=== PATIENT | male | born 1945 | race Caucasian/White ===

== ENCOUNTER 2023-05-12 21:55 | Emergency (ER) | payer OTHER ==
--- NOTE | 2023-05-12 22:17 | ED ---
Fall HPI - General Stated Complaint: Fall Time Seen by Provider: 05/12/23 22:16 Source: patient, RN notes reviewed - History of Present Illness Initial Comments: Patient is a 77-year-old male presented ER with chief complaint of a fall. Patient states he was going to sit on the toilet and did not step far enough back and fell landing on his bottom. Patient was unable to get up off the ground so he called for help. EMS recommended he come in to the ER for evaluation. Patient does have chronic back pain. Patient denies any head injury or loss of consciousness. Patient denies any current pain. - Related Data Allergies Allergy/AdvReac Type Severity Reaction Status Date / Time ibuprofen [From Motrin] AdvReac Nausea Verified 05/12/23 22:20 Review of Systems ROS Statement: Those systems with pertinent positive or pertinent negative responses have been documented in the HPI. ROS Other: All systems not noted in ROS Statement are negative. General Exam - General Exam Comments Initial Comments: Visual Physical Exam Vital signs reviewed General: Well-appearing, nontoxic, no acute distress. Head: Normocephalic, atraumatic Eyes: PERRLA, EOMI ENT: Airway patent Chest: Nonlabored breathing Skin: No visual rash, normal skin tone Neuro: Alert and oriented 3 Musculoskeletal: No gross abnormalities Course Vital Signs 05/12/23 22:16 Temperature 97.8 F Pulse Rate 63 Respiratory 16 Rate Blood Pressure 111/72 O2 Sat by Pulse 98 Oximetry Medical Decision Making - Medical Decision Making I performed the quick note portion of the exam. Electronically signed by Jatin Chen PA-C Disposition Clinical Impression: Left against medical advice Disposition: LEFT AGAINST MEDICAL ADVICE Condition: Undetermined Referrals: None,Stated [Primary Care Provider] - 1-2 days Time of Disposition: 18:29
[2023-05-12 22:32] VITALS: BP 111/72; PULSE 63; RESP 16; TEMP 97.8
--- NOTE | 2023-05-13 00:08 | XR ---
EXAM: XR Lumbosacral Spine, 2 or 3 Views CLINICAL HISTORY: Pain TECHNIQUE: Frontal and lateral views of the lumbar spine and sacrum. COMPARISON: No relevant prior studies available. FINDINGS: No acute fracture. Maintenance of height of the vertebral bodies. 3.5 mm posterior subluxation of L3 on L4. Levoscoliosis with multilevel degenerative changes throughout the lumbar spine. Anterior and lateral bridging osteophytes are noted. Severe bilateral facet hypertrophy is noted at L3-4 through L5-S1. Bones are osteopenic. Vascular calcifications. IMPRESSION: Levoscoliosis with diffuse degenerative changes throughout the lumbar spine greatest at L3-4 through L5-S1.
== END 2023-05-12 23:40 | disposition left against medical advice (07) ==
LOC: EC 21:55
DX: G89.29 Other chronic pain (principal); M54.9 Dorsalgia, unspecified; Z88.6 Allergy status to analgesic agent; Z53.29 Procedure and treatment not carried out because of patient's decision for other reasons; W18.11XA Fall from or off toilet without subsequent striking against object, initial encounter
CPT/HCPCS: 72100; 99283

== ENCOUNTER 2023-05-27 09:00 | Day surgery (SDC) | payer OTHER ==
[2023-05-27 09:37] LABS: Mean Platelet Volume 8.2; Platelet Count 155 k/uL (150-450)
[2023-05-27 09:43] VITALS: RESP 16; TEMP 99
[2023-05-27 09:48] LABS: African American GFR (CKD) >90 (>60 ml/min/1.73 sqM); Non-African American GFR(CKD) 86 (>60 ml/min/1.73 sqM)
[2023-05-27 10:01] LABS: INR 1.2 (<1.2); Prothrombin Time 12.9 sec (10.0-12.5)
[2023-05-27] MEDS: ALBUMIN HUMAN 25% 50 ML in EMPTY BAG 1 BAG IVPB SCH ×4 (10:33→11:21)
[2023-05-27 11:50] VITALS: BP 126/75; PULSE 72
--- NOTE | 2023-05-27 15:15 | US ---
Ultrasound-guided paracentesis. DATE OF EXAM: 05/27/2023 CLINICAL HISTORY: Ascites The procedure was discussed with the patient. The risks, complications, benefits, and alternatives we re discussed and any questions were answered. Informed consent was obtained. The patient was placed s upine on the ultrasound table and prepped and draped in the usual sterile fashion. All elements of maximal barrier technique were utilized. Under ultrasound guidance, access into the right lower quadrant was obtained, via the paracentesis catheter system and direct ultrasound guidanc e. Approximately 9.2 liters of straw-colored fluid was removed. The patient was stable throughout the pr ocedure and remained stable upon discharge from Department of Radiology. IMPRESSION: Successful paracentesis under ultrasound guidance.
[2023-05-27 16:56] LABS: Appearance,BF Cloudy (Clear)
[2023-05-28 01:59] LABS: T. Protein, Body Fluid Source Ascities; Total Protein, Body Fluid 1370 mg/dL
[2023-05-28 02:00] LABS: Albumin, Fluid Source Ascities
== END 2023-05-27 11:50 | disposition home or self-care (01) ==
LOC: RADPROMAIN 09:00
DX: R18.8 Other ascites (principal)
CPT/HCPCS: 82042; 89050; 82565; 85049; 85610; 87070; 87205; 87075; 84157; 36415; 49083; 99214; P9047

== ENCOUNTER → 2023-06-08 | Outpatient (CLI) | payer MEDICARE, OTHER ==
--- NOTE | 2023-06-08 11:23 | USB ---
Reason for Exam: Clinical finding. Patient History: Other cancer, age 62. Prior Study Comparison: 09/01/2022 Bilateral Diagnostic Mammogram, Unknown. Findings: The whole breast of the left breast, the axilla of the left breast and the retroareolar of the left breast were scanned. No solid or cystic masses are identified.. Suspect gynecomastia. Correlate clinically. Overall Assessment: Benign, BI-RAD 2 Electronically signed and approved by: Tello Aguilar M.D. Radiologis
--- NOTE | 2023-06-08 13:47 | MM ---
Reason for Exam: Follow-up at short interval from prior study. Last screening mammogram was performed 9 month(s) ago. Patient History: Other cancer, age 62. Prior Study Comparison: 09/01/2022 Bilateral Diagnostic Mammogram, Unknown. 09/01/2022 Left US breast LT, Unknown. Tissue Density: Left: There are scattered fibroglandular densities. Findings: Analyzed By CAD. There is evidence of bilateral gynecomastia. No evidence for distinct mass or suspicious calcifications. Overall Assessment: Incomplete: need additional imaging evaluation, BI-RAD 0 Management: Diagnostic Breast Ultrasound of the left breast. . Results were given to the patient verbally at the time of exam. Patient should continue monthly self-breast exams. A clinical breast exam by your physician is recommended on an annual basis. This exam should not preclude additional follow-up of suspicious palpable abnormalities. Note on Iman scores and lifetime risk: 1. A Iman score greater than 3% is considered moderate risk. If this is the case, consider specialist referral to assess eligibility for a risk reducing agent. 2. If overall lifetime risk for the development of breast cancer is 20% or higher, the patient may qualify for future screening with alternating mammogram and breast MRI. Electronically signed and approved by: Tello Aguilar M.D. Radiologis
== END | disposition home or self-care (01) ==
LOC: RADMAMWWP 04-28 14:12
DX: R92.322 Mammographic fibroglandular density, left breast (principal)
CPT/HCPCS: 77061; 77065

== ENCOUNTER 2023-06-10 07:39 | Day surgery (SDC) | payer OTHER ==
[2023-06-10 09:32] LABS: INR 1.2 (<1.2); Prothrombin Time 12.7 sec (10.0-12.5)
[2023-06-10 09:36] LABS: African American GFR (CKD) >90 (>60 ml/min/1.73 sqM); Non-African American GFR(CKD) 87 (>60 ml/min/1.73 sqM)
[2023-06-10 09:51] LABS: Platelet Count 200 k/uL (150-450)
[2023-06-10 10:06] VITALS: RESP 16; TEMP 98.1
[2023-06-10] MEDS: ALBUMIN HUMAN 25% 50 ML in EMPTY BAG 1 BAG IVPB SCH ×4 (10:22→10:28)
[2023-06-10 11:52] VITALS: BP 126/80; PULSE 72
--- NOTE | 2023-06-11 13:15 | US ---
EXAMINATION TYPE: US paracentesis abd w/image DATE OF EXAM: 06/10/2023 11:07 AM CLINICAL INDICATION:Male, 77 years old with history of K74.60 UNSPECIFIED CIRRHOSIS OF LIVER; COMPARISON: 05/27/2023 ATTENDING: Dr. Bi German PROCEDURE: Informed consent was obtained. The risks of the procedure were extensively explained incl uding risk of damage to surrounding bowel with perforation and need for additional procedures. Proced ure was performed in the ultrasound procedure suite. Ultrasound imaging of the abdomen demonstrate as citic fluid. An appropriate access site was localized to the right lower abdomen. Timeout was taken p er protocol. The skin was prepped and draped in the usual sterile fashion and then locally anesthetiz ed with 1% lidocaine. The peritoneal cavity was then accessed via a 5-Urdu one-step needle/cathete r. Approximately 9500 cc of clear straw-colored fluid was obtained. Postprocedural imaging of the ab domen demonstrate a minimal amount of abdominal fluid. Patient tolerated procedure well without immediate complication. Hemostasis at the procedural site w as obtained with a sterile bandage placed. The patient was monitored in the holding area following th e procedure and was subsequently discharged in stable condition. IMPRESSION: Ultrasound guided paracentesis, with approximately 9500 cc of clear straw-colored fluid drained. No immediate complications were evident.
== END 2023-06-10 11:34 | disposition home or self-care (01) ==
LOC: RADPROMAIN 07:39
DX: K74.60 Unspecified cirrhosis of liver (principal)
CPT/HCPCS: 82565; 85049; 85610; 36415; 49083; P9047

== ENCOUNTER 2023-06-17 12:26 | Day surgery (SDC) | payer OTHER ==
[2023-06-17 13:08] LABS: Mean Platelet Volume 8.8; Platelet Count 161 k/uL (150-450)
[2023-06-17 13:25] LABS: African American GFR (CKD) >90 (>60 ml/min/1.73 sqM); Non-African American GFR(CKD) >90 (>60 ml/min/1.73 sqM)
[2023-06-17 13:48] LABS: INR 1.3 (<1.2); Prothrombin Time 13.7 sec (10.0-12.5)
[2023-06-17 14:05] VITALS: RESP 16; TEMP 98
[2023-06-17] MEDS: ALBUMIN HUMAN 25% 50 ML in EMPTY BAG 1 BAG IVPB SCH (14:22)
[2023-06-17 15:38] VITALS: BP 118/71; PULSE 69
--- NOTE | 2023-06-17 15:52 | US ---
Ultrasound-guided paracentesis. DATE OF EXAM: 06/17/2023 CLINICAL HISTORY: Ascites The procedure was discussed with the patient. The risks, complications, benefits, and alternatives we re discussed and any questions were answered. Informed consent was obtained. The patient was placed s upine on the ultrasound table and prepped and draped in the usual sterile fashion. All elements of maximal barrier technique were utilized. Under ultrasound guidance, access into the right lower quadrant was obtained, via the paracentesis catheter system and direct ultrasound guidanc e. Approximately 5.5 liters of straw-colored fluid was removed. The patient was stable throughout the pr ocedure and remained stable upon discharge from Department of Radiology. IMPRESSION: Successful paracentesis under ultrasound guidance.
== END 2023-06-17 15:10 | disposition home or self-care (01) ==
LOC: RADPROMAIN 12:26
PROVIDERS: ATTEND Internal Medicine Gastroenterology
DX: R18.8 Other ascites (principal)
CPT/HCPCS: 82565; 85049; 85610; 36415; 49083; P9047

== ENCOUNTER 2023-06-24 08:06 | Day surgery (SDC) | payer OTHER ==
[2023-06-24 09:26] LABS: HCT 40.4 % (39.0-53.0); HGB 12.6 gm/dL (13.0-17.5); Hypochromasia Moderate; MCHC 31.3 g/dL (31.0-37.0); MCV 105.3 fL (80.0-100.0); Macrocytosis Moderate; Mean Platelet Volume 8.1; Platelet Count 160 k/uL (150-450); RBC 3.83 m/uL (4.30-5.90); RDW 15.5 % (11.5-15.5); WBC 4.2 k/uL (3.8-10.6)
[2023-06-24 09:37] LABS: ALT 23 U/L (4-49); AST 51 U/L (17-59); African American GFR (CKD) >90 (>60 ml/min/1.73 sqM); Albumin 2.8 g/dL (3.5-5.0); Alkaline Phosphatase 160 U/L (38-126); Anion Gap 2 mmol/L; Blood Urea Nitrogen 15 mg/dL (9-20); Calcium 8.5 mg/dL (8.4-10.2); Carbon Dioxide 32 mmol/L (22-30); Chloride 105 mmol/L (98-107); Glucose 125 mg/dL (74-99); Non-African American GFR(CKD) 83 (>60 ml/min/1.73 sqM); Potassium 3.6 mmol/L (3.5-5.1); Sodium 139 mmol/L (137-145); Total Bilirubin 1.6 mg/dL (0.2-1.3); Total Protein 6.3 g/dL (6.3-8.2)
[2023-06-24 09:58] LABS: Eosinophils # (M) 0.08 k/uL (0-0.7); Lymphocytes # (M) 0.67 k/uL (1.0-4.8); Monocytes # (M) 0.42 k/uL (0-1.0); Neutrophils # (M) 3.02 k/uL (1.3-7.7); Neutrophils % (M) 72 %; Nucleated Red Blood Cells 0 /100 WBC (0-0); Total Cells Counted 100
[2023-06-24 10:22] VITALS: PULSE 60; RESP 18; TEMP 98.7
[2023-06-24] MEDS: ALBUMIN HUMAN 25% 50 ML in EMPTY BAG 1 BAG IVPB SCH (10:35)
[2023-06-24 10:53] VITALS: BP 121/62
--- NOTE | 2023-06-24 11:44 | US ---
EXAMINATION TYPE: US paracentesis abd w/image DATE OF EXAM: 06/24/2023 9:59 AM CLINICAL INDICATION:Male, 77 years old with history of cirrhosis; COMPARISON: 06/17/2023. ATTENDING: Dr. Bi German PROCEDURE: Informed consent was obtained. The risks of the procedure were extensively explained incl uding risk of damage to surrounding bowel with perforation and need for additional procedures. Proced ure was performed in the ultrasound procedure suite. Ultrasound imaging of the abdomen demonstrate as citic fluid. An appropriate access site was localized to the right lower abdomen. Timeout was taken p er protocol. The skin was prepped and draped in the usual sterile fashion and then locally anesthetiz ed with 1% lidocaine. The peritoneal cavity was then accessed via a 5-Swedish one-step needle/cathete r. Approximately 5200 cc of clear straw-colored fluid was obtained. Postprocedural imaging of the ab domen demonstrate a minimal amount of abdominal fluid. Patient tolerated procedure well without immediate complication. Hemostasis at the procedural site w as obtained with a sterile bandage placed. The patient was monitored in the holding area following th e procedure and was subsequently discharged in stable condition. IMPRESSION: Ultrasound guided paracentesis, with approximately 5200 cc of clear straw-colored fluid drained. No immediate complications were evident.
== END 2023-06-24 11:09 | disposition home or self-care (01) ==
LOC: RADPROMAIN 08:06
PROVIDERS: ATTEND Internal Medicine Gastroenterology
DX: K74.60 Unspecified cirrhosis of liver (principal)
CPT/HCPCS: 80053; 82140; 85025; 82105; 36415; 49083; P9047

== ENCOUNTER → 2023-06-30 | Outpatient (CLI) | payer OTHER ==
--- NOTE | 2023-06-30 15:24 | US ---
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 FINDINGS: EXAM MEASUREMENTS: Liver Length: 13.2 cm Gallbladder Wall: 0.3 cm CBD: 0.6 cm Right Kidney: 11.7 x 6.4 x 5.1 cm PICK PULLING MACHINE TENDER NOTES: Pancreas: ? Heterogenous elongated area coursing along the length of the pancreas measuring 9 mm thi ck, possible ductal dilatation. Liver: Heterogeneous with diffusely nodular contour. No focal lesion seen. Gallbladder: wnl Evidence for sonographic Guadalupe's sign: No CBD: Acceptable given patient's age. Right Kidney: Cyst = 3.2 x 4.2 x 4.5 cm. No hydronephrosis. Marine Biologist notes: Scattered [id number] ascites seen IMPRESSION: 1. Questionable dilatation of the main pancreatic duct up to 9 mm. Further cross-sectional evaluation may be needed to clarify this finding. 2. Cirrhosis. No sonographic evidence for hepatoma. 3. Bile duct caliber of 6 mm Doppler limits of normal, acceptable given patient's age. 4. Mild to moderate abdominal ascites.
== END | disposition home or self-care (01) ==
LOC: RADUSWWP 07:52
PROVIDERS: ATTEND Internal Medicine Gastroenterology
DX: K70.31 Alcoholic cirrhosis of liver with ascites (principal)
CPT/HCPCS: 76705

== ENCOUNTER 2023-07-01 07:45 | Day surgery (SDC) | payer OTHER ==
[2023-07-01 08:46] LABS: Mean Platelet Volume 8.2; Platelet Count 131 k/uL (150-450)
[2023-07-01 08:51] LABS: INR 1.2 (<1.2); Prothrombin Time 12.9 sec (10.0-12.5)
[2023-07-01 08:58] LABS: African American GFR (CKD) >90 (>60 ml/min/1.73 sqM); Non-African American GFR(CKD) 84 (>60 ml/min/1.73 sqM)
[2023-07-01] MEDS: ALBUMIN HUMAN 25% 50 ML in EMPTY BAG 1 BAG IVPB SCH (09:47)
[2023-07-01 10:04] VITALS: TEMP 98
[2023-07-01 10:36] VITALS: BP 154/84; PULSE 62; RESP 16
--- NOTE | 2023-07-01 12:14 | US ---
Ultrasound-guided paracentesis. DATE OF EXAM: 07/01/2023 CLINICAL HISTORY: Ascites The procedure was discussed with the patient. The risks, complications, benefits, and alternatives we re discussed and any questions were answered. Informed consent was obtained. The patient was placed s upine on the ultrasound table and prepped and draped in the usual sterile fashion. All elements of maximal barrier technique were utilized. Under ultrasound guidance, access into the right lower quadrant was obtained, via the paracentesis catheter system and direct ultrasound guidanc e. Approximately 5.3 liters of straw-colored fluid was removed. The patient was stable throughout the pr ocedure and remained stable upon discharge from Department of Radiology. IMPRESSION: Successful paracentesis under ultrasound guidance.
== END 2023-07-01 10:15 | disposition home or self-care (01) ==
LOC: RADPROMAIN 07:45
PROVIDERS: ATTEND Internal Medicine Gastroenterology
DX: R18.8 Other ascites (principal)
CPT/HCPCS: 82565; 85049; 85610; 36415; 49083; P9047

== ENCOUNTER → 2023-07-05 | Outpatient (CLI) | payer OTHER ==
--- NOTE | 2023-07-05 14:10 | CT ---
EXAMINATION TYPE: CT thor lumbar spine wo con DATE OF EXAM: 07/05/2023 COMPARISON: None HISTORY: 77-year-old male M54.50, Pain TECHNIQUE: Contiguous axial scanning of the thoracic and lumbar spine without IV contrast. Coronal an d sagittal reconstructions performed. CT DLP: 2479.3 mGycm Automated exposure control for dose reduction was used. FINDINGS: Left anterior chest wall pacemaker generator with right atrial and right ventricular leads. Moderate emphysematous change. Mildly enlarged caliber main right and left pulmonary arteries up to 2 .9 cm suggesting pulmonary arterial hypertension. Suggestion of fibrotic changes in the lower lungs. Trace left pleural effusion. At least moderate abdominal pelvic ascites. Right renal cyst measuring up to 3.9 cm and left renal st one measuring up to 4 mm. Surgical clip adjacent to the gallbladder. Anasarca change and mild general ized mesenteric edema. Moderate to advanced spondylotic change lower cervical spine. There is dish throughout the mid and lower thoracic spine down to the L1 level and additional anterio r bridging endplate spondylosis L-2-L3 and L6-S1. We note 6 lumbar type vertebral bodies. Vertebral body heights are preserved. Degenerative grade 1 retrolisthesis L2-L3 and L3-L4. Severe degenerative disc disease mid lumbar spine with severe hypertrophic facet arthropathy througho ut the lumbar spine. No evident high-grade canal compromise in the thoracic spine. However, there is moderate to severe spinal canal stenosis at L3-L4 and severe spinal canal stenosis at L4-L5 and L5-L6. On the left, changes resulting in severe neuroforaminal stenoses L4-L5 and L5-L6 and moderate through out additional levels throughout the lumbar spine and lower thoracic spine. On the right, moderate to severe neuroforaminal stenoses L2-L5 levels and additional moderate stenose s throughout multiple levels of the lower thoracic spine. IMPRESSION: 1. NO VERTEBRAL COMPRESSION COLLAPSE. ADVANCED SPONDYLOTIC CHANGES THROUGHOUT THE LUMBAR SPINE WITH D EGENERATIVE GRADE 1 RETROLISTHESIS L2-L3 AND L3-L4. 2. DISH THROUGHOUT THE MID AND LOWER THORACIC SPINE AND ALSO BRIDGING ENDPLATE SPONDYLOSIS AT L2-L3 A ND L6-S1 (NOTE 6 LUMBAR TYPE VERTEBRAL BODIES). 3. SEVERE SPINAL CANAL STENOSIS L4-L5 AND L5-L6. MODERATE TO SEVERE AT L3-L4. 4. VARIABLE NEUROFORAMINAL STENOSES OUTLINED ABOVE, SEVERE ON THE LEFT AT L4-L5 AND L5-L6; MODERAT E TO SEVERE ON THE RIGHT FROM L2 THROUGH L5 LEVELS. 5. AT LEAST MODERATE ABDOMINOPELVIC ASCITES. TRACE LEFT PLEURAL EFFUSION. COPD WITH MODERATE EMPHYSEM A AND PULMONARY ARTERY HYPERTENSION. ADDITIONAL BIBASILAR FIBROSIS.
== END | disposition home or self-care (01) ==
LOC: RADCTMAIN 12:59
PROVIDERS: ATTEND Orthopaedic Surgery
DX: M43.16 Spondylolisthesis, lumbar region (principal); M48.061 Spinal stenosis, lumbar region without neurogenic claudication; M99.73 Connective tissue and disc stenosis of intervertebral foramina of lumbar region; M47.815 Spondylosis without myelopathy or radiculopathy, thoracolumbar region; J90 Pleural effusion, not elsewhere classified; J84.10 Pulmonary fibrosis, unspecified; J44.9 Chronic obstructive pulmonary disease, unspecified; I27.20 Pulmonary hypertension, unspecified; J43.9 Emphysema, unspecified; R18.8 Other ascites
CPT/HCPCS: 72128; 72131

== ENCOUNTER 2023-07-08 12:41 | Day surgery (SDC) | payer OTHER ==
[2023-07-08 13:39] LABS: Mean Platelet Volume 8.5; Platelet Count 153 k/uL (150-450)
[2023-07-08 13:45] LABS: African American GFR (CKD) >90 (>60 ml/min/1.73 sqM); Non-African American GFR(CKD) 87 (>60 ml/min/1.73 sqM)
[2023-07-08 13:51] LABS: INR 1.2 (<1.2); Prothrombin Time 12.4 sec (10.0-12.5)
[2023-07-08 15:30] VITALS: RESP 18; TEMP 97.6
[2023-07-08] MEDS: ALBUMIN HUMAN 25% 50 ML in EMPTY BAG 1 BAG IVPB SCH (15:30)
[2023-07-08 16:03] VITALS: BP 123/80; PULSE 84
--- NOTE | 2023-07-09 10:39 | US ---
EXAMINATION TYPE: US paracentesis abd w/image DATE OF EXAM: 07/08/2023 2:40 PM CLINICAL INDICATION:Male, 77 years old with history of K74.60; COMPARISON: 07/01/2023 ATTENDING: Dr. Bi German PROCEDURE: Informed consent was obtained. The risks of the procedure were extensively explained incl uding risk of damage to surrounding bowel with perforation and need for additional procedures. Proced ure was performed in the ultrasound procedure suite. Ultrasound imaging of the abdomen demonstrate as citic fluid. An appropriate access site was localized to the right lower abdomen. Timeout was taken p er protocol. The skin was prepped and draped in the usual sterile fashion and then locally anesthetiz ed with 1% lidocaine. The peritoneal cavity was then accessed via a 5-Hong Konger one-step needle/cathete r. Approximately 5200 cc of clear straw-colored fluid was obtained. Postprocedural imaging of the ab domen demonstrate a minimal amount of abdominal fluid. Patient tolerated procedure well without immediate complication. Hemostasis at the procedural site w as obtained with a sterile bandage placed. The patient was monitored in the holding area following th e procedure and was subsequently discharged in stable condition. IMPRESSION: Ultrasound guided paracentesis, with approximately 5200 cc of clear straw-colored fluid drained. No i mmediate complications were evident.
== END 2023-07-08 16:05 | disposition home or self-care (01) ==
LOC: RADPROMAIN 12:41
PROVIDERS: ATTEND Internal Medicine Gastroenterology
DX: R18.8 Other ascites (principal)
CPT/HCPCS: 82565; 85049; 85610; 36415; 49083; P9047

== ENCOUNTER 2023-07-09 12:19 | Day surgery (SDC) | payer OTHER ==
[2023-07-07 10:29] VITALS: BMI 28.8
[2023-07-09] MEDS: LACTATED RINGERS 1,000 ML IV SCH (14:28)
[2023-07-09 14:44] VITALS: RESP 16; TEMP 97
[2023-07-09] MEDS ORDERED: PROPOFOL 10 MG/ML 20 ML VIAL IV ONE (14:51)
[2023-07-09] MEDS ORDERED: LIDOCAINE 1% INJ 10MG/ML (20 ML MDV) ONE (14:51)
--- NOTE | 2023-07-09 15:16 | P.PCN ---
Date of Procedure: 07/09/23 Procedure(s) Performed: Brief history: Patient is a pleasant 77-year-old white male scheduled for an elective upper endoscopy as well as colonoscopy as a part of screening for esophageal varices and history of alcoholic liver cirrhosis of the liver. He also has prior history of colon polyps and hence: Reading for colonoscopy today. Procedure performed: Esophagogastroduodenoscopy Colonoscopy with biopsy Preoperative diagnosis: History of cirrhosis of the liver/screening for esophageal varices History of colon polyps Anesthesia: MAC Procedure: After informed consent was obtained from the patient was brought into the endoscopy unit and IV sedation was administered by anesthesia under continuous monitoring. Initially upper endoscopy was done. The Olympus GF 160 video endoscope was inserted inserted into the mouth and esophagus intubated without any difficulty and was gradually advanced into the stomach and duodenum and carefully examined. The bulb and second part of the duodenum appeared normal. The scope was then withdrawn into the stomach adequately insufflated with air and upon careful examination the antrum had mild gastritis. Mucosa of the body, cardia and fundus appeared normal. No gastric varices identified. The scope was then withdrawn into the esophagus. The GE junction was located at 40 cm to the incisors. It appeared regular with no erythema erosions or ulcerations. Small distal esophageal varices identified. Rest of the esophagus appeared normal. Patient tolerated the procedure well. At this time the patient continued to remain sedation. Initial digital rectal examination was normal. Olympus CF 160 video colonoscope was then inserted into the rectum and gradually advanced to the cecum without any difficulty. Careful examination was performed as the scope was gradually being withdrawn. The prep was excellent. The cecum, ascending colon, appeared normal. In the transverse colon there was a 4 mm polyp that was removed by cold biopsy. In the descending colon there were 2 polyps measuring 3 mm in size removed by cold biopsy. Rest of the transverse colon, descending colon, sigmoid colon and rectum appeared normal. Retroflexion was performed in the rectum and no lesions were noted. Patient tolerated the procedure well. Impression: 1. Upper endoscopy revealed small distal esophageal varices and mild gastritis 2. Colonoscopy revealed 4 mm transverse colon polyp and 3 mm 2 descending colon polyp status post removal by cold biopsy Recommendations: Findings of this examination were discussed with the patient as well as his family. He was advised to follow with the biopsy results. Follow up in office in 3-4 weeks.
[2023-07-09 15:58] VITALS: BP 107/68; PULSE 71
== END 2023-07-09 16:00 ==
LOC: ORWHC2ENDO 12:19
PROVIDERS: ATTEND Internal Medicine Gastroenterology
DX: Z12.11 Encounter for screening for malignant neoplasm of colon (principal); D12.4 Benign neoplasm of descending colon; D12.3 Benign neoplasm of transverse colon; I85.10 Secondary esophageal varices without bleeding; Z88.6 Allergy status to analgesic agent; Z85.46 Personal history of malignant neoplasm of prostate; Z79.899 Other long term (current) drug therapy; Z79.01 Long term (current) use of anticoagulants; Z86.010 Personal history of colon polyps; Z98.890 Other specified postprocedural states; K29.50 Unspecified chronic gastritis without bleeding
CPT/HCPCS: 88305; 45380; 43235; J2001; J2704

== ENCOUNTER 2023-07-15 12:14 | Day surgery (SDC) | payer OTHER ==
[2023-07-15 12:50] LABS: Mean Platelet Volume 7.8; Platelet Count 164 k/uL (150-450)
[2023-07-15 12:59] LABS: African American GFR (CKD) >90 (>60 ml/min/1.73 sqM); Non-African American GFR(CKD) >90 (>60 ml/min/1.73 sqM)
[2023-07-15 13:03] LABS: INR 1.2 (<1.2); Prothrombin Time 13.1 sec (10.0-12.5)
[2023-07-15 13:26] VITALS: TEMP 98
[2023-07-15] MEDS: ALBUMIN HUMAN 25% 50 ML in EMPTY BAG 1 BAG IVPB SCH (13:44)
[2023-07-15 14:00] VITALS: RESP 16
[2023-07-15 14:36] VITALS: BP 113/68; PULSE 62
--- NOTE | 2023-07-15 18:14 | US ---
EXAMINATION TYPE: US paracentesis abd w/image DATE OF EXAM: 07/15/2023 CLINICAL HISTORY: 77-year-old male K74.60, alcoholic cirrhosis of liver with ascites The procedure was discussed with the patient. The risks, complications, benefits, and alternatives we re discussed and any questions were answered. Informed consent was obtained. The patient was placed s upine on the ultrasound table and prepped and draped in the usual sterile fashion. All elements of maximal barrier technique were utilized. Ultrasound was utilized to determine the precise skin entry site along the left lower quadrant/left f lank. A 5 Slovak One-Step catheter and trocar technique was utilized to access the ascites collection under direct ultrasound guidance. Approximately 6 liters of clear, straw-colored fluid was removed. Catheter was removed, hemostasis obtained, and a dressing placed. The patient was stable throughout the procedure and remained stable upon discharge from Department of Radiology. IMPRESSION: Successful therapeutic paracentesis under ultrasound guidance. 6 L of fluid removed.
== END 2023-07-15 14:35 | disposition home or self-care (01) ==
LOC: RADPROMAIN 12:14
PROVIDERS: ATTEND Internal Medicine Gastroenterology
DX: K70.31 Alcoholic cirrhosis of liver with ascites (principal)
CPT/HCPCS: 82565; 85049; 85610; 36415; 49083; P9047

== ENCOUNTER 2023-07-22 12:18 | Day surgery (SDC) | payer OTHER ==
[2023-07-22 12:52] LABS: Mean Platelet Volume 8.1; Platelet Count 183 k/uL (150-450)
[2023-07-22 13:02] LABS: INR 1.2 (<1.2)
[2023-07-22 13:05] LABS: African American GFR (CKD) >90 (>60 ml/min/1.73 sqM); Non-African American GFR(CKD) 85 (>60 ml/min/1.73 sqM)
[2023-07-22] MEDS: ALBUMIN HUMAN 25% 50 ML in EMPTY BAG 1 BAG IVPB SCH (13:22)
[2023-07-22 13:29] VITALS: RESP 16; TEMP 98
[2023-07-22] MEDS: ALBUMIN HUMAN 25% 50 ML in EMPTY BAG 1 BAG IVPB ONE (14:06)
--- NOTE | 2023-07-22 14:59 | US ---
EXAMINATION TYPE: US paracentesis abd w/image DATE OF EXAM: 07/22/2023 1:29 PM CLINICAL INDICATION:Male, 77 years old with history of K74.60 ALCOHOLIC CIRRHOSIS OF LIVER WITH ASCIT ES; COMPARISON: 07/15/2023. ATTENDING: Dr. Bi German PROCEDURE: Informed consent was obtained. The risks of the procedure were extensively explained incl uding risk of damage to surrounding bowel with perforation and need for additional procedures. Proced ure was performed in the ultrasound procedure suite. Ultrasound imaging of the abdomen demonstrate as citic fluid. An appropriate access site was localized to the right lower abdomen. Timeout was taken p er protocol. The skin was prepped and draped in the usual sterile fashion and then locally anesthetiz ed with 1% lidocaine. The peritoneal cavity was then accessed via a 5-Portuguese one-step needle/cathete r. Approximately 7500 cc of clear straw-colored fluid was obtained. Postprocedural imaging of the ab domen demonstrate a minimal amount of abdominal fluid. Patient tolerated procedure well without immediate complication. Hemostasis at the procedural site w as obtained with a sterile bandage placed. The patient was monitored in the holding area following th e procedure and was subsequently discharged in stable condition. IMPRESSION: Ultrasound guided paracentesis, with approximately 7500 cc of clear straw-colored fluid drained. No i mmediate complications were evident.
[2023-07-22 15:16] VITALS: BP 128/71; PULSE 66
== END 2023-07-22 14:45 | disposition home or self-care (01) ==
LOC: RADPROMAIN 12:18
PROVIDERS: ATTEND Internal Medicine Gastroenterology
DX: K70.31 Alcoholic cirrhosis of liver with ascites (principal)
CPT/HCPCS: 82565; 85049; 85610; 36415; 49083; P9047

== ENCOUNTER 2023-07-29 12:09 | Day surgery (SDC) | payer OTHER ==
[2023-07-29 12:40] LABS: Mean Platelet Volume 7.8; Platelet Count 162 k/uL (150-450)
[2023-07-29 12:43] VITALS: TEMP 97.3
[2023-07-29 13:11] LABS: INR 1.1 (<1.2); Prothrombin Time 11.8 sec (10.0-12.5)
[2023-07-29 13:17] LABS: African American GFR (CKD) >90 (>60 ml/min/1.73 sqM); Non-African American GFR(CKD) 82 (>60 ml/min/1.73 sqM)
[2023-07-29] MEDS: ALBUMIN HUMAN 25% 50 ML in EMPTY BAG 1 BAG IVPB SCH (13:58)
[2023-07-29 14:33] VITALS: RESP 12
--- NOTE | 2023-07-29 15:07 | US ---
Ultrasound-guided paracentesis. DATE OF EXAM: 07/29/2023 CLINICAL HISTORY: Ascites The procedure was discussed with the patient. The risks, complications, benefits, and alternatives we re discussed and any questions were answered. Informed consent was obtained. The patient was placed s upine on the ultrasound table and prepped and draped in the usual sterile fashion. All elements of maximal barrier technique were utilized. Under ultrasound guidance, access into the right lower quadrant was obtained, via the paracentesis catheter system and direct ultrasound guidanc e. Approximately 7..0 liters of straw-colored fluid was removed. The patient was stable throughout the p rocedure and remained stable upon discharge from Department of Radiology. IMPRESSION: Successful paracentesis under ultrasound guidance.
[2023-07-29 15:09] VITALS: BP 129/72; PULSE 66
== END 2023-07-29 15:10 | disposition home or self-care (01) ==
LOC: RADPROMAIN 12:09
PROVIDERS: ATTEND Internal Medicine Gastroenterology
DX: R18.8 Other ascites (principal)
CPT/HCPCS: 82565; 85049; 85610; 49083; P9047

== ENCOUNTER 2023-08-05 12:11 | Day surgery (SDC) | payer OTHER ==
[2023-08-05 12:59] LABS: Mean Platelet Volume 8.2; Platelet Count 145 k/uL (150-450)
[2023-08-05 13:02] VITALS: TEMP 98.3
[2023-08-05 13:08] LABS: African American GFR (CKD) >90 (>60 ml/min/1.73 sqM); Non-African American GFR(CKD) 87 (>60 ml/min/1.73 sqM)
[2023-08-05 13:09] LABS: INR 1.1 (<1.2); Prothrombin Time 12.1 sec (10.0-12.5)
[2023-08-05] MEDS: ALBUMIN HUMAN 25% 50 ML in EMPTY BAG 1 BAG IVPB SCH (13:47)
[2023-08-05 14:15] VITALS: PULSE 60; RESP 12
[2023-08-05 14:52] VITALS: BP 143/86
--- NOTE | 2023-08-05 15:47 | US ---
Ultrasound-guided paracentesis. DATE OF EXAM: 08/05/2023 CLINICAL HISTORY: Ascites The procedure was discussed with the patient. The risks, complications, benefits, and alternatives we re discussed and any questions were answered. Informed consent was obtained. The patient was placed s upine on the ultrasound table and prepped and draped in the usual sterile fashion. All elements of maximal barrier technique were utilized. Under ultrasound guidance, access into the right lower quadrant was obtained, via the paracentesis catheter system and direct ultrasound guidanc e. Approximately 7.8 liters of straw-colored fluid was removed. The patient was stable throughout the pr ocedure and remained stable upon discharge from Department of Radiology. IMPRESSION: Successful paracentesis under ultrasound guidance.
== END 2023-08-05 15:00 | disposition home or self-care (01) ==
LOC: RADPROMAIN 12:11
PROVIDERS: ATTEND Internal Medicine Gastroenterology
DX: K70.31 Alcoholic cirrhosis of liver with ascites (principal)
CPT/HCPCS: 82565; 85049; 85610; 49083; P9047

== ENCOUNTER 2023-08-12 12:21 | Day surgery (SDC) | payer OTHER ==
[2023-08-12 13:18] LABS: INR 1.2 (<1.2); Prothrombin Time 12.6 sec (10.0-12.5)
[2023-08-12] MEDS: ALBUMIN HUMAN 25% 50 ML in EMPTY BAG 1 BAG IVPB SCH (13:22)
[2023-08-12 13:26] LABS: African American GFR (CKD) >90 (>60 ml/min/1.73 sqM); Mean Platelet Volume 7.9; Non-African American GFR(CKD) 89 (>60 ml/min/1.73 sqM); Platelet Count 152 k/uL (150-450)
[2023-08-12 13:41] VITALS: PULSE 60; RESP 16; TEMP 98.1
[2023-08-12 15:41] VITALS: BP 124/70
--- NOTE | 2023-08-16 09:32 | US ---
EXAMINATION TYPE: US paracentesis abd w/image DATE OF EXAM: 08/12/2023 2:06 PM CLINICAL INDICATION:Male, 77 years old with history of K74.60 UNSPECIFIED CIRRHOSIS OF LIVER; COMPARISON: 08/05/2023 ATTENDING: Dr. Bi German PROCEDURE: Informed consent was obtained. The risks of the procedure were extensively explained incl uding risk of damage to surrounding bowel with perforation and need for additional procedures. Proced ure was performed in the ultrasound procedure suite. Ultrasound imaging of the abdomen demonstrate as citic fluid. An appropriate access site was localized to the right lower abdomen. Timeout was taken p er protocol. The skin was prepped and draped in the usual sterile fashion and then locally anesthetiz ed with 1% lidocaine. The peritoneal cavity was then accessed via a 5-Telugu one-step needle/cathete r. Approximately 7100 cc of clear straw-colored fluid was obtained. Postprocedural imaging of the a bdomen demonstrate a minimal amount of abdominal fluid. Patient tolerated procedure well without immediate complication. Hemostasis at the procedural site w as obtained with a sterile bandage placed. The patient was monitored in the holding area following th e procedure and was subsequently discharged in stable condition. IMPRESSION: Ultrasound guided paracentesis, with approximately 7100 cc of clear straw-colored fluid drained. No immediate complications were evident.
== END 2023-08-12 15:00 | disposition home or self-care (01) ==
LOC: RADPROMAIN 12:21
PROVIDERS: ATTEND Internal Medicine Gastroenterology
DX: K70.31 Alcoholic cirrhosis of liver with ascites (principal)
CPT/HCPCS: 82565; 85049; 85610; 36415; 49083; P9047

== ENCOUNTER 2023-08-19 12:22 | Day surgery (SDC) | payer OTHER ==
[2023-08-19 13:00] LABS: Mean Platelet Volume 7.8; Platelet Count 170 k/uL (150-450)
[2023-08-19 13:15] LABS: African American GFR (CKD) >90 (>60 ml/min/1.73 sqM); Non-African American GFR(CKD) 88 (>60 ml/min/1.73 sqM)
[2023-08-19 13:21] LABS: INR 1.1 (<1.2)
[2023-08-19] MEDS: ALBUMIN HUMAN 25% 50 ML in EMPTY BAG 1 BAG IVPB SCH (13:36)
[2023-08-19 13:39] VITALS: RESP 16; TEMP 97.5
[2023-08-19 15:03] VITALS: BP 124/79; PULSE 65
--- NOTE | 2023-08-20 08:10 | US ---
Ultrasound-guided paracentesis. DATE OF EXAM: 08/19/2023 CLINICAL HISTORY: Ascites The procedure was discussed with the patient. The risks, complications, benefits, and alternatives we re discussed and any questions were answered. Informed consent was obtained. The patient was placed s upine on the ultrasound table and prepped and draped in the usual sterile fashion. All elements of maximal barrier technique were utilized. Under ultrasound guidance, access into the right lower quadrant was obtained, via the paracentesis catheter system and direct ultrasound guidanc e. Approximately 7.5 liters of straw-colored fluid was removed. The patient was stable throughout the pr ocedure and remained stable upon discharge from Department of Radiology. IMPRESSION: Successful paracentesis under ultrasound guidance.
== END 2023-08-19 14:45 | disposition home or self-care (01) ==
LOC: RADPROMAIN 12:22
PROVIDERS: ATTEND Internal Medicine Gastroenterology
DX: R18.8 Other ascites (principal)
CPT/HCPCS: 82565; 85049; 85610; 36415; 49083; P9047

== ENCOUNTER 2023-08-26 12:19 | Day surgery (SDC) | payer OTHER ==
[2023-08-26 13:03] LABS: Mean Platelet Volume 7.8; Platelet Count 158 k/uL (150-450)
[2023-08-26 13:14] LABS: INR 1.1 (<1.2); Prothrombin Time 12.2 sec (10.0-12.5)
[2023-08-26 13:16] LABS: African American GFR (CKD) >90 (>60 ml/min/1.73 sqM); Non-African American GFR(CKD) 85 (>60 ml/min/1.73 sqM)
[2023-08-26] MEDS: ALBUMIN HUMAN 25% 50 ML in EMPTY BAG 1 BAG IVPB SCH (13:37)
[2023-08-26 13:40] VITALS: RESP 16; TEMP 98.3
[2023-08-26 15:12] VITALS: BP 113/62; PULSE 66
--- NOTE | 2023-08-26 15:22 | US ---
EXAMINATION TYPE: US paracentesis abd w/image DATE OF EXAM: 08/26/2023 2:59 PM CLINICAL INDICATION:Male, 77 years old with history of K70.31 alcoholic cirrhosis; COMPARISON: 08/19/2023 ATTENDING: Dr. Bi German PROCEDURE: Informed consent was obtained. The risks of the procedure were extensively explained incl uding risk of damage to surrounding bowel with perforation and need for additional procedures. Proced ure was performed in the ultrasound procedure suite. Ultrasound imaging of the abdomen demonstrate as citic fluid. An appropriate access site was localized to the right lower abdomen. Timeout was taken p er protocol. The skin was prepped and draped in the usual sterile fashion and then locally anesthetiz ed with 1% lidocaine. The peritoneal cavity was then accessed via a 5-Ukrainian one-step needle/cathete r. Approximately 7300 cc of clear straw-colored fluid was obtained. Postprocedural imaging of the ab domen demonstrate a minimal amount of abdominal fluid. Patient tolerated procedure well without immediate complication. Hemostasis at the procedural site w as obtained with a sterile bandage placed. The patient was monitored in the holding area following th e procedure and was subsequently discharged in stable condition. IMPRESSION: Ultrasound guided paracentesis, with approximately 7300 cc of clear straw-colored fluid drained. No immediate complications were evident.
== END 2023-08-26 14:45 | disposition home or self-care (01) ==
LOC: RADPROMAIN 12:19
PROVIDERS: ATTEND Internal Medicine Gastroenterology
DX: K70.31 Alcoholic cirrhosis of liver with ascites (principal)
CPT/HCPCS: 82565; 85049; 85610; 49083; P9047

== ENCOUNTER 2023-09-02 12:26 | Day surgery (SDC) | payer OTHER ==
[2023-09-02 13:14] VITALS: RESP 16; TEMP 97.6
[2023-09-02] MEDS: ALBUMIN HUMAN 25% 50 ML in EMPTY BAG 1 BAG IVPB SCH (13:36)
[2023-09-02 13:58] VITALS: PULSE 60
[2023-09-02 14:43] VITALS: BP 129/73
--- NOTE | 2023-09-02 16:08 | US ---
EXAMINATION TYPE: US paracentesis abd w/image DATE OF EXAM: 09/02/2023 CLINICAL HISTORY: 78-year-old male K70.31, alcoholic cirrhosis of liver The procedure was discussed with the patient. The risks, complications, benefits, and alternatives we re discussed and any questions were answered. Informed consent was obtained. The patient was placed s upine on the ultrasound table and prepped and draped in the usual sterile fashion. All elements of maximal barrier technique were utilized. Ultrasound was utilized to determine the precise skin entry site along the left lower quadrant/left f lank. A 5 Tristanian One-Step catheter and trocar technique was utilized to access the ascites collection under direct ultrasound guidance. Approximately 5.7 liters of typical, slightly opaque salmon-colored fluid was removed. Catheter was removed, hemostasis obtained, and a dressing placed. The patient was stable throughout the procedure and remained stable upon discharge from Department of Radiology. IMPRESSION: Successful therapeutic paracentesis under ultrasound guidance. 5.7 L of typical colored fluid removed .
== END 2023-09-02 14:44 | disposition home or self-care (01) ==
LOC: RADPROMAIN 12:26
PROVIDERS: ATTEND Internal Medicine Gastroenterology
DX: K70.31 Alcoholic cirrhosis of liver with ascites (principal)
CPT/HCPCS: 49083; P9047

== ENCOUNTER → 2023-09-09 | Day surgery (SDC) | payer OTHER ==
[2023-09-09] MEDS: ALBUMIN HUMAN 25% 50 ML in EMPTY BAG 1 BAG IVPB SCH (13:04)
[2023-09-09 13:50] VITALS: RESP 16; TEMP 98.9
[2023-09-09 14:35] VITALS: BP 131/83; PULSE 65
--- NOTE | 2023-09-09 14:51 | US ---
Ultrasound-guided paracentesis. DATE OF EXAM: 09/09/2023 CLINICAL HISTORY: Ascites The procedure was discussed with the patient. The risks, complications, benefits, and alternatives we re discussed and any questions were answered. Informed consent was obtained. The patient was placed s upine on the ultrasound table and prepped and draped in the usual sterile fashion. All elements of maximal barrier technique were utilized. Under ultrasound guidance, access into the right lower quadrant was obtained, via the paracentesis catheter system and direct ultrasound guidanc e. Approximately 4.8 liters of straw-colored fluid was removed. The patient was stable throughout the pr ocedure and remained stable upon discharge from Department of Radiology. IMPRESSION: Successful paracentesis under ultrasound guidance.
== END ==
LOC: RADPROMAIN 12:20
PROVIDERS: ATTEND Internal Medicine Gastroenterology
DX: R18.8 Other ascites (principal)
CPT/HCPCS: 36415; 49083; P9047

== ENCOUNTER 2023-09-16 12:24 | Day surgery (SDC) | payer OTHER ==
[2023-09-16 13:09] LABS: Mean Platelet Volume 7.8; Platelet Count 163 k/uL (150-450)
[2023-09-16 13:32] LABS: African American GFR (CKD) >90 (>60 ml/min/1.73 sqM); Non-African American GFR(CKD) 86 (>60 ml/min/1.73 sqM)
[2023-09-16 13:33] LABS: INR 1.2 (<1.2); Prothrombin Time 12.7 sec (10.0-12.5)
[2023-09-16 13:40] VITALS: TEMP 98.8
[2023-09-16] MEDS: ALBUMIN HUMAN 25% 50 ML in EMPTY BAG 1 BAG IVPB SCH (13:41)
[2023-09-16 14:27] VITALS: BP 108/66; PULSE 56; RESP 16
--- NOTE | 2023-09-17 07:52 | US ---
Ultrasound-guided paracentesis. DATE OF EXAM: 09/16/2023 CLINICAL HISTORY: Ascites The procedure was discussed with the patient. The risks, complications, benefits, and alternatives we re discussed and any questions were answered. Informed consent was obtained. The patient was placed s upine on the ultrasound table and prepped and draped in the usual sterile fashion. All elements of maximal barrier technique were utilized. Under ultrasound guidance, access into the left lower quadrant was obtained, via the paracentesis catheter system and direct ultrasound guidance . Approximately 5 liters of straw-colored fluid was removed. The patient was stable throughout the proc edure and remained stable upon discharge from Department of Radiology. IMPRESSION: Successful paracentesis under ultrasound guidance.
== END 2023-09-16 14:45 | disposition home or self-care (01) ==
LOC: RADPROMAIN 12:24
PROVIDERS: ATTEND Internal Medicine Gastroenterology
DX: R18.8 Other ascites (principal)
CPT/HCPCS: 82565; 85049; 85610; 36415; 49083; P9047

== ENCOUNTER 2023-09-23 12:20 | Day surgery (SDC) | payer OTHER ==
[2023-09-23 13:09] VITALS: TEMP 97.9
[2023-09-23] MEDS: ALBUMIN HUMAN 25% 50 ML in EMPTY BAG 1 BAG IVPB SCH (13:50)
[2023-09-23 15:07] VITALS: BP 127/76; PULSE 62; RESP 15
--- NOTE | 2023-09-24 11:10 | US ---
EXAMINATION TYPE: US paracentesis abd w/image DATE OF EXAM: 09/23/2023 2:07 PM CLINICAL INDICATION:Male, 78 years old with history of K74.60 UNSPECIFIED CIRRHOSIS OF LIVER; COMPARISON: 09/15/2022 ATTENDING: Dr. Bi German PROCEDURE: Informed consent was obtained. The risks of the procedure were extensively explained incl uding risk of damage to surrounding bowel with perforation and need for additional procedures. Proced ure was performed in the ultrasound procedure suite. Ultrasound imaging of the abdomen demonstrate as citic fluid. An appropriate access site was localized to the right lower abdomen. Timeout was taken p er protocol. The skin was prepped and draped in the usual sterile fashion and then locally anesthetiz ed with 1% lidocaine. The peritoneal cavity was then accessed via a 5-Wolof one-step needle/cathete r. Approximately 4800 cc of clear straw-colored fluid was obtained. Postprocedural imaging of the a bdomen demonstrate a minimal amount of abdominal fluid. Patient tolerated procedure well without immediate complication. Hemostasis at the procedural site w as obtained with a sterile bandage placed. The patient was monitored in the holding area following th e procedure and was subsequently discharged in stable condition. IMPRESSION: Ultrasound guided paracentesis, with approximately 4800 cc of clear straw-colored fluid drained. No immediate complications were evident.
== END 2023-09-23 14:39 | disposition home or self-care (01) ==
LOC: RADPROMAIN 12:20
PROVIDERS: ATTEND Internal Medicine Gastroenterology
DX: K74.60 Unspecified cirrhosis of liver (principal)
CPT/HCPCS: 49083; P9047

== ENCOUNTER 2023-10-07 12:35 | Day surgery (SDC) | payer OTHER ==
[2023-10-07 14:01] VITALS: RESP 16; TEMP 97.6
[2023-10-07 14:52] VITALS: BP 124/67; PULSE 58
--- NOTE | 2023-10-07 15:16 | US ---
Ultrasound-guided paracentesis. DATE OF EXAM: 10/07/2023 CLINICAL HISTORY: Ascites The procedure was discussed with the patient. The risks, complications, benefits, and alternatives we re discussed and any questions were answered. Informed consent was obtained. The patient was placed s upine on the ultrasound table and prepped and draped in the usual sterile fashion. All elements of maximal barrier technique were utilized. Under ultrasound guidance, access into the right lower quadrant was obtained, via the paracentesis catheter system and direct ultrasound guidanc e. Approximately 3.2 liters of straw-colored fluid was removed. The patient was stable throughout the pr ocedure and remained stable upon discharge from Department of Radiology. IMPRESSION: Successful paracentesis under ultrasound guidance.
== END 2023-10-07 14:20 | disposition home or self-care (01) ==
LOC: RADPROMAIN 12:35
PROVIDERS: ATTEND Internal Medicine Gastroenterology
DX: R18.8 Other ascites (principal)
CPT/HCPCS: 49083

== ENCOUNTER 2023-10-21 12:54 | Day surgery (SDC) | payer OTHER ==
[2023-10-21 13:17] LABS: Mean Platelet Volume 7.8; Platelet Count 167 k/uL (150-450)
[2023-10-21 13:27] VITALS: RESP 16; TEMP 97.9
[2023-10-21 13:32] LABS: INR 1.2 (<1.2); Prothrombin Time 12.6 sec (10.0-12.5)
[2023-10-21 13:45] LABS: African American GFR (CKD) >90 (>60 ml/min/1.73 sqM); Non-African American GFR(CKD) 80 (>60 ml/min/1.73 sqM)
[2023-10-21 14:15] VITALS: PULSE 61
[2023-10-21] MEDS: ALBUMIN HUMAN 25% 50 ML in EMPTY BAG 1 BAG IVPB SCH (14:19)
[2023-10-21 14:30] VITALS: BP 111/58
--- NOTE | 2023-10-21 15:27 | US ---
Ultrasound-guided paracentesis. DATE OF EXAM: 10/21/2023 CLINICAL HISTORY: Ascites The procedure was discussed with the patient. The risks, complications, benefits, and alternatives we re discussed and any questions were answered. Informed consent was obtained. The patient was placed s upine on the ultrasound table and prepped and draped in the usual sterile fashion. All elements of maximal barrier technique were utilized. Under ultrasound guidance, access into the left lower quadrant was obtained, via the paracentesis catheter system and direct ultrasound guidance . Approximately 5.4 liters of straw-colored fluid was removed. The patient was stable throughout the pr ocedure and remained stable upon discharge from Department of Radiology. IMPRESSION: Successful paracentesis under ultrasound guidance.
== END 2023-10-21 15:00 | disposition home or self-care (01) ==
LOC: RADPROMAIN 12:54
PROVIDERS: ATTEND Internal Medicine Gastroenterology
DX: R18.8 Other ascites (principal)
CPT/HCPCS: 82565; 85049; 85610; 36415; 49083; P9047

== ENCOUNTER 2023-11-04 12:39 | Day surgery (SDC) | payer OTHER ==
[2023-11-04 13:28] LABS: Mean Platelet Volume 8.1; Platelet Count 183 k/uL (150-450)
[2023-11-04 13:43] LABS: African American GFR (CKD) >90 (>60 ml/min/1.73 sqM); Non-African American GFR(CKD) 83 (>60 ml/min/1.73 sqM)
[2023-11-04 13:45] LABS: INR 1.2 (<1.2); Prothrombin Time 12.5 sec (10.0-12.5)
[2023-11-04] MEDS: ALBUMIN HUMAN 25% 50 ML in EMPTY BAG 1 BAG IVPB SCH (13:58)
[2023-11-04 14:04] VITALS: TEMP 97.9
[2023-11-04 14:08] VITALS: RESP 16
[2023-11-04 14:48] VITALS: BP 126/71; PULSE 60
--- NOTE | 2023-11-05 10:29 | US ---
EXAMINATION TYPE: US paracentesis abd w/image DATE OF EXAM: 11/04/2023 2:13 PM CLINICAL INDICATION:Male, 78 years old with history of K74.60 UNSPECIFIED CIRRHOSIS OF LIVER; COMPARISON: 10/21/2023 ATTENDING: Dr. Bi German PROCEDURE: Informed consent was obtained. The risks of the procedure were extensively explained incl uding risk of damage to surrounding bowel with perforation and need for additional procedures. Proced ure was performed in the ultrasound procedure suite. Ultrasound imaging of the abdomen demonstrate as citic fluid. An appropriate access site was localized to the left lower abdomen. Timeout was taken pe r protocol. The skin was prepped and draped in the usual sterile fashion and then locally anesthetize d with 1% lidocaine. The peritoneal cavity was then accessed via a 5-Georgian one-step needle/catheter . Approximately 7500 cc of clear straw-colored fluid was obtained. Postprocedural imaging of the abd omen demonstrate a minimal amount of abdominal fluid. Patient tolerated procedure well without immediate complication. Hemostasis at the procedural site w as obtained with a sterile bandage placed. The patient was monitored in the holding area following th e procedure and was subsequently discharged in stable condition. IMPRESSION: Ultrasound guided paracentesis, with approximately 7500 cc of clear straw-colored fluid drained. No i mmediate complications were evident.
== END 2023-11-04 14:57 | disposition home or self-care (01) ==
LOC: RADPROMAIN 12:39
PROVIDERS: ATTEND Internal Medicine Gastroenterology
DX: K74.60 Unspecified cirrhosis of liver (principal)
CPT/HCPCS: 82565; 85049; 85610; 36415; 49083; P9047

== ENCOUNTER 2023-11-12 19:37 | Emergency (ER) | payer OTHER, MEDICARE ==
[2023-11-12 19:44] VITALS: TEMP 98.3
[2023-11-12] MEDS: DEXAMETHASONE SOD PHOSPHATE 10 MG/ML 1 ML VIAL IM STA (20:28)
[2023-11-12] MEDS: LIDOCAINE 4% PATCH TOPICAL ONE (20:29)
[2023-11-12] MEDS: KETOROLAC 15 MG/ML 1 ML VIAL IM STA (20:29)
--- NOTE | 2023-11-12 21:14 | ED ---
Back Pain HPI - General Chief Complaint: Back Pain/Injury Stated Complaint: Back Pain Time Seen by Provider: 11/12/23 19:46 Source: patient - History of Present Illness Initial Comments: 78-year-old male presenting with chief complaint of back pain. Patient has history of chronic lower back pain. States that when he was going to stand up from the toilet today he missed the assist bar and fell down. He fell down onto his knees. He did not hit his head. No loss of consciousness or blood thinners. He is only having some knee soreness. States that his back pain was getting so bad with attempting to stand and that is what prompted him to report to the ER. He is having no loss of bowel or bladder control or saddle paresthesia. No fevers nausea or vomiting. No dysuria or hematuria. - Related Data Home Medications Medication Instructions Recorded Confirmed Apixaban [Eliquis] 5 mg PO BID 05/26/23 11/04/23 Ciprofloxacin HCl [Cipro] 500 mg PO BID 05/26/23 11/04/23 Elderberry Fruit [Elderberry] 100 mg PO DAILY 05/26/23 11/04/23 Gabapentin 300 mg PO BID PRN 05/26/23 11/04/23 PARoxetine HCL 30 mg PO HS 05/26/23 11/04/23 carvediloL [Coreg] 6.25 mg PO BID 05/26/23 11/04/23 Bumetanide [BUMEX] 1 mg PO DAILY 09/16/23 11/04/23 Eplerenone 25 mg PO DAILY 09/16/23 11/04/23 Ergocalciferol [Vitamin D2 (1250 1,250 mcg PO WEEKLY 09/16/23 11/04/23 Mcg = 84702 Iu)] Mirtazapine 30 mg PO DAILY 09/16/23 11/04/23 HYDROcodone/APAP 5-325MG [[place] 1 tab PO Q6HR PRN 09/30/23 11/04/23 5-325] Allergies Allergy/AdvReac Type Severity Reaction Status Date / Time ibuprofen [From Motrin] AdvReac Nausea Verified 11/12/23 19:44 Review of Systems ROS Statement: Those systems with pertinent positive or pertinent negative responses have been documented in the HPI. ROS Other: All systems not noted in ROS Statement are negative. Past Medical History Past Medical History: Cancer, Liver Disease Additional Past Medical History / Comment(s): Chronic back pain. ascites. explosure to Agent orange. pacemaker. umbilical hernia; cancer prostate 2002 Last Myocardial Infarction Date:: unknown History of Any Multi-Drug Resistant Organisms: None Reported Past Surgical History: Cholecystectomy Additional Past Surgical History / Comment(s): multiple large volume paracentes is Past Anesthesia/Blood Transfusion Reactions: No Reported Reaction Type of Cardiac Device: Permanent Pacemaker Device Placement Date:: ? 2021 Past Psychological History: PTSD Smoking Status: Former smoker Past Alcohol Use History: Occasional Past Drug Use History: None Reported - Past Family History Father Family Medical History: No Reported History Additional Family Medical History / Comment(s): colon cancer General Exam Limitations: no limitations General appearance: alert, in no apparent distress Head exam: Present: atraumatic, normocephalic Eye exam: Present: normal appearance, EOMI Neck exam: Present: normal inspection. Absent: meningismus Respiratory exam: Absent: respiratory distress Cardiovascular Exam: Present: regular rate Extremities exam: Present: normal inspection Back exam: Present: normal inspection, tenderness Neurological exam: Present: alert, oriented X3 Psychiatric exam: Present: normal affect, normal mood Skin exam: Present: normal color Course Vital Signs 11/12/23 11/12/23 19:39 21:33 Temperature 98.3 F Pulse Rate 76 62 Respiratory 20 18 Rate Blood Pressure 142/86 107/53 O2 Sat by Pulse 95 95 Oximetry Medical Decision Making - Medical Decision Making Was pt. sent in by a medical professional or institution (, PA, CAR SUPERVISOR, urgent care, hospital, or skilled nursing...) When possible be specific @ -No Did you speak to anyone other than the patient for history (EMS, parent, family, police, friend...)? What history was obtained from this source @ -No Did you review nursing and triage notes (agree or disagree)? Why? @ -I reviewed and agree with nursing and triage notes Were old charts reviewed (outside hosp., previous admission, EMS record, old EKG, old radiological studies, urgent care reports/EKG's, skilled nursing records)? Report findings @ -No old charts were reviewed Differential Diagnosis (chest pain, altered mental status, abdominal pain women, abdominal pain men, vaginal bleeding, weakness, fever, dyspnea, syncope, headache, dizziness, GI bleed, back pain, seizure, CVA, palpatations, mental health, musculoskeletal)? @ - MDM Differential Back Pain: Strain, zoster, cauda equina syndrome, epidural abscess, vertebral osteomyelitis, discitis, fracture, subluxation, disc herniation, DJD, spinal stenosis, dissection, AAA, pancreatitis, peptic ulcer disease, pyelonephritis, kidney stone this is not meant to be an all-inclusive list. EKG interpreted by me (3pts min.). @ -As above X-rays interpreted by me (1pt min.). @ -None done CT interpreted by me (1pt min.). @ -None done U/S interpreted by me (1pt. min.). @ -None done What testing was considered but not performed or refused? (CT, X-rays, U/S, labs)? Why? @ -None What meds were considered but not given or refused? Why? @ -None Did you discuss the management of the patient with other professionals (professionals i.e. , PA, CAR SUPERVISOR, lab, RT, psych nurse, social service technician, molder automobile carpets, te acher, infantry officer, corrections caseworker)? Give summary @ -No Was smoking cessation discussed for >3mins.? @ -No Was critical care preformed (if so, how long)? @ -No Were there social determinants of health that impacted care today? How? (Homelessness, low income, unemployed, alcoholism, drug addiction, transportation, low edu. Level, literacy, decrease access to med. care, shelter, rehab)? @ -No Was there de-escalation of care discussed even if they declined (Discuss DNR or withdrawal of care, Hospice)? DNR status @ -No What co-morbidities impacted this encounter? (DM, HTN, Smoking, COPD, CAD, C ancer, CVA, ARF, Chemo, Hep., AIDS, mental health diagnosis, sleep apnea, morbid obesity)? @ -None Was patient admitted / discharged? Hospital course, mention meds given and route, prescriptions, significant lab abnormalities, going to OR and other pertinent info. @ -78-year-old male presenting with chief complaint of back pain. Has history of chronic back pain. History and physical exam are conducted. No red flag symptoms. He is given lidocaine patch, Toradol, Decadron. On reassessment he reports significant improvement in his symptoms. He feels much better and feels ready to go home. Discharged follow-up with PCP. Report back to ER with any new or worsening symptoms. Discussed return parameters and answered all questions. Patient conveyed verbal understanding and agreed to the plan. I discussed this case in detail with my attending Dr. Leiva Undiagnosed new problem with uncertain prognosis? @ -No Drug Therapy requiring intensive monitoring for toxicity (Heparin, Nitro, Insulin, Cardizem)? @ -No Were any procedures done? @ -No Diagnosis/symptom? @ -Mechanical back pain Acute, or Chronic, or Acute on Chronic? @ -Acute on chronic Uncomplicated (without systemic symptoms) or Complicated (systemic symptoms)? @ -Uncomplicated Side effects of treatment? @ -No Exacerbation, Progression, or Severe Exacerbation? @ -No Poses a threat to life or bodily function? How? (Chest pain, [place], [place], pneumonia, PE, COPD, DKA, ARF, appy, cholecystitis, CVA, Diverticulitis, Homicidal, Suicidal, threat to staff... and all critical care pts) @ -Low likelihood Disposition Clinical Impression: Mechanical back pain Disposition: HOME SELF-CARE Condition: Good Instructions (If sedation given, give patient instructions): Acute Low Back Pain (ED) Additional Instructions: Follow-up with PCP. Report back to ER with any new or worsening symptoms. Is patient prescribed a controlled substance at d/c from ED?: No Referrals: Arnaldo Diaz MD [Primary Care Provider] - 1-2 days Time of Disposition: 21:14
[2023-11-12 21:35] VITALS: BP 107/53; PULSE 62; RESP 18
== END 2023-11-12 21:35 | disposition home or self-care (01) ==
LOC: EC 19:37
DX: M54.50 Low back pain, unspecified (principal); Z87.891 Personal history of nicotine dependence; Z88.6 Allergy status to analgesic agent
CPT/HCPCS: 99283 ×2; 96372 ×2; J1100; J1885

== ENCOUNTER 2023-11-18 12:47 | Day surgery (SDC) | payer OTHER ==
[2023-11-18 13:34] VITALS: PULSE 60; TEMP 98
[2023-11-18 13:41] LABS: African American GFR (CKD) >90 (>60 ml/min/1.73 sqM); Non-African American GFR(CKD) 88 (>60 ml/min/1.73 sqM)
[2023-11-18 13:46] LABS: INR 1.2 (<1.2); Prothrombin Time 12.7 sec (10.0-12.5)
[2023-11-18 13:52] LABS: Mean Platelet Volume 8.1; Platelet Count 166 k/uL (150-450)
[2023-11-18] MEDS: ALBUMIN HUMAN 25% 50 ML in EMPTY BAG 1 BAG IVPB SCH (14:11)
[2023-11-18 15:04] VITALS: BP 118/75; RESP 16
--- NOTE | 2023-11-19 10:49 | US ---
EXAMINATION TYPE: US paracentesis abd w/image DATE OF EXAM: 11/18/2023 2:13 PM CLINICAL INDICATION:Male, 78 years old with history of K70.31 cirrhosis; COMPARISON: Last paracentesis ATTENDING: Dr. Bi German PROCEDURE: Informed consent was obtained. The risks of the procedure were extensively explained incl uding risk of damage to surrounding bowel with perforation and need for additional procedures. Proced ure was performed in the ultrasound procedure suite. Ultrasound imaging of the abdomen demonstrate as citic fluid. An appropriate access site was localized to the left lower abdomen. Timeout was taken pe r protocol. The skin was prepped and draped in the usual sterile fashion and then locally anesthetize d with 1% lidocaine. The peritoneal cavity was then accessed via a 5-[place]banian one-step needle/catheter . Approximately 5800 cc of clear straw-colored fluid was obtained. Postprocedural imaging of the abd omen demonstrate a minimal amount of abdominal fluid. Patient tolerated procedure well without immediate complication. Hemostasis at the procedural site w as obtained with a sterile bandage placed. The patient was monitored in the holding area following th e procedure and was subsequently discharged in stable condition. IMPRESSION: Ultrasound guided paracentesis, with approximately 5800 cc of clear straw-colored fluid drained. No i mmediate complications were evident.
== END 2023-11-18 14:50 | disposition home or self-care (01) ==
LOC: RADPROMAIN 12:47
PROVIDERS: ATTEND Internal Medicine Gastroenterology
DX: K70.31 Alcoholic cirrhosis of liver with ascites (principal)
CPT/HCPCS: 82565; 85049; 85610; 36415; 49083; P9047

== ENCOUNTER 2023-12-02 12:09 | Day surgery (SDC) | payer OTHER ==
[2023-12-02 12:57] VITALS: RESP 16; TEMP 97.8
[2023-12-02 13:06] LABS: ALT 23 U/L (4-49); African American GFR (CKD) >90 (>60 ml/min/1.73 sqM); Albumin 3.2 g/dL (3.5-5.0); Anion Gap 3 mmol/L; Blood Urea Nitrogen 12 mg/dL (9-20); Calcium 8.4 mg/dL (8.4-10.2); Carbon Dioxide 28 mmol/L (22-30); Chloride 105 mmol/L (98-107); Glucose 123 mg/dL (74-99); Non-African American GFR(CKD) 88 (>60 ml/min/1.73 sqM); Sodium 136 mmol/L (137-145); Total Bilirubin 2.1 mg/dL (0.2-1.3); Total Protein 6.7 g/dL (6.3-8.2)
[2023-12-02 13:07] LABS: AST 65 U/L (17-59); Alkaline Phosphatase 127 U/L (38-126)
[2023-12-02 13:27] LABS: Basophils % (A) 1 %; Eosinophils # (A) 0.1 k/uL (0-0.7); Eosinophils % (A) 1 %; HCT 42.7 % (39.0-53.0); HGB 13.4 gm/dL (13.0-17.5); Hypochromasia Marked; Lymphocytes # (A) 0.6 k/uL (1.0-4.8); Lymphocytes % (A) 12 %; MCH 34.4 pg (25.0-35.0); MCHC 31.4 g/dL (31.0-37.0); MCV 109.5 fL (80.0-100.0); Macrocytosis Marked; Mean Platelet Volume 7.8; Monocytes # (A) 0.5 k/uL (0-1.0); Monocytes % (A) 10 %; Neutrophils # (A) 3.9 k/uL (1.3-7.7); Neutrophils % (A) 73 %; Platelet Count 182 k/uL (150-450); RDW 14.1 % (11.5-15.5); WBC 5.3 k/uL (3.8-10.6)
[2023-12-02] MEDS: ALBUMIN HUMAN 25% 50 ML in EMPTY BAG 1 BAG IVPB SCH (13:30)
[2023-12-02 13:35] LABS: INR 1.3 (<1.2); Prothrombin Time 13.4 sec (10.0-12.5)
[2023-12-02 13:45] LABS: Ovalocytes Present
[2023-12-02] MEDS: ALBUMIN HUMAN 25% 50 ML in EMPTY BAG 1 BAG IVPB ONE (14:07)
[2023-12-02 14:39] VITALS: BP 119/73; PULSE 66
--- NOTE | 2023-12-02 14:56 | US ---
Ultrasound-guided paracentesis. DATE OF EXAM: 12/02/2023 CLINICAL HISTORY: Ascites The procedure was discussed with the patient. The risks, complications, benefits, and alternatives we re discussed and any questions were answered. Informed consent was obtained. The patient was placed s upine on the ultrasound table and prepped and draped in the usual sterile fashion. All elements of maximal barrier technique were utilized. Under ultrasound guidance, access into the left lower quadrant was obtained, via the paracentesis catheter system and direct ultrasound guidance . Approximately 6.8 liters of straw-colored fluid was removed. The patient was stable throughout the pr ocedure and remained stable upon discharge from Department of Radiology. IMPRESSION: Successful paracentesis under ultrasound guidance.
== END 2023-12-02 14:40 | disposition home or self-care (01) ==
LOC: RADPROMAIN 12:09
PROVIDERS: ATTEND Internal Medicine Gastroenterology
DX: R18.8 Other ascites (principal)
CPT/HCPCS: 80053; 85025; 85610; 36415; 49083; P9047

== ENCOUNTER 2023-12-09 21:39 | Inpatient (IN) | payer OTHER, MEDICARE ==
--- NOTE | 2023-12-09 21:53 | ED ---
Extremity Problem HPI - General Source: patient, family, RN notes reviewed Mode of arrival: wheelchair Limitations: no limitations <Noelle Chen - Last Filed: 12/09/23 21:52> <Tino Rainey - Last Filed: 01/03/24 19:31> - General Stated complaint: Right knee infection Time Seen by Provider: 12/09/23 21:52 - History of Present Illness Initial comments: Quick note: 78-year-old male presented to the ER with a chief complaint of right knee infection. Patient had a partial knee replacement in the . He states for the past 3 days he has been noticing an increase in redness and swelling to the right knee. [facility] He denies any fevers or chills. (Noelle Chen) - Related Data Home Medications Medication Instructions Recorded Confirmed Ciprofloxacin HCl [Cipro] 500 mg PO DAILY 05/26/23 01/03/24 PARoxetine HCL 30 mg PO DAILY 05/26/23 01/03/24 carvediloL [Coreg] 6.25 mg PO BID 05/26/23 01/03/24 Mirtazapine 30 mg PO HS 09/16/23 01/03/24 Acetaminophen Tab [Tylenol Tab] 500 mg PO Q6H PRN 12/10/23 01/03/24 Aspirin EC [Ecotrin Low Dose] 81 mg PO DAILY 12/10/23 01/03/24 Elderberry Fruit and Flower [Black 1 cap PO DAILY 12/10/23 01/03/24 Elderberry 575 mg Cap] Gabapentin 600 mg PO BID 12/10/23 01/03/24 Lidocaine 4% Patch 1 patch TOPICAL DAILY PRN 12/10/23 01/03/24 Allergies Allergy/AdvReac Type Severity Reaction Status Date / Time medium chain triglycerides Allergy Unknown Verified 01/03/24 15:04 [From Lipisorb] nutritional Allergy Unknown Verified 01/03/24 15:04 supplement,special formulas [From Lipisorb] simvastatin [From Zocor] Allergy Unknown Verified 01/03/24 15:04 ibuprofen [From Motrin] AdvReac Nausea Verified 01/03/24 15:04 Review of Systems ROS Other: All systems not noted in ROS Statement are negative. <Noelle Chen - Last Filed: 08/01/24 21:52> ROS Other: All systems not noted in ROS Statement are negative. <Tino Rainey - Last Filed: 01/03/24 19:31> ROS Statement: Those systems with pertinent positive or pertinent negative responses have been documented in the HPI. Past Medical History Past Medical History: Cancer, Liver Disease Additional Past Medical History / Comment(s): Chronic back pain. ascites. explosure to Agent orange. pacemaker. umbilical hernia; cancer prostate 2002 Last Myocardial Infarction Date:: unknown History of Any Multi-Drug Resistant Organisms: None Reported Past Surgical History: Cholecystectomy Additional Past Surgical History / Comment(s): multi large volume paracentesis Past Anesthesia/Blood Transfusion Reactions: No Reported Reaction Type of Cardiac Device: Permanent Pacemaker Device Placement Date:: ? 2021 Past Psychological History: PTSD Additional Psychological History / Comment(s): Smoking Status: Former smoker Past Alcohol Use History: Occasional Additional Past Alcohol Use History / Comment(s): quit smoking 1993, hx of 1/2 ppd. hx of heavy alcohol use ., currently drinks occasionally. Past Drug Use History: None Reported Additional Drug Use History / Comment(s): quit smoking in 1995 - Past Family History Father Family Medical History: No Reported History Additional Family Medical History / Comment(s): colon cancer <Noelle Chen - Last Filed: 12/09/23 21:52> General Exam <Noelle Chen - Last Filed: 12/09/23 21:52> General appearance: alert, in no apparent distress Head exam: Present: atraumatic, normocephalic Eye exam: Present: normal appearance, EOMI Neck exam: Present: normal inspection. Absent: meningismus Respiratory exam: Present: normal lung sounds bilaterally. Absent: respiratory distress, wheezes, rales, rhonchi, stridor Cardiovascular Exam: Present: regular rate, normal rhythm, normal heart sounds. Absent: systolic murmur, diastolic murmur, rubs, gallop, clicks Right Knee exam: Present: tenderness, swelling, erythema. Absent: full ROM Neurological exam: Present: alert, oriented X3 Psychiatric exam: Present: normal affect, normal mood Skin exam: Present: erythema <Tino Rainey - Last Filed: 01/03/24 19:31> - General Exam Comments Initial Comments: Visual Physical Exam Vital signs reviewed General: Well-appearing, nontoxic, no acute distress. Head: Normocephalic, atraumatic Eyes: PERRLA, EOMI ENT: Airway patent Chest: Nonlabored breathing Skin: No visual rash, normal skin tone Neuro: Alert and oriented 3 Musculoskeletal: No gross abnormalities, edematous and erythematous right knee (Noelle Chen) Course Vital Signs 12/09/23 12/10/23 12/10/23 22:28 01:00 01:30 Temperature 98.2 F 98.4 F Pulse Rate 71 86 83 Respiratory 16 18 20 Rate Blood Pressure 107/68 104/58 104/61 O2 Sat by Pulse 97 96 98 Oximetry 12/10/23 12/10/23 12/10/23 03:00 05:00 08:00 Temperature Pulse Rate 80 82 60 Respiratory 20 16 17 Rate Blood Pressure 106/54 95/56 96/54 O2 Sat by Pulse 97 97 98 Oximetry 12/10/23 12/10/23 12/10/23 08:30 10:00 10:30 Temperature Pulse Rate 65 65 Respiratory 18 18 Rate Blood Pressure 96/54 112/64 108/63 O2 Sat by Pulse 97 98 Oximetry 12/10/23 12/10/23 12/10/23 11:00 12:00 14:00 Temperature Pulse Rate 60 63 60 Respiratory 17 18 18 Rate Blood Pressure 104/64 107/68 95/52 O2 Sat by Pulse 96 99 98 Oximetry 12/10/23 12/10/23 12/10/23 15:55 16:00 18:00 Temperature 98.4 F Pulse Rate 60 64 62 Respiratory 16 17 18 Rate Blood Pressure 110/65 110/66 110/65 O2 Sat by Pulse 98 100 98 Oximetry 12/10/23 12/10/23 19:31 21:34 Temperature Pulse Rate 70 68 Respiratory 18 18 Rate Blood Pressure 114/80 110/65 O2 Sat by Pulse 98 98 Oximetry Medical Decision Making <Noelle Chen - Last Filed: 12/09/23 21:52> - Lab Data Result diagrams: 12/11/23 03:55 12/13/23 05:09 <Tino Rainey - Last Filed: 01/03/24 19:31> - Medical Decision Making I performed the quick note portion of this chart. Electronically signed by Noelle Chen PA-C (Noelle Chen) Was pt. sent in by a medical professional or institution (, [facility], BUSINESS MANAGEMENT CONSULTANT, urgent care, hospital, or halfway...) When possible be specific @ -No Did you speak to anyone other than the patient for history (EMS, parent, family, police, friend...)? What history was obtained from this source @ -Patient's daughter at bedside Did you review nursing and triage notes (agree or disagree)? Why? @ -I reviewed and agree with nursing and triage notes Were old charts reviewed (outside hosp., previous admission, EMS record, old EKG, old radiological studies, urgent care reports/EKG's, halfway records)? Report findings @ -No old charts were reviewed Differential Diagnosis (chest pain, altered mental status, abdominal pain women, abdominal pain men, vaginal bleeding, weakness, fever, dyspnea, syncope, headache, dizziness, GI bleed, back pain, seizure, CVA, palpatations, mental health, musculoskeletal)? @ -Differential Musculoskeletal Muscular strain, contusion, ligament sprain, fracture, arthritis, septic arthritis, bursitis, cellulitis, muscle spasm, nerve compression, DVT, arterial occlusion, herpes zoster, electrolyte abnormality, tumor.... This is not meant to be in all inclusive list EKG interpreted by me (3pts min.). @ -As above X-rays interpreted by me (1pt min.). @ -Knee x-ray shows a 2.5 cm soft tissue thickening anterior to the patella consistent with contusion, cellulitis, or prepatellar bursitis. No joint effusion or foreign body is identified. Surgical changes from previous medial partial arthroplasty. No periprosthetic lucency is identified. There is mild narrowing and osteophytosis of the lateral and patellofemoral joint spaces consistent with osteoarthritis. CT interpreted by me (1pt min.). @ -None done U/S interpreted by me (1pt. min.). @ -None done What testing was considered but not performed or refused? (CT, X-rays, U/S, labs)? Why? @ -None What meds were considered but not given or refused? Why? @ -None Did you discuss the management of the patient with other professionals (professionals i.e. , [facility], BUSINESS MANAGEMENT CONSULTANT, lab, RT, psych nurse, social work associate, home health rn, teacher, staff submarine warfare officer, embedded case manager)? Give summary @ -Spoke with Dr. West who accepted admission Was smoking cessation discussed for >3mins.? @ -No Was critical care preformed (if so, how long)? @ -No Were there social determinants of health that impacted care today? How? (Homelessness, low income, unemployed, alcoholism, drug addiction, landers sportation, low edu. Level, literacy, decrease access to med. care, snf, rehab)? @ -No Was there de-escalation of care discussed even if they declined (Discuss DNR or withdrawal of care, Hospice)? DNR status @ -No What co-morbidities impacted this encounter? (DM, HTN, Smoking, COPD, CAD, Cancer, CVA, ARF, Chemo, Hep., AIDS, mental health diagnosis, sleep apnea, morbid obesity)? @ -None Was patient admitted / discharged? Hospital course, mention meds given and route, prescriptions, significant lab abnormalities, going to OR and other pertinent info. @ -78-year-old male with right knee pain swelling and erythema. On exam this appears consistent with prepatellar bursitis. Patient is started on vancomycin and Zosyn. Admitted with consult to infectious disease and orthopedics. He and family are agreeable with this plan. I discussed this case with my attending Dr. Leiva Undiagnosed new problem with uncertain prognosis? @ -No Drug Therapy requiring intensive monitoring for toxicity (Heparin, Nitro, Insulin, Cardizem)? @ -No Were any procedures done? @ -No Diagnosis/symptom? @ -Septic bursitis Acute, or Chronic, or Acute on Chronic? @ -Acute Uncomplicated (without systemic symptoms) or Complicated (systemic symptoms)? @ -Complicated Side effects of treatment? @ -No Exacerbation, Progression, or Severe Exacerbation? @ -No Poses a threat to life or bodily function? How? (Chest pain, [place], [place], pneumonia, PE, COPD, DKA, ARF, appy, cholecystitis, CVA, Diverticulitis, Homicidal, Suicidal, threat to staff... and all critical care pts) @ -Yes (Tino Rainey) - Lab Data Lab Results 12/09/23 12/09/23 12/09/23 Range/Units 22:34 22:34 22:34 WBC 8.8 (3.8-10.6) k/uL RBC 3.92 L (4.30-5.90) m/uL Hgb 13.5 (13.0-17.5) gm/dL Hct 42.5 (39.0-53.0) % MCV 108.3 H (80.0-100.0) fL MCH 34.4 (25.0-35.0) pg MCHC 31.8 (31.0-37.0) g/dL RDW 14.0 (11.5-15.5) % Plt Count 160 (150-450) k/uL MPV 8.2 Neutrophils % 77 % Lymphocytes % 8 % Monocytes % 12 % Eosinophils % 1 % Basophils % 1 % Neutrophils # 6.7 (1.3-7.7) k/uL Lymphocytes # 0.7 L (1.0-4.8) k/uL Monocytes # 1.1 H (0-1.0) k/uL Eosinophils # 0.1 (0-0.7) k/uL Basophils # 0.1 (0-0.2) k/uL Manual Slide Review Performed Hypochromasia Marked Anisocytosis (manual) Present Macrocytosis Marked A Sodium 133 L (137-145) mmol/L Potassium 5.8 H (3.5-5.1) mmol/L Chloride 101 (98-107) mmol/L Carbon Dioxide 22 (22-30) mmol/L Anion Gap 10 mmol/L BUN 12 (9-20) mg/dL Creatinine 0.96 (0.66-1.25) mg/dL Est GFR (CKD-EPI)AfAm 87 (>60 ml/min/1.73 sqM) Est GFR (CKD-EPI)NonAf 75 (>60 ml/min/1.73 sqM) Glucose 97 (74-99) mg/dL Lactic Ac Sepsis Rflx Plasma Lactic Acid Tony 4.3 H* (0.7-2.0) mmol/L Calcium 8.1 L (8.4-10.2) mg/dL Total Bilirubin 2.1 H (0.2-1.3) mg/dL AST 71 H (17-59) U/L ALT 23 (4-49) U/L Alkaline Phosphatase 114 (38-126) U/L Total Protein 7.0 (6.3-8.2) g/dL Albumin 3.4 L (3.5-5.0) g/dL 12/09/23 12/10/23 12/10/23 Range/Units 23:04 01:31 01:31 WBC (3.8-10.6) k/uL RBC (4.30-5.90) m/uL Hgb (13.0-17.5) gm/dL Hct (39.0-53.0) % MCV (80.0-100.0) fL MCH (25.0-35.0) pg MCHC (31.0-37.0) g/dL RDW (11.5-15.5) % Plt Count (150-450) k/uL MPV Neutrophils % % Lymphocytes % % Monocytes % % Eosinophils % % Basophils % % Neutrophils # (1.3-7.7) k/uL Lymphocytes # (1.0-4.8) k/uL Monocytes # (0-1.0) k/uL Eosinophils # (0-0.7) k/uL Basophils # (0-0.2) k/uL Manual Slide Review Hypochromasia Anisocytosis (manual) Macrocytosis Sodium (137-145) mmol/L Potassium 4.4 (3.5-5.1) mmol/L Chloride (98-107) mmol/L Carbon Dioxide (22-30) mmol/L Anion Gap mmol/L BUN (9-20) mg/dL Creatinine (0.66-1.25) mg/dL Est GFR (CKD-EPI)AfAm (>60 ml/min/1.73 sqM) Est GFR (CKD-EPI)NonAf (>60 ml/min/1.73 sqM) Glucose (74-99) mg/dL Lactic Ac Sepsis Rflx Y Plasma Lactic Acid Tony 2.6 H* (0.7-2.0) mmol/L Calcium (8.4-10.2) mg/dL Total Bilirubin (0.2-1.3) mg/dL AST (17-59) U/L ALT (4-49) U/L Alkaline Phosphatase (38-126) U/L Total Protein (6.3-8.2) g/dL Albumin (3.5-5.0) g/dL Disposition <Noelle Chen - Last Filed: 12/09/23 21:52> Time of Disposition: 02:10 <Tino Rainey - Last Filed: 01/03/24 19:31> Clinical Impression: Septic bursitis Disposition: ADMITTED IP TO THIS HOSP Condition: Serious
[2023-12-09 22:59] LABS: ALT 23 U/L (4-49); AST 71 U/L (17-59); African American GFR (CKD) 87 (>60 ml/min/1.73 sqM); Albumin 3.4 g/dL (3.5-5.0); Alkaline Phosphatase 114 U/L (38-126); Anion Gap 10 mmol/L; Blood Urea Nitrogen 12 mg/dL (9-20); Calcium 8.1 mg/dL (8.4-10.2); Carbon Dioxide 22 mmol/L (22-30); Chloride 101 mmol/L (98-107); Glucose 97 mg/dL (74-99); Non-African American GFR(CKD) 75 (>60 ml/min/1.73 sqM); Sodium 133 mmol/L (137-145); Total Bilirubin 2.1 mg/dL (0.2-1.3)
[2023-12-09 23:01] LABS: Potassium 5.8 mmol/L (3.5-5.1)
[2023-12-10 00:22] LABS: Basophils # (A) 0.1 k/uL (0-0.2); Basophils % (A) 1 %; Eosinophils # (A) 0.1 k/uL (0-0.7); Eosinophils % (A) 1 %; HCT 42.5 % (39.0-53.0); HGB 13.5 gm/dL (13.0-17.5); Hypochromasia Marked; Lymphocytes # (A) 0.7 k/uL (1.0-4.8); Lymphocytes % (A) 8 %; MCH 34.4 pg (25.0-35.0); MCHC 31.8 g/dL (31.0-37.0); MCV 108.3 fL (80.0-100.0); Macrocytosis Marked; Mean Platelet Volume 8.2; Monocytes # (A) 1.1 k/uL (0-1.0); Monocytes % (A) 12 %; Neutrophils # (A) 6.7 k/uL (1.3-7.7); Neutrophils % (A) 77 %; Platelet Count 160 k/uL (150-450); RBC 3.92 m/uL (4.30-5.90); WBC 8.8 k/uL (3.8-10.6)
--- NOTE | 2023-12-10 00:43 | XR ---
EXAM: XR Right Knee, 3 Views CLINICAL HISTORY: XR Reason: infection TECHNIQUE: Three views of the right knee. COMPARISON: No relevant prior studies available. FINDINGS: Bones/joints: Surgical changes from previous medial partial arthroplasty. No periprosthetic lucency is identified. There is mild narrowing and osteophytosis of the lateral and patellofemoral joint spaces consistent with osteoarthritis. No acute fracture. No dislocation. Soft tissues: There is a 2.5 cm soft tissue thickening anterior to the patella consistent with contusion or prepatellar bursitis. No joint effusion or foreign body is identified. Vasculature: Mild diffuse arterial calcification. IMPRESSION: 1. There is a 2.5 cm soft tissue thickening anterior to the patella consistent with contusion, cellulitis, or prepatellar bursitis. No joint effusion or foreign body is identified. 2. Surgical changes from previous medial partial arthroplasty. No periprosthetic lucency is identified. There is mild narrowing and osteophytosis of the lateral and patellofemoral joint spaces consistent with osteoarthritis.
[2023-12-10] MEDS: HYDROmorphone 0.5 MG/0.5 ML SYRINGE IVP STA (00:59)
[2023-12-10] MEDS: SODIUM CHLORIDE 0.9% 1,000 ML IV SCH (01:00)
[2023-12-10] MEDS: SODIUM CHLORIDE 0.9% 500 ML 500 ML IV ONE (01:00)
[2023-12-10] MEDS ORDERED: VANCOMYCIN IV PER PHARMACY 1 EACH MISC MISCELLANE PRN ×2 (01:16→03:57)
[2023-12-10] MEDS ORDERED: LORazepam 2 MG/ML INJ IV PRN ×3 (01:26)
[2023-12-10] MEDS ORDERED: NALOXONE 0.4 MG/ML 1 ML VIAL IV PRN (02:07)
[2023-12-10] MEDS ORDERED: HYDROmorphone 1 MG/ML 1 ML SYRINGE IVP PRN (02:07)
[2023-12-10] MEDS: PIPERACILLIN-TAZOBACTAM 3.375 GM in SODIUM CHLORIDE 0.9% 100 ML IVPB STA (02:11)
[2023-12-10] MEDS: VANCOMYCIN 2,000 MG in SODIUM CHLORIDE 0.9% 500 ML 500 ML IVPB ONE (02:15)
[2023-12-10 02:23] LABS: Anisocytosis (M) Present
--- NOTE | 2023-12-10 03:55 | P.HPIM ---
History of Present Illness H&P Date: 12/10/23 Patient is a 78-year-old male who has a history of alcoholic cirrhosis (seen by Dr. Coombs requiring 2x/month paracentesis), s/p pacemaker placememt, on Eliquis (unknown reason), umbilical hernia, bilateral knee replacement partial, prostate CA who came into the ED for right knee pain and swelling. 3 days ago patient's right knee popped while walking with a walker. The following day, it became swollen and painful constantly at 4 out of 10 sharp and nonradiating. He notes that using his gabapentin makes it better and movement worsens the pain. Yesterday pain increased to 6-7 out of 10 which led the patient to go to the ED. He denies any subjective fevers, rashes, productive cough, sore throat, nausea or vomiting, diarrhea, headaches, rhinorrhea, and any other joint swelling and pain. Knee x-ray shows 2.5 cm soft tissue thickening anterior to the patella consistent with contusion, cellulitis, or possible prepatellar bursitis. No joint effusion or foreign body is identified. Surgical changes from previous medical partial arthroplasty. There is mild narrowing and osteophytosis of the lateral and patellofemoral joint spaces consistent with osteoarthritis. WBC 8.8 hemoglobin 13.5 hematocrit 42.5 MCV 108.3 platelet count 160 marked macrocytosis sodium 133 potassium 5.8 BUN 12 creatinine 0.96 plasma lactic acid 4.3 calcium 8.1 total bilirubin 2.1 AST 71 ALT 23 albumin 3.4. ED documentation reviewed and case discussed with ED provider. Review of systems: Pertinent positives and negatives as discussed in HPI, a complete review of systems was performed and all other systems are negative. Family history: Father had colon cancer and is . Social history: Tobacco: Denies smoking history Alcohol: Heavy drinker about 10 years stopped in 2019 Recreational drugs: Denies illicit drug use Travel: No recent travel Physical examination: Vital signs reviewed General: non toxic, no distress, appears at stated age, normal weight Derm: Thin skin with bruising noted on bilateral upper extremities, no unusual rashes/lesions, warm Head: atraumatic, normocephalic, symmetric Eyes: EOMI, no lid lag, anicteric sclera, pupils equal round reactive to light ENT: Nose and ears atraumatic Neck: No cervical lymphadenopathy, trachea midline, supple Mouth: no lip lesion, mucus membranes moist Cardiovascular: S1S2 reg, grade 3 holosystolic murmur loudest at the right second ICS Lungs: Bibasilar crackles, no rhonchi, no rales, no accessory muscle use Abdominal: soft, nontender to palpation, distended, positive fluid wave, no guarding, normal active bowel sounds Ext: muscle strength 5 out of 5 in all 4 extremities grossly, no gross muscle atrophy, no contractures, positive dorsalis pedis pulse bilateral, bilateral lower extremity +2 pitting edema, right knee erythematous from prepatellar area to the mid barrett, swollen, warm to touch, tender with limited ative ROM, nodules noted on bilateral DIP and bilateral PIP. Neuro: CN II-XI grossly intact, no gross focal neuro deficits Psych: Alert, oriented, appropriate affect and mood Assessment/Plan: #. Prepatellar bursitis of the right knee w/ cellulitis Affected area marked. F/u blood cultures Continue with IV Zosyn 3.375 gm q8h and IV vancomycin (per pharmacy dosing) for empiric coverage Ordered IV NS fluids with judicious use until lactic acid trends downward. Will then hold IV fluids Consult infectious disease and orthopedics for recommendations # Systolic murmur, likely aortic stenosis Patient is asymptomatic and has a pacemaker # Bibasilar crackles Patient is asymptomatic Incetive spirometry #Polyarticular osteoarthritis #. Macrocytosis Patient is asymptomatic Ordered B12 and folate levels #. Hyponatremia likely due to cirrhosis Monitor CMP for now #. Hyperkalemia secondary to hemolysis Resolved #. Liver cirrhosis, hypoalbuminemia, abnormal LFTs Will monitor CMP Dr. Coombs consulted DVT prophylaxis: Eliquis (unknown reason - to be resumed once reconciled) GI prophylaxis Protonix 40 mg OD The patient is admitted with an anticipated greater than than 2 midnight stay for evaluation of prepatellar bursitis CODE STATUS: Full Discussed with: Patient Anticipated discharge place: Home Past Medical History Past Medical History: Cancer, Liver Disease Additional Past Medical History / Comment(s): Chronic back pain. ascites. explosure to Agent orange. pacemaker. umbilical hernia; cancer prostate 2002. cyst on the liver-[facility] Last Myocardial Infarction Date:: unknown History of Any Multi-Drug Resistant Organisms: None Reported Past Surgical History: Cholecystectomy Additional Past Surgical History / Comment(s): multi large volume paracentesis Past Anesthesia/Blood Transfusion Reactions: No Reported Reaction Type of Cardiac Device: Permanent Pacemaker Device Placement Date:: ? 2021 Past Psychological History: PTSD Smoking Status: Former smoker Past Alcohol Use History: Occasional Past Drug Use History: None Reported - Past Family History Father Family Medical History: No Reported History Additional Family Medical History / Comment(s): colon cancer Medications and Allergies Home Medications Medication Instructions Recorded Confirmed Type Apixaban [Eliquis] 5 mg PO BID 05/26/23 12/02/23 History Ciprofloxacin HCl [Cipro] 500 mg PO BID 05/26/23 12/02/23 History Elderberry Fruit [Elderberry] 100 mg PO DAILY 05/26/23 12/02/23 History Gabapentin 300 mg PO BID PRN 05/26/23 12/02/23 History PARoxetine HCL 30 mg PO HS 05/26/23 12/02/23 History carvediloL [Coreg] 6.25 mg PO BID 05/26/23 12/02/23 History Bumetanide [BUMEX] 1 mg PO DAILY 09/16/23 12/02/23 History Eplerenone 25 mg PO DAILY 09/16/23 12/02/23 History Ergocalciferol [Vitamin D2 (1250 1,250 mcg PO WEEKLY 09/16/23 12/02/23 History Mcg = 17300 Iu)] Mirtazapine 30 mg PO DAILY 09/16/23 12/02/23 History HYDROcodone/APAP 5-325MG [[place] 1 tab PO Q6HR PRN 09/30/23 12/02/23 History 5-325] Allergies Allergy/AdvReac Type Severity Reaction Status Date / Time ibuprofen [From Motrin] AdvReac Nausea Verified 12/09/23 22:28 Physical Exam Vitals: Vital Signs Temp Pulse Resp BP Pulse Ox 12/10/23 01:30 98.4 F 83 20 104/61 98 12/09/23 22:28 98.2 F 71 16 107/68 97 Intake and Output 12/09/23 12/09/23 12/10/23 14:59 22:59 06:59 Other: Weight 108.862 kg Results CBC & Chem 7: 12/09/23 22:34 12/10/23 01:31 Labs: Abnormal Lab Results - Last 24 Hours (Table) 08/06/0212/09/23 12/09/23 Range/Units 22:34 22:34 22:34 RBC 3.92 L (4.30-5.90) m/uL MCV 108.3 H (80.0-100.0) fL Lymphocytes # 0.7 L (1.0-4.8) k/uL Monocytes # 1.1 H (0-1.0) k/uL Macrocytosis Marked A Sodium 133 L (137-145) mmol/L Potassium 5.8 H (3.5-5.1) mmol/L Plasma Lactic Acid Tony 4.3 H* (0.7-2.0) mmol/L Calcium 8.1 L (8.4-10.2) mg/dL Total Bilirubin 2.1 H (0.2-1.3) mg/dL AST 71 H (17-59) U/L Albumin 3.4 L (3.5-5.0) g/dL 12/10/23 Range/Units 01:31 RBC (4.30-5.90) m/uL MCV (80.0-100.0) fL Lymphocytes # (1.0-4.8) k/uL Monocytes # (0-1.0) k/uL Macrocytosis Sodium (137-145) mmol/L Potassium (3.5-5.1) mmol/L Plasma Lactic Acid Tony 2.6 H* (0.7-2.0) mmol/L Calcium (8.4-10.2) mg/dL Total Bilirubin (0.2-1.3) mg/dL AST (17-59) U/L Albumin (3.5-5.0) g/dL
[2023-12-10] MEDS: PANTOPRAZOLE 40 MG TABLET PO SCH (08:03)
--- NOTE | 2023-12-10 09:14 | P.CNOR ---
History of Present Illness - [facility] Consult date: 12/10/23 Consult reason: joint pain (Right knee pain and swelling) History of present illness: The patient is a 78-year-old male who presented to the emergency department with right knee pain and swelling. He states that this started approximately 3 days ago when his knee popped while walking with a walker. No other injury recalled. The patient is currently on Eliquis and has a history of alcoholic cirrhosis, pacemaker, prostate cancer and bilateral partial knee replacements. He denies any fever or chills. Orthopedics was consulted for further evaluation and care of the right knee. He states the knee replacement was done a long time ago and out of the area. Review of Systems Constitutional: Denies chills, Denies fatigue, Denies fever Cardiovascular: Denies chest pain, Denies shortness of breath Respiratory: Denies cough Gastrointestinal: Denies diarrhea, Denies nausea, Denies vomiting Musculoskeletal: right: knee pain, knee stiffness, knee swelling Past Medical History Past Medical History: Cancer, Liver Disease Additional Past Medical History / Comment(s): Chronic back pain. ascites. explosure to Agent orange. pacemaker. umbilical hernia; cancer prostate 2002. cyst on the liver-planned to go to [facility] Last Myocardial Infarction Date:: unknown History of Any Multi-Drug Resistant Organisms: None Reported Past Surgical History: Cholecystectomy Additional Past Surgical History / Comment(s): multi large volume paracentesis Past Anesthesia/Blood Transfusion Reactions: No Reported Reaction Type of Cardiac Device: Permanent Pacemaker Device Placement Date:: ? 2021 Past Psychological History: PTSD Smoking Status: Former smoker Past Alcohol Use History: Occasional Past Drug Use History: None Reported - Past Family History Father Family Medical History: No Reported History Additional Family Medical History / Comment(s): colon cancer Medications and Allergies Home Medications Medication Instructions Recorded Confirmed Type Ciprofloxacin HCl [Cipro] 500 mg PO DAILY 05/26/23 12/10/23 History PARoxetine HCL 30 mg PO DAILY 05/26/23 12/10/23 History carvediloL [Coreg] 6.25 mg PO BID 05/26/23 12/10/23 History Mirtazapine 30 mg PO HS 09/16/23 12/10/23 History Acetaminophen Tab [Tylenol Tab] 500 mg PO Q6H PRN 12/10/23 12/10/23 History Aspirin EC [Ecotrin Low Dose] 81 mg PO DAILY 12/10/23 12/10/23 History Elderberry Fruit and Flower [Black 1 cap PO DAILY 12/10/23 12/10/23 History Elderberry 575 mg Cap] Gabapentin 600 mg PO BID 12/10/23 12/10/23 History Lidocaine 4% Patch 1 patch TOPICAL DAILY PRN 12/10/23 12/10/23 History Allergies Allergy/AdvReac Type Severity Reaction Status Date / Time medium chain triglycerides Allergy Unknown Verified 12/10/23 10:13 [From Lipisorb] nutritional Allergy Unknown Verified 12/10/23 10:13 supplement,special formulas [From Lipisorb] simvastatin [From Zocor] Allergy Unknown Verified 12/10/23 10:13 ibuprofen [From Motrin] AdvReac Nausea Verified 12/10/23 10:13 Physical Examination the patient is a 78-year-old male who is alert and oriented 3. No acute distress. Exam of the right knee reveals erythema and ecchymosis to the anterior knee. There is an area of marked of redness that extends to his mid lower leg area. There are chronic skin changes to the right lower leg. There is pain to the prepatellar area and fluid is present. No open wounds or drainage noted at this time to the knee. He is able to actively flex his knee to 90 and fully extend the knee without significant pain. Neurological and circulatory status is intact. Results x-ray of the right knee reveals a prior uni medial compartmental arthroplasty, it appears to be well-seated without signs of loosening. There is edema noted to the anterior knee. - Labs Labs: Abnormal Lab Results - Last 24 Hours (Table) 12/09/23 12/09/23 12/09/23 Range/Units 22:34 22:34 22:34 RBC 3.92 L (4.30-5.90) m/uL MCV 108.3 H (80.0-100.0) fL Lymphocytes # 0.7 L (1.0-4.8) k/uL Monocytes # 1.1 H (0-1.0) k/uL Macrocytosis Marked A Sodium 133 L (137-145) mmol/L Potassium 5.8 H (3.5-5.1) mmol/L Plasma Lactic Acid Tony 4.3 H* (0.7-2.0) mmol/L Calcium 8.1 L (8.4-10.2) mg/dL Total Bilirubin 2.1 H (0.2-1.3) mg/dL AST 71 H (17-59) U/L Albumin 3.4 L (3.5-5.0) g/dL 12/10/23 Range/Units 01:31 RBC (4.30-5.90) m/uL MCV (80.0-100.0) fL Lymphocytes # (1.0-4.8) k/uL Monocytes # (0-1.0) k/uL Macrocytosis Sodium (137-145) mmol/L Potassium (3.5-5.1) mmol/L Plasma Lactic Acid Tony 2.6 H* (0.7-2.0) mmol/L Calcium (8.4-10.2) mg/dL Total Bilirubin (0.2-1.3) mg/dL AST (17-59) U/L Albumin (3.5-5.0) g/dL H & H 12/09/23 Range/Units 22:34 Hgb 13.5 (13.0-17.5) gm/dL Hct 42.5 (39.0-53.0) % Result Diagrams: 12/09/23 22:34 12/10/23 01:31 Assessment and Plan (1) Prepatellar bursitis Current Visit: Yes Status: Acute Code(s): M70.40 - PREPATELLAR BURSITIS, UNSPECIFIED KNEE SNOMED Code(s): 81615065 (2) Right knee pain Current Visit: Yes Status: Acute Code(s): M25.561 - PAIN IN RIGHT KNEE SNOMED Code(s): 0058555184 (3) History of partial knee replacement Current Visit: Yes Status: Acute Code(s): Z96.659 - PRESENCE OF UNSPECIFIED ARTIFICIAL KNEE JOINT SNOMED Code(s): 780558909 Plan: The clinical and x-ray findings were discussed with the patient. The case was discussed at length with Dr. Wilkes. No surgical intervention is planned at this time. Continue IV antibiotics. We recommend a thigh-high MINNIE hose on the right leg and warm compresses to the right knee. Depending on the patient's course, the patient may need an I&D if he does not continue to improve on IV antibiotics. We will continue to follow the patient closely and make further recommendations as needed.
[2023-12-10] MEDS: PIPERACILLIN-TAZOBACTAM 3.375 GM in SODIUM CHLORIDE 0.9% 100 ML IVPB SCH (10:27)
[2023-12-10] MEDS: VANCOMYCIN 2,000 MG in SODIUM CHLORIDE 0.9% 500 ML 500 ML IVPB SCH (14:39)
[2023-12-10] MEDS: HEPARIN SODIUM,PORCINE 5,000 UNIT/ML 1 ML VIAL SQ SCH (15:55)
[2023-12-10] MEDS ORDERED: ceFAZolin 3 GM in SODIUM CHLORIDE 0.9% 100 ML IVPB SCH (16:00)
--- NOTE | 2023-12-10 16:23 | P.CONS ---
History of Present Illness - Reason for Consult Consult date: 12/10/23 Alcoholic liver cirrhosis Requesting physician: Edna Bundy - Chief Complaint Leg infection - History of Present Illness This is a pleasant 78-year-old white male with a history of alcohol liver cirrhosis with ascites who follows with gastroenterology in the outpatient setting. Past medical history also includes coronary artery disease, pacemaker on Eliquis, bilateral knee replacements, prostate cancer who had presented to the emergency department for complaints of right knee pain and swelling. Patient admitted for concerns for possible right lower extremity infection. Gastroenterology was consulted for history of liver cirrhosis however patient is not having any complaints at this time. He was found to have an elevated AFP in the office with further workup including an MRI with findings of a 2.6 cm liver lesion with recommendations to follow-up with [facility]. He has talked with [facility] and they will be setting up appointment for him to get established and all care will be deferred to [facility]. He gets paracentesis every other week. He denies any shortness of breath, chest pain, abdominal pain, nausea or vomiting. He has been afebrile. Review of Systems REVIEW OF SYSTEMS: CARDIOPULMONARY: No chest pain or shortness of breath. Gastrointestinal: No abdominal pain. Abdominal ascites. No nausea or vomiting. No hematemesis, coffee-ground emesis. No rectal bleeding, or melena. GENITOURINARY: No dysuria or hematuria. MUSCULOSKELETAL: Reports normal range of motion. Right knee pain and swelling. SKIN: No rashes. No jaundice. ENDOCRINE: No chills, fevers. No excessive weight gain or loss. No polydipsia or polyuria. PSYCHIATRIC: Unremarkable. NEUROLOGY: No change in mental status. Denies dizziness, headache. ENT: Vision unremarkable. CONSTITUTIONAL: No recent weight loss. No fever, chills, night sweats. Past Medical History Past Medical History: Cancer, Liver Disease Additional Past Medical History / Comment(s): Chronic back pain. ascites. explosure to Agent orange. pacemaker. umbilical hernia; cancer prostate 2002. cyst on the liver-planned to go to [facility] Last Myocardial Infarction Date:: unknown History of Any Multi-Drug Resistant Organisms: None Reported Past Surgical History: Cholecystectomy Additional Past Surgical History / Comment(s): multi large volume paracentesis Past Anesthesia/Blood Transfusion Reactions: No Reported Reaction Type of Cardiac Device: Permanent Pacemaker Device Placement Date:: ? 2021 Past Psychological History: PTSD Smoking Status: Former smoker Past Alcohol Use History: Occasional Past Drug Use History: None Reported - Past Family History Father Family Medical History: No Reported History Additional Family Medical History / Comment(s): colon cancer Medications and Allergies Home Medications Medication Instructions Recorded Confirmed Type Ciprofloxacin HCl [Cipro] 500 mg PO DAILY 05/26/23 12/10/23 History PARoxetine HCL 30 mg PO DAILY 05/26/23 12/10/23 History carvediloL [Coreg] 6.25 mg PO BID 05/26/23 12/10/23 History Mirtazapine 30 mg PO HS 09/16/23 12/10/23 History Acetaminophen Tab [Tylenol Tab] 500 mg PO Q6H PRN 12/10/23 12/10/23 History Aspirin EC [Ecotrin Low Dose] 81 mg PO DAILY 12/10/23 12/10/23 History Elderberry Fruit and Flower [Black 1 cap PO DAILY 12/10/23 12/10/23 History Elderberry 575 mg Cap] Gabapentin 600 mg PO BID 12/10/23 12/10/23 History Lidocaine 4% Patch 1 patch TOPICAL DAILY PRN 12/10/23 12/10/23 History Allergies Allergy/AdvReac Type Severity Reaction Status Date / Time medium chain triglycerides Allergy Unknown Verified 12/10/23 10:13 [From Lipisorb] nutritional Allergy Unknown Verified 12/10/23 10:13 supplement,special formulas [From Lipisorb] simvastatin [From Zocor] Allergy Unknown Verified 12/10/23 10:13 ibuprofen [From Motrin] AdvReac Nausea Verified 12/10/23 10:13 Physical Exam Vitals: Vital Signs Temp Pulse Resp BP Pulse Ox 12/10/23 01:30 98.4 F 83 20 104/61 98 12/09/23 22:28 98.2 F 71 16 107/68 97 Intake and Output 12/09/23 12/09/23 12/10/23 14:59 22:59 06:59 Other: Weight 108.862 kg General appearance: The patient is alert, oriented, appears in no acute distress. HET: Head is normocephalic and atraumatic. Conjunctiva pink. Sclera anicteric. Neck: Supple without lymphadenopathy. Abdomen: Soft, nontender, nondistended with bowel sounds. No guarding or rigidity. Extremities: Right lower extremity swelling. Skin: No rashes, no jaundice Neurological: No focal deficits. Alert and oriented. Results CBC & Chem 7: 12/09/23 22:34 12/10/23 01:31 Labs: Abnormal Lab Results - Last 24 Hours (Table) 12/09/23 12/09/23 12/09/23 Range/Units 22:34 22:34 22:34 RBC 3.92 L (4.30-5.90) m/uL MCV 108.3 H (80.0-100.0) fL Lymphocytes # 0.7 L (1.0-4.8) k/uL Monocytes # 1.1 H (0-1.0) k/uL Macrocytosis Marked A Sodium 133 L (137-145) mmol/L Potassium 5.8 H (3.5-5.1) mmol/L Plasma Lactic Acid Tony 4.3 H* (0.7-2.0) mmol/L Calcium 8.1 L (8.4-10.2) mg/dL Total Bilirubin 2.1 H (0.2-1.3) mg/dL AST 71 H (17-59) U/L Albumin 3.4 L (3.5-5.0) g/dL 12/10/23 Range/Units 01:31 RBC (4.30-5.90) m/uL MCV (80.0-100.0) fL Lymphocytes # (1.0-4.8) k/uL Monocytes # (0-1.0) k/uL Macrocytosis Sodium (137-145) mmol/L Potassium (3.5-5.1) mmol/L Plasma Lactic Acid Tony 2.6 H* (0.7-2.0) mmol/L Calcium (8.4-10.2) mg/dL Total Bilirubin (0.2-1.3) mg/dL AST (17-59) U/L Albumin (3.5-5.0) g/dL Assessment and Plan (1) Alcoholic cirrhosis of liver with ascites Narrative/Plan: Patient with known history of alcohol cirrhosis of the liver with ascites who gets paracentesis every other week also recently found to have elevated AFP and MRI with the 2.6 cm liver lesion awaiting appointment with [facility]. There is no further workup or any indication for any gastroenterology intervention. Last paracentesis 12/02/2023. Paracentesis as scheduled. Current Visit: Yes Status: Acute Code(s): K70.31 - ALCOHOLIC CIRRHOSIS OF LIVER WITH ASCITES SNOMED Code(s): 708158803 (2) Liver lesion Current Visit: Yes Status: Acute Code(s): K76.9 - LIVER DISEASE, UNSPECIFIED SNOMED Code(s): 191340596 (3) Right knee pain Current Visit: Yes Status: Acute Code(s): M25.561 - PAIN IN RIGHT KNEE SNOMED Code(s): 2583160585 Plan: 1. Continue symptomatic and supportive care 2. Continue with recommendations from orthopedics 3. There is no indication for any gastroenterology workup or intervention 4. Continue with paracentesis as scheduled 5. Patient to follow-up with [facility] for elevated AFP and liver lesion on MRI Thank you for this consultation, we will sign off at this time. Dr. Desire Coombs I agree with the dictator's note, documented as a scribe by Christiana Britt.
[2023-12-10] MEDS: traMADol 50 MG TAB PO PRN (18:53)
[2023-12-10] MEDS: GABAPENTIN 300 MG CAP PO SCH (20:40)
[2023-12-10] MEDS: MIRTAZAPINE 15 MG TAB PO SCH (20:40)
[2023-12-11 04:09] LABS: HGB 11.6 gm/dL (13.0-17.5); Hypochromasia Marked; MCH 34.4 pg (25.0-35.0); MCHC 31.4 g/dL (31.0-37.0); Macrocytosis Marked; Mean Platelet Volume 7.7; Platelet Count 119 k/uL (150-450); RBC 3.38 m/uL (4.30-5.90); WBC 5.3 k/uL (3.8-10.6)
[2023-12-11 04:29] LABS: MCV 109.5 fL (80.0-100.0)
[2023-12-11 04:34] LABS: African American GFR (CKD) >90 (>60 ml/min/1.73 sqM); Anion Gap 2 mmol/L; Blood Urea Nitrogen 13 mg/dL (9-20); Calcium 7.8 mg/dL (8.4-10.2); Carbon Dioxide 24 mmol/L (22-30); Chloride 107 mmol/L (98-107); Glucose 111 mg/dL (74-99); Non-African American GFR(CKD) >90 (>60 ml/min/1.73 sqM); Potassium 3.7 mmol/L (3.5-5.1); Sodium 133 mmol/L (137-145)
--- NOTE | 2023-12-11 07:58 | P.PN ---
Subjective Progress Note Date: 12/11/23 Principal diagnosis: Right knee prepatellar bursitis The patient is a 78-year-old male who presented to the emergency department with right knee pain and swelling. He states that this started approximately 3 days ago when his knee popped while walking with a walker. No other injury recalled. The patient is currently on Eliquis and has a history of alcoholic cirrhosis, pacemaker, prostate cancer and bilateral partial knee replacements. He denies any fever or chills. Orthopedics was consulted for further evaluation and care of the right knee. He states the knee replacement was done a long time ago and out of the area. Today, the patient states his knee is feeling better. Motion is improving. Denies fever and chills. No new complaints. Objective - Vital Signs Vital signs: Vital Signs Temp 98.8 F 12/11/23 01:22 Pulse 71 12/11/23 01:22 Resp 18 12/11/23 01:22 BP 97/56 12/11/23 01:22 Pulse Ox 97 12/11/23 01:22 FiO2 Intake & Output 12/10/23 12/11/23 12/11/23 18:59 06:59 18:59 Output Total 250 Balance -250 Weight 108.862 kg Output: Urine 250 Other: # Voids 1 # Bowel Movements 1 - Exam The patient is a 78-year-old male who is alert and oriented 3. No acute distress. Exam of the right knee reveals improving erythema and ecchymosis to the anterior knee. There is an area marked that the redness is receding well. There are chronic skin changes to the right lower leg. There is pain to the prepatellar area and fluid is present. No open wounds or drainage noted at this time to the knee. He is able to actively flex his knee to 90 and fully extend the knee without significant pain. Neurological and circulatory status is intact. - Labs CBC & Chem 7: 12/11/23 03:55 12/11/23 03:55 Labs: Abnormal Lab Results - Last 24 Hours (Table) 12/11/23 12/11/23 Range/Units 03:55 03:55 RBC 3.38 L (4.30-5.90) m/uL Hgb 11.6 L (13.0-17.5) gm/dL Hct 37.0 L (39.0-53.0) % MCV 109.5 H (80.0-100.0) fL Plt Count 119 L (150-450) k/uL Macrocytosis Marked A Sodium 133 L (137-145) mmol/L Creatinine 0.65 L (0.66-1.25) mg/dL Glucose 111 H (74-99) mg/dL Calcium 7.8 L (8.4-10.2) mg/dL Microbiology - Last 24 Hours (Table) 12/10/23 01:31 Blood Culture Gram Stain - Preliminary Blood Blood Culture - Preliminary Molecular ID 12/10/23 02:00 Blood Culture Gram Stain - Preliminary Blood Assessment and Plan (1) Prepatellar bursitis Current Visit: Yes Status: Acute Code(s): M70.40 - PREPATELLAR BURSITIS, U NSPECIFIED KNEE SNOMED Code(s): 40042753 (2) Right knee pain Current Visit: Yes Status: Acute Code(s): M25.561 - PAIN IN RIGHT KNEE SNOMED Code(s): 1826206696 (3) History of partial knee replacement Current Visit: Yes Status: Acute Code(s): Z96.659 - PRESENCE OF UNSPECIFIED ARTIFICIAL KNEE JOINT SNOMED Code(s): 601830409 Plan: The clinical and x-ray findings were discussed with the patient. The case was discussed at length with Dr. Wilkes. No surgical intervention is planned at this time. Continue IV antibiotics. We recommend a thigh-high MINNIE hose on the right leg and warm compresses to the right knee. Depending on the patient's course, the patient may need an I&D if he does not continue to improve on IV antibiotics. We will continue to follow the patient closely and make further recommendations as needed.
--- NOTE | 2023-12-11 08:40 | P.CONS ---
History of Present Illness - Reason for Consult Consult date: 12/10/23 Prepatellar bursitis Requesting physician: Edna Bundy - Chief Complaint Right knee pain swelling redness x 3 days - History of Present Illness Patient is a 78-year-old male past medical history significant for PTSD alcoholic cirrhosis of the liver did have a history of prostate cancer bilateral knee replacement presenting to the hospital for evaluation of i ncreasing pain swelling redness to the right knee area symptom has been going on for the last 3 days patient mention his knee popped and he was walking with a walker and subsequently did have worsening of the pain as well as swelling redness to the right knee area patient describing the pain to be dull aching to sharp moderate intensity without any radiation with associated swelling and redness patient has taken Neurontin without any improvement patient denies high- grade fever did have some chills on presentation to the hospital the patient was afebrile and no fever have been recorded subsequently patient was not tachycardic hypotensive or hypoxic he did have a white count of 9.8 with a left shift creatinine 0.96 potassium was 5 point 8 repeat is 4.4 lactic acid was 4.3 blood culture has been obtained patient did have x-ray of the knee 2.5 cm soft tissue thickening anterior to the patella consistent with contusion cellulitis or prepatellar bursitis no joint effusion or foreign body is identified patient was started on vancomycin and Rocephin infectious disease was consulted for further management of antibiotic therapy Review of Systems Positive point and negatives has been mentioned in the HPI, complete review of systems was performed and all other systems are negative Past Medical History Past Medical History: Cancer, Liver Disease Additional Past Medical History / Comment(s): Chronic back pain. ascites. explosure to Agent orange. pacemaker. umbilical hernia; cancer prostate 2002. cyst on the liver-planned to go to [facility] Last Myocardial Infarction Date:: unknown History of Any Multi-Drug Resistant Organisms: None Reported Past Surgical History: Cholecystectomy Additional Past Surgical History / Comment(s): multi large volume paracentesis Past Anesthesia/Blood Transfusion Reactions: No Reported Reaction Type of Cardiac Device: Permanent Pacemaker Device Placement Date:: ? 2021 Past Psychological History: PTSD Smoking Status: Former smoker Past Alcohol Use History: Occasional Past Drug Use History: None Reported - Past Family History Father Family Medical History: No Reported History Additional Family Medical History / Comment(s): colon cancer Medications and Allergies Home Medications Medication Instructions Recorded Confirmed Type Ciprofloxacin HCl [Cipro] 500 mg PO DAILY 05/26/23 12/10/23 History PARoxetine HCL 30 mg PO DAILY 05/26/23 12/10/23 History carvediloL [Coreg] 6.25 mg PO BID 05/26/23 12/10/23 History Mirtazapine 30 mg PO HS 09/16/23 12/10/23 History Acetaminophen Tab [Tylenol Tab] 500 mg PO Q6H PRN 12/10/23 12/10/23 History Aspirin EC [Ecotrin Low Dose] 81 mg PO DAILY 12/10/23 12/10/23 History Elderberry Fruit and Flower [Black 1 cap PO DAILY 12/10/23 12/10/23 History Elderberry 575 mg Cap] Gabapentin 600 mg PO BID 12/10/23 12/10/23 History Lidocaine 4% Patch 1 patch TOPICAL DAILY PRN 12/10/23 12/10/23 History Allergies Allergy/AdvReac Type Severity Reaction Status Date / Time medium chain triglycerides Allergy Unknown Verified 12/10/23 10:13 [From Lipisorb] nutritional Allergy Unknown Verified 12/10/23 10:13 supplement,special formulas [From Lipisorb] simvastatin [From Zocor] Allergy Unknown Verified 12/10/23 10:13 ibuprofen [From Motrin] AdvReac Nausea Verified 12/10/23 10:13 Physical Exam Vitals: Vital Signs Temp Pulse Resp BP Pulse Ox 12/10/23 11:00 60 17 104/64 96 12/10/23 10:30 65 18 108/63 98 12/10/23 10:00 65 18 112/64 97 12/10/23 08:30 96/54 12/10/23 08:00 60 17 96/54 98 12/10/23 05:00 82 16 95/56 97 12/10/23 03:00 80 20 106/54 97 12/10/23 01:30 98.4 F 83 20 104/61 98 12/10/23 01:00 86 18 104/58 96 12/09/23 22:28 98.2 F 71 16 107/68 97 Intake and Output 12/09/23 12/10/23 12/10/23 22:59 06:59 14:59 Other: Weight 108.862 kg GENERAL DESCRIPTION: Elderly male lying in bed, no distress. No tachypnea or accessory muscle of respiration use. HEENT: Shows Pallor , no scleral icterus. Oral mucous membrane is dry. No pharyngeal erythema or thrush NECK: Trachea central, no thyromegaly. LUNGS: Unlabored breathing. Clear to auscultation anteriorly. No wheeze or crackle. HEART: S1, S2, regular rate and rhythm. No loud murmur ABDOMEN: Soft, no tenderness , guarding or rigidity, no organomegaly EXTREMITIES: Right knee did have diffuse swelling and redness warmth, no open wound or any drainage SKIN: No rash, no masses palpable. NEUROLOGICAL: The patient is awake, alert, oriented x3, mood and affect normal. Results CBC & Chem 7: 12/11/23 03:55 12/11/23 03:55 Labs: Abnormal Lab Results - Last 24 Hours (Table) 12/09/23 12/09/23 12/09/23 Range/Units 22:34 22:34 22:34 RBC 3.92 L (4.30-5.90) m/uL MCV 108.3 H (80.0-100.0) fL Lymphocytes # 0.7 L (1.0-4.8) k/uL Monocytes # 1.1 H (0-1.0) k/uL Macrocytosis Marked A Sodium 133 L (137-145) mmol/L Potassium 5.8 H (3.5-5.1) mmol/L Plasma Lactic Acid Tony 4.3 H* (0.7-2.0) mmol/L Calcium 8.1 L (8.4-10.2) mg/dL Total Bilirubin 2.1 H (0.2-1.3) mg/dL AST 71 H (17-59) U/L Albumin 3.4 L (3.5-5.0) g/dL 12/10/23 Range/Units 01:31 RBC (4.30-5.90) m/uL MCV (80.0-100.0) fL Lymphocytes # (1.0-4.8) k/uL Monocytes # (0-1.0) k/uL Macrocytosis Sodium (137-145) mmol/L Potassium (3.5-5.1) mmol/L Plasma Lactic Acid Tony 2.6 H* (0.7-2.0) mmol/L Calcium (8.4-10.2) mg/dL Total Bilirubin (0.2-1.3) mg/dL AST (17-59) U/L Albumin (3.5-5.0) g/dL Assessment and Plan (1) Prepatellar bursitis Current Visit: Yes Status: Acute Code(s): M70.40 - PREPATELLAR BURSITIS, UNSPECIFIED KNEE SNOMED Code(s): 19359900 (2) Septic bursitis Current Visit: Yes Status: Acute Code(s): M71.10 - OTHER INFECTIVE BURSITIS, UNSPECIFIED SITE SNOMED Code(s): 426157552 Plan: 1patient presented to hospital with increasing swelling and redness to the right knee area in this patient who did have abnormal x-ray and clinical findings suspicious for septic prepatellar bursitis need to be treated aggressively keeping in mind underlying prosthetic knee and will need to cover for both gram-positive as well as gram-negative pathogen 2will benefit from surgical debridement and deep culture 3vancomycin pharmacy to dose target trough of 15 while watching kidney function and Vanco trough closely and Rocephin 2 g daily should provide adequate antibiotic coverage We will follow on clinical condition and cultures to further adjust medication if needed Thank you for this consultation we will follow the patient along with you Dictation was produced using [employer] dictation software. please excuse any grammatical, word or spelling errors. Time with Patient: Greater than 30
[2023-12-11] MEDS: PARoxetine 10 MG TAB PO SCH (09:24)
--- NOTE | 2023-12-11 15:05 | P.PN ---
Subjective Progress Note Date: 12/11/23 Principal diagnosis: Subjective: Patient seen at bedside. No significant overnight events. Pertinent positives and negatives discussed above, a complete review of systems was preformed and all the other systems were negative. Vitals Signs Reviewed. GENERAL: Elderly male lying in bed, no distress. No tachypnea or accessory muscle of respiration use. HEENT: Shows Pallor , no scleral icterus. Oral mucous membrane is dry. No pharyngeal erythema or thrush NECK: Trachea central, no thyromegaly. LUNGS: Unlabored breathing. Clear to auscultation anteriorly. No wheeze or crackle. HEART: S1, S2, regular rate and rhythm. No loud murmur ABDOMEN: Soft, no tenderness , guarding or rigidity, no organomegaly EXTREMITIES: Right knee did have diffuse swelling and redness warmth, no open wound or any drainage SKIN: No rash, no masses palpable. NEUROLOGICAL: The patient is awake, alert, oriented x3, mood and affect normal. Data Reviewed Today: Patient Labs: Hemoglobin 11.6, MCV 109.5, sodium 133, glucose 111, calcium 7.8 Blood culture shows Staph epidermidis Imaging: CT of lower extremity with contrast report pending Assessment and Plan: 78-year-old male with past medical history of alcoholic cirrhosis, status post pacemaker placement anticoagulated on Eliquis presenting to the emergency room prepatellar bursitis with cellulitis Active Prepatellar septic bursitis of the right knee w/ cellulitis Bacteremia, blood culture growing Staph epidermidis, 2/2 bottles -Affected area marked -Continue vancomycin and ceftriaxone, monitor for renal toxicity -If wound opens or drains, will send for culture -Discussed management with ID, agree with CT with contrast in lieu of MRI due to pacemaker Repeat blood culture -Ortho note reviewed, may need I&D Hyponatremia likely secondary to cirrhosis Macrocytosis likely secondary to cirrhosis Alcohol dependence -Monitor for withdrawal, on CIWA protocol, IV Ativan as needed, monitor for sedation - Oral thiamine 100 mg daily Resolved: Lactic acidosis Chronic Alcoholic Liver Cirrhosis Neuropathy Depression GERD F none E none N heart healthy A independent DVT ppx: SCDs, heparin 5000 units every 8 hours Code Status: Full code Anticipated discharge place: Pending clinical course Anticipated discharge time: Pending clinical course I have seen and evaluated the patient today. Discussed with the resident and agree with the residents finding and plan as documented in the resident's note. Changes highlighted in blue font. Objective - Vital Signs Vital signs: Vital Signs Temp 98.4 F 12/10/23 01:30 Pulse 83 12/10/23 01:30 Resp 20 12/10/23 01:30 BP 104/61 12/10/23 01:30 Pulse Ox 98 12/10/23 01:30 FiO2 Intake & Output 12/09/23 12/10/23 12/10/23 18:59 06:59 18:59 Weight 108.862 kg - Labs CBC & Chem 7: 12/11/23 03:55 12/11/23 03:55 Labs: Abnormal Lab Results - Last 24 Hours (Table) 12/09/23 12/09/23 12/09/23 Range/Units 22:34 22:34 22:34 RBC 3.92 L (4.30-5.90) m/uL MCV 108.3 H (80.0-100.0) fL Lymphocytes # 0.7 L (1.0-4.8) k/uL Monocytes # 1.1 H (0-1.0) k/uL Macrocytosis Marked A Sodium 133 L (137-145) mmol/L Potassium 5.8 H (3.5-5.1) mmol/L Plasma Lactic Acid Tony 4.3 H* (0.7-2.0) mmol/L Calcium 8.1 L (8.4-10.2) mg/dL Total Bilirubin 2.1 H (0.2-1.3) mg/dL AST 71 H (17-59) U/L Albumin 3.4 L (3.5-5.0) g/dL 12/10/23 Range/Units 01:31 RBC (4.30-5.90) m/uL MCV (80.0-100.0) fL Lymphocytes # (1.0-4.8) k/uL Monocytes # (0-1.0) k/uL Macrocytosis Sodium (137-145) mmol/L Potassium (3.5-5.1) mmol/L Plasma Lactic Acid Tony 2.6 H* (0.7-2.0) mmol/L Calcium (8.4-10.2) mg/dL Total Bilirubin (0.2-1.3) mg/dL AST (17-59) U/L Albumin (3.5-5.0) g/dL
--- NOTE | 2023-12-11 15:19 | CT ---
EXAMINATION TYPE: CT lower extremity RT w con DATE OF EXAM: 12/11/2023 COMPARISON: Radiograph left knee 12/09/2023 HISTORY: 78-year-old male septic bursitis versus septic arthritis right knee TECHNIQUE: Contiguous axial scanning of the right lower extremity from the distal thigh through the f oot performed with IV Contrast, patient injected with 100ml mL of Isovue 300. Coronal/sagittal recons tructions performed. CT DLP: 1512.4 mGycm Automated exposure control for dose reduction was used. FINDINGS: Generalized soft tissue swelling. There is prepatellar bursal distention up to 7.4 cm craniocaudal by 5.7 cm wide by 1.8 cm. Underlying [id number] knee joint effusion is nonspecific. There is also a medial compartmental arthropla sty present. Degenerative spurring lateral patellofemoral compartments also demonstrated. No acute fr acture seen. Extensive atherosclerotic calcifications within the trifurcation vessels. Fatty atrophy of the medial gastrocnemius. Subcutaneous soft tissue edema especially in the calf. IMPRESSION: 1. PREPATELLAR BURSITIS. BURSAL DISTENTION UP TO 7.4 X 5.7 X 1.8 CM. 2. Underlying compartmental arthroplasty of the knee. Additional degenerative spurring lateral patell ofemoral compartments. A small to moderate knee joint effusion is nonspecific. No merrick bony destruct ion or hardware loosening to clearly indicate a septic arthritis. 3. Additional generalized subcutaneous soft tissue swelling and edema. Correlate for third spacing, v enous stasis, or cellulitis.
--- NOTE | 2023-12-11 16:01 | P.PN ---
Subjective Progress Note Date: 12/11/23 Principal diagnosis: Reason for follow-up is left knee septic bursitis and positive blood culture Patient is a 78-year-old male past medical history significant for PTSD alcoholic cirrhosis of the liver did have a history of prostate cancer bilateral knee replacement presenting to the hospital for evaluation of increasing pain swelling redness to the right knee area, patient be diagnosed with a left knee septic prepatellar bursitis. Blood cultures came positive with staph epi. On today's evaluation that is 12/11/2023,the patient remains to be afebrile, patient is on room air not requiring supplemental oxygen and denies any shortness of breath no chest pain or cough.Patient denies having any nausea or vomiting, no abdominal pain and no diarrhea has been reported, right knee swelling Decreased. Patient white count is 5.3, creatinine 0.65 blood culture with staph epi Objective - Vital Signs Vital signs: Vital Signs Temp 97.3 F L 12/11/23 07:39 Pulse 78 12/11/23 07:39 Resp 17 12/11/23 07:39 BP 117/74 12/11/23 07:39 Pulse Ox 90 L 12/11/23 07:39 FiO2 Intake & Output 12/10/23 12/11/23 12/11/23 18:59 06:59 18:59 Output Total 250 Balance -250 Weight 108.862 kg Output: Urine 250 Other: # Voids 1 # Bowel Movements 1 - Exam GENERAL DESCRIPTION: An elderly male lying in bed in no distress RESPIRATORY SYSTEM: Unlabored breathing , decreased breath sounds at bases HEART: S1 S2 regular rate and rhythm , ABDOMEN: Soft , no tenderness EXTREMITIES: Left knee did have significant swelling redness and near fluctuation but no drainage - Labs CBC & Chem 7: 12/11/23 03:55 12/11/23 03:55 Labs: Abnormal Lab Results - Last 24 Hours (Table) 12/11/23 12/11/23 Range/Units 03:55 03:55 RBC 3.38 L (4.30-5.90) m/uL Hgb 11.6 L (13.0-17.5) gm/dL Hct 37.0 L (39.0-53.0) % MCV 109.5 H (80.0-100.0) fL Plt Count 119 L (150-450) k/uL Macrocytosis Marked A Sodium 133 L (137-145) mmol/L Creatinine 0.65 L (0.66-1.25) mg/dL Glucose 111 H (74-99) mg/dL Calcium 7.8 L (8.4-10.2) mg/dL Microbiology - Last 24 Hours (Table) 12/10/23 01:31 Blood Culture Gram Stain - Preliminary Blood Blood Culture - Preliminary Molecular ID 12/10/23 02:00 Blood Culture Gram Stain - Preliminary Blood Assessment and Plan (1) Prepatellar bursitis Current Visit: Yes Status: Acute Code(s): M70.40 - PREPATELLAR BURSITIS, UN SPECIFIED KNEE SNOMED Code(s): 74328262 (2) Septic bursitis Current Visit: Yes Status: Acute Code(s): M71.10 - OTHER INFECTIVE BURSITIS, UNSPECIFIED SITE SNOMED Code(s): 008025685 (3) Positive blood culture Current Visit: Yes Status: Acute Code(s): R78.81 - BACTEREMIA SNOMED Code(s): 570207762 Plan: 1patient presented to hospital with increasing swelling and redness to the right knee area in this patient who did have abnormal x-ray and clinical findings suspicious for septic prepatellar bursitis need to be treated aggressively keeping in mind underlying prosthetic knee and will need to cover for both gram-positive as well as gram-negative pathogen 2patient will benefit from surgical debridement and deep culture orthopedic is on the case discussed with the nursing staff if the area started to drain to get culture 3positive blood culture with staph epi possible skin contamination versus true pathogen blood culture has been repeated document clearance 4we will keep the patient on vancomycin and Rocephin pending workup completion discussed with the resident physician on the case Dictation was produced using [employer] dictation software. please excuse any grammatical, word or spelling errors. Time with Patient: Less than 30
[2023-12-11] MEDS: THIAMINE 100 MG TAB PO SCH (16:19)
[2023-12-11] MEDS ORDERED: ZINC OXIDE PASTE (Z-GUARD) 1 APPLIC TOPICAL PRN (16:26)
--- NOTE | 2023-12-12 11:24 | P.PN ---
Subjective Progress Note Date: 12/12/23 Subjective: Patient seen at bedside. No significant overnight events. Claims that his bursitis started to drain, cultures were already obtained. Pertinent positives and negatives discussed above, a complete review of systems was preformed and all the other systems were negative. Vitals Signs Reviewed. GENERAL: Elderly male lying in bed, no distress. No tachypnea or accessory muscle of respiration use. HEENT: Shows Pallor , no scleral icterus. Oral mucous membrane is dry. No pharyngeal erythema or thrush NECK: Trachea central, no thyromegaly. LUNGS: Unlabored breathing. Clear to auscultation anteriorly. No wheeze or crackle. HEART: S1, S2, regular rate and rhythm. No loud murmur ABDOMEN: Soft, no tenderness , guarding or rigidity, no organomegaly EXTREMITIES: Right knee did have diffuse swelling and redness warmth, with dressing on top and purulent drainage SKIN: No rash, no masses palpable. NEUROLOGICAL: The patient is awake, alert, oriented x3, mood and affect normal. Data Reviewed Today: Patient Labs: Creatinine pending, will be reviewed when available Blood culture shows Staph epidermidis 2 out of 2 Imaging: CT of lower extremity with contrast showed prepatellar bursitis, small to moderate knee joint effusion which is nonspecific, no clear indication of septic arthritis Assessment and Plan: 78-year-old male with past medical history of alcoholic cirrhosis, status post pacemaker placement anticoagulated on Eliquis presenting to the emergency room prepatellar bursitis with cellulitis Active Prepatellar septic bursitis of the right knee w/ cellulitis Bacteremia, blood culture growing Staph epidermidis, 2/2 bottles -Continue vancomycin and ceftriaxone, monitor for renal toxicity -Ortho and ID following, cultures pending - may need I&D Hyponatremia likely secondary to cirrhosis Macrocytosis likely secondary to cirrhosis Alcohol dependence -Monitor for withdrawal, on CIWA protocol, IV Ativan as needed, monitor for sedation - Oral thiamine 100 mg daily Resolved: Lactic acidosis Chronic Alcoholic Liver Cirrhosis Neuropathy Depression GERD F none E none N heart healthy A independent DVT ppx: SCDs, heparin 5000 units every 8 hours Code Status: Full code Anticipated discharge place: Pending clinical course Anticipated discharge time: Pending clinical course Objective - Vital Signs Vital signs: Vital Signs Temp 97.6 F 12/12/23 08:12 Pulse 76 12/12/23 08:12 Resp 18 12/12/23 08:12 BP 162/90 12/12/23 08:12 Pulse Ox 94 L 12/12/23 08:12 FiO2 Intake & Output 12/11/23 12/12/23 12/12/23 18:59 06:59 18:59 Intake Total 200 Output Total 300 100 Balance -300 100 Intake: Oral 200 Output: Urine 300 100 Other: Voiding Method Urinal - Labs CBC & Chem 7: 12/11/23 03:55 12/11/23 03:55 Labs: Microbiology - Last 24 Hours (Table) 12/10/23 02:00 Blood Culture Gram Stain - Preliminary Blood Blood Culture - Preliminary Staphylococcus epidermidis 12/10/23 01:31 Blood Culture Gram Stain - Preliminary Blood Blood Culture - Preliminary Staphylococcus epidermidis Molecular ID
--- NOTE | 2023-12-12 11:31 | P.PN ---
Subjective Progress Note Date: 12/12/23 Principal diagnosis: Right knee prepatellar bursitis The patient is a 78-year-old male who presented to the emergency department with right knee pain and swelling. He states that this started approximately 3 days ago when his knee popped while walking with a walker. No other injury recalled. The patient is currently on Eliquis and has a history of alcoholic cirrhosis, pacemaker, prostate cancer and bilateral partial knee replacements. He denies any fever or chills. Orthopedics was consulted for further evaluation and care of the right knee. He states the knee replacement was done a long time ago and out of the area. Today, the patient states his knee is feeling better. Motion is improving. Denies fever and chills. The knee started to drain last night. Culture obtained. No new complaints. Objective - Vital Signs Vital signs: Vital Signs Temp 97.6 F 12/12/23 08:12 Pulse 76 12/12/23 08:12 Resp 18 12/12/23 08:12 BP 162/90 12/12/23 08:12 Pulse Ox 94 L 12/12/23 08:12 FiO2 Intake & Output 12/11/23 12/12/23 12/12/23 18:59 06:59 18:59 Intake Total 200 Output Total 300 100 Balance -300 100 Intake: Oral 200 Output: Urine 300 100 Other: Voiding Method Urinal - Exam The patient is a 78-year-old male who is alert and oriented 3. No acute distress. Exam of the right knee reveals improving erythema and ecchymosis to the anterior knee. There is an area marked that the redness is receding well. There are chronic skin changes to the right lower leg. There is pain to the prepatellar area and fluid is present. There is an open abrasion now to the anterior knee, draining a yellow drainage. He is able to actively flex his knee to 90 and fully extend the knee without significant pain. Neurological and circulatory status is intact. - Labs CBC & Chem 7: 12/11/23 03:55 12/11/23 03:55 Labs: Microbiology - Last 24 Hours (Table) 12/10/23 02:00 Blood Culture Gram Stain - Preliminary Blood Blood Culture - Preliminary Staphylococcus epidermidis 12/10/23 01:31 Blood Culture Gram Stain - Preliminary Blood Blood Culture - Preliminary Staphylococcus epidermidis Molecular ID Assessment and Plan (1) Prepatellar bursitis Current Visit: Yes Status: Acute Code(s): M70.40 - PREPATELLAR BURSITIS, UNSPECIFIED KNEE SNOMED Code(s): 87334881 (2) Right knee pain Current Visit: Yes Status: Acute Code(s): M25.561 - PAIN IN RIGHT KNEE SNOMED Code(s): 7781071202 (3) History of partial knee replacement Current Visit: Yes Status: Acute Code(s): Z96.659 - PRESENCE OF UNSPECIFIED ARTIFICIAL KNEE JOINT SNOMED Code(s): 762008501 Plan: The clinical and x-ray findings were discussed with the patient. The case was discussed at length with Dr. Wilkes. No surgical intervention is planned at this time. Continue IV antibiotics. We recommend a thigh-high MINNIE hose on the right leg and warm compresses to the right knee. Depending on the patient's course, the patient may need an I&D if he does not continue to improve on IV antibiotics. We will continue to follow the patient closely and make further recommendations as needed.
[2023-12-12 12:27] LABS: African American GFR (CKD) >90 (>60 ml/min/1.73 sqM); Non-African American GFR(CKD) 87 (>60 ml/min/1.73 sqM)
[2023-12-12] MEDS: VANCOMYCIN TROUGH DUE 1 EACH MISC MISCELLANE ONE (14:00)
--- NOTE | 2023-12-12 14:41 | P.PN ---
Subjective Progress Note Date: 12/12/23 Principal diagnosis: Reason for follow-up is left knee septic bursitis and positive blood culture Patient is a 78-year-old male past medical history significant for PTSD alcoholic cirrhosis of the liver did have a history of prostate cancer bilateral knee replacement presenting to the hospital for evaluation of increasing pain swelling redness to the right knee area, patient be diagnosed with a left knee septic prepatellar bursitis. Blood cultures came positive with staph epi. On today's evaluation that is 12/12/2023, the patient continues to be afebrile, the patient is on room air and breathing comfortably, the Pt denies having any chest pain or cough, the patient denies having any abdominal pain no vomiting or any diarrhea still complaining of pain to the right knee area which apparently started to drain last night and culture has been obtained. Patient white count is 5.3 creatinine 0.77 Vanco trough is 25.5 blood culture with staph epi local cultures are pending Objective - Vital Signs Vital signs: Vital Signs Temp 97.9 F 12/12/23 12:43 Pulse 66 12/12/23 12:43 Resp 16 12/12/23 12:43 BP 133/68 12/12/23 12:43 Pulse Ox 100 12/12/23 12:43 FiO2 Intake & Output 12/11/23 12/12/23 12/12/23 18:59 06:59 18:59 Intake Total 200 Output Total 300 100 Balance -300 100 Intake: Oral 200 Output: Urine 300 100 Other: Voiding Method Urinal - Exam GENERAL DESCRIPTION: An elderly male lying in bed in no distress RESPIRATORY SYSTEM: Unlabored breathing , decreased breath sounds at bases HEART: S1 S2 regular rate and rhythm , ABDOMEN: Soft , no tenderness EXTREMITIES: Left knee did have significant swelling redness and near fluctuation but no drainage - Labs CBC & Chem 7: 12/11/23 03:55 12/12/23 11:53 Labs: Microbiology - Last 24 Hours (Table) 12/10/23 02:00 Blood Culture Gram Stain - Preliminary Blood Blood Culture - Preliminary Staphylococcus epidermidis 12/10/23 01:31 Blood Culture Gram Stain - Preliminary Blood Blood Culture - Preliminary Staphylococcus epidermidis Molecular ID Assessment and Plan (1) Prepatellar bursitis Current Visit: Yes Status: Acute Code(s): M70.40 - PREPATELLAR BURSITIS, UNSPECIFIED KNEE SNOMED Code(s): 00345568 (2) Septic bursitis Current Visit: Yes Status: Acute Code(s): M71.10 - OTHER INFECTIVE BURSITIS, UNSPECIFIED SITE SNOMED Code(s): 353476818 (3) Positive blood culture Current Visit: Yes Status: Acute Code(s): R78.81 - BACTEREMIA SNOMED Code(s): 155481893 Plan: 1patient presented to hospital with increasing swelling and redness to the right knee area in this patient who did have abnormal x-ray and clinical fin dings suspicious for septic prepatellar bursitis need to be treated aggressively keeping in mind underlying prosthetic knee and will need to cover for both gram- positive as well as gram-negative pathogen 2patient will benefit from surgical debridement and deep culture orthopedic is on the case still recommending no surgical drainage patient did have some drainage spontaneous last night culture has been obtained results will be followed 3positive blood culture with staph epi repeat blood culture currently pending 4patient to continue with vancomycin and Rocephin pending culture finalization Dictation was produced using [employer] dictation software. please excuse any grammatical, word or spelling errors. Time with Patient: Less than 30
[2023-12-12] MEDS: VANCOMYCIN 1,750 MG in SODIUM CHLORIDE 0.9% 500 ML 500 ML IVPB SCH (21:19)
[2023-12-13] MEDS ORDERED: MIRTAZAPINE 15 MG TAB ONE (00:01)
[2023-12-13] MEDS ORDERED: PARoxetine 10 MG TAB ONE ×2 (00:01)
[2023-12-13] MEDS ORDERED: SODIUM CHLORIDE 0.9% 500 ML BAG ONE (00:01)
[2023-12-13] MEDS ORDERED: VANCOMYCIN 1,000 MG VIAL ONE (00:01)
[2023-12-13 02:01] VITALS: BP 105/48; PULSE 65; RESP 17; TEMP 98.1
[2023-12-13 06:17] LABS: African American GFR (CKD) >90 (>60 ml/min/1.73 sqM); Non-African American GFR(CKD) 85 (>60 ml/min/1.73 sqM)
[2023-12-13] MEDS ORDERED: THIAMINE 100 MG TAB ONE (08:25)
[2023-12-13] MEDS ORDERED: HEPARIN SODIUM,PORCINE 5,000 UNIT/ML 1 ML VIAL ONE ×3 (08:25→23:43)
[2023-12-13] MEDS ORDERED: GABAPENTIN 300 MG CAP ONE ×3 (08:25→20:56)
[2023-12-13] MEDS ORDERED: cefTRIAXone 2 GM VIAL ONE (08:25)
[2023-12-13] MEDS ORDERED: SODIUM CHLORIDE 0.9% 50 ML ONE (08:25)
[2023-12-13] MEDS ORDERED: PANTOPRAZOLE 40 MG TABLET PO ONE (08:25)
[2023-12-14] MEDS ORDERED: VANCOMYCIN 1,000 MG VIAL ONE (00:01)
[2023-12-14] MEDS ORDERED: PARoxetine 10 MG TAB ONE ×2 (00:01)
[2023-12-14] MEDS ORDERED: MIRTAZAPINE 15 MG TAB ONE (00:01)
[2023-12-14] MEDS ORDERED: SODIUM CHLORIDE 0.9% 500 ML BAG ONE (00:01)
[2023-12-14] MEDS ORDERED: SODIUM CHLORIDE 0.9% 50 ML ONE (10:43)
[2023-12-14] MEDS ORDERED: THIAMINE 100 MG TAB ONE (10:43)
[2023-12-14] MEDS ORDERED: GABAPENTIN 300 MG CAP ONE ×2 (10:43→20:22)
[2023-12-14] MEDS ORDERED: cefTRIAXone 2 GM VIAL ONE (10:43)
[2023-12-14] MEDS ORDERED: HEPARIN SODIUM,PORCINE 5,000 UNIT/ML 1 ML VIAL ONE (16:38)
[2023-12-14] MEDS ORDERED: traMADol 50 MG TAB ONE (21:06)
[2023-12-15] MEDS ORDERED: VANCOMYCIN 1,000 MG VIAL ONE (00:01)
[2023-12-15] MEDS ORDERED: PARoxetine 10 MG TAB ONE (00:01)
[2023-12-15] MEDS ORDERED: SODIUM CHLORIDE 0.9% 500 ML BAG ONE (00:01)
[2023-12-15] MEDS ORDERED: MIRTAZAPINE 15 MG TAB ONE (00:01)
[2023-12-15] MEDS ORDERED: HEPARIN SODIUM,PORCINE 5,000 UNIT/ML 1 ML VIAL ONE ×2 (00:10→17:09)
[2023-12-15] MEDS ORDERED: PANTOPRAZOLE 40 MG TABLET PO ONE (07:59)
[2023-12-15] MEDS ORDERED: GABAPENTIN 300 MG CAP ONE ×2 (08:00→20:22)
[2023-12-15] MEDS ORDERED: THIAMINE 100 MG TAB ONE (08:00)
[2023-12-15] MEDS ORDERED: cefTRIAXone 2 GM VIAL ONE (08:00)
[2023-12-15] MEDS ORDERED: SODIUM CHLORIDE 0.9% 50 ML ONE (08:00)
[2023-12-16] MEDS ORDERED: VANCOMYCIN 1,000 MG VIAL ONE (00:01)
[2023-12-16] MEDS ORDERED: MIRTAZAPINE 15 MG TAB ONE (00:01)
[2023-12-16] MEDS ORDERED: ALBUMIN HUMAN 25% (12.5gm) 50 ML VIAL ONE (00:01)
[2023-12-16] MEDS ORDERED: PARoxetine 10 MG TAB ONE ×2 (00:01)
[2023-12-16] MEDS ORDERED: SODIUM CHLORIDE 0.9% 500 ML BAG ONE (00:01)
[2023-12-16] MEDS ORDERED: cefTRIAXone 2 GM VIAL ONE (08:28)
[2023-12-16] MEDS ORDERED: SODIUM CHLORIDE 0.9% 50 ML ONE (08:28)
[2023-12-16] MEDS ORDERED: PANTOPRAZOLE 40 MG TABLET PO ONE (08:38)
[2023-12-16] MEDS ORDERED: GABAPENTIN 300 MG CAP ONE ×2 (08:39→19:04)
[2023-12-16] MEDS ORDERED: THIAMINE 100 MG TAB ONE (08:39)
[2023-12-16] MEDS ORDERED: HEPARIN SODIUM,PORCINE 5,000 UNIT/ML 1 ML VIAL ONE (15:29)
[2023-12-17] MEDS ORDERED: MIRTAZAPINE 15 MG TAB ONE (00:01)
[2023-12-17] MEDS ORDERED: VANCOMYCIN 1,000 MG VIAL ONE (00:01)
[2023-12-17] MEDS ORDERED: SODIUM CHLORIDE 0.9% 500 ML BAG ONE (00:01)
[2023-12-17] MEDS ORDERED: PARoxetine 10 MG TAB ONE (00:01)
[2023-12-17] MEDS ORDERED: THIAMINE 100 MG TAB ONE (08:10)
[2023-12-17] MEDS ORDERED: GABAPENTIN 300 MG CAP ONE ×2 (08:10→20:49)
[2023-12-17] MEDS ORDERED: PANTOPRAZOLE 40 MG TABLET PO ONE (08:10)
[2023-12-17] MEDS ORDERED: HEPARIN SODIUM,PORCINE 5,000 UNIT/ML 1 ML VIAL ONE ×3 (08:10→23:47)
[2023-12-17] MEDS ORDERED: cefTRIAXone 2 GM VIAL ONE (08:11)
[2023-12-17] MEDS ORDERED: SODIUM CHLORIDE 0.9% 50 ML ONE (08:11)
[2023-12-18] MEDS ORDERED: MIRTAZAPINE 15 MG TAB ONE (00:01)
[2023-12-18] MEDS ORDERED: SODIUM CHLORIDE 0.9% 50 ML BAG ONE (00:01)
[2023-12-18] MEDS ORDERED: PARoxetine 10 MG TAB ONE (00:01)
[2023-12-18] MEDS ORDERED: ZINC OXIDE PASTE (Z-GUARD) 1 APPLIC TOPICAL ONE (00:01)
[2023-12-18] MEDS ORDERED: HEPARIN SODIUM,PORCINE 5,000 UNIT/ML 1 ML VIAL ONE ×3 (07:49→22:46)
[2023-12-18] MEDS ORDERED: THIAMINE 100 MG TAB ONE (07:50)
[2023-12-18] MEDS ORDERED: PANTOPRAZOLE 40 MG TABLET PO ONE (07:50)
[2023-12-18] MEDS ORDERED: GABAPENTIN 300 MG CAP ONE ×2 (07:52→21:00)
[2023-12-18] MEDS ORDERED: cefTRIAXone 2 GM VIAL ONE ×2 (07:53→08:04)
[2023-12-19] MEDS ORDERED: PARoxetine 10 MG TAB ONE ×2 (00:01)
[2023-12-19] MEDS ORDERED: MIRTAZAPINE 15 MG TAB ONE (00:01)
[2023-12-19] MEDS ORDERED: SODIUM CHLORIDE 0.9% 50 ML BAG ONE (00:01)
[2023-12-19] MEDS ORDERED: PANTOPRAZOLE 40 MG TABLET PO ONE (07:33)
[2023-12-19] MEDS ORDERED: GABAPENTIN 300 MG CAP ONE (07:33)
[2023-12-19] MEDS ORDERED: THIAMINE 100 MG TAB ONE (07:34)
[2023-12-19] MEDS ORDERED: cefTRIAXone 2 GM VIAL ONE (08:31)
[2023-12-19] MEDS ORDERED: HEPARIN SODIUM,PORCINE 5,000 UNIT/ML 1 ML VIAL ONE (23:18)
[2023-12-20] MEDS ORDERED: PARoxetine 10 MG TAB ONE ×2 (00:01)
[2023-12-20] MEDS ORDERED: HEPARIN SODIUM,PORCINE 5,000 UNIT/ML 1 ML VIAL ONE ×3 (00:01→17:16)
[2023-12-20] MEDS ORDERED: SODIUM CHLORIDE 0.9% 50 ML BAG ONE (00:01)
[2023-12-20] MEDS ORDERED: MIRTAZAPINE 15 MG TAB ONE (00:01)
[2023-12-20] MEDS ORDERED: PANTOPRAZOLE 40 MG TABLET PO ONE (08:02)
[2023-12-20] MEDS ORDERED: GABAPENTIN 300 MG CAP ONE ×2 (08:02→20:39)
[2023-12-20] MEDS ORDERED: THIAMINE 100 MG TAB ONE (08:03)
[2023-12-20] MEDS ORDERED: cefTRIAXone 2 GM VIAL ONE (08:04)
[2023-12-21] MEDS ORDERED: PARoxetine 10 MG TAB ONE ×2 (00:01)
[2023-12-21] MEDS ORDERED: MIRTAZAPINE 15 MG TAB ONE (00:01)
[2023-12-21] MEDS ORDERED: SODIUM CHLORIDE 0.9% 50 ML BAG ONE (00:01)
[2023-12-21] MEDS ORDERED: HEPARIN SODIUM,PORCINE 5,000 UNIT/ML 1 ML VIAL ONE ×3 (00:25→16:27)
[2023-12-21] MEDS ORDERED: PANTOPRAZOLE 40 MG TABLET PO ONE (08:46)
[2023-12-21] MEDS ORDERED: GABAPENTIN 300 MG CAP ONE ×2 (08:46→21:37)
[2023-12-21] MEDS ORDERED: THIAMINE 100 MG TAB ONE (08:46)
[2023-12-21] MEDS ORDERED: cefTRIAXone 2 GM VIAL ONE (08:48)
[2023-12-22] MEDS ORDERED: ALBUMIN HUMAN 25% (12.5gm) 50 ML VIAL ONE (00:01)
[2023-12-22] MEDS ORDERED: PANTOPRAZOLE 40 MG TABLET PO ONE ×2 (00:01→08:02)
[2023-12-22] MEDS ORDERED: SODIUM CHLORIDE 0.9% 50 ML BAG ONE (00:01)
[2023-12-22] MEDS ORDERED: PARoxetine 10 MG TAB ONE (00:01)
[2023-12-22] MEDS ORDERED: HEPARIN SODIUM,PORCINE 5,000 UNIT/ML 1 ML VIAL ONE ×2 (00:38→08:01)
[2023-12-22] MEDS ORDERED: THIAMINE 100 MG TAB ONE (08:02)
[2023-12-22] MEDS ORDERED: cefTRIAXone 2 GM VIAL ONE (08:02)
[2023-12-22] MEDS ORDERED: GABAPENTIN 300 MG CAP ONE (08:03)
--- NOTE | 2023-12-31 15:52 | PN ---
PROGRESS NOTE DATE OF SERVICE: 12/20/2023 REASON FOR FOLLOWUP: Right knee septic bursitis. INTERVAL HISTORY: The patient is afebrile. The patient is breathing comfortably. No chest pain, shortness of breath, or cough. No nausea, no vomiting. Overall pain to the right knee is currently controlled. PHYSICAL EXAMINATION: VITAL SIGNS: Blood pressure 155/83, pulse of 65, temperature 98.7. GENERAL DESCRIPTION: An elderly male, lying in bed in no distress. RESPIRATORY SYSTEM: Unlabored breathing, clear to auscultation anteriorly. HEART: S1, S2. Regular rate and rhythm. ABDOMEN: Soft, no tenderness. EXTREMITIES: Right knee is currently dressed. No drainage on the dressing. DIAGNOSTIC IMPRESSION AND PLAN: The patient with right knee septic bursitis. Local culture was normal skin saul. Patient clinically responding to Rocephin 2 grams daily. Continue for another week or 10 days and close outpatient followup. MMODL / IJN: [id number] /
--- NOTE | 2023-12-31 15:52 | PN ---
Date of service is 12/19/2023 PROGRESS NOTE LOCATION: [address] [place] [address]. REASON FOR FOLLOWUP: Right knee septic bursitis. INTERVAL HISTORY: The patient denies having any fever or any chills. The patient is breathing comfortably on room air. Denies any chest pain, shortness of breath, or cough. Did have some abdominal distention and nausea, but no vomiting, no diarrhea. Pain to the right knee has decreased in intensity. PHYSICAL EXAMINATION: VITAL SIGNS: Blood pressure 141/80 with a pulse of 80 to 90, and temperature 97.8. GENERAL DESCRIPTION: An elderly male, up in the bed, in no distress. RESPIRATORY SYSTEM: Unlabored breathing, clear to auscultation anteriorly. HEART: S1, S2 regular rate and rhythm. ABDOMEN: Soft, mildly distended. No guarding or rigidity. EXTREMITIES: Right knee is currently dressed. Minimal blood-stained drainage on the dressing. LABS: White count 7.35, creatinine 0.56. DIAGNOSTIC IMPRESSION/PLAN: 1. The patient with right knee septic bursitis. Local cultures were negative. The patient has shown improvement on Rocephin 2 grams daily, to continue to finish a 2- week course of therapy and close outpatient followup. 2. Positive blood culture, Staph epi, likely contamination. Repeat blood culture has been negative. The patient has been off the vancomycin. MMODL / IJN: [id number] / MTDD
--- NOTE | 2023-12-31 15:53 | PN ---
PROGRESS NOTE DATE OF SERVICE: 12/21/2023 LOCATION: 5. REASON FOR FOLLOWUP: Right knee septic bursitis. INTERVAL HISTORY: The patient is afebrile. He is currently breathing comfortably. Denies any chest pain, shortness of breath, or cough. Has complained of some abdominal distention and waiting for paracentesis. Pain to the right knee has decreased in intensity. No drainage. PHYSICAL EXAMINATION: VITAL SIGNS: Blood pressure 131/81, pulse of 89, temperature 98.6. GENERAL DESCRIPTION: This is an elderly male, lying in bed, in no distress. RESPIRATORY SYSTEM: Unlabored breathing clear to auscultation anteriorly. HEART: S1, S2. Regular rate and rhythm. ABDOMEN: Soft, mildly distended. No rigidity. EXTREMITIES: Right knee is currently dressed. No drainage on the dressing. LABS: Reviewed. DIAGNOSTIC IMPRESSION AND PLAN: 1. The patient with right knee septic bursitis. Local cultures were negative. The patient to finish his 2-week course of therapy. 2. Positive blood culture, Staph epi. Repeat blood culture has been negative, more likely contamination. No need for vancomycin. Plan of care discussed with the admitting team. MMODL / IJN: [id number] /
--- NOTE | 2023-12-31 15:53 | PN ---
PROGRESS NOTE DATE OF SERVICE: 12/22/2023 LOCATION: 615 REASON FOR FOLLOWUP: Right knee septic bursitis. INTERVAL HISTORY: The patient is afebrile. The patient is status post paracentesis with removal of almost 11 L of fluid per the patient. The patient's overall abdominal distention has decreased. The patient denies having any chest pain. No shortness of breath or cough. No abdominal pain or pain to the right knee area. PHYSICAL EXAMINATION: VITAL SIGNS: Blood pressure 163/69, pulse of 61, temperature 98. GENERAL DESCRIPTION: This is an elderly male, lying in bed, in no distress. RESPIRATORY SYSTEM: Unlabored breathing. Clear to auscultation anteriorly. HEART: S1, S2. Regular rate and rhythm. ABDOMEN: Soft. No tenderness. EXTREMITIES: Right knee overall swelling and redness have improved. Minimal drainage on the dressing. DIAGNOSTIC IMPRESSION AND PLAN: Patient with right knee septic bursitis, spontaneous drainage. Local culture negative for any resistant pathogen. Overall improvement on Rocephin. Continue to finish his course of therapy. Discussed with the nursing staff. MMODL / IJN: [id number] /
--- NOTE | 2024-01-23 12:13 | US ---
Patient: Allen Mendez L Ordering Physician: Unknown, Unknown ID: [id number] Phone, Pager: Phone: N/ A Pager: N/A : [phone] Age/Gender: 78Y, M Primary Location: N/A Procedure: US paracentesis abd w /image Study Date: 12/22/2023 8:49:00 AM EXAMINATION TYPE: US paracentesis abd w/image DATE OF EXAM: 01/03/2024 10:15 AM CLINICAL INDICATION: Ascites COMPARISON: THIS EXAM WAS READ DURING PACS DOWNTIME, NO PRIORS AVAILABLE. ATTENDING: Dr. Bi German PROCEDURE: Informed consent was obtained. The risks of the procedure were extensively explained incl uding risk of damage to surrounding bowel with perforation and need for additional procedures. Proced ure was performed in the ultrasound procedure suite. Ultrasound imaging of the abdomen demonstrate as citic fluid. An appropriate access site was localized to the right lower abdomen. Timeout was taken p er protocol. The skin was prepped and draped in the usual sterile fashion and then locally anesthetiz ed with 1% lidocaine. The peritoneal cavity was then accessed via a 5-Croatian one-step needle/cathete r. Approximately 05019 cc of clear straw-colored fluid was obtained. Postprocedural imaging of the abdomen demonstrate a minimal amount of abdominal fluid. Patient tolerated procedure well without immediate complication. Hemostasis at the procedural site w as obtained with a sterile bandage placed. The patient was monitored in the holding area following th e procedure and was subsequently discharged in stable condition. IMPRESSION: Ultrasound guided paracentesis, with approximately 71271 cc of clear straw-colored fluid drained. No immediate complications were evident.
--- NOTE | 2024-01-31 14:04 | XR ---
MendezAllen nieves 1945 EXAMINATION TYPE: XR chest 2V DATE OF EXAM: 12/16/2023 COMPARISON: Portable chest earlier today HISTORY: 78-year-old male for evaluation for PICC line placement TECHNIQUE: Frontal and lateral views FINDINGS: Heart normal size. Aorta and pulmonary vasculature within normal limits. Left anterior chest wall pac emaker generator with right atrial and right ventricular leads. Right PICC line is present. Still dif ficult to assess tip position on nondiagnostic monitors. On this exam, possibly at the superior cavoa trial junction. There is patchy opacity at the left base noted. No pleural effusion. Strandy atelecta sis right lower lung. IMPRESSION: 1. Still difficult to clearly delineate the right PICC tip on nondiagnostic monitors. Possibly at the superior cavoatrial junction. 2. Patchy atelectasis versus developing infiltrate at the left base. Correlate with symptoms.
--- NOTE | 2024-01-31 17:43 | XR ---
EXAMINATION TYPE: XR chest 1V DATE OF EXAM: 12/15/2023 COMPARISON: Chest radiographs from 12/16/2023 TECHNIQUE: XR chest 1V Frontal view of the chest. CLINICAL INDICATION:Male, 78 years old with history of PICC LINE PLACEMENT; FINDINGS: Lungs/Pleura: There is no evidence of pleural effusion, focal consolidation, or pneumothorax. Pulmonary vascularity: Unremarkable. Heart/mediastinum: Cardiomediastinal silhouette is enlarged and stable. Atherosclerotic calcificatio ns are seen in the aorta. Two lead cardiac conduction device overlying the left hemithorax with lead tips projecting over the right ventricle and right atrium. Musculoskeletal: Multiple level degenerative disc disease changes seen throughout the spine. Other findings: None Lines/Tubes: Right-sided PICC line with distal tip at the upper SVC. IMPRESSION: Right-sided PICC line demonstrated with tip in the upper SVC. [facility], , 01/31/2024 5:41 PM
== END 2023-12-22 16:56 | DRG 558 ==
LOC: EC 21:39 → OBSVTOIN 12-10 02:09 → UNDOADMOB 12-10 02:09 → INTOOBSV 12-10 02:09 → 4SSUR 12-10 02:09 → OBSVTOIN 12-10 02:10 → 4SSUR 12-10 12:14 → 5NMEDONC 12-10 20:59 → 4SSUR 12-10 20:59 → 5NMEDONC 12-10 21:11 → UNDODISIN 12-22 16:56 → UNDODISOB 12-22 16:56
PROVIDERS: ADMIT Internal Medicine; ATTEND Internal Medicine
PROC: 0W9G3ZZ Drainage of Peritoneal Cavity, Percutaneous Approach (ICD-10-PCS; 2023-12-10)
PROC: 05HY33Z Insertion of Infusion Device into Upper Vein, Percutaneous Approach (ICD-10-PCS; 2023-12-13)
PROC: 0W9G3ZX Drainage of Peritoneal Cavity, Percutaneous Approach, Diagnostic (ICD-10-PCS; principal; 2023-12-16)
DX: M71.162 Other infective bursitis, left knee (principal); L03.115 Cellulitis of right lower limb; E87.20 Acidosis, unspecified; E87.1 Hypo-osmolality and hyponatremia; B95.7 Other staphylococcus as the cause of diseases classified elsewhere; G89.29 Other chronic pain; K70.31 Alcoholic cirrhosis of liver with ascites; E88.09 Other disorders of plasma-protein metabolism, not elsewhere classified; G62.9 Polyneuropathy, unspecified; F32.A Depression, unspecified; K21.9 Gastro-esophageal reflux disease without esophagitis; F10.20 Alcohol dependence, uncomplicated; I25.10 Atherosclerotic heart disease of native coronary artery without angina pectoris; R01.1 Cardiac murmur, unspecified; M15.9 Polyosteoarthritis, unspecified; D75.89 Other specified diseases of blood and blood-forming organs; E87.5 Hyperkalemia; Z85.46 Personal history of malignant neoplasm of prostate; Z87.891 Personal history of nicotine dependence; Z95.0 Presence of cardiac pacemaker; Z79.01 Long term (current) use of anticoagulants; Z79.899 Other long term (current) drug therapy; Z79.82 Long term (current) use of aspirin; Z88.6 Allergy status to analgesic agent; Z96.659 Presence of unspecified artificial knee joint
CPT/HCPCS: 36415; 49083; 71045; 71046; 80048; 80053; 80202; 82565; 82607; 82746; 83605; 83735; 84132; 85025; 85027; 85049; 85610; 85652; 87040; 87070; 87075; 87077; 87186; 87205; 88108; 88173; 88305; 96361; 96365; 96366; 96368; 96375; 99285

== ENCOUNTER → 2023-12-29 | Day surgery (SDC) | payer OTHER ==
[~2023-12-29] MED LIST: ALBUMIN HUMAN 25% (12.5gm) 50 ML VIAL ONE
--- NOTE | 2024-01-11 14:34 | US ---
EXAMINATION TYPE: US paracentesis abd w/image DATE OF EXAM: 01/03/2024 CLINICAL HISTORY: 78-year-old male with ascites referred for paracentesis The procedure was discussed with the patient. The risks, complications, benefits, and alternatives we re discussed and any questions were answered. Informed consent was obtained. The patient was placed s upine on the ultrasound table and prepped and draped in the usual sterile fashion. All elements of maximal barrier technique were utilized. Ultrasound was utilized to determine the precise skin entry site along the left lower quadrant. Utilizing trocar technique and a 6 Greenlandic safety centesis catheter, access into the left lower quadra nt was obtained. Approximately 11 liters of straw-colored fluid was removed. The patient was stable throughout the pro cedure and remained stable upon discharge from Department of Radiology. IMPRESSION: Successful therapeutic paracentesis under ultrasound guidance. 11 L of fluid removed.
== END ==
LOC: RADPROMAIN 12:03
PROVIDERS: ATTEND Internal Medicine Gastroenterology
DX: R18.8 Other ascites (principal)

== ENCOUNTER 2024-01-07 11:52 | Day surgery (SDC) | payer OTHER ==
[2024-01-07 12:48] LABS: INR 1.2 (<1.2); Prothrombin Time 12.6 sec (10.0-12.5)
[2024-01-07 13:00] LABS: Mean Platelet Volume 8.3; Platelet Count 164 k/uL (150-450)
[2024-01-07] MEDS: ALBUMIN HUMAN 25% 50 ML in EMPTY BAG 1 BAG IVPB SCH (13:04)
[2024-01-07 13:07] LABS: African American GFR (CKD) >90 (>60 ml/min/1.73 sqM); Non-African American GFR(CKD) 79 (>60 ml/min/1.73 sqM)
[2024-01-07 13:35] VITALS: RESP 16; TEMP 98.1
[2024-01-07 15:00] VITALS: BP 134/88; PULSE 66
--- NOTE | 2024-01-17 10:06 | US ---
EXAMINATION TYPE: US paracentesis abd w/image DATE OF EXAM: 01/07/2024 1:16 PM CLINICAL INDICATION:Male, 78 years old with history of K70.31 ALCOHOLIC CIRRHOSIS OF LIVER WITH ASCIT ES; COMPARISON: 01/03/2024 ATTENDING: Dr. Bi German PROCEDURE: Informed consent was obtained. The risks of the procedure were extensively explained incl uding risk of damage to surrounding bowel with perforation and need for additional procedures. Proced ure was performed in the ultrasound procedure suite. Ultrasound imaging of the abdomen demonstrate as citic fluid. An appropriate access site was localized to the right lower abdomen. Timeout was taken p er protocol. The skin was prepped and draped in the usual sterile fashion and then locally anesthetiz ed with 1% lidocaine. The peritoneal cavity was then accessed via a 5-Yakut one-step needle/cathete r. Approximately 77156 cc of clear straw-colored fluid was obtained. Postprocedural imaging of the abdomen demonstrate a minimal amount of abdominal fluid. Patient tolerated procedure well without immediate complication. Hemostasis at the procedural site w as obtained with a sterile bandage placed. The patient was monitored in the holding area following th e procedure and was subsequently discharged in stable condition. IMPRESSION: Ultrasound guided paracentesis, with approximately 34331 cc of clear straw-colored fluid drained. No immediate complications were evident.
== END 2024-01-07 14:55 | disposition home or self-care (01) ==
LOC: RADPROMAIN 11:52
PROVIDERS: ATTEND Internal Medicine Gastroenterology
DX: R18.8 Other ascites (principal)
CPT/HCPCS: 36415; 49083; 82565; 85049; 85610

== ENCOUNTER 2024-01-18 12:18 | Day surgery (SDC) | payer OTHER ==
[2024-01-18 12:57] VITALS: PULSE 60; RESP 16; TEMP 98.3
[2024-01-18] MEDS: ALBUMIN HUMAN 25% 50 ML in EMPTY BAG 1 BAG IVPB SCH (13:06)
[2024-01-18 13:13] LABS: Mean Platelet Volume 8.3; Platelet Count 187 k/uL (150-450)
[2024-01-18 13:20] LABS: African American GFR (CKD) 89 (>60 ml/min/1.73 sqM); Non-African American GFR(CKD) 77 (>60 ml/min/1.73 sqM)
[2024-01-18 13:23] LABS: INR 1.3 (<1.2); Prothrombin Time 13.5 sec (10.0-12.5)
[2024-01-18 15:02] VITALS: BP 129/78
--- NOTE | 2024-01-18 15:19 | US ---
EXAMINATION TYPE: US paracentesis abd w/image DATE OF EXAM: 01/18/2024 CLINICAL HISTORY: 78-year-old male K70.31, alcoholic cirrhosis, referred for paracentesis. The procedure was discussed with the patient. The risks, complications, benefits, and alternatives we re discussed and any questions were answered. Informed consent was obtained. The patient was placed s upine on the ultrasound table and prepped and draped in the usual sterile fashion. All elements of maximal barrier technique were utilized. Ultrasound was utilized to determine the precise skin entry site along the left lower quadrant/left f lank. A 5 Bulgarian One-Step catheter and trocar technique was utilized to access the ascites collection under direct ultrasound guidance. Approximately 7.3 liters of clear, straw-colored fluid was removed. Catheter was removed, hemostasis obtained, and a dressing placed. The patient was stable throughout the procedure and remained stable upon discharge from Department of Radiology. IMPRESSION: Successful therapeutic paracentesis under ultrasound guidance. 7.3 L of fluid removed.
== END 2024-01-18 14:45 | disposition home or self-care (01) ==
LOC: RADPROMAIN 12:18
PROVIDERS: ATTEND Internal Medicine Gastroenterology
DX: K70.31 Alcoholic cirrhosis of liver with ascites (principal)
CPT/HCPCS: 36415; 49083; 82565; 85049; 85610

== ENCOUNTER 2024-01-25 12:20 | Day surgery (SDC) | payer OTHER ==
[2024-01-25 13:20] LABS: Mean Platelet Volume 8.7; Platelet Count 147 k/uL (150-450)
[2024-01-25 13:25] LABS: INR 1.2 (<1.2)
[2024-01-25 13:39] LABS: African American GFR (CKD) 88 (>60 ml/min/1.73 sqM); Non-African American GFR(CKD) 76 (>60 ml/min/1.73 sqM)
[2024-01-25] MEDS: ALBUMIN HUMAN 25% 50 ML in EMPTY BAG 1 BAG IVPB SCH (13:45)
[2024-01-25 13:54] VITALS: RESP 18; TEMP 97.9
[2024-01-25 15:09] VITALS: BP 119/72; PULSE 61
--- NOTE | 2024-01-26 11:46 | US ---
EXAMINATION TYPE: US paracentesis abd w/image DATE OF EXAM: 01/25/2024 1:38 PM CLINICAL INDICATION:Male, 78 years old with history of ascites; COMPARISON: 01/18/2024 ATTENDING: Dr. Bi German PROCEDURE: Informed consent was obtained. The risks of the procedure were extensively explained incl uding risk of damage to surrounding bowel with perforation and need for additional procedures. Proced ure was performed in the ultrasound procedure suite. Ultrasound imaging of the abdomen demonstrate as citic fluid. An appropriate access site was localized to the right lower abdomen. Timeout was taken p er protocol. The skin was prepped and draped in the usual sterile fashion and then locally anesthetiz ed with 1% lidocaine. The peritoneal cavity was then accessed via a 5-Lao one-step needle/cathete r. Approximately 6300 cc of clear straw-colored fluid was obtained. Postprocedural imaging of the ab domen demonstrate a minimal amount of abdominal fluid. Patient tolerated procedure well without immediate complication. Hemostasis at the procedural site w as obtained with a sterile bandage placed. The patient was monitored in the holding area following th e procedure and was subsequently discharged in stable condition. IMPRESSION: Ultrasound guided paracentesis, with approximately 6300 cc of clear straw-colored fluid drained. No immediate complications were evident. [facility], , 01/26/2024 11:44 AM
== END 2024-01-25 14:50 | disposition home or self-care (01) ==
LOC: RADPROMAIN 12:20
PROVIDERS: ATTEND Internal Medicine Gastroenterology
DX: R18.8 Other ascites (principal)
CPT/HCPCS: 36415; 49083; 82565; 85049; 85610

== ENCOUNTER → 2024-01-31 | Outpatient (CLI) | payer OTHER ==
--- NOTE | 2024-01-31 14:01 | CT ---
EXAMINATION TYPE: CT chest wo con CT DLP: 762 mGycm, Automated exposure control for dose reduction was used. DATE OF EXAM: 01/31/2024 1:46 PM COMPARISON: 07/05/2023 CLINICAL INDICATION: Male, 78 years old with history of C22.0 LIVER CELL CARCINOMA; PHH, POSSIBLE SARAH ER CA TECHNIQUE: Multiple axial images were obtained through the chest. Sagittal and coronal reformats were created for review. Contrast used: mL of (None if empty) Oral contrast used: (None if empty) FINDINGS: LUNGS/ PLEURA: No focal consolidation, pneumothorax or pleural effusion. Mild centrilobular emphysema changes in lung apices. Basilar atelectasis and/or scarring noted. AIRWAY: Patent and unremarkable. HEART: Heart is mildly enlarged for size. Cardiac conduction leads terminating in right ventricle and right atrium. Aortic valve calcifications. Coronary artery atherosclerosis. MEDIASTINUM: No gross evidence of adenopathy. VASCULATURE: No aortic aneurysm. MUSCULOSKELETAL: No acute osseous abnormalities SOFT TISSUES/LYMPH NODES: Unremarkable. LOWER NECK: No significant findings. UPPER ABDOMEN: Indeterminate lesion in the liver measuring 20 mm and 27 Hounsfield units. Nodular sarah er contour with shrunken appearance. Small amount of free fluid throughout the abdomen. Gallbladder s urgically absent. Cholecystectomy clips present. Cystic structure in the gallbladder fossa possibly r epresenting subtotal cholecystectomy. IMPRESSION: 1. Indeterminate hepatic lesion measuring 21 mm which may be 1 to 2 mm larger compared to 07/05/2023. MRI with contrast is recommended for complete evaluation. No obvious solid mass at this time. 2. No evidence for acute process. Hepatic cirrhosis with small ascites. 3. Evidence of prior colonic surgery with possible subtotal cholecystectomy versus cystic duct remna nt. [facility], , 01/31/2024 1:58 PM
== END | disposition home or self-care (01) ==
LOC: RADCTMAIN 13:18
PROVIDERS: ATTEND Surgery
DX: C22.0 Liver cell carcinoma
CPT/HCPCS: 71250

== ENCOUNTER 2024-02-01 11:50 | Day surgery (SDC) | payer OTHER ==
[2024-02-01 13:10] VITALS: TEMP 98
[2024-02-01 13:14] LABS: Mean Platelet Volume 8.2; Platelet Count 151 k/uL (150-450)
[2024-02-01 13:23] LABS: African American GFR (CKD) 85 (>60 ml/min/1.73 sqM); Non-African American GFR(CKD) 74 (>60 ml/min/1.73 sqM)
[2024-02-01] MEDS: ALBUMIN HUMAN 25% 50 ML in EMPTY BAG 1 BAG IVPB SCH (13:37)
[2024-02-01 13:59] LABS: INR 1.3 (<1.2); Prothrombin Time 13.5 sec (10.0-12.5)
[2024-02-01 14:28] VITALS: BP 136/78; PULSE 56; RESP 16
--- NOTE | 2024-02-01 14:42 | US ---
Ultrasound-guided paracentesis. DATE OF EXAM: 02/01/2024 CLINICAL HISTORY: Ascites The procedure was discussed with the patient. The risks, complications, benefits, and alternatives we re discussed and any questions were answered. Informed consent was obtained. The patient was placed s upine on the ultrasound table and prepped and draped in the usual sterile fashion. All elements of maximal barrier technique were utilized. Under ultrasound guidance, access into the right lower quadrant was obtained, via the paracentesis catheter system and direct ultrasound guidanc e. Approximately 3.8 liters of straw-colored fluid was removed. The patient was stable throughout the pr ocedure and remained stable upon discharge from Department of Radiology. IMPRESSION: Successful paracentesis under ultrasound guidance. [facility], , 02/01/2024 2:39 PM
== END 2024-02-01 14:10 | disposition home or self-care (01) ==
LOC: RADPROMAIN 11:50
PROVIDERS: ATTEND Internal Medicine Gastroenterology
DX: R18.8 Other ascites (principal)
CPT/HCPCS: 36415; 49083; 82565; 85049; 85610

== ENCOUNTER 2024-02-15 12:16 | Day surgery (SDC) | payer OTHER ==
[2024-02-15 12:41] VITALS: TEMP 98.3
[2024-02-15 12:56] LABS: Mean Platelet Volume 8.3; Platelet Count 176 k/uL (150-450)
[2024-02-15 13:05] LABS: African American GFR (CKD) >90 (>60 ml/min/1.73 sqM); Non-African American GFR(CKD) 82 (>60 ml/min/1.73 sqM)
[2024-02-15 13:06] LABS: INR 1.2 (<1.2); Prothrombin Time 13.2 sec (10.0-12.5)
[2024-02-15 13:35] VITALS: PULSE 60
[2024-02-15] MEDS: ALBUMIN HUMAN 25% 50 ML in EMPTY BAG 1 BAG IVPB SCH (13:53)
[2024-02-15 14:54] VITALS: BP 136/61; RESP 16
--- NOTE | 2024-02-15 16:06 | US ---
EXAMINATION TYPE: US paracentesis abd w/image DATE OF EXAM: 02/15/2024 CLINICAL HISTORY: 78-year-old male K70.31 ALCOHOLIC CIRRHOSIS OF LIVER WITH ASCITES The procedure was discussed with the patient. The risks, complications, benefits, and alternatives we re discussed and any questions were answered. Informed consent was obtained. The patient was placed s upine on the ultrasound table and prepped and draped in the usual sterile fashion. All elements of maximal barrier technique were utilized. Ultrasound was utilized to determine the precise skin entry site along the left lower quadrant. Utilizing trocar technique and a 6 [place] Islander safety centesis catheter system, access into the ascites co llection was obtained. Approximately 7.0 liters of clear, straw-colored fluid was removed. Catheter was removed, hemostasis obtained, and a dressing placed. The patient was stable throughout the procedure and remained stable upon discharge from Department of Radiology. IMPRESSION: Successful therapeutic paracentesis under ultrasound guidance. 7.0 L of fluid removed. [facility], , 02/15/2024 4:03 PM
== END 2024-02-15 14:35 | disposition home or self-care (01) ==
LOC: RADPROMAIN 12:16
PROVIDERS: ATTEND Internal Medicine Gastroenterology
DX: K70.31 Alcoholic cirrhosis of liver with ascites (principal)
CPT/HCPCS: 36415; 49083; 82565; 85049; 85610

== ENCOUNTER 2024-02-29 12:20 | Day surgery (SDC) | payer OTHER ==
[2024-02-29 12:54] LABS: Mean Platelet Volume 7.9; Platelet Count 159 k/uL (150-450)
[2024-02-29 13:00] LABS: INR 1.3 (<1.2)
[2024-02-29 13:03] LABS: African American GFR (CKD) >90 (>60 ml/min/1.73 sqM); Non-African American GFR(CKD) 78 (>60 ml/min/1.73 sqM)
[2024-02-29 13:08] VITALS: RESP 16; TEMP 97.8
[2024-02-29] MEDS: ALBUMIN HUMAN 25% 50 ML in EMPTY BAG 1 BAG IVPB SCH (13:30)
[2024-02-29 13:47] VITALS: PULSE 60
[2024-02-29 15:18] VITALS: BP 123/75
--- NOTE | 2024-02-29 15:54 | US ---
EXAMINATION TYPE: US paracentesis abd w/image DATE OF EXAM: 02/29/2024 CLINICAL HISTORY: 78-year-old male K70.31, alcoholic cirrhosis of liver with ascites, referred for r outine paracentesis The procedure was discussed with the patient. The risks, complications, benefits, and alternatives we re discussed and any questions were answered. Informed consent was obtained. The patient was placed s upine on the ultrasound table and prepped and draped in the usual sterile fashion. All elements of maximal barrier technique were utilized. Ultrasound was utilized to determine the precise skin entry site along the left left lower quadrant. Utilizing trocar technique and a 6 Uzbek safety centesis catheter system, access into the ascites co llection was obtained without difficulty. Approximately 4 liters of clear, straw-colored fluid was removed. Catheter was removed, hemostasis obtained, and a dressing placed. The patient was stable throughout the procedure and remained stable upon discharge from Department of Radiology. IMPRESSION: Successful therapeutic paracentesis under ultrasound guidance. 9.4 L of fluid removed. [facility], , 02/29/2024 3:52 PM
== END 2024-02-29 14:45 | disposition home or self-care (01) ==
LOC: RADPROMAIN 12:20
PROVIDERS: ATTEND Internal Medicine Gastroenterology
DX: K70.31 Alcoholic cirrhosis of liver with ascites (principal)
CPT/HCPCS: 36415; 49083; 82565; 85049; 85610

== ENCOUNTER → 2024-03-13 | Outpatient (CLI) | payer OTHER ==
--- NOTE | 2024-03-13 14:54 | CT ---
EXAMINATION TYPE: CT lumbar spine wo con DATE OF EXAM: 03/13/2024 2:42 PM COMPARISON: 07/05/2023 CLINICAL INDICATION: Male, 78 years old with history of M54.50 LOW BACK PAIN; PHH, Low back pain, no injury. TECHNIQUE: Unenhanced CT of the lumbar spine was performed. Bone and soft tissue window settings are submitted as well as coronal and sagittal reconstructions. CT DLP: 2165.[address] CTDI: mGy Automated exposure control for dose reduction was used. FINDINGS: CT lumbar spine without contrast HISTORY: Back pain. COMPARISON: 07/05/2023. TECHNIQUE: Multiple axial images are obtained from T11 through the sacrum. FINDINGS: There is a slight retrolisthesis is of L3 on L4.. The lumbar vertebral segments are normal in height and there is no compression fracture. There is severe disc space narrowing, hypertrophic spurring and vacuum phenomenon at the L3-4 level i ndicating severe degenerative disc disease. There is severe disc space narrowing, hypertrophic spurri ng and discogenic endplate changes at the L2-3 level consistent with degenerative disease. There is m ild degenerative disease at the L1-2, L4-5 and L5-S1 levels. There are no large disc herniations. Comparison the prior study reveals no significant interval change. There is marked anterior spondylos is with bridging osteophytes at the L1-2, L2-3 to lesser extent the L3-4 level. There is advanced facet arthropathy at the L2-3, L3-4, and L3-4 levels. There is mild to moderate fac et arthropathy at the L5-S1 level. Secondary to circumferential disc bulge and thickening of the ligamentum flavum, there is moderate sp inal stenosis at the L1-2 level, severe spinal stenosis at the L3-4 and L4-5 levels. There are bone spurs mildly to moderately compromising the neuroforamina at the L2-3, L3-4 and L4-5 l evels on the right and L3-4 and L4-5 levels on the left.. IMPRESSION: 1. No change in the multilevel degenerative disease severe at the L2-3 and L3-4 levels. No definite d isc herniation. 2. Multilevel spinal stenosis severe at the L3-4 and L4-5 levels. 3. Moderate to marked facet degeneration in the lower lumbar spine described above. 4. Overall no significant interval change compared to previous [facility], , 03/13/2024 2:52 PM
== END | disposition home or self-care (01) ==
LOC: RADCTMAIN 14:04
PROVIDERS: ATTEND Family Medicine
DX: M51.369 Other intervertebral disc degeneration, lumbar region without mention of lumbar back pain or lower extremity pain (principal); M48.061 Spinal stenosis, lumbar region without neurogenic claudication; M47.816 Spondylosis without myelopathy or radiculopathy, lumbar region
CPT/HCPCS: 72131

== ENCOUNTER 2024-03-14 12:19 | Day surgery (SDC) | payer OTHER ==
[2024-03-14 12:59] LABS: Mean Platelet Volume 7.9; Platelet Count 144 k/uL (150-450)
[2024-03-14] MEDS: ALBUMIN HUMAN 25% 50 ML in EMPTY BAG 1 BAG IVPB SCH (13:01)
[2024-03-14 13:04] LABS: INR 1.2 (<1.2); Prothrombin Time 13.2 sec (10.0-12.5)
[2024-03-14 13:08] VITALS: RESP 16; TEMP 97.8
[2024-03-14 13:08] LABS: African American GFR (CKD) >90 (>60 ml/min/1.73 sqM); Non-African American GFR(CKD) 83 (>60 ml/min/1.73 sqM)
[2024-03-14 13:55] VITALS: PULSE 60
--- NOTE | 2024-03-14 14:46 | US ---
EXAMINATION TYPE: US paracentesis abd w/image DATE OF EXAM: 03/14/2024 1:50 PM COMPARISON: None. Previous Paracentesis CLINICAL INDICATION: Male, 78 years old with history of K70.31 ALCOHOLIC CIRRHOSIS OF LIVER WITH ASCI MAIA; , ascites TECHNIQUE/FINDINGS: The procedure was discussed with the patient. The risks, complications, benefits, and alternatives we re discussed and any questions were answered. Informed consent was obtained. The patient was placed s upine on the ultrasound table and prepped and draped in the usual sterile fashion. All elements of maximal barrier technique were utilized. Under ultrasound guidance, access into the right lower quadrant was obtained, via the paracentesis catheter system and direct ultrasound guidanc e. Approximately 9.2 liters of straw-colored fluid was removed. The patient was stable throughout the pr ocedure and remained stable upon discharge from Department of Radiology. IMPRESSION: Successful paracentesis under ultrasound guidance. [facility], , 03/14/2024 2:44 PM
[2024-03-14 15:04] VITALS: BP 119/75
== END 2024-03-14 14:40 | disposition home or self-care (01) ==
LOC: RADPROMAIN 12:19
PROVIDERS: ATTEND Internal Medicine Gastroenterology
DX: K70.31 Alcoholic cirrhosis of liver with ascites (principal)
CPT/HCPCS: 82565; 85049; 85610; 36415; 49083; P9047

== ENCOUNTER 2024-03-28 13:03 | Day surgery (SDC) | payer OTHER ==
[2024-03-28 13:26] VITALS: PULSE 60; RESP 12; TEMP 97.9
[2024-03-28 13:33] LABS: Platelet Count 166 k/uL (150-450)
[2024-03-28 13:41] LABS: INR 1.1 (<1.2); Prothrombin Time 12.2 sec (10.0-12.5)
[2024-03-28 13:45] LABS: African American GFR (CKD) >90 (>60 ml/min/1.73 sqM); Non-African American GFR(CKD) 78 (>60 ml/min/1.73 sqM)
[2024-03-28] MEDS: ALBUMIN HUMAN 25% 50 ML in EMPTY BAG 1 BAG IVPB SCH (14:22)
[2024-03-28 15:23] VITALS: BP 109/70
--- NOTE | 2024-03-28 17:37 | US ---
EXAMINATION TYPE: US paracentesis abd w/image DATE OF EXAM: 03/28/2024 2:24 PM COMPARISON: prior paracentesis. CLINICAL INDICATION:Male, 78 years old with history of K70.31 ALCOHOLIC CIRRHOSIS OF LIVER WITH ASCIT ES; , ascites ATTENDING: Dr. Bi German PROCEDURE: Informed consent was obtained. The risks of the procedure were extensively explained incl uding risk of damage to surrounding bowel with perforation and need for additional procedures. Proced ure was performed in the ultrasound procedure suite. Ultrasound imaging of the abdomen demonstrate as citic fluid. An appropriate access site was localized to the right lower abdomen. Timeout was taken p er protocol. The skin was prepped and draped in the usual sterile fashion and then locally anesthetiz ed with 1% lidocaine. The peritoneal cavity was then accessed via a 5-Bulgarian one-step needle/cathete r. Approximately 9300 mL of clear straw-colored fluid was obtained. Postprocedural imaging of the a bdomen demonstrate a minimal amount of abdominal fluid. Patient tolerated procedure well without immediate complication. Hemostasis at the procedural site w as obtained with a sterile bandage placed. The patient was monitored in the holding area following th e procedure and was subsequently discharged in stable condition. IMPRESSION: Ultrasound guided paracentesis, with approximately 9300 mL of clear straw-colored fluid drained. No immediate complications were evident. [facility], , 03/28/2024 5:34 PM
== END 2024-03-28 15:40 | disposition home or self-care (01) ==
LOC: RADPROMAIN 13:03
PROVIDERS: ATTEND Internal Medicine Gastroenterology
DX: K70.31 Alcoholic cirrhosis of liver with ascites (principal)
CPT/HCPCS: 82565; 85049; 85610; 49083; P9047

== ENCOUNTER → 2024-04-05 | Outpatient (CLI) | payer OTHER ==
[2024-04-05 14:34] LABS: African American GFR (CKD) >90 (>60 ml/min/1.73 sqM); Blood Urea Nitrogen 25 mg/dL (9-20); Non-African American GFR(CKD) 83 (>60 ml/min/1.73 sqM)
--- NOTE | 2024-04-05 16:14 | CT ---
EXAMINATION TYPE: CT abdomen wo/w con CT DLP: 3837.8 mGycm, Automated exposure control for dose reduction was used. DATE OF EXAM: 04/05/2024 3:14 PM COMPARISON: CT chest 01/31/2024, liver ultrasound 06/30/2023 CLINICAL INDICATION:Male, 78 years old with history of C22.0 LIVER CELL CARCINOMA; liver mass TECHNIQUE: Multiphase CT of the abdomen before and after the uneventful administration of 100 cc of Isovue-370 intravenously. Oral contrast was administered. Coronal and sagittal reformats were perform ed. FINDINGS: LOWER CHEST: Bibasilar subpleural reticular fibrotic changes. Cardiomegaly. Cardiac pacemaker leads i dentified within the right atrium and right ventricle. Aortic valvular and mitral annulus calcificati ons. Coronary artery calcifications. Bilateral gynecomastia partially visualized. Mildly prominent pe ricardial lymph nodes measuring up to 9 mm short axis. Stable from prior exam. ABDOMEN LIVER: Hepatic cirrhosis with surface nodularity identified. Enhancing 1.9 cm lesion within the infer ior tip of the right hepatic lobe (series 6, image 60). Becomes isointense with the parenchyma on the delayed phase. Right hepatic dome 2.1 cm hypodense lesion with subtle peripheral enhancement along i ts superior medial aspect (series 6, image 33). Additional scattered linear hypodense peripheral foci within the right hepatic lobe on the portal venous phase. There may be some subtle surrounding serpi ginous enhancement in these regions. GALLBLADDER AND BILE DUCTS: The gallbladder is surgically absent. There is a nonenhancing cystic stru cture within the gallbladder fossa measuring up to 3.5 cm. Mild intrahepatic biliary ductal dilatatio n within the right hepatic lobe. PANCREAS: Unremarkable. SPLEEN: Unremarkable. ADRENAL GLANDS: Unremarkable. KIDNEYS AND URETERS: No evidence of hydronephrosis. 2 mm nonobstructive right renal calculus. 3 mm left lower pole nonobstructive renal calculus.Right renal 3.4 cm cyst. STOMACH AND BOWEL: Small hiatal hernia, duodenum is unremarkable. Enteric contrast reaches the ascend ing colon. The appendix is within normal limits. Mild colonic stool burden. There is a long segment w all thickening of the ascending colon likely related to colopathy. No evidence of bowel obstruction. PERITONEUM: No evidence of pneumoperitoneum. Large volume abdominal ascites. VASCULATURE: Mild atherosclerotic calcifications are present throughout the abdominal aorta and its b ranches. No evidence of aortic aneurysm. At least mild stenosis at the origin of the SMA secondary to calcified plaque. At least mild stenosis at the origin the bilateral single renal arteries secondary to calcified plaque. MUSCULOSKELETAL: No acute osseous abnormalities. Moderate disc degeneration changes are present throu ghout the thoracolumbar spine. No aggressive osseous lesion. DISH of the lower thoracic spine. LYMPH NODES: Mildly enlarged pericaval lymph nodes measuring up to 1.2 cm short axis (series 4, image 58). Additional mildly prominent gastrohepatic lymph nodes. SOFT TISSUE/ABDOMINAL WALL: Unremarkable IMPRESSION: 1. Hepatic cirrhosis with an arterial enhancing 1.9 cm lesion within the inferior tip of the right h epatic lobe highly concerning for hepatocellular carcinoma. Right hepatic dome 2.1 cm hypodense lesio n with some subtle peripheral enhancement concerning for possible additional hepatocellular carcinoma . Additional subcentimeter scattered curvilinear hypodense foci within the periphery of the right hep atic lobe best appreciated on the portal venous phase which may represent additional sites of disease and/or intrahepatic biliary duct dilatation. Further evaluation with MR abdomen liver mass protocol is recommended. 2. Post cholecystectomy with a cystic structure in the region of the gallbladder fossa which may rep resent a dilated cystic duct remnant versus hepatic cyst. 3. Large volume abdominal ascites. 4. Mildly prominent pericardial, pericaval and gastrohepatic lymph nodes which may be reactive versu s related to #1. 5. Nonobstructive bilateral renal calculi. [facility], , 04/05/2024 4:12 PM
== END | disposition home or self-care (01) ==
LOC: RADCTMAIN 13:52
PROVIDERS: ATTEND Radiology Diagnostic Radiology
DX: C22.0 Liver cell carcinoma (principal); K74.60 Unspecified cirrhosis of liver; R18.8 Other ascites; N20.0 Calculus of kidney; R16.0 Hepatomegaly, not elsewhere classified; I51.7 Cardiomegaly; Z90.49 Acquired absence of other specified parts of digestive tract
CPT/HCPCS: 82565; 84520; 74170; 36415; Q9967

== ENCOUNTER 2024-04-11 08:39 | Day surgery (SDC) | payer OTHER ==
[2024-04-11 09:24] VITALS: TEMP 97.9
[2024-04-11 09:27] LABS: INR 1.2 (<1.2); Prothrombin Time 13.2 sec (10.0-12.5)
[2024-04-11 09:29] LABS: Mean Platelet Volume 7.5; Platelet Count 147 k/uL (150-450)
[2024-04-11 09:52] LABS: African American GFR (CKD) >90 (>60 ml/min/1.73 sqM); Non-African American GFR(CKD) 78 (>60 ml/min/1.73 sqM)
[2024-04-11] MEDS: ALBUMIN HUMAN 25% 50 ML in EMPTY BAG 1 BAG IVPB SCH (09:54)
[2024-04-11 10:17] VITALS: RESP 16
[2024-04-11 10:49] VITALS: PULSE 61
[2024-04-11 11:31] VITALS: BP 115/65
--- NOTE | 2024-04-11 11:32 | US ---
EXAMINATION TYPE: US paracentesis abd w/image DATE OF EXAM: 04/11/2024 9:57 AM COMPARISON: prior paracentesis. CLINICAL INDICATION:Male, 78 years old with history of ascities; , ascites ATTENDING: Performed by Dr. Tate assisted by Dr. Bi German PROCEDURE: Informed consent was obtained. The risks of the procedure were extensively explained incl uding risk of damage to surrounding bowel with perforation and need for additional procedures. Proced ure was performed in the ultrasound procedure suite. Ultrasound imaging of the abdomen demonstrate as citic fluid. An appropriate access site was localized to the left lower abdomen. Timeout was taken pe r protocol. The skin was prepped and draped in the usual sterile fashion and then locally anesthetize d with 1% lidocaine. The peritoneal cavity was then accessed via a 5-Welsh one-step needle/catheter . Approximately 72886 mL of clear straw-colored fluid was obtained. Postprocedural imaging of the ab domen demonstrate a minimal amount of abdominal fluid. Patient tolerated procedure well without immediate complication. Hemostasis at the procedural site w as obtained with a sterile bandage placed. The patient was monitored in the holding area following th e procedure and was subsequently discharged in stable condition. IMPRESSION: Ultrasound guided paracentesis, with approximately 16905 mL of clear straw-colored fluid drained. No immediate complications were evident. [facility], , 04/11/2024 11:29 AM
== END 2024-04-11 11:25 | disposition home or self-care (01) ==
LOC: RADPROMAIN 08:39
PROVIDERS: ATTEND Internal Medicine Gastroenterology
DX: R18.8 Other ascites (principal)
CPT/HCPCS: 82565; 85049; 85610; 36415; 49083; P9047

== ENCOUNTER → 2024-04-15 | Outpatient (CLI) | payer OTHER ==
[2024-04-15 12:33] LABS: INR 1.2 (<1.2); Partial Thromboplastin Time 24.6 sec (22.0-30.0)
[2024-04-16 09:21] LABS: HCT 41.7 % (39.6-50.0); HGB 12.9 g/dL (13.0-17.0); MCH 32.6 pg (27.0-32.0); MCHC 30.9 g/dL (32.0-37.0); MCV 105.3 FL (80.0-97.0); Mean Platelet Volume 13.2 FL (9.5-12.2); NRBC Per 100 WBC 0 X 10*3/uL (0.00-0.01); Platelet Count 114 X 10*3/uL (140-440); RBC 3.96 X 10*6/uL (4.40-5.60); RDW 15.2 % (11.5-14.5); WBC 5.95 X 10*3/uL (4.50-10.00)
[2024-04-16 09:22] LABS: Macrocytosis (M) 2+
[2024-04-16 10:57] LABS: ALT 20 U/L (10-49); AST 43 U/L (14-35); Albumin 3.3 g/dL (3.8-4.9); Albumin/Globulin Ratio 1.03 Ratio (1.60-3.17); Alkaline Phosphatase 140 U/L (41-126); Calcium 8.9 mg/dL (8.7-10.3); Chloride 103 mmol/L (96-109); Globulin 3.2 g/dL (1.6-3.3); Glucose 124 mg/dL (70-110); LDH 244 U/L (120-246); Phosphorus 3.7 mg/dL (2.4-5.1); Potassium 4.8 mmol/L (3.5-5.5); Sodium 139 mmol/L (135-145); Total Bilirubin 1.1 mg/dL (0.3-1.2); Total Protein 6.5 g/dL (6.2-8.2)
== END | disposition home or self-care (01) ==
LOC: LABWHC1 11:29
PROVIDERS: ATTEND Radiology Diagnostic Radiology
DX: C22.0 Liver cell carcinoma (principal); Z94.81 Bone marrow transplant status
CPT/HCPCS: 36415; 80053; 82105; 82784; 83615; 83735; 84100; 85027; 85610; 85730

== ENCOUNTER 2024-04-25 12:27 | Day surgery (SDC) | payer OTHER ==
[~2024-04-25 12:27] MED LIST changes: -ALBUMIN HUMAN 25% (12.5gm) 50 ML VIAL ONE; +ALBUMIN HUMAN 25% 50 ML in EMPTY BAG 1 BAG IVPB SCH
[2024-04-25 13:01] LABS: Mean Platelet Volume 7.6; Platelet Count 172 k/uL (150-450)
[2024-04-25 13:07] LABS: INR 1.2 (<1.2); Prothrombin Time 12.8 sec (10.0-12.5)
[2024-04-25 13:10] LABS: African American GFR (CKD) 86 (>60 ml/min/1.73 sqM); Non-African American GFR(CKD) 75 (>60 ml/min/1.73 sqM)
[2024-04-25 13:25] VITALS: TEMP 97.9
[2024-04-25] MEDS: ALBUMIN HUMAN 25% 50 ML in EMPTY BAG 1 BAG IVPB SCH (13:48)
[2024-04-25 13:57] VITALS: PULSE 60; RESP 20
[2024-04-25 15:03] VITALS: BP 111/58
--- NOTE | 2024-04-25 15:53 | US ---
EXAMINATION TYPE: US paracentesis abd w/image DATE OF EXAM: 04/25/2024 2:03 PM COMPARISON: prior paracentesis. CLINICAL INDICATION:Male, 78 years old with history of K70.31 cirrhosis; , ascites ATTENDING: Dr. Bi German PROCEDURE: Informed consent was obtained. The risks of the procedure were extensively explained incl uding risk of damage to surrounding bowel with perforation and need for additional procedures. Proced ure was performed in the ultrasound procedure suite. Ultrasound imaging of the abdomen demonstrate as citic fluid. An appropriate access site was localized to the left lower abdomen. Timeout was taken pe r protocol. The skin was prepped and draped in the usual sterile fashion and then locally anesthetize d with 1% lidocaine. The peritoneal cavity was then accessed via a 5-Czech one-step needle/catheter . Approximately 03942 mL of clear straw-colored fluid was obtained. Postprocedural imaging of the ab domen demonstrate a minimal amount of abdominal fluid. Patient tolerated procedure well without immediate complication. Hemostasis at the procedural site w as obtained with a sterile bandage placed. The patient was monitored in the holding area following th e procedure and was subsequently discharged in stable condition. IMPRESSION: Ultrasound guided paracentesis, with approximately 32848 mL of clear straw-colored fluid drained. No immediate complications were evident. [facility], Workstation: [id number], 04/25/2024 3:50 PM
== END 2024-04-25 15:20 | disposition home or self-care (01) ==
LOC: RADPROMAIN 12:27
PROVIDERS: ATTEND Internal Medicine Gastroenterology
DX: K70.31 Alcoholic cirrhosis of liver with ascites (principal)
CPT/HCPCS: 82565; 85049; 85610; 36415; 49083; P9047

== ENCOUNTER 2024-05-08 11:49 | Day surgery (SDC) | payer OTHER ==
[2024-05-08 12:56] LABS: Platelet Count 143 k/uL (150-450)
[2024-05-08 13:06] LABS: African American GFR (CKD) 77 (>60 ml/min/1.73 sqM); Non-African American GFR(CKD) 67 (>60 ml/min/1.73 sqM)
[2024-05-08] MEDS: ALBUMIN HUMAN 25% 50 ML in EMPTY BAG 1 BAG IVPB SCH (13:37)
[2024-05-08 13:44] LABS: INR 1.2 (<1.2); Prothrombin Time 13.3 sec (10.0-12.5)
[2024-05-08 13:50] VITALS: PULSE 60; RESP 20; TEMP 98.1
[2024-05-08 15:20] VITALS: BP 109/59
--- NOTE | 2024-05-08 16:43 | US ---
EXAMINATION TYPE: US paracentesis abd w/image DATE OF EXAM: 05/08/2024 CLINICAL HISTORY: 78-year-old male referred for routine outpatient paracentesis. K70.31 ALCOHOLIC C IRRHOSIS OF LIVER WITH ASCITES The procedure was discussed with the patient. The risks, complications, benefits, and alternatives we re discussed and any questions were answered. Informed consent was obtained. The patient was placed s upine on the ultrasound table and prepped and draped in the usual sterile fashion. All elements of maximal barrier technique were utilized. Ultrasound was utilized to determine the precise skin entry site along the left lower quadrant. A 5 Slovak One-Step catheter and trocar technique was utilized to access the ascites collection under direct ultrasound guidance. Approximately 12.3 liters of clear, straw-colored fluid was removed. Catheter was removed, hemostasis obtained, and a dressing placed. The patient was stable throughout the procedure and remained stable upon discharge from Department of Radiology. IMPRESSION: Successful therapeutic paracentesis under ultrasound guidance. 12.3 L of fluid removed. [facility], , 05/08/2024 4:40 PM
== END 2024-05-08 15:00 | disposition home or self-care (01) ==
LOC: RADPROMAIN 11:49
PROVIDERS: ATTEND Internal Medicine Gastroenterology
DX: K70.31 Alcoholic cirrhosis of liver with ascites (principal)
CPT/HCPCS: 82565; 85049; 85610; 36415; 49083; P9047

== ENCOUNTER 2024-05-23 12:24 | Day surgery (SDC) | payer OTHER ==
[2024-05-23 13:20] LABS: Mean Platelet Volume 8.1; Platelet Count 149 k/uL (150-450)
[2024-05-23 13:26] LABS: INR 1.2 (<1.2); Prothrombin Time 13.1 sec (10.0-12.5)
[2024-05-23] MEDS: ALBUMIN HUMAN 25% 50 ML in EMPTY BAG 1 BAG IVPB SCH (13:34)
[2024-05-23 13:36] LABS: African American GFR (CKD) 85 (>60 ml/min/1.73 sqM); Non-African American GFR(CKD) 74 (>60 ml/min/1.73 sqM)
[2024-05-23 13:40] VITALS: TEMP 98.1
[2024-05-23 14:37] VITALS: PULSE 60; RESP 16
[2024-05-23 15:55] VITALS: BP 141/67
--- NOTE | 2024-05-24 07:42 | US ---
EXAMINATION TYPE: US paracentesis abd w/image DATE OF EXAM: May 23, 2024 CLINICAL HISTORY: 78-year-old male referred for routine outpatient paracentesis. K70.31 ALCOHOLIC C IRRHOSIS OF LIVER WITH ASCITES The procedure was discussed with the patient. The risks, complications, benefits, and alternatives we re discussed and any questions were answered. Informed consent was obtained. The patient was placed s upine on the ultrasound table and prepped and draped in the usual sterile fashion. All elements of maximal barrier technique were utilized. Ultrasound was utilized to determine the precise skin entry site along the left lower quadrant. A 5 Italian One-Step catheter and trocar technique was utilized to access the ascites collection under direct ultrasound guidance. Approximately 11.2 liters of clear, straw-colored fluid was removed. Appropriate albumin supplementat ion was given by IR nurse. Catheter was removed, hemostasis obtained, and a dressing placed. The patient was stable throughout the procedure and remained stable upon discharge from Department of Radiology. IMPRESSION: Successful therapeutic paracentesis under ultrasound guidance. 11.2 L of fluid removed. [facility], , 05/24/2024 7:40 AM
== END 2024-05-23 15:59 | disposition home or self-care (01) ==
LOC: RADPROMAIN 12:24
PROVIDERS: ATTEND Internal Medicine Gastroenterology
DX: K70.31 Alcoholic cirrhosis of liver with ascites (principal)
CPT/HCPCS: 82565; 85049; 85610; 36415; 49083; P9047

== ENCOUNTER 2024-06-06 12:55 | Day surgery (SDC) | payer OTHER ==
[2024-06-06 13:28] LABS: Mean Platelet Volume 8.1; Platelet Count 139 k/uL (150-450)
[2024-06-06 13:32] VITALS: RESP 12; TEMP 97.9
[2024-06-06 13:45] LABS: African American GFR (CKD) 74 (>60 ml/min/1.73 sqM); Non-African American GFR(CKD) 64 (>60 ml/min/1.73 sqM)
[2024-06-06 13:48] LABS: INR 1.3 (<1.2); Prothrombin Time 13.9 sec (10.0-12.5)
[2024-06-06] MEDS: ALBUMIN HUMAN 25% 50 ML in EMPTY BAG 1 BAG IVPB SCH (14:10)
[2024-06-06 15:10] VITALS: BP 120/74; PULSE 60
--- NOTE | 2024-06-06 15:33 | US ---
EXAMINATION TYPE: US paracentesis abd w/image DATE OF EXAM: 06/06/2024 3:01 PM COMPARISON: prior paracentesis. CLINICAL INDICATION:Male, 78 years old with history of K70.31 cirrhosis; , ascites ATTENDING: Dr. Bi German PROCEDURE: Informed consent was obtained. The risks of the procedure were extensively explained incl uding risk of damage to surrounding bowel with perforation and need for additional procedures. Proced ure was performed in the ultrasound procedure suite. Ultrasound imaging of the abdomen demonstrate as citic fluid. An appropriate access site was localized to the left lower abdomen. Timeout was taken pe r protocol. The skin was prepped and draped in the usual sterile fashion and then locally anesthetize d with 1% lidocaine. The peritoneal cavity was then accessed via a 5-Persian one-step needle/catheter . Approximately 04132 mL of clear straw-colored fluid was obtained. Postprocedural imaging of the a bdomen demonstrate a minimal amount of abdominal fluid. Patient tolerated procedure well without immediate complication. Hemostasis at the procedural site w as obtained with a sterile bandage placed. The patient was monitored in the holding area following th e procedure and was subsequently discharged in stable condition. IMPRESSION: Ultrasound guided paracentesis, with approximately 29067 mL of clear straw-colored fluid drained. No immediate complications were evident. [facility], , 06/06/2024 3:31 PM
== END 2024-06-06 15:30 | disposition home or self-care (01) ==
LOC: RADPROMAIN 12:55
PROVIDERS: ATTEND Internal Medicine Gastroenterology
DX: R18.8 Other ascites (principal); K74.60 Unspecified cirrhosis of liver
CPT/HCPCS: 82565; 85049; 85610; 36415; 49083; P9047

== ENCOUNTER 2024-07-07 12:16 | Day surgery (SDC) | payer OTHER ==
[2024-07-05 10:47] VITALS: BMI 28.5
[2024-07-07] MEDS ORDERED: LACTATED RINGERS 1,000 ML IV SCH (12:49)
[2024-07-07 13:09] VITALS: TEMP 98.6
[2024-07-07] MEDS ORDERED: methylPREDNISolone ACETATE 80 MG/ML 1 ML VIAL ONE (14:15)
[2024-07-07] MEDS ORDERED: IOPAMIDOL M200 10 ML VIAL ONE (14:15)
--- NOTE | 2024-07-07 14:44 | P.PCN ---
Date of Procedure: 07/07/24 Procedure(s) Performed: PREOPERATIVE DIAGNOSIS: 1- Lumbar Degenerative Disc Diseases 2-Lumbar spondylosis with Facet arthropathy without myelopathy. 3-lumbar spinal stenosis. 4-lumbar radiculopathy. POSTOPERATIVE DIAGNOSIS: 1-lumbar degenerative disc disease. 2-lumbar spondylosis with facet arthropathy without myelopathy. 3-lumbar spinal stenosis. 4-lumbar radiculopathy. PROCEDURE 1. Lumbar epidural steroid injection under fluoroscopic guidance at the L3-4 level. (Fluoroscopy imaging was available in radiology department) 2. Lumbar epidurogram. ANESTHESIA: Lidocaine 1% 3 and then only. EBL: Minimal PROCEDURE INDICATION: The patient with low back pain and radiculitis symptoms unresponsive to conservative treatment. Fluoroscopy was used to optimize visualization of the needle placement and to maximize safety. PROCEDURE DESCRIPTION / TECHNIQUE: The patient was seen and identified in the preoperative area. Risks, benefits, complications including but not limited to infections ,bleeding ,allergic reaction to the medications ,nerve damage and not complete pain releife , and alternatives were discussed with the patient. The patient agreed to proceed with the procedure and signed the consent, and vital signs were stable. Patient was taken to the OR and time out was completed. The patient was placed in the Lateral position on procedure table (patient had severe ascites, was very difficult to be in prone position ). The lumbosacral area was prepped and draped in the usual sterile fashion.ere closely monitored during the procedure. Vital signs was monitered during the entire procedure. Using anterior-posterior fluoroscopy, the L3-4 interlaminar space was identified and the skin over this site was marked and then infiltrated with 1% lidocaine subcutaneously. Subsequently, a 20-gauge Tuohy epidural needle was inserted and advanced toward the epidural space using the ``Loss of resistance technique and guided by AP and lateral fluoroscopy. The correct needle position in the epidural space was verified with the injection of 2 mL of the water soluble contrast dye Isovue 200 contrast and observing an excellent epidurogram with the epidural spread of the dye, after negative aspiration for blood and CSF and in the absence of paresthesias. Again after negative aspiration, a 6 ml mixture containing 80 mg of Depo-medrol ( Preservetive Free ), and 2 ml of preservative free Normal Saline, and 2 ml of preservative free lidocaine 1% solution was injected and a washout of epidurogram was seen. Needle was withdrawn intact, skin was cleansed, and bandages were applied. COMPLICATIONS: None DISPOSITION / PLANS: The patient was placed in a supine position and transferred to the recovery area in a stable condition for observation. There was no evidence of lower extremity motor or sensory deficit after the procedure. Patient was discharged from the recovery room after meeting discharge criteria. Home discharge instructions were given to the patient by the staff. The patient was reexamined prior to discharge. The patient will schedule a follow up in the clinic in 2-4 weeks. Patient had severe ascites, and his INR 1.2 , platelet count 142
[2024-07-07 14:59] VITALS: RESP 16
--- NOTE | 2024-07-07 15:11 | FL ---
Fluoroscopy INDICATION: Pain FINDINGS: Fluoroscopy time: 10 seconds. Total dose area product (DAP) in uGy*m?, mGy*cm? (or similar): 0.67628 Images obtained: 2. Images document needle directed towards the lumbar spine IMPRESSION: 1. Documentation of fluoroscopy. [facility], , 07/07/2024 3:09 PM
[2024-07-07 15:28] VITALS: BP 137/64; PULSE 86
== END 2024-07-07 15:20 | disposition home or self-care (01) ==
LOC: ORPAIN 12:16
PROVIDERS: ATTEND Specialist
DX: M48.061 Spinal stenosis, lumbar region without neurogenic claudication (principal); M47.26 Other spondylosis with radiculopathy, lumbar region; M51.16 Intervertebral disc disorders with radiculopathy, lumbar region; R18.8 Other ascites; Z88.8 Allergy status to other drugs, medicaments and biological substances; Z88.6 Allergy status to analgesic agent; Z88.9 Allergy status to unspecified drugs, medicaments and biological substances; Z91.018 Allergy to other foods
CPT/HCPCS: 62323; Q9966; J1010

== ENCOUNTER 2024-07-11 08:02 | Day surgery (SDC) | payer OTHER ==
[2024-07-11 08:57] LABS: Mean Platelet Volume 7.9; Platelet Count 149 k/uL (150-450)
[2024-07-11 09:07] LABS: INR 1.3 (<1.2); Prothrombin Time 13.5 sec (10.0-12.5)
[2024-07-11 09:15] VITALS: RESP 18; TEMP 97.9
[2024-07-11] MEDS: ALBUMIN HUMAN 25% 50 ML in EMPTY BAG 1 BAG IVPB SCH (09:21)
[2024-07-11 09:48] LABS: African American GFR (CKD) 73 (>60 ml/min/1.73 sqM); Non-African American GFR(CKD) 63 (>60 ml/min/1.73 sqM)
[2024-07-11 10:42] VITALS: PULSE 60
[2024-07-11 11:23] VITALS: BP 117/63
--- NOTE | 2024-07-11 15:12 | US ---
EXAMINATION TYPE: US paracentesis abd w/image DATE OF EXAM: 07/11/2024 CLINICAL HISTORY: 78-year-old male K70.31, alcoholic cirrhosis of liver with ascites, distention, ro utine outpatient paracentesis performed every 2 weeks. Missed last week's appointment. The procedure was discussed with the patient. The risks, complications, benefits, and alternatives we re discussed and any questions were answered. Informed consent was obtained. The patient was placed s upine on the ultrasound table and prepped and draped in the usual sterile fashion. All elements of maximal barrier technique were utilized. Ultrasound was utilized to determine the precise skin entry site along the left lower quadrant/left f lank. A 5 Irish One-Step catheter and trocar technique was utilized to access the ascites collection under direct ultrasound guidance. Approximately 12.8 liters of typical, pink grapefruit colored fluid was removed. Catheter was removed, hemostasis obtained, and a dressing placed. The patient was stable throughout the procedure and remained stable upon discharge from Department of Radiology. IMPRESSION: Successful therapeutic paracentesis under ultrasound guidance. 12.8 L of fluid removed. [facility], , 07/11/2024 3:09 PM
== END 2024-07-11 11:20 | disposition home or self-care (01) ==
LOC: RADPROMAIN 08:02
PROVIDERS: ATTEND Internal Medicine Gastroenterology
DX: K70.31 Alcoholic cirrhosis of liver with ascites (principal)
CPT/HCPCS: 82565; 85049; 85610; 36415; 49083; P9047

== ENCOUNTER 2024-07-18 12:42 | Day surgery (SDC) | payer OTHER ==
[2024-07-18 13:12] LABS: Mean Platelet Volume 7.8; Platelet Count 164 k/uL (150-450)
[2024-07-18 13:18] LABS: INR 1.3 (<1.2); Prothrombin Time 13.9 sec (10.0-12.5)
[2024-07-18 13:29] LABS: African American GFR (CKD) 68 (>60 ml/min/1.73 sqM); Non-African American GFR(CKD) 59 (>60 ml/min/1.73 sqM)
[2024-07-18 13:50] VITALS: TEMP 98
[2024-07-18] MEDS: ALBUMIN HUMAN 25% 50 ML in EMPTY BAG 1 BAG IVPB SCH (14:03)
[2024-07-18 14:59] VITALS: BP 115/62; PULSE 61; RESP 16
--- NOTE | 2024-07-20 14:39 | US ---
EXAMINATION TYPE: US paracentesis abd w/image DATE OF EXAM: 07/18/2024 CLINICAL HISTORY: Ascites The procedure was discussed with the patient. The risks, complications, benefits, and alternatives we re discussed and any questions were answered. Informed consent was obtained. The patient was placed s upine on the ultrasound table and prepped and draped in the usual sterile fashion. All elements of maximal barrier technique were utilized. Under ultrasound guidance, access into the right lower quadrant was obtained, via the paracentesis catheter system and direct ultrasound guidanc e. Approximately 12.5 liters of straw-colored fluid was removed. The patient was stable throughout the p rocedure and remained stable upon discharge from Department of Radiology. IMPRESSION: Successful therapeutic paracentesis under ultrasound guidance. [facility], , 07/20/2024 2:37 PM
== END 2024-07-18 15:29 | disposition home or self-care (01) ==
LOC: RADPROMAIN 12:42
PROVIDERS: ATTEND Internal Medicine Gastroenterology
DX: R18.8 Other ascites (principal)
CPT/HCPCS: 82565; 85049; 85610; 36415; 49083; P9047

== ENCOUNTER → 2024-07-26 | Outpatient (CLI) | payer OTHER ==
[2024-07-26 14:46] VITALS: BP 109/70; PULSE 75; RESP 18; TEMP 96.8
--- NOTE | 2024-07-26 15:50 | P.PAINPG ---
PQRS Measure Charge Sheet Comment: HISTORY OF PRESENT ILLNESS: A 78 yr old male as a referral from the [facility] presents today w severe and chronic LBP > 1 yr secondary to radiculopathy, spondylosis and facet arthropathy without myelopathy for evaluation s/p VIOLA L3-L4 #1. Pt states he experienced >50 % pain relief x 2 wks s/p procedure. Pt states pain level is provoked at 7 /10 in intensity, constant, localized in the lumbar spine, predominantly axial, achy in character w occasional shooting pain towards buttocks and LEs. Pain is provo ked by walking for periods > 10 min. Pain is alleviated by heat, ice, manual massage, medications, topical, use of a walker for ambulatory assistance, repositioning and rest . Interventional procedures include VIOLA L3-L4 x1 Medications include THC products REVIEW OF ORGAN SYSTEMS: CONSTITUTIONAL: No fevers or chills. No recent weight loss. NEUROLOGICAL: + numbness and tingling along the distal extremities. No seizure disorders or headaches. MUSCULOSKELETAL: + pain PSYCHIATRIC: Denies current depression or suicidal thoughts. Physical Examinations : Constitutional : Cooperative , not in acute distress . Neurologic : Cranial nerve II to XII intact. No focal neurological deficits. Psychiatric : alert & oriented x 3. Matching mood & appropriate affect. Judgment & insight intact. Musculoskeletal : Cervical Spine Motor strength in the deltoid and biceps: Normal right side. Normal Left side Motor strength biceps and the wrist extensors: Normal right side . Normal left side Motor strength in the triceps muscle: Normal right side. Normal left side Deep tendon reflexes: Normal at the biceps. Normal at Brachioradialis. Normal at triceps Vertebral body tenderness to deep palpation over Cervical facet loading test: positive bilaterally Spurling test: positive bilaterally Neck distraction test: positive bilate rally Zofia sign: positive bilaterally Lumbar spine Motor strength lower extremities ,thigh and legs 5/5 Right side , 5/5 Left side Deep tendon reflexes : Normal Knee Jerk. Normal Ankle Jerk Vertebral body tenderness over L4 Hu Test positive BL L3-L4 Lumbar facet Loading Test: positive Right / positive Left Range of motion of the lumbar spine Flexion 30 degrees, extension 10 degrees Straight Leg Raise test: Left/ Right positive at degrees [place] test: positive right / positive left. Severe tenderness over the Sacroiliac joint on the Right / Left sides Gaenslen test: positive bilaterally Seated flexion test: positive bilaterally. Sacral spine : Severe tenderness over the Sacroiliac joint: right side / left side Range of motion: Flexion of the lumbar spine <60 degrees Range of motion: Extension of the lumbar spine <20 degrees Gaenslen's Test positive London test: positive right side / left side Thigh Thrust Test Sacral Thrust Test Imaging: CT non contrast thoracolumbar spine from 07/05/23 reviewed Assessment/ Plan : L3-L4/L4-L5 spondylosis & severe stenosis, Thoracic radiculopathy Recommendation of medication management. Zanaflex 4mg #90 w 1 RF. Short course Oxbow 10/325gm #18 NR. Use, side effects, adverse reactions, safe storage discussed. All questions answered. I have spent greater than 30 minutes on patient care today. Dr Schwartz was available by phone for the evaluation of this patient. The time was used to review the medical records including relevant urine studies and Prescription history (MAPs), review of the available imaging, evaluation and examination of the patient, coordination of care with the medical staff and if applicable referring physicians, as well as creation of the medical record - Pain Location Lower Back Non-Pharmacological Interventions: Inactivity, Sitting PQRS Narrative: Hx Alcohol Use (MH) No Home Medications: Ambulatory Orders PARoxetine HCL 30 mg PO QAM 05/26/23 carvediloL [Coreg] 6.25 mg PO BID 05/26/23 Gabapentin 600 mg PO BID 12/10/23 Torsemide [Demadex] 10 mg PO QAM 06/29/24 Vitamin D(Unknown Dose) 1 dose PO QAM 07/05/24 HYDROcodone/APAP 10-325MG [Oxbow 10-325] 1 tab PO Q4HR PRN 3 Days #18 tab 07/26/24 tiZANidine [Zanaflex] 4 mg PO Q8HR PRN 30 Days #90 tab 07/26/24 Controlled Substance Measures - Controlled Substance Measures Is patient prescribed a controlled substance at discharge?: Yes When asked, does pt state using other controlled substances?: No If prescribed controlled substance>3 days was MAPS reviewed?: Prescribed <3 Days
== END ==
LOC: PNWHC3 14:26
PROVIDERS: ATTEND Specialist
DX: M47.816 Spondylosis without myelopathy or radiculopathy, lumbar region (principal); M54.14 Radiculopathy, thoracic region; M48.061 Spinal stenosis, lumbar region without neurogenic claudication; Z88.8 Allergy status to other drugs, medicaments and biological substances; Z88.6 Allergy status to analgesic agent; Z88.3 Allergy status to other anti-infective agents
CPT/HCPCS: 99211

== ENCOUNTER 2024-08-01 12:54 | Day surgery (SDC) | payer OTHER ==
[2024-08-01 13:35] LABS: Platelet Count 157 k/uL (150-450)
[2024-08-01 13:37] VITALS: TEMP 97.6
[2024-08-01 13:42] LABS: African American GFR (CKD) 64 (>60 ml/min/1.73 sqM); Non-African American GFR(CKD) 55 (>60 ml/min/1.73 sqM)
[2024-08-01 13:48] LABS: INR 1.3 (<1.2); Prothrombin Time 13.6 sec (10.0-12.5)
[2024-08-01] MEDS: ALBUMIN HUMAN 25% 50 ML in EMPTY BAG 1 BAG IVPB SCH (13:53)
[2024-08-01 14:26] VITALS: RESP 16
--- NOTE | 2024-08-01 15:42 | US ---
EXAMINATION TYPE: US paracentesis abd w/image DATE OF EXAM: 08/01/2024 1:58 PM COMPARISON: None. Previous Paracentesis CLINICAL INDICATION: Male, 78 years old with history of K70.31 ALCOHOLIC CIRRHOSIS OF LIVER WITH ASCI MAIA; , ascites TECHNIQUE/FINDINGS: The procedure was discussed with the patient. The risks, complications, benefits, and alternatives we re discussed and any questions were answered. Informed consent was obtained. The patient was placed s upine on the ultrasound table and prepped and draped in the usual sterile fashion. All elements of maximal barrier technique were utilized. Under ultrasound guidance, access into the left lower quadrant was obtained, via the paracentesis catheter system and direct ultrasound guidance . Approximately 11.5 liters of straw-colored fluid was removed. The patient was stable throughout the p rocedure and remained stable upon discharge from Department of Radiology. IMPRESSION: Successful paracentesis under ultrasound guidance. [facility], , 08/01/2024 3:39 PM
[2024-08-01 15:45] VITALS: BP 117/69; PULSE 68
== END 2024-08-01 15:35 | disposition home or self-care (01) ==
LOC: RADPROMAIN 12:54
PROVIDERS: ATTEND Internal Medicine Gastroenterology
DX: K70.31 Alcoholic cirrhosis of liver with ascites (principal)
CPT/HCPCS: 82565; 85049; 85610; 36415; 49083; P9047

== ENCOUNTER 2024-08-08 12:57 | Day surgery (SDC) | payer OTHER ==
[2024-08-08 13:21] VITALS: RESP 12; TEMP 97.5
[2024-08-08 13:29] LABS: Mean Platelet Volume 8.2; Platelet Count 155 k/uL (150-450)
[2024-08-08 13:33] LABS: African American GFR (CKD) 74 (>60 ml/min/1.73 sqM); Non-African American GFR(CKD) 64 (>60 ml/min/1.73 sqM)
[2024-08-08 13:38] LABS: INR 1.2 (<1.2); Prothrombin Time 12.9 sec (10.0-12.5)
[2024-08-08] MEDS: ALBUMIN HUMAN 25% 50 ML in EMPTY BAG 1 BAG IVPB SCH (14:12)
[2024-08-08 15:12] VITALS: BP 126/76; PULSE 61
--- NOTE | 2024-08-09 07:28 | US ---
EXAMINATION TYPE: US paracentesis abd w/image DATE OF EXAM: 08/08/2024 CLINICAL HISTORY: Ascites The procedure was discussed with the patient. The risks, complications, benefits, and alternatives we re discussed and any questions were answered. Informed consent was obtained. The patient was placed s upine on the ultrasound table and prepped and draped in the usual sterile fashion. All elements of maximal barrier technique were utilized. Under ultrasound guidance, access into the right lower quadrant was obtained, via the paracentesis catheter system and direct ultrasound guidanc e. Approximately 10.45 liters of straw-colored fluid was removed. The patient was stable throughout the procedure and remained stable upon discharge from Department of Radiology. IMPRESSION: Successful therapeutic paracentesis under ultrasound guidance. [facility], , 08/09/2024 7:26 AM
== END 2024-08-08 15:30 | disposition home or self-care (01) ==
LOC: RADPROMAIN 12:57
PROVIDERS: ATTEND Internal Medicine Gastroenterology
DX: R18.8 Other ascites (principal)
CPT/HCPCS: 82565; 85049; 85610; 36415; 49083; P9047

== ENCOUNTER 2024-08-15 12:20 | Day surgery (SDC) | payer OTHER ==
[2024-08-15 13:28] VITALS: TEMP 98.1
[2024-08-15 13:30] LABS: Mean Platelet Volume 9.9 fL (9.5-12.2); Platelet Count 160 10*3/uL (140-440)
[2024-08-15 13:39] LABS: INR 1.2 (<1.2); Prothrombin Time 13.1 sec (10.0-12.5)
[2024-08-15 13:45] LABS: African American GFR (CKD) 73 (>60 ml/min/1.73 sqM); Non-African American GFR(CKD) 63 (>60 ml/min/1.73 sqM)
[2024-08-15] MEDS: ALBUMIN HUMAN 25% 50 ML in EMPTY BAG 1 BAG IVPB SCH (14:10)
[2024-08-15 14:50] VITALS: RESP 18
--- NOTE | 2024-08-15 16:03 | US ---
EXAMINATION TYPE: US paracentesis abd w/image DATE OF EXAM: 08/15/2024 CLINICAL HISTORY: 78-year-old male alcoholic cirrhosis of liver with ascites and distention The procedure was discussed with the patient. The risks, complications, benefits, and alternatives we re discussed and any questions were answered. Informed consent was obtained. The patient was placed s upine on the ultrasound table and prepped and draped in the usual sterile fashion. All elements of maximal barrier technique were utilized. Ultrasound was utilized to determine the precise skin entry site along the left lower quadrant. A 5 Khmer One-Step catheter and trocar technique was utilized to access the ascites collection under direct ultrasound guidance. Approximately 10 liters of clear, pink grapefruit-colored fluid was removed. Catheter was removed, hemostasis obtained, and a dressing placed. The patient was stable throughout the procedure and remained stable upon discharge from Department of Radiology. IMPRESSION: Successful therapeutic paracentesis under ultrasound guidance. 10 L of fluid removed. [facility], , 08/15/2024 4:01 PM
[2024-08-15 16:08] VITALS: BP 114/62; PULSE 64
== END 2024-08-15 16:10 | disposition home or self-care (01) ==
LOC: RADPROMAIN 12:20
PROVIDERS: ATTEND Internal Medicine Gastroenterology
DX: K70.31 Alcoholic cirrhosis of liver with ascites (principal)
CPT/HCPCS: 82565; 85049; 85610; 36415; 49083; P9047

== ENCOUNTER 2024-08-22 12:47 | Day surgery (SDC) | payer OTHER ==
[2024-08-22] MEDS: ALBUMIN HUMAN 25% 50 ML in EMPTY BAG 1 BAG IVPB SCH (13:44)
[2024-08-22 13:49] LABS: Mean Platelet Volume 9.6 fL (9.5-12.2); Platelet Count 129 10*3/uL (140-440)
[2024-08-22 14:00] VITALS: TEMP 97.9
[2024-08-22 14:03] LABS: African American GFR (CKD) 62 (>60 ml/min/1.73 sqM); Non-African American GFR(CKD) 53 (>60 ml/min/1.73 sqM)
[2024-08-22 14:04] LABS: INR 1.3 (<1.2); Prothrombin Time 13.5 sec (10.0-12.5)
[2024-08-22 15:01] VITALS: RESP 18
[2024-08-22 16:08] VITALS: BP 121/75; PULSE 65
--- NOTE | 2024-08-22 16:46 | US ---
EXAMINATION TYPE: US paracentesis abd w/image DATE OF EXAM: August 22, 2024 CLINICAL HISTORY: 78-year-old male referred for routine outpatient paracentesis. K70.31 ALCOHOLIC C IRRHOSIS OF LIVER WITH ASCITES The procedure was discussed with the patient. The risks, complications, benefits, and alternatives we re discussed and any questions were answered. Informed consent was obtained. The patient was placed s upine on the ultrasound table and prepped and draped in the usual sterile fashion. All elements of maximal barrier technique were utilized. Ultrasound was utilized to determine the precise skin entry site along the left lower quadrant. A 5 Pashto One-Step catheter and trocar technique was utilized to access the ascites collection under direct ultrasound guidance. Approximately 7.9 liters of clear, straw-colored fluid was removed. Appropriate albumin supplementati on was given by IR nurse. Catheter was removed, hemostasis obtained, and a dressing placed. The patient was stable throughout the procedure and remained stable upon discharge from Department of Radiology. IMPRESSION: Successful therapeutic paracentesis under ultrasound guidance. 7.9 L of fluid removed. [facility], , 08/22/2024 4:44 PM
== END 2024-08-22 15:45 | disposition home or self-care (01) ==
LOC: RADPROMAIN 12:47
PROVIDERS: ATTEND Internal Medicine Gastroenterology
DX: K70.31 Alcoholic cirrhosis of liver with ascites (principal)
CPT/HCPCS: 49083; 82565; 85049; 85610; 36415; P9047

== ENCOUNTER 2024-08-29 12:33 | Day surgery (SDC) | payer OTHER ==
[2024-08-29 13:32] LABS: Mean Platelet Volume 10.1 fL (9.5-12.2); Platelet Count 156 10*3/uL (140-440)
[2024-08-29 13:45] LABS: African American GFR (CKD) 72 (>60 ml/min/1.73 sqM); Non-African American GFR(CKD) 62 (>60 ml/min/1.73 sqM)
[2024-08-29 13:46] VITALS: TEMP 98.4
[2024-08-29 13:54] LABS: INR 1.3 (<1.2); Prothrombin Time 13.3 sec (10.0-12.5)
[2024-08-29] MEDS: ALBUMIN HUMAN 25% 50 ML in EMPTY BAG 1 BAG IVPB SCH (14:07)
[2024-08-29 14:23] VITALS: RESP 16
[2024-08-29 15:35] VITALS: BP 134/73; PULSE 62
--- NOTE | 2024-08-30 12:20 | US ---
EXAMINATION TYPE: US paracentesis abd w/image DATE OF EXAM: 08/29/2024 CLINICAL HISTORY: Ascites The procedure was discussed with the patient. The risks, complications, benefits, and alternatives we re discussed and any questions were answered. Informed consent was obtained. The patient was placed s upine on the ultrasound table and prepped and draped in the usual sterile fashion. All elements of maximal barrier technique were utilized. Under ultrasound guidance, access into the right lower quadrant was obtained, via the paracentesis catheter system and direct ultrasound guidanc e. Approximately 5.7 liters of straw-colored fluid was removed. The patient was stable throughout the pr ocedure and remained stable upon discharge from Department of Radiology. IMPRESSION: Successful therapeutic paracentesis under ultrasound guidance. [facility], , 08/30/2024 12:18 PM
== END 2024-08-29 15:15 | disposition home or self-care (01) ==
LOC: RADPROMAIN 12:33
PROVIDERS: ATTEND Internal Medicine Gastroenterology
DX: R18.8 Other ascites (principal)
CPT/HCPCS: 82565; 85049; 85610; 36415; 49083; P9047

== ENCOUNTER 2024-08-29 15:18 | Observation (INO) | payer MEDICARE, OTHER ==
--- NOTE | 2024-08-29 17:01 | ED ---
General Adult HPI - General Chief complaint: Weakness Stated complaint: Coming from Radiology/Weakness Time Seen by Provider: 08/29/24 16:46 Source: patient, RN notes reviewed Mode of arrival: wheelchair Limitations: no limitations - History of Present Illness Initial comments: 78-year-old male with history of liver cancer and alcoholic cirrhosis presents to the emergency department for generalized weakness and feeling tremulous. Patient states that this started on Wednesday. He notes that he has had difficulty getting up from a chair because he feels so weak. He notes that he had a paracentesis performed today. He usually gets them done weekly. He follows with Dr. Coombs and with Randy Underwood. He reports that he currently has radiation beads. He denies any known fever, chills. Denies chest pain. Does admit to some shortness of breath. - Related Data Home Medications Medication Instructions Recorded Confirmed PARoxetine HCL 30 mg PO QAM 05/26/23 08/30/24 carvediloL [Coreg] 6.25 mg PO BID 05/26/23 08/30/24 Gabapentin 600 mg PO BID 12/10/23 08/30/24 Torsemide [Demadex] 10 mg PO QAM 06/29/24 08/30/24 Cholecalciferol [Vitamin D3 (25 50 mcg PO DAILY 08/30/24 08/30/24 Mcg = 1000 Iu)] Eplerenone [Inspra] 25 mg PO DAILY 08/30/24 08/30/24 Mirtazapine [Remeron] 30 mg PO HS 08/30/24 08/30/24 Previous Rx's Medication Instructions Recorded HYDROcodone/APAP 10-325MG [[place] 1 tab PO Q4HR PRN 3 Days #18 tab 07/26/24 10-325] tiZANidine [Zanaflex] 4 mg PO Q8HR PRN 30 Days #90 tab 07/26/24 Allergies Allergy/AdvReac Type Severity Reaction Status Date / Time medium chain triglycerides Allergy Unknown Verified 08/30/24 07:27 [From Lipisorb] nutritional Allergy Unknown Verified 08/30/24 07:27 supplement,special formulas [From Lipisorb] simvastatin [From Zocor] Allergy Unknown Verified 08/30/24 07:27 apixaban [From Eliquis] AdvReac WEAKNESS Verified 08/30/24 07:27 ibuprofen [From Motrin] AdvReac Nausea Verified 08/30/24 07:27 lisinopril AdvReac Unknown Verified 08/30/24 07:27 Review of Systems ROS Statement: Those systems with pertinent positive or pertinent negative responses have been documented in the HPI. ROS Other: All systems not noted in ROS Statement are negative. Past Medical History Past Medical History: Cancer, Liver Disease, Prostate Disorder Additional Past Medical History / Comment(s): Chronic back pain. ascites. explosure to Agent orange. pacemaker. umbilical hernia; cancer prostate 2002. pt states "i had seeds placed in my liver at [facility] to treat liver lesions" Apr 2024. Last Myocardial Infarction Date:: unknown History of Any Multi-Drug Resistant Organisms: None Reported Past Surgical History: Cholecystectomy, Prostate Surgery Additional Past Surgical History / Comment(s): multi large volume paracentesis, seeds placed in liver Apr 2024 Past Anesthesia/Blood Transfusion Reactions: No Reported Reaction Type of Cardiac Device: Permanent Pacemaker Device Placement Date:: ? 2021 Past Psychological History: PTSD Smoking Status: Former smoker Past Alcohol Use History: Occasional Past Drug Use History: None Reported - Past Family History Father Family Medical History: Cancer Additional Family Medical History / Comment(s): colon cancer General Exam Limitations: no limitations General appearance: alert, in no apparent distress Head exam: Present: atraumatic, normocephalic, normal inspection Eye exam: Present: normal appearance, PERRL, EOMI. Absent: scleral icterus, conjunctival injection, periorbital swelling ENT exam: Present: normal exam, mucous membranes moist Respiratory exam: Present: normal lung sounds bilaterally. Absent: respiratory distress, wheezes, rales, rhonchi, stridor Cardiovascular Exam: Present: regular rate, normal rhythm, normal heart sounds. Absent: systolic murmur, diastolic murmur, rubs, gallop, clicks GI/Abdominal exam: Present: soft, hyperactive bowel sounds. Absent: distended, tenderness, guarding, rebound, rigid Extremities exam: Present: normal inspection, full ROM, normal capillary refill. Absent: tenderness, pedal edema, joint swelling, calf tenderness Neurological exam: Present: alert, oriented X3 Psychiatric exam: Present: normal affect, normal mood Skin exam: Present: warm, dry, intact, normal color. Absent: rash Course Vital Signs 08/29/24 08/29/24 08/29/24 15:22 19:41 23:01 Temperature 97.9 F Pulse Rate 70 61 66 Respiratory 16 18 16 Rate Blood Pressure 115/73 119/64 119/64 O2 Sat by Pulse 97 99 98 Oximetry 08/30/24 08/30/24 08/30/24 02:00 04:00 06:19 Temperature 98.3 F Pulse Rate 75 65 69 Respiratory 18 18 18 Rate Blood Pressure 105/71 108/69 100/51 O2 Sat by Pulse 98 98 95 Oximetry 08/30/24 07:18 Temperature 97.9 F Pulse Rate 60 Respiratory 18 Rate Blood Pressure 118/92 O2 Sat by Pulse 98 Oximetry Medical Decision Making - Medical Decision Making Was pt. sent in by a medical professional or institution (, PA, BELLH[employer] CAPTAIN, urgent care, hospital, or [place] health care facility...) When possible be specific @ -No Did you speak to anyone other than the patient for history (EMS, parent, family, police, friend...)? What history was obtained from this source @ -No Did you review nursing and triage notes (agree or disagree)? Why? @ -I reviewed and agree with nursing and triage notes Were old charts reviewed (outside hosp., previous admission, EMS record, old EKG, old radiological studies, urgent care reports/EKG's, [place] health care facility records)? Report findings @ -No old charts were reviewed Differential Diagnosis (chest pain, altered mental status, abdominal pain women, abdominal pain men, vaginal bleeding, weakness, fever, dyspnea, syncope, headache, dizziness, GI bleed, back pain, seizure, CVA, palpatations, mental health, musculoskeletal)? @ -Differential Weakness: Hypoglycemia, shock, sepsis, hyponatremia, anemia, infection, NE, ETOH, adverse medicine reaction, overdose, stroke, this is not meant to be an all-inclusive list. EKG interpreted by me (3pts min.). @ -EKG@ X-rays interpreted by me (1pt min.). @ -None done CT interpreted by me (1pt min.). @ -None done U/S interpreted by me (1pt. min.). @ -None done What testing was considered but not performed or refused? (CT, X-rays, U/S, labs)? Why? @ -None What meds were considered but not given or refused? Why? @ -None Did you discuss the management of the patient with other professionals (professionals i.e. , PA, BELLH[employer] CAPTAIN, lab, RT, psych nurse, case management social worker, material engineer, teacher, preventive medicine officer, transplant case manager)? Give summary @ -Case discussed with carlos manuel was accepting of the admission Was smoking cessation discussed for >3mins.? @ -No Was critical care preformed (if so, how long)? @ -No Were there social determinants of health that impacted care today? How? (Homelessness, low income, unemployed, alcoholism, drug addiction, transportation, low edu. Level, literacy, decrease access to med. care, long-term, rehab)? @ -No Was there de-escalation of care discussed even if they declined (Discuss DNR or withdrawal of care, Hospice)? DNR status @ -No What co-morbidities impacted this encounter? (DM, HTN, Smoking, COPD, CAD, Ca ncer, CVA, ARF, Chemo, Hep., AIDS, mental health diagnosis, sleep apnea, morbid obesity)? @ -None Was patient admitted / discharged? Hospital course, mention meds given and route, prescriptions, significant lab abnormalities, going to OR and other pertinent info. @ -Admitted. Patient presented the emergency department for generalized weakness. He has history of hepatic carcinoma and receives weekly paracentesis.Reza studies obtained revealing no significant leukocytosis, hemoglobin 12.7; elevated coagulation studies; CMP shows hyperbilirubinemia likely due to the patient's cancer. Patient does have greater than 182 WBCs, large leukocyte esterase, WBC clumps in the UA. Patient will be started on antibiotics. Admitted to the hospital for UTI treatment with the patient's comorbidities. He is understanding agreeable with plan. Patient stable at time of admission. Case discussed with carlos manuel who is accepting of the admission. Case discussed with Dr. Henry Undiagnosed new problem with uncertain prognosis? @ -No Drug Therapy requiring intensive monitoring for toxicity (Heparin, Nitro, Insulin, Cardizem)? @ -No Were any procedures done? @ -No Diagnosis/symptom? @ -UTI Acute, or Chronic, or Acute on Chronic? @ -Acute Uncomplicated (without systemic symptoms) or Complicated (systemic symptoms)? @ -Complicated Side effects of treatment? @ -No Exacerbation, Progression, or Severe Exacerbation? @ -No Poses a threat to life or bodily function? How? (Chest pain, USA, NE, pneumonia, PE, COPD, DKA, ARF, appy, cholecystitis, CVA, Diverticulitis, Homicidal, Suicidal, threat to staff... and all critical care pts) @ -No - Lab Data Result diagrams: 08/30/24 08:03 08/30/24 08:03 Lab Results 08/29/24 08/29/24 08/29/24 Range/Units 17:49 17:49 17:49 WBC (4.50-10.00) 10*3/uL RBC (4.40-5.60) 10*6/uL Hgb (13.0-17.0) g/dL Hct (39.6-50.0) % MCV (80.0-97.0) fL MCH (27.0-32.0) pg MCHC (32.0-37.0) g/dL Plt Count (140-440) 10*3/uL MPV (9.5-12.2) fL Immature Gran % (Auto) % Neutrophils % % Lymphocytes % % Monocytes % % Eosinophils % % Basophils % % Immature Gran # (0.00-0.04) 10*3/uL Neutrophils # (1.80-7.70) 10*3/uL Lymphocytes # (0.90-5.00) 10*3/uL Monocytes # (0.20-1.00) 10*3/uL Eosinophils # (0.04-0.35) 10*3/uL Basophils # (0.00-0.10) 10*3/uL Immature Plt Fraction (1.1-6.1) % PT 14.0 H (10.0-12.5) sec INR 1.3 H (<1.2) APTT 21.3 L (22.0-30.0) sec Sodium 139 (137-145) mmol/L Potassium 4.5 (3.5-5.1) mmol/L Chloride 106 (98-107) mmol/L Carbon Dioxide 24 (22-30) mmol/L Anion Gap 9 mmol/L BUN 26 H (9-20) mg/dL Creatinine 1.08 (0.66-1.25) mg/dL Est GFR (CKD-EPI)AfAm 75 (>60 ml/min/1.73 sqM) Est GFR (CKD-EPI)NonAf 65 (>60 ml/min/1.73 sqM) Glucose 115 H (74-99) mg/dL Plasma Lactic Acid Tony 1.8 (0.7-2.0) mmol/L Calcium 8.9 (8.4-10.2) mg/dL Magnesium 1.7 (1.6-2.3) mg/dL Total Bilirubin 3.2 H (0.2-1.3) mg/dL AST 45 (17-59) U/L ALT 20 (4-49) U/L Alkaline Phosphatase 163 H (38-126) U/L Total Protein 6.5 (6.3-8.2) g/dL Albumin 3.2 L (3.5-5.0) g/dL Urine Color Urine Appearance (Clear) Urine pH (5.0-8.0) Ur Specific [place] (1.001-1.035) Urine Protein (Negative) Urine Glucose (UA) (Negative) Urine Ketones (Negative) Urine Blood (Negative) Urine Nitrite (Negative) Urine Bilirubin (Negative) Urine Urobilinogen (<2.0) mg/dL Ur Leukocyte Esterase (Negative) Urine RBC (0-5) /hpf Urine WBC (0-5) /hpf Urine WBC Clumps (None) /hpf Ur Squamous Epith Cells (0-4) /hpf Urine Bacteria (None) /hpf Hyaline Casts (0-2) /lpf Urine Mucus (None) /hpf 08/29/24 08/29/24 Range/Units 18:48 19:43 WBC 6.88 (4.50-10.00) 10*3/uL RBC 3.64 L (4.40-5.60) 10*6/uL Hgb 12.7 L (13.0-17.0) g/dL Hct 36.3 L (39.6-50.0) % MCV 99.7 H (80.0-97.0) fL MCH 34.9 H (27.0-32.0) pg MCHC 35.0 (32.0-37.0) g/dL Plt Count 95 L (140-440) 10*3/uL MPV 10.6 (9.5-12.2) fL Immature Gran % (Auto) 0.7 % Neutrophils % 78.1 % Lymphocytes % 5.5 % Monocytes % 14.1 % Eosinophils % 0.9 % Basophils % 0.7 % Immature Gran # 0.05 H (0.00-0.04) 10*3/uL Neutrophils # 5.37 (1.80-7.70) 10*3/uL Lymphocytes # 0.38 L (0.90-5.00) 10*3/uL Monocytes # 0.97 (0.20-1.00) 10*3/uL Eosinophils # 0.06 (0.04-0.35) 10*3/uL Basophils # 0.05 (0.00-0.10) 10*3/uL Immature Plt Fraction 4.9 (1.1-6.1) % PT (10.0-12.5) sec INR (<1.2) APTT (22.0-30.0) sec Sodium (137-145) mmol/L Potassium (3.5-5.1) mmol/L Chloride (98-107) mmol/L Carbon Dioxide (22-30) mmol/L Anion Gap mmol/L BUN (9-20) mg/dL Creatinine (0.66-1.25) mg/dL Est GFR (CKD-EPI)AfAm (>60 ml/min/1.73 sqM) Est GFR (CKD-EPI)NonAf (>60 ml/min/1.73 sqM) Glucose (74-99) mg/dL Plasma Lactic Acid Tony (0.7-2.0) mmol/L Calcium (8.4-10.2) mg/dL Magnesium (1.6-2.3) mg/dL Total Bilirubin (0.2-1.3) mg/dL AST (17-59) U/L ALT (4-49) U/L Alkaline Phosphatase (38-126) U/L Total Protein (6.3-8.2) g/dL Albumin (3.5-5.0) g/dL Urine Color Dark Brown Urine Appearance Cloudy (Clear) Urine pH 6.0 (5.0-8.0) Ur Specific [place] 1.029 (1.001-1.035) Urine Protein 1+ H (Negative) Urine Glucose (UA) Negative (Negative) Urine Ketones Negative (Negative) Urine Blood Large H (Negative) Urine Nitrite Negative (Negative) Urine Bilirubin 1+ H (Negative) Urine Urobilinogen 12.0 (<2.0) mg/dL Ur Leukocyte Esterase Large H (Negative) Urine RBC 75 H (0-5) /hpf Urine WBC >182 H (0-5) /hpf Urine WBC Clumps Rare H (None) /hpf Ur Squamous Epith Cells 6 H (0-4) /hpf Urine Bacteria Rare H (None) /hpf Hyaline Casts 9 H (0-2) /lpf Urine Mucus Rare H (None) /hpf Disposition Clinical Impression: UTI (urinary tract infection) Disposition: ADMITTED IP TO THIS HOSP Condition: Stable Is patient prescribed a controlled substance at d/c from ED?: No
--- NOTE | 2024-08-29 17:24 | XR ---
EXAMINATION TYPE: XR chest 2V DATE OF EXAM: 08/29/2024 5:20 PM COMPARISON: Chest radiographs from 12/16/2023 TECHNIQUE: XR chest 2V Frontal and lateral views of the chest. CLINICAL INDICATION:Male, 78 years old with history of Weakness; FINDINGS: Lungs/Pleura: There is no evidence of pleural effusion, focal consolidation, or pneumothorax. Pulmonary vascularity: Unremarkable. Heart/mediastinum: Cardiomediastinal silhouette is enlarged and stable. Atherosclerotic calcificatio ns are seen in the aorta. Two lead cardiac conduction device overlying the left hemithorax with lead tips projecting over the right ventricle and right atrium. Musculoskeletal: Multiple level degenerative disc disease changes seen throughout the spine. Right AC joint arthropathy. IMPRESSION: Chronic changes without acute pulmonary process. No significant change from prior. [facility], , 08/29/2024 5:22 PM
[2024-08-29 18:08] LABS: ALT 20 U/L (4-49); AST 45 U/L (17-59); African American GFR (CKD) 75 (>60 ml/min/1.73 sqM); Albumin 3.2 g/dL (3.5-5.0); Alkaline Phosphatase 163 U/L (38-126); Anion Gap 9 mmol/L; Blood Urea Nitrogen 26 mg/dL (9-20); Calcium 8.9 mg/dL (8.4-10.2); Carbon Dioxide 24 mmol/L (22-30); Chloride 106 mmol/L (98-107); Glucose 115 mg/dL (74-99); Magnesium 1.7 mg/dL (1.6-2.3); Non-African American GFR(CKD) 65 (>60 ml/min/1.73 sqM); Potassium 4.5 mmol/L (3.5-5.1); Sodium 139 mmol/L (137-145); Total Bilirubin 3.2 mg/dL (0.2-1.3); Total Protein 6.5 g/dL (6.3-8.2)
[2024-08-29 18:15] LABS: INR 1.3 (<1.2)
[2024-08-29 18:24] LABS: Partial Thromboplastin Time 21.3 sec (22.0-30.0)
[2024-08-29 18:56] LABS: Basophils # (A) 0.05 10*3/uL (0.00-0.10); Basophils % (A) 0.7 %; Eosinophils # (A) 0.06 10*3/uL (0.04-0.35); Eosinophils % (A) 0.9 %; HCT 36.3 % (39.6-50.0); HGB 12.7 g/dL (13.0-17.0); Immature Platelet Fraction 4.9 % (1.1-6.1); Lymphocytes # (A) 0.38 10*3/uL (0.90-5.00); Lymphocytes % (A) 5.5 %; MCH 34.9 pg (27.0-32.0); MCV 99.7 fL (80.0-97.0); Mean Platelet Volume 10.6 fL (9.5-12.2); Monocytes # (A) 0.97 10*3/uL (0.20-1.00); Monocytes % (A) 14.1 %; Neutrophils # (A) 5.37 10*3/uL (1.80-7.70); Neutrophils % (A) 78.1 %; RBC 3.64 10*6/uL (4.40-5.60); WBC 6.88 10*3/uL (4.50-10.00)
[2024-08-29 19:12] LABS: Platelet Count 95 10*3/uL (140-440)
[2024-08-29 20:01] LABS: Appearance,Urine Cloudy (Clear); Bacteria,Urine Rare /hpf; Bilirubin,Urine 1+ (Negative); Blood,Urine Large (Negative); Color,Urine Dark Brown; Glucose,Urine (UA) Negative (Negative); Hyaline Casts,Urine 9 /lpf (0-2); Ketones,Urine Negative (Negative); Leukocyte Esterase,Urine Large (Negative); Mucus,Urine Rare /hpf; Nitrite,Urine Negative (Negative); Protein,Urine 1+ (Negative); RBC,Urine 75 /hpf (0-5); Specific Gravity,Urine 1.029 (1.001-1.035); Squamous Epithelial Cell,Urine 6 /hpf (0-4); WBC,Urine >182 /hpf (0-5)
--- NOTE | 2024-08-29 21:36 | CT ---
EXAMINATION TYPE: CT abdomen pelvis w con DATE OF EXAM: 08/29/2024 8:59 PM COMPARISON: None. CLINICAL INDICATION: Male, 78 years old with history of abd pain, hx liver ca, Patient just had 5.7 L removed during paracentesis. Per IR nurse, patient is having generalized weakness. Hx of liver CA. TECHNIQUE: Axial images were obtained from above the diaphragm to the pubic rami in the axial plane a t 5 mm thick sections. Reconstructed images are reviewed on the computer in the coronal plane. CONTRAST: 80 ml mL of Isovue 300. Study performed without Oral Contrast DLP: 1144.7 mGycm, Automated exposure control for dose reduction was used. FINDINGS: Limited CT sections are obtained the lung bases. The lung bases are clear. Moderate to severe coron marilyn artery calcifications present. CT ABDOMEN: Ascites is adjacent to the liver and spleen as well as within the paracolic gutters. Free fluid is also present within the pelvis. Liver: Heterogenous low density areas within the right dome of the liver. This area could reflect the patient's reported liver cancer. There is an additional large hypodense area within the inferior sarah er could be a cyst at this position measuring 19 Hounsfield units. Cystlike area in the medial right lobe liver. Spleen: Normal Pancreas: Normal Adrenal glands: The adrenal glands are normal. Gallbladder: There appears to be a surgical clip at the hilum of the liver suggesting prior cholecyst ectomy. However, what appears to be a panic cyst directly adjacent could be the gallbladder. Correlat e with the surgical history. Kidneys: No masses are evident. No hydronephrosis is present. There is a 3.4 cm cyst in the anterio r right kidney. Delayed images were obtained through the kidneys, which remain unremarkable. Aorta: Vascular calcification is within the aorta. Inferior vena cava: Normal. CT PELVIS: Loops of bowel within the abdomen and pelvis are normal. There are loops of bowel which are incom pletely distended or lack oral contrast limiting their evaluation. Appendix: Normal as visualized. Urinary bladder: Normal. Genitourinary structures: Prostate is not well visualized. Osseous structures: No suspicious lytic or sclerotic lesions. IMPRESSION: 1. There is moderate residual ascites postparacentesis. 2. Known hepatic neoplasm. [facility], , 08/29/2024 9:34 PM
[2024-08-29] MEDS ORDERED: MORPHINE SULFATE 4 MG/ML SYRINGE IV PRN (22:41)
[2024-08-29] MEDS ORDERED: HYDROmorphone 0.5 MG/0.5 ML SYRINGE IVP PRN (22:41)
[2024-08-29] MEDS ORDERED: NALOXONE 0.4 MG/ML 1 ML VIAL IV PRN (22:41)
[2024-08-29] MEDS ORDERED: HYDROcodone/APAP 10-325MG 1 EACH TAB PO PRN (22:55)
[2024-08-29] MEDS ORDERED: tiZANidine 4 MG TAB PO PRN (22:55)
--- NOTE | 2024-08-29 23:05 | P.HPIM ---
History of Present Illness H&P Date: 08/29/24 Chief Complaint: weakness Allen is a 78 YO M with a pmhx of cirrhhosis, hx of tobacco use and liver cancer s/p beads at [facility]. The patient presents to the hospital c/o weakness. He endorses that paracentesis earlier today and he had felt weak. Given his symptoms he decided to come to the ER for further evaluation. He denies any fevers chills nausea vomiting. He reports he is compliant with all his medications. He reports he has been diagnosed with cirrhosis since 2022. He expresses that he did have liver cancer and had beads placed at [facility]. He expresses that he gets most of his care performed at the [place] When he presented the hospital he was hemodynamically stable afebrile and was 97% room air. Lab work revealed CBC showing no significant abnormality MCV was 99 INR was 1.3 CMP had showed no significant abnormalities. Urinalysis had revealed pyuria along with hematuria. CT abdomen pelvis had revealed moderate ascites with known hepatic neoplasm. Chest x-ray revealed no acute process. He was given IV ceftriaxone admitted to the hospital for further evaluation Review of Systems Pertinent positives and negatives as discussed in HPI, a complete review of systems was performed and all other systems are negative. Past Medical History Past Medical History: Cancer, Liver Disease, Prostate Disorder Additional Past Medical History / Comment(s): Chronic back pain. ascites. explosure to Agent orange. pacemaker. umbilical hernia; cancer prostate 2002. pt states "i had seeds placed in my liver at [facility] to treat liver lesions" Apr 2024. Last Myocardial Infarction Date:: unknown History of Any Multi-Drug Resistant Organisms: None Reported Past Surgical History: Cholecystectomy, Prostate Surgery Additional Past Surgical History / Comment(s): multi large volume paracentesis, seeds placed in liver Apr 2024 Past Anesthesia/Blood Transfusion Reactions: No Reported Reaction Type of Cardiac Device: Permanent Pacemaker Device Placement Date:: ? 2021 Past Psychological History: PTSD Smoking Status: Former smoker Past Alcohol Use History: Occasional Past Drug Use History: None Reported - Past Family History Father Family Medical History: Cancer Additional Family Medical History / Comment(s): colon cancer Medications and Allergies Home Medications Medication Instructions Recorded Confirmed Type PARoxetine HCL 30 mg PO QAM 05/26/23 08/29/24 History carvediloL [Coreg] 6.25 mg PO BID 05/26/23 08/29/24 History Gabapentin 600 mg PO BID 12/10/23 08/29/24 History Torsemide [Demadex] 10 mg PO QAM 06/29/24 08/29/24 History Vitamin D(Unknown Dose) 1 dose PO QAM 07/05/24 08/29/24 History HYDROcodone/APAP 10-325MG [[place] 1 tab PO Q4HR PRN 3 Days #18 tab 07/26/24 08/29/24 Rx 10-325] tiZANidine [Zanaflex] 4 mg PO Q8HR PRN 30 Days #90 tab 07/26/24 08/29/24 Rx Allergies Allergy/AdvReac Type Severity Reaction Status Date / Time medium chain triglycerides Allergy Unknown Verified 08/29/24 15:26 [From Lipisorb] nutritional Allergy Unknown Verified 08/29/24 15:26 supplement,special formulas [From Lipisorb] simvastatin [From Zocor] Allergy Unknown Verified 08/29/24 15:26 ibuprofen [From Motrin] AdvReac Nausea Verified 08/29/24 15:26 lisinopril AdvReac Unknown Verified 08/29/24 15:26 Physical Exam Vitals: Vital Signs Temp Pulse Resp BP Pulse Ox 08/29/24 19:41 61 18 119/64 99 08/29/24 15:22 97.9 F 70 16 115/73 97 Intake and Output 08/29/24 08/29/24 08/29/24 06:59 14:59 22:59 Other: Weight 99.79 kg General: non toxic, no distress, appears ostated age male Derm: warm, dry Head: atraumatic, normocephalic, symmetric Eyes: no lid lag, anicteric sclera ENT: Nose and ears atraumatic, no thrush, Neck: No thyromegaly, no cervical lymphadenopathy, trachea midline, supple Mouth: no lip lesion, mucus membranes moist Cardiovascular: S1S2 reg, no murmur, positive posterior tibial pulse bilateral, no edema, Lungs: clear to ascultation bilateral, no ronchi, no rales, no wheeze, no accessory muscle use Abdominal: soft, nontender to palpation, no guarding, no sigificant distention noted Ext: no gross muscle atrophy, muscle strength muscle strength 5 out of 5 in all 4 extremities, no contractures Neuro: moving all extremeites spontanously Psych: Alert, oriented, appropriate affect Results CBC & Chem 7: 08/29/24 18:48 08/29/24 17:49 Labs: Abnormal Lab Results - Last 24 Hours (Table) 08/29/24 08/29/24 08/29/24 Range/Units 17:49 17:49 18:48 RBC 3.64 L (4.40-5.60) 10*6/uL Hgb 12.7 L (13.0-17.0) g/dL Hct 36.3 L (39.6-50.0) % MCV 99.7 H (80.0-97.0) fL MCH 34.9 H (27.0-32.0) pg Plt Count 95 L (140-440) 10*3/uL Immature Gran # 0.05 H (0.00-0.04) 10*3/uL Lymphocytes # 0.38 L (0.90-5.00) 10*3/uL PT 14.0 H (10.0-12.5) sec INR 1.3 H (<1.2) APTT 21.3 L (22.0-30.0) sec BUN 26 H (9-20) mg/dL Glucose 115 H (74-99) mg/dL Total Bilirubin 3.2 H (0.2-1.3) mg/dL Alkaline Phosphatase 163 H (38-126) U/L Albumin 3.2 L (3.5-5.0) g/dL Urine Protein (Negative) Urine Blood (Negative) Urine Bilirubin (Negative) Ur Leukocyte Esterase (Negative) Urine RBC (0-5) /hpf Urine WBC (0-5) /hpf Urine WBC Clumps (None) /hpf Ur Squamous Epith Cells (0-4) /hpf Urine Bacteria (None) /hpf Hyaline Casts (0-2) /lpf Urine Mucus (None) /hpf 08/29/24 Range/Units 19:43 RBC (4.40-5.60) 10*6/uL Hgb (13.0-17.0) g/dL Hct (39.6-50.0) % MCV (80.0-97.0) fL MCH (27.0-32.0) pg Plt Count (140-440) 10*3/uL Immature Gran # (0.00-0.04) 10*3/uL Lymphocytes # (0.90-5.00) 10*3/uL PT (10.0-12.5) sec INR (<1.2) APTT (22.0-30.0) sec BUN (9-20) mg/dL Glucose (74-99) mg/dL Total Bilirubin (0.2-1.3) mg/dL Alkaline Phosphatase (38-126) U/L Albumin (3.5-5.0) g/dL Urine Protein 1+ H (Negative) Urine Blood Large H (Negative) Urine Bilirubin 1+ H (Negative) Ur Leukocyte Esterase Large H (Negative) Urine RBC 75 H (0-5) /hpf Urine WBC >182 H (0-5) /hpf Urine WBC Clumps Rare H (None) /hpf Ur Squamous Epith Cells 6 H (0-4) /hpf Urine Bacteria Rare H (None) /hpf Hyaline Casts 9 H (0-2) /lpf Urine Mucus Rare H (None) /hpf Assessment and Plan Assessment: #) Cystitis. UA showing significant pyuria with the patient endorsing weakness. denies any pain on urination however will proceed and check blood cultures as well. f/u on urine culture. continue iv ceftriaxone 1 g daily #) Liver cirrhosis, as per patient possibly from etoh vs. agent orange exposure. s/p paracentesis earlier today. 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 consider adding spr inolactone and possible lactulose if concern for HE arises. 2 g sodium restricted diet #) liver cancer concerning for ?HCC. unable to verify cancer on chart review. sees HF and had beads placed #) Neuropathy continue home gabapentin 600 mg bid #)) Major depression continue home paroxetine 30 mg daily Anticipate dispo: observation med/surge dvt ppx: lovenox 40 mg daily Time with Patient: Greater than 30
[2024-08-30 02:26] VITALS: RESP 18
[2024-08-30 08:22] LABS: Basophils # (A) 0.07 10*3/uL (0.00-0.10); Basophils % (A) 1.2 %; Eosinophils # (A) 0.15 10*3/uL (0.04-0.35); Eosinophils % (A) 2.5 %; HCT 38.5 % (39.6-50.0); HGB 12.8 g/dL (13.0-17.0); Lymphocytes % (A) 6.7 %; MCH 33.5 pg (27.0-32.0); MCHC 33.2 g/dL (32.0-37.0); MCV 100.8 fL (80.0-97.0); Mean Platelet Volume 9.5 fL (9.5-12.2); Monocytes # (A) 0.86 10*3/uL (0.20-1.00); Monocytes % (A) 14.5 %; Neutrophils # (A) 4.41 10*3/uL (1.80-7.70); Neutrophils % (A) 74.4 %; Platelet Count 117 10*3/uL (140-440); RBC 3.82 10*6/uL (4.40-5.60); RDW 15.9 % (11.5-14.5); WBC 5.93 10*3/uL (4.50-10.00)
[2024-08-30] MEDS: carvediloL 6.25 MG TAB PO SCH (08:25)
[2024-08-30] MEDS: ENOXAPARIN 40 MG/0.4 ML SYRINGE SQ SCH (08:25)
[2024-08-30] MEDS: GABAPENTIN 300 MG CAP PO SCH (08:26)
[2024-08-30] MEDS: TORSEMIDE 20 MG TAB PO SCH (08:26)
[2024-08-30 08:32] LABS: ALT 21 U/L (4-49); AST 47 U/L (17-59); African American GFR (CKD) 73 (>60 ml/min/1.73 sqM); Albumin/Globulin Ratio 0.9; Alkaline Phosphatase 183 U/L (38-126); Anion Gap 5 mmol/L; Blood Urea Nitrogen 25 mg/dL (9-20); Calcium 8.8 mg/dL (8.4-10.2); Carbon Dioxide 28 mmol/L (22-30); Chloride 102 mmol/L (98-107); Globulin 3.3 g/dL; Glucose 101 mg/dL (74-99); Non-African American GFR(CKD) 63 (>60 ml/min/1.73 sqM); Potassium 5.2 mmol/L (3.5-5.1); Sodium 135 mmol/L (137-145); Total Bilirubin 2.3 mg/dL (0.2-1.3); Total Protein 6.3 g/dL (6.3-8.2)
[2024-08-30] MEDS ORDERED: cefTRIAXone IN SWFI 1,000 MG/10 ML SYRINGE IVP SCH (09:00)
[2024-08-30] MEDS: PARoxetine 10 MG TAB PO SCH (09:11)
[2024-08-30 12:14] VITALS: BP 95/58; PULSE 77; TEMP 97.6
--- NOTE | 2024-08-30 14:22 | P.DS ---
Providers Date of admission: 08/29/24 21:53 Expected date of discharge: 08/30/24 Attending physician: Jae Delgado MD Primary care physician: Ariel Goetz [facility] Course: Discharge Diagnosis: Generalized weakness, likely multifactorial secondary to recent large-volume paracentesis and multiple comorbidities. Patient hospitalized overnight and reports feeling significantly better and strong enough to return home. Patient was evaluated by PT/OT recommending rehab. Patient declined. Patient states he feels strong enough to go home and has enough support at home. He reports walking with a 4 wheeled walker at baseline and states that he lives with his son. Patient was in agreement to going home with home care. Patient was informed that if he changes his mind within the next 30 days and would like to go to rehab he may call the number provided and we will arrange placement at that time. Patient discharged home with residential home care through [facility]. Hepatic carcinoma, follows with [facility] and [facility] Liver cirrhosis with ascites, status post recent large-volume paracentesis. Patient's blood pressure stable at 118/73 with heart rate of 61. Patient to continue to follow with [facility] for continued therapeutic paracentesis as scheduled. 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 Hospital Course: Patient is a pleasant 79-year-old male with a past medical history of liver cancer status postchemotherapy beads placed at [facility] and follows with the [facility], liver cirrhosis with ascites, prostate cancer status post prostatectomy, previous heart block with permanent pacemaker placement, and PTSD. He presented to the hospital on 08/29/2024 with complaints of generalized weakness status post large-volume paracentesis. Patient denied having any fevers, chills, abdominal pain, nausea, vomiting, or any other complaints. Upon arrival to our facility, patient underwent evaluation in the emergency department. Vital signs upon arrival show blood pressure 115/73, heart rate 70, respiratory rate 16, temp 97.9 F, and SpO2 of 97% on room air. EKG was completed showing a ventricular paced rhythm at 62 bpm. Chest x-ray negative for acute process. CT abdomen and pelvis with contrast showing moderate residual ascites post paracentesis and known hepatic neoplasms. Labs completed and reviewed. CBC showing bicytopenia with hemoglobin of 12.7 and platelet count of 95. Coagulation profile showing elevated PT of 14.0, INR 1.3, and PTT of 21.3. BMP unremarkable with exception of elevated BUN of 26. Blood glucose 115. Lactic acid 1.8. Blood glucose 115. Magnesium 1.7. Liver profile showing hyperbilirubinemia with total bili of 3.2 and elevated alkaline phosphatase of 163. Urinalysis was a contaminated specimen but positive for blood, nitrates, leukocytes, 75 RBCs and greater than 182 WBCs. Patient denied having any hematuria, urinary frequency, urgency, retention, dysuria, or experiencing any abdominal, suprapubic, or back pain. Patient was admitted under services with consultation to physical and Occupational Therapy. He was evaluated by PT/OT recommending SNF placement for rehab. Patient declined. Patient states he feels strong enough to go home and has enough support at home. He reports walking with a 4 wheeled walker at baseline and states that he lives with his son. Patient was in agreement to going home with home care. Patient was informed that if he changes his mind within the next 30 days and would like to go to rehab he may call the number provided and we will arrange placement at that time. Patient discharged home with residential home care through [facility]. Physical exam: Patient seen and examined at bedside. Vital signs reviewed and stable. General: Nontoxic, no distress and appears stated age. Derm: Skin warm and dry, jaundice.. Head: Atraumatic, normocephalic and symmetric. Eyes: EOM's intact, no lid lag, and anicteric sclera Mouth: no lip lesions, mucus membranes moist Cardiovascular: regular rate and rhythm with normal S1S2, systolic murmur, positive posterior tibial pulses bilaterally, and cap refill < [address] Lungs: Respirations even, regular, and unlabored on room air. Lungs CTA bilaterally, no rhonchi, no rales, no wheezing, and no accessory muscle usage. Abdominal: soft distended, nontender to palpation, no guarding, no appreciable organomegaly Ext: ROM intact. No gross muscle atrophy, no edema, no contractures Neuro: Speech clear, face symmetrical and CN II-XII grossly intact with no noted focal neuro deficits Psych: Alert and oriented to person, place, time, and situation. Appropriate and pleasant affect. A total of 36 minutes of time were spent preparing this complex discharge summary. Pt was discharged on 08/30/24 2:19 PM. Patient was seen independently by Nurse Practitioner. This document was prepared using [employer] dictation software. Please allow for errors in machine featheredger and reducer while rare they do occur. Raleigh Galan NP rendered care for this patient independently, reviewed the findings and plan as documented in the note above. I did not physically speak with or examine the patient on this date. Patient Condition at Discharge: Stable Plan - Discharge Summary Discharge Rx Participant: No New Discharge Prescriptions: Continue PARoxetine HCL 30 mg PO QAM carvediloL [Coreg] 6.25 mg PO BID Gabapentin 600 mg PO BID Torsemide [Demadex] 10 mg PO QAM HYDROcodone/APAP 10-325MG [[place] 10-325] 1 tab PO Q4HR PRN 3 Days #18 tab PRN Reason: Pain Cholecalciferol [Vitamin D3 (25 Mcg = 1000 Iu)] 50 mcg PO DAILY Eplerenone [Inspra] 25 mg PO DAILY tiZANidine [Zanaflex] 4 mg PO Q8HR PRN 30 Days #90 tab PRN Reason: Muscle Spasm Mirtazapine [Remeron] 30 mg PO HS Discharge Medication List PARoxetine HCL 30 mg PO QAM 05/26/23 [History] carvediloL [Coreg] 6.25 mg PO BID 05/26/23 [History] Gabapentin 600 mg PO BID 12/10/23 [History] Torsemide [Demadex] 10 mg PO QAM 06/29/24 [History] HYDROcodone/APAP 10-325MG [[place] 10-325] 1 tab PO Q4HR PRN 3 Days #18 tab 07/26/24 [Rx] tiZANidine [Zanaflex] 4 mg PO Q8HR PRN 30 Days #90 tab 07/26/24 [Rx] Cholecalciferol [Vitamin D3 (25 Mcg = 1000 Iu)] 50 mcg PO DAILY 08/30/24 [History] Eplerenone [Inspra] 25 mg PO DAILY 08/30/24 [History] Mirtazapine [Remeron] 30 mg PO HS 08/30/24 [History] Follow up Appointment(s)/Referral(s): Residential Home,Health [NON-STAFF] - 1 Week Ariel Goetz DO [Primary Care Provider] - 09/05/24 11:00 am (patient sees ROGERIO Castro at [facility]) Patient Instructions/Handouts: Passive Range of Motion Exercises (GEN), Weakness ([facility]) Activity/Diet/Wound Care/Special Instructions: Activity: As tolerated. Take breaks as needed. Maintain fall precautions. Walk with walker at all times. Recommended placement in [facility] facility for rehab, you declined at this time stating that you have plenty of support at home with your son. As discussed with you, if you change your mind within the next 30 days and would like to go to rehab you were provided with the phone number to call and these arrangements can be set up without you having to return to the hospital for placement. At this time you are being discharged home with home care with Physical and Occupational Therapy per your request. Diet: Heart healthy and carb consistent diet. Special Instructions: Take all of your medications as directed and remember to keep all of your doctor's appointments and follow-up as needed. Your urinalysis was contaminated but did show positive for WBCs (White Blood Cells), however as we discussed at bedside without any urinary complaints or abdominal pain it is not recommended to treat asymptomatic bacteriuria. Thank you for allowing us to participate in your care, it was truly a pleasure having you for our patient!!! .. Discharge Disposition: HOME SELF-CARE
== END 2024-08-30 16:48 | disposition home or self-care (01) ==
LOC: EC 15:18 → 5NMEDONC 21:53
PROVIDERS: ADMIT Internal Medicine; ATTEND Internal Medicine
DX: N30.91 Cystitis, unspecified with hematuria (principal); K70.31 Alcoholic cirrhosis of liver with ascites; C22.9 Malignant neoplasm of liver, not specified as primary or secondary; I44.2 Atrioventricular block, complete; F43.10 Post-traumatic stress disorder, unspecified; G62.9 Polyneuropathy, unspecified; F32.9 Major depressive disorder, single episode, unspecified; Z79.899 Other long term (current) drug therapy; Z88.6 Allergy status to analgesic agent; Z88.8 Allergy status to other drugs, medicaments and biological substances; Z95.0 Presence of cardiac pacemaker; Z92.21 Personal history of antineoplastic chemotherapy; Z85.46 Personal history of malignant neoplasm of prostate; Z90.79 Acquired absence of other genital organ(s); Z87.891 Personal history of nicotine dependence; Z98.890 Other specified postprocedural states; D63.0 Anemia in neoplastic disease; D69.6 Thrombocytopenia, unspecified
CPT/HCPCS: 96372; 96365; 99285; 36415; 93005; 97161; 97166; 80053 ×2; 83605; 83735; 85025 ×2; 85610; 85730; 81001; 87040; 87086; 71046; 74177; G0378 ×2; J0696; J1650; Q9967

== ENCOUNTER 2024-09-05 12:55 | Day surgery (SDC) | payer OTHER ==
[2024-09-05 13:37] LABS: Mean Platelet Volume 10.4 fL (9.5-12.2); Platelet Count 167 10*3/uL (140-440)
[2024-09-05 13:47] LABS: African American GFR (CKD) 72 (>60 ml/min/1.73 sqM); Non-African American GFR(CKD) 63 (>60 ml/min/1.73 sqM)
[2024-09-05 13:50] LABS: INR 1.2 (<1.2)
[2024-09-05 14:17] VITALS: PULSE 60; RESP 16
[2024-09-05] MEDS: ALBUMIN HUMAN 25% 50 ML in EMPTY BAG 1 BAG IVPB SCH (14:38)
[2024-09-05 16:26] VITALS: BP 101/58
--- NOTE | 2024-09-06 06:42 | US ---
EXAMINATION TYPE: US paracentesis abd w/image DATE OF EXAM: September 05, 2024 CLINICAL HISTORY: 79-year-old male referred for routine outpatient paracentesis. K70.31 ALCOHOLIC C IRRHOSIS OF LIVER WITH ASCITES The procedure was discussed with the patient. The risks, complications, benefits, and alternatives we re discussed and any questions were answered. Informed consent was obtained. The patient was placed s upine on the ultrasound table and prepped and draped in the usual sterile fashion. All elements of maximal barrier technique were utilized. Ultrasound was utilized to determine the precise skin entry site along the left lower quadrant. A 5 Arabic One-Step catheter and trocar technique was utilized to access the ascites collection under direct ultrasound guidance. Approximately 5.4 liters of clear, straw-colored fluid was removed. Catheter was removed, hemostasis obtained, and a dressing placed. The patient was stable throughout the procedure and remained stable upon discharge from Department of Radiology. IMPRESSION: Successful therapeutic paracentesis under ultrasound guidance. 5.4 L of fluid removed. [facility], , 09/06/2024 6:39 AM
== END 2024-09-05 16:00 | disposition home or self-care (01) ==
LOC: RADPROMAIN 12:55
PROVIDERS: ATTEND Internal Medicine Gastroenterology
DX: K70.31 Alcoholic cirrhosis of liver with ascites (principal)
CPT/HCPCS: 49083; 82565; 85049; 85610; 36415; P9047

== ENCOUNTER 2024-09-12 12:36 | Day surgery (SDC) | payer OTHER ==
[2024-09-12 13:09] LABS: Mean Platelet Volume 9.8 fL (9.5-12.2); Platelet Count 169 10*3/uL (140-440)
[2024-09-12 13:19] LABS: African American GFR (CKD) 75 (>60 ml/min/1.73 sqM); Non-African American GFR(CKD) 64 (>60 ml/min/1.73 sqM)
[2024-09-12 13:22] LABS: INR 1.2 (<1.2); Prothrombin Time 13.2 sec (10.0-12.5)
[2024-09-12 14:04] VITALS: RESP 18; TEMP 97.7
[2024-09-12] MEDS: ALBUMIN HUMAN 25% 50 ML in EMPTY BAG 1 BAG IVPB SCH (14:36)
[2024-09-12 15:23] VITALS: BP 112/54; PULSE 64
--- NOTE | 2024-09-13 09:28 | US ---
EXAMINATION TYPE: US paracentesis abd w/image DATE OF EXAM: 09/12/2024 2:10 PM COMPARISON: prior paracentesis. CLINICAL INDICATION:Male, 79 years old with history of K70.31 ALCOHOLIC CIRRHOSIS OF LIVER WITH ASCIT ES; , ascites ATTENDING: Dr. Bi German PROCEDURE: Informed consent was obtained. The risks of the procedure were extensively explained incl uding risk of damage to surrounding bowel with perforation and need for additional procedures. Proced ure was performed in the ultrasound procedure suite. Ultrasound imaging of the abdomen demonstrate as citic fluid. An appropriate access site was localized to the left lower abdomen. Timeout was taken pe r protocol. The skin was prepped and draped in the usual sterile fashion and then locally anesthetize d with 1% lidocaine. The peritoneal cavity was then accessed via a 5-Urdu one-step needle/catheter . Approximately 6400 mL of clear straw-colored fluid was obtained. Postprocedural imaging of the abd omen demonstrate a minimal amount of abdominal fluid. Patient tolerated procedure well without immediate complication. Hemostasis at the procedural site w as obtained with a sterile bandage placed. The patient was monitored in the holding area following th e procedure and was subsequently discharged in stable condition. IMPRESSION: Ultrasound guided paracentesis, with approximately 6400 mL of clear straw-colored fluid drained. No i mmediate complications were evident. [facility], , 09/13/2024 9:26 AM
== END 2024-09-12 15:27 | disposition home or self-care (01) ==
LOC: RADPROMAIN 12:36
PROVIDERS: ATTEND Internal Medicine Gastroenterology
DX: K70.31 Alcoholic cirrhosis of liver with ascites (principal)
CPT/HCPCS: 82565; 85049; 85610; 36415; 49083; P9047

== ENCOUNTER 2024-09-19 12:49 | Day surgery (SDC) | payer OTHER ==
[2024-09-19 13:34] LABS: Mean Platelet Volume 9.8 fL (9.5-12.2); Platelet Count 164 10*3/uL (140-440)
[2024-09-19 13:37] VITALS: PULSE 60; TEMP 98.4
[2024-09-19 13:39] LABS: INR 1.3 (<1.2); Prothrombin Time 13.8 sec (10.0-12.5)
[2024-09-19 13:45] LABS: African American GFR (CKD) 66 (>60 ml/min/1.73 sqM); Non-African American GFR(CKD) 57 (>60 ml/min/1.73 sqM)
[2024-09-19] MEDS: ALBUMIN HUMAN 25% 50 ML in EMPTY BAG 1 BAG IVPB SCH (13:49)
[2024-09-19 14:15] VITALS: RESP 16
[2024-09-19 14:57] VITALS: BP 107/72
--- NOTE | 2024-09-20 10:01 | US ---
EXAMINATION TYPE: US paracentesis abd w/image DATE OF EXAM: September 19, 2024 CLINICAL HISTORY: 79-year-old male referred for routine outpatient paracentesis. K70.31 ALCOHOLIC C IRRHOSIS OF LIVER WITH ASCITES The procedure was discussed with the patient. The risks, complications, benefits, and alternatives we re discussed and any questions were answered. Informed consent was obtained. The patient was placed s upine on the ultrasound table and prepped and draped in the usual sterile fashion. All elements of maximal barrier technique were utilized. Ultrasound was utilized to determine the precise skin entry site along the left flank. A 5 Senegalese One-Step catheter and trocar technique was utilized to access the ascites collection under direct ultrasound guidance. Approximately 7.2 liters of clear, straw-colored fluid was removed. Catheter was removed, hemostasis obtained, and a dressing placed. The patient was stable throughout the procedure and remained stable upon discharge from Department of Radiology. IMPRESSION: Successful therapeutic paracentesis under ultrasound guidance. 7.2L of fluid removed. [facility], , 09/20/2024 9:58 AM
== END 2024-09-19 14:45 | disposition home or self-care (01) ==
LOC: RADPROMAIN 12:49
PROVIDERS: ATTEND Internal Medicine Gastroenterology
DX: K70.31 Alcoholic cirrhosis of liver with ascites (principal)
CPT/HCPCS: 82565; 85049; 85610; 36415; 49083; P9047

== ENCOUNTER → 2024-09-20 | Outpatient (CLI) | payer OTHER ==
[2024-09-20 14:13] VITALS: BP 125/75; PULSE 73; RESP 17; TEMP 98.9
--- NOTE | 2024-09-20 15:58 | P.PAINPG ---
Objective - Vital Signs Vital signs: Vital Signs Temp 98.9 F 09/20/24 14:10 Pulse 73 09/20/24 14:10 Resp 17 09/20/24 14:10 BP 125/75 09/20/24 14:10 Pulse Ox 59 L 09/20/24 14:10 FiO2 Intake & Output 09/19/24 09/20/24 09/20/24 18:59 06:59 18:59 Weight 99.79 kg PQRS Measure Charge Sheet Mode of Arrival: Wheelchair Comment: HISTORY OF PRESENT ILLNESS: An 79 yr old wheelchair bound male as a referral from the [facility] presents today w severe and chronic LBP > 1 yr secondary to radiculopathy, spondylosis and facet arthropathy without myelopathy for evaluation. Pt states pain level is provoked at 7 /10 in intensity, constant, localized in the lumbar spine, predominantly axial, achy in character w occasional shooting pain towards buttocks and LEs. Pain is provoked by walking for periods > 10 min. Pain is alleviated by heat, ice, manual massage, medications, topical, use of a wheelchair/ walker for ambulatory assistance, repositioning and rest . Interventional procedures include VIOLA L3-L4 x1 Medications include THC products REVIEW OF ORGAN SYSTEMS: CONSTITUTIONAL: No fevers or chills. No recent weight loss. NEUROLOGICAL: + numbness and tingling along the distal extremities. No seizure disorders or headaches. MUSCULOSKELETAL: + pain PSYCHIATRIC: Denies current depression or suicidal thoughts. Physical Examinations : Constitutional : Cooperative , not in acute distress . Neurologic : Cranial nerve II to XII intact. No focal neurological deficits. Psychiatric : alert & oriented x 3. Matching mood & appropriate affect. Judgment & insight intact. Musculoskeletal : Cervical Spine Motor strength in the deltoid and biceps: Normal right side. Normal Left side Motor strength biceps and the wrist extensors: Normal right side . Normal left side Motor strength in the triceps muscle: Normal right side. Normal left side Deep tendon reflexes: Normal at the biceps. Normal at Brachioradialis. Normal at triceps Vertebral body tenderness to deep palpation over Cervical facet loading test: positive bilaterally Spurling test: positive bilaterally Neck distraction test: positive bilaterally Zofia sign: positive bilaterally Lumbar spine Motor strength lower extremities ,thigh and legs 5/5 Right side , 5/5 Left side Deep tendon reflexes : Normal Knee Jerk. Normal Ankle Jerk Vertebral body tenderness over L4 Hu Test positive BL L3-L4 Lumbar facet Loading Test: positive Right / positive Left Range of motion of the lumbar spine Flexion 30 degrees, extension 10 degrees Straight Leg Raise test: Left/ Right positive at degrees [place] test: positive right / positive left. Severe tenderness over the Sacroiliac joint on the Right / Left sides Gaenslen test: positive bilaterally Seated flexion test: positive bilaterally. Sacral spine : Severe tenderness over the Sacroiliac joint: right side / left side Range of motion: Flexion of the lumbar spine <60 degrees Range of motion: Extension of the lumbar spine <20 degrees Gaenslen's Test positive [place] test: positive right side / left side Thigh Thrust Test Sacral Thrust Test Imaging: CT non contrast thoracolumbar spine from 07/05/23 reviewed Assessment/ Plan : L3-L4/L4-L5 spondylosis & severe stenosis, Thoracic radiculopathy Recommendation of VIOLA L3-L4 #2 and medication management. Zanaflex 4mg #90 w 1 RF. Risks, benefits of procedure discussed and pt verbalized understanding. Minimal anesthesia including Fentanyl and Versed if clinically indicated. Use, side effects, adverse reactions, safe storage discussed. All questions answered. I have spent greater than 30 minutes on patient care today. Dr Schwartz was available by phone for the evaluation of this patient. The time was used to review the medical records including relevant urine studies and Prescription history (MAPs), review of the available imaging, evaluation and examination of the patient, coordination of care with the medical staff and if applicable referring physicians, as well as creation of the medical record - Pain Location Lower Back Non-Pharmacological Interventions: Inactivity, Sitting PQRS Narrative: Blood Pressure 125/75 Pain Intensity [Lower Back] 5 Scale Used Numeric (1 - 10) Hx Alcohol Use (MH) No Home Medications: Ambulatory Orders PARoxetine HCL 30 mg PO QAM 05/26/23 carvediloL [Coreg] 6.25 mg PO BID 05/26/23 HYDROcodone/APAP 10-325MG [[place] 10-325] 1 tab PO Q4HR PRN 3 Days #18 tab 07/26/24 tiZANidine [Zanaflex] 4 mg PO Q8HR PRN 30 Days #90 tab 07/26/24 Cholecalciferol [Vitamin D3 (25 Mcg = 1000 Iu)] 50 mcg PO DAILY 08/30/24 Mirtazapine [Remeron] 30 mg PO 08/30/24 Controlled Substance Measures - Controlled Substance Measures Is patient prescribed a controlled substance at discharge?: No
== END ==
LOC: PNWHC3 13:59
PROVIDERS: ATTEND Specialist
DX: M47.26 Other spondylosis with radiculopathy, lumbar region (principal); M48.061 Spinal stenosis, lumbar region without neurogenic claudication; M47.24 Other spondylosis with radiculopathy, thoracic region; Z88.1 Allergy status to other antibiotic agents; Z88.5 Allergy status to narcotic agent; Z88.6 Allergy status to analgesic agent; Z91.018 Allergy to other foods; Z88.4 Allergy status to anesthetic agent

== ENCOUNTER 2024-10-13 12:52 | Day surgery (SDC) | payer OTHER ==
[2024-10-13 14:46] VITALS: BP 112/74; PULSE 71; RESP 18; TEMP 97.8
[2024-10-13] MEDS ORDERED: LACTATED RINGERS 1,000 ML IV SCH (15:00)
== END 2024-10-13 15:02 | disposition home or self-care (01) ==
LOC: ORPAIN 12:52
PROVIDERS: ATTEND Anesthesiology
DX: Z53.8 Procedure and treatment not carried out for other reasons (principal); M54.16 Radiculopathy, lumbar region

== ENCOUNTER 2024-10-17 13:00 | Day surgery (SDC) | payer OTHER ==
[2024-10-17 13:51] LABS: Mean Platelet Volume 10.4 fL (9.5-12.2)
[2024-10-17 13:58] LABS: Platelet Count 149 10*3/uL (140-440)
[2024-10-17 14:01] LABS: African American GFR (CKD) 72 (>60 ml/min/1.73 sqM); Non-African American GFR(CKD) 62 (>60 ml/min/1.73 sqM)
[2024-10-17] MEDS: ALBUMIN HUMAN 25% 50 ML in EMPTY BAG 1 BAG IVPB SCH (14:04)
[2024-10-17 14:08] LABS: INR 1.3 (<1.2); Prothrombin Time 13.7 sec (10.0-12.5)
[2024-10-17 14:28] VITALS: RESP 16; TEMP 97.6
[2024-10-17 15:22] VITALS: PULSE 62
[2024-10-17 16:33] VITALS: BP 84/61
--- NOTE | 2024-10-18 06:39 | US ---
EXAMINATION TYPE: US paracentesis abd w/image DATE OF EXAM: October 17 2024 CLINICAL HISTORY: 79-year-old male referred for routine outpatient paracentesis. K70.31 ALCOHOLIC C IRRHOSIS OF LIVER WITH ASCITES The procedure was discussed with the patient. The risks, complications, benefits, and alternatives we re discussed and any questions were answered. Informed consent was obtained. The patient was placed s upine on the ultrasound table and prepped and draped in the usual sterile fashion. All elements of maximal barrier technique were utilized. Ultrasound was utilized to determine the precise skin entry site along the left flank. A 5 Samoan One-Step catheter and trocar technique was utilized to access the ascites collection under direct ultrasound guidance. Approximately 6.6 liters of clear, straw-colored fluid was removed. Exam is terminated at this point due to patient hypotension. Catheter was removed, hemostasis obtained, and a dressing placed. The patient was stable throughout the procedure and remained stable upon discharge from Department of Radiology. IMPRESSION: Successful therapeutic paracentesis under ultrasound guidance. 6.6L of fluid removed. [facility], , 10/18/2024 6:36 AM
== END 2024-10-17 15:50 | disposition home health service (06) ==
LOC: RADPROMAIN 13:00
PROVIDERS: ATTEND Internal Medicine Gastroenterology
DX: K70.31 Alcoholic cirrhosis of liver with ascites (principal)
CPT/HCPCS: 82565; 85049; 85610; 49083; P9047

== ENCOUNTER 2024-10-24 12:45 | Day surgery (SDC) | payer OTHER ==
[2024-10-24 13:42] VITALS: RESP 20; TEMP 97.6
[2024-10-24 13:42] LABS: Mean Platelet Volume 9.6 fL (9.5-12.2); Platelet Count 149 10*3/uL (140-440)
[2024-10-24 13:56] LABS: INR 1.3 (<1.2); Prothrombin Time 13.7 sec (10.0-12.5)
[2024-10-24] MEDS: ALBUMIN HUMAN 25% 50 ML in EMPTY BAG 1 BAG IVPB SCH (13:58)
[2024-10-24 14:07] LABS: African American GFR (CKD) 65 (>60 ml/min/1.73 sqM); Non-African American GFR(CKD) 56 (>60 ml/min/1.73 sqM)
[2024-10-24 14:48] VITALS: PULSE 60
[2024-10-24 15:51] VITALS: BP 102/68
--- NOTE | 2024-10-24 15:56 | US ---
EXAMINATION TYPE: US paracentesis abd w/image DATE OF EXAM: 10/24/2024 CLINICAL HISTORY: 79-year-old male K70.31, alcoholic cirrhosis of liver with ascites, referred for w eekly paracentesis. The procedure was discussed with the patient. The risks, complications, benefits, and alternatives we re discussed and any questions were answered. Informed consent was obtained. The patient was placed s upine on the ultrasound table and prepped and draped in the usual sterile fashion. All elements of maximal barrier technique were utilized. Ultrasound was utilized to determine the precise skin entry site along the right lower quadrant. A 5 Croatian One-Step catheter and trocar technique was utilized to access the ascites collection under direct ultrasound guidance. Approximately 8.3 liters of clear, straw-colored fluid was removed. Catheter was removed, hemostasis obtained, and a dressing placed. The patient was stable throughout the procedure and remained stable upon discharge from Department of Radiology. IMPRESSION: Successful therapeutic paracentesis under ultrasound guidance. 8.3 L of fluid removed. [facility], , 10/24/2024 3:54 PM
== END 2024-10-24 15:40 | disposition home or self-care (01) ==
LOC: RADPROMAIN 12:45
PROVIDERS: ATTEND Internal Medicine Gastroenterology
DX: K70.31 Alcoholic cirrhosis of liver with ascites (principal)
CPT/HCPCS: 82565; 85049; 85610; 36415; 49083; P9047

== ENCOUNTER 2024-10-31 12:43 | Day surgery (SDC) | payer OTHER ==
[2024-10-31 13:45] LABS: Platelet Count 140 10*3/uL (140-440)
[2024-10-31] MEDS: ALBUMIN HUMAN 25% 50 ML in EMPTY BAG 1 BAG IVPB SCH (13:46)
[2024-10-31 13:57] LABS: African American GFR (CKD) 59 (>60 ml/min/1.73 sqM); Non-African American GFR(CKD) 51 (>60 ml/min/1.73 sqM)
[2024-10-31 13:58] LABS: INR 1.4 (<1.2); Prothrombin Time 14.3 sec (10.0-12.5)
[2024-10-31 14:13] VITALS: RESP 16; TEMP 97.3
[2024-10-31 15:02] VITALS: BP 121/77; PULSE 58
--- NOTE | 2024-11-01 08:16 | US ---
EXAMINATION TYPE: US paracentesis abd w/image DATE OF EXAM: 10/31/2024 2:30 PM COMPARISON: prior paracentesis. CLINICAL INDICATION:Male, 79 years old with history of C61 PROSTATE CANCER; , ascites ATTENDING: Dr. Bi German PROCEDURE: Informed consent was obtained. The risks of the procedure were extensively explained incl uding risk of damage to surrounding bowel with perforation and need for additional procedures. Proced ure was performed in the ultrasound procedure suite. Ultrasound imaging of the abdomen demonstrate as citic fluid. An appropriate access site was localized to the right lower abdomen. Timeout was taken p er protocol. The skin was prepped and draped in the usual sterile fashion and then locally anesthetiz ed with 1% lidocaine. The peritoneal cavity was then accessed via a 5-[place] one-step needle/cathete r. Approximately 6000 mL of clear straw-colored fluid was obtained. Postprocedural imaging of the ab domen demonstrate a minimal amount of abdominal fluid. Patient tolerated procedure well without immediate complication. Hemostasis at the procedural site w as obtained with a sterile bandage placed. The patient was monitored in the holding area following th e procedure and was subsequently discharged in stable condition. IMPRESSION: Ultrasound guided paracentesis, with approximately 6000 mL of clear straw-colored fluid drained. No immediate complications were evident. [facility], , 11/01/2024 8:13 AM
== END 2024-10-31 15:15 | disposition home or self-care (01) ==
LOC: RADPROMAIN 12:43
PROVIDERS: ATTEND Internal Medicine Gastroenterology
DX: K70.31 Alcoholic cirrhosis of liver with ascites (principal); Z85.46 Personal history of malignant neoplasm of prostate
CPT/HCPCS: 82565; 85049; 85610; 36415; 49083; P9047

== ENCOUNTER 2024-10-31 15:18 | Inpatient (IN) | payer OTHER, MEDICARE ==
--- NOTE | 2024-10-31 15:38 | ED ---
General Adult HPI - General Source: patient, family, RN notes reviewed Mode of arrival: wheelchair Limitations: no limitations <Noelle Chen - Last Filed: 10/31/24 15:38> - General Source: patient, family, RN notes reviewed Limitations: no limitations <Wade Fitzgerald - Last Filed: 10/31/24 20:47> - General Stated complaint: Constipation and back pain Time Seen by Provider: 10/31/24 15:38 - History of Present Illness Initial comments: Quick note: 79-year-old male presented the ER for evaluation of constipation. Patient is currently residing at [facility] for rehabilitation he has been there for approximately 3 weeks. Family report for the past 5 days patient has not had a bowel movement. Patient is endorsing abdominal pressure and nausea. Denies vomiting. Decreased appetite. No fevers. Family reports he overall appears ill. (Noelle Chen) Patient is an 79-year-old male present to the emergency department with concern for constipation. Patient has not had a bowel movement in approximately 4 to 5 days now. Family believes they did try a laxative at the long term without improvement. Patient has had decreased appetite the last couple of days. No vomiting. Patient also has some back discomfort. Patient is in between treatment currently for history of liver cancer that he has had 2 treatments of radioactive isotope's. Patient is in [place]. patient has had some increase in generalized weakness despite being at rehab for the past 3 weeks. (Wade Fitzgerald) - Related Data Home Medications Medication Instructions Recorded Confirmed PARoxetine HCL 30 mg PO DAILY 05/26/23 10/31/24 carvediloL [Coreg] 6.25 mg PO DAILY 05/26/23 10/31/24 Cholecalciferol [Vitamin D3 (25 50 mcg PO DAILY 08/30/24 10/31/24 Mcg = 1000 Iu)] Mirtazapine [Remeron] 30 mg PO HS 08/30/24 10/31/24 Magnesium Hydroxide [Milk of 30 ml PO DAILY 10/17/24 10/31/24 Magnesia Concentrate] Thiamine HCl [Vitamin B-1] 100 mg PO DAILY 10/17/24 10/31/24 Acetaminophen [Tylenol] 650 mg PO Q4H PRN 10/31/24 10/31/24 Lidocaine 4% Patch 1 unit TRANSDERM DAILY PRN 10/31/24 10/31/24 Magnesium Hydroxide [Milk of 30 ml PO DAILY PRN 10/31/24 10/31/24 Magnesia] Menthol/Zinc Oxide [Calprotect 113 gm TP BID PRN 10/31/24 10/31/24 0.44%-20.6% Oint] Na Phos,M-B/Na Phos,Di-Ba [Fleet 1 dose RECTAL DAILY PRN 10/31/24 10/31/24 Adult] bisacodyL [Dulcolax] 10 mg RECTAL DAILY PRN 10/31/24 10/31/24 Previous Rx's Medication Instructions Recorded tiZANidine [Zanaflex] 4 mg PO Q8HR PRN 30 Days #90 tab 09/20/24 Folic Acid 1 mg PO DAILY #30 tab 10/11/24 Furosemide [Lasix] 20 mg PO DAILY #30 tab 10/11/24 Midodrine [ProAmatine] 5 mg PO AC-TID PRN #60 tab 10/11/24 Thiamine [Vitamin B-1] 100 mg PO DAILY #30 tab 10/11/24 Allergies Allergy/AdvReac Type Severity Reaction Status Date / Time medium chain triglycerides Allergy Unknown Verified 10/31/24 15:56 [From Lipisorb] nutritional Allergy Unknown Verified 10/31/24 15:56 supplement,special formulas [From Lipisorb] simvastatin [From Zocor] Allergy Unknown Verified 10/31/24 15:56 apixaban [From Eliquis] AdvReac WEAKNESS Verified 10/31/24 15:56 ibuprofen [From Motrin] AdvReac Nausea Verified 10/31/24 15:56 lisinopril AdvReac Unknown Verified 10/31/24 15:56 Review of Systems ROS Other: All systems not noted in ROS Statement are negative. <Noelle Chen - Last Filed: 10/31/24 15:38> ROS Other: All systems not noted in ROS Statement are negative. Constitutional: Denies: fever Eyes: Denies: eye pain ENT: Denies: ear pain Respiratory: Denies: cough Cardiovascular: Denies: chest pain Gastrointestinal: Reports: abdominal pain, nausea, constipation. Denies: vomiting Musculoskeletal: Reports: back pain Neurological: Reports: weakness <Wade Fitzgerald - Last Filed: 10/31/24 20:47> ROS Statement: Those systems with pertinent positive or pertinent negative responses have been documented in the HPI. Past Medical History Past Medical History: Cancer, Liver Disease, Prostate Disorder Additional Past Medical History / Comment(s): Chronic back pain. ascites. explosure to Agent orange. pacemaker. umbilical hernia; cancer prostate 2002. pt states "i had seeds placed in my liver at [facility] to treat liver lesions" Apr 2024. Last Myocardial Infarction Date:: unknown History of Any Multi-Drug Resistant Organisms: None Reported Past Surgical History: Cholecystectomy, Prostate Surgery Additional Past Surgical History / Comment(s): multi large volume paracentesis, seeds placed in liver Apr 2024 Past Anesthesia/Blood Transfusion Reactions: No Reported Reaction Type of Cardiac Device: Permanent Pacemaker Device Placement Date:: ? 2021 Additional Past Alcohol Use History / Comment(s): quit smoking 1993, hx of 1/2 ppd. hx of heavy alcohol use ., currently drinks occasionally. - Past Family History Father Family Medical History: Cancer Additional Family Medical History / Comment(s): colon cancer <Noelle Chen - Last Filed: 10/31/24 15:38> General Exam <Noelle Chen - Last Filed: 10/31/24 15:38> Limitations: no limitations General appearance: alert Head exam: Present: normocephalic Eye exam: Present: scleral icterus ENT exam: Present: normal oropharynx Neck exam: Present: normal inspection Respiratory exam: Present: normal lung sounds bilaterally Cardiovascular Exam: Present: regular rate, normal rhythm GI/Abdominal exam: Present: soft, tenderness (Mild tenderness lower abdomen) Extremities exam: Present: normal inspection Neurological exam: Present: alert Psychiatric exam: Present: normal affect, normal mood Skin exam: Present: normal color <Wade Fitzgerald - Last Filed: 10/31/24 20:47> - General Exam Comments Initial Comments: Visual Physical Exam Vital signs reviewed General: ill-appearing, nontoxic, no acute distress. Head: Normocephalic, atraumatic Eyes: PERRLA, EOMI ENT: Airway patent Chest: Nonlabored breathing Skin: No visual rash, jaundice Neuro: Alert and oriented 3 Musculoskeletal: No gross abnormalities (Noelle Chen) Course Vital Signs 10/31/24 10/31/24 15:53 19:18 Temperature 97.6 F Pulse Rate 61 61 Respiratory 22 17 Rate Blood Pressure 100/65 106/63 O2 Sat by Pulse 100 100 Oximetry EKG Findings - EKG Results: EKG: interpreted by ERMD (Paced rhythm with rate of 60. Left axis. Wide QRS complex. Nonspecific ST-T.) <Wade Fitzgerald - Last Filed: 10/31/24 20:47> Medical Decision Making <Noelle Chen - Last Filed: 10/31/24 15:38> - Lab Data Result diagrams: 10/31/24 17:26 10/31/24 18:07 <Wade Fitzgerald - Last Filed: 10/31/24 20:47> - Medical Decision Making I performed the quick note portion of this chart. Electronically signed by Noelle Chen PA-C (Noelle Chen) Was pt. sent in by a medical professional or institution (ROGERIO Soares, REGIONAL DIRECTOR OF ADMISSIONS, urgent c are, hospital, or long term...) When possible be specific @ -No Did you speak to anyone other than the patient for history (EMS, parent, family, police, friend...)? What history was obtained from this source @ -Family is present helps provide history including onset of symptoms and past medical history Did you review nursing and triage notes (agree or disagree)? Why? @ -I reviewed and agree with nursing and triage notes Were old charts reviewed (outside hosp., previous admission, EMS record, old EKG, old radiological studies, urgent care reports/EKG's, long term records)? Report findings @ -No old charts were reviewed Differential Diagnosis (chest pain, altered mental status, abdominal pain women, abdominal pain men, vaginal bleeding, weakness, fever, dyspnea, syncope, headac he, dizziness, GI bleed, back pain, seizure, CVA, palpatations, mental health, musculoskeletal)? @ -Differential Abdominal Pain Men: Appendicitis, cholecystitis, diverticulosis, ischemic bowel, pancreatitis, hepatitis, UTI, gastroenteritis, AAA, incarcerated hernia, bowel obstruction, constipation, inflammatory bowel, hepatitis, peptic ulcer disease, splenic infarction, perforated viscus, testicular torsion, this is not meant to be an all-inclusive list EKG interpreted by me (3pts min.). @ - X-rays interpreted by me (1pt min.). @ -KUB shows increased stool, cannot rule out partial bowel obstruction CT interpreted by me (1pt min.). @ -CT scan abdomen pelvis shows stool with sterile cecal colitis. Right hepatic lesion U/S interpreted by me (1pt. min.). @ -None done What testing was considered but not performed or refused? (CT, X-rays, U/S, labs)? Why? @ -None What meds were considered but not given or refused? Why? @ -None Did you discuss the management of the patient with other professionals (professionals i.e. Dr., PA, REGIONAL DIRECTOR OF ADMISSIONS, lab, RT, psych nurse, social sciences lecturer, hospitalist physician, teacher, civil preparedness training officer, hospice case manager)? Give summary @ -Case was discussed with Dr. Marrufo who will admit covering Dr. Seth me Was smoking cessation discussed for >3mins.? @ -No Was critical care preformed (if so, how long)? @ -No Were there social determinants of health that impacted care today? How? (Homelessness, low income, unemployed, alcoholism, drug addiction, transportation, low edu. Level, literacy, decrease access to med. care, residential, rehab)? @ -No Was there de-escalation of care discussed even if they declined (Discuss DNR or withdrawal of care, Hospice)? DNR status @ -No What co-morbidities impacted this encounter? (DM, HTN, Smoking, COPD, CAD, Cancer, CVA, ARF, Chemo, Hep., AIDS, mental health diagnosis, sleep apnea, morbid obesity)? @ -Liver cancer Was patient admitted / discharged? Hospital course, mention meds given and route, prescriptions, significant lab abnormalities, going to OR and other pertinent info. @ -Patient presents with constipation and weakness. Patient does have dehydration. Patient received enema without much improvement. Patient will be held for further fluids and enemas administration. Undiagnosed new problem with uncertain prognosis? @ -No Drug Therapy requiring intensive monitoring for toxicity (Heparin, Nitro, Insulin, Cardizem)? @ -No Were any procedures done? @ -No Diagnosis/symptom? @ -Dehydration, constipation, weakness Acute, or Chronic, or Acute on Chronic? @ -Acute, acute, acute Uncomplicated (without systemic symptoms) or Complicated (systemic symptoms)? @ -Default Side effects of treatment? @ -No Exacerbation, Progression, or Severe Exacerbation? @ -No Poses a threat to life or bodily function? How? (Chest pain, USA, MD, pneumonia, PE, COPD, DKA, ARF, appy, cholecystitis, CVA, Diverticulitis, Homicidal, Suici cyndy, threat to staff... and all critical care pts) @ -No (Wade Fitzgerald) - Lab Data Lab Results 10/31/24 10/31/24 Range/Units 17:26 18:07 WBC 6.79 (4.50-10.00) 10*3/uL RBC 3.33 L (4.40-5.60) 10*6/uL Hgb 11.7 L (13.0-17.0) g/dL Hct 33.7 L (39.6-50.0) % MCV 101.2 H (80.0-97.0) fL MCH 35.1 H (27.0-32.0) pg MCHC 34.7 (32.0-37.0) g/dL Plt Count 124 L (140-440) 10*3/uL MPV 10.1 (9.5-12.2) fL Immature Gran % (Auto) 1.3 % Neutrophils % 76.7 % Lymphocytes % 4.9 % Monocytes % 13.7 % Eosinophils % 2.4 % Basophils % 1.0 % Immature Gran # 0.09 H (0.00-0.04) 10*3/uL Neutrophils # 5.21 (1.80-7.70) 10*3/uL Lymphocytes # 0.33 L (0.90-5.00) 10*3/uL Monocytes # 0.93 (0.20-1.00) 10*3/uL Eosinophils # 0.16 (0.04-0.35) 10*3/uL Basophils # 0.07 (0.00-0.10) 10*3/uL Sodium 135 L (137-145) mmol/L Potassium 5.5 H (3.5-5.1) mmol/L Chloride 99 (98-107) mmol/L Carbon Dioxide 26 (22-30) mmol/L Anion Gap 10 mmol/L BUN 44 H (9-20) mg/dL Creatinine 1.20 (0.66-1.25) mg/dL Est GFR (CKD-EPI)AfAm 66 (>60 ml/min/1.73 sqM) Est GFR (CKD-EPI)NonAf 57 (>60 ml/min/1.73 sqM) Glucose 98 (74-99) mg/dL Calcium 9.4 (8.4-10.2) mg/dL Total Bilirubin 4.6 H (0.2-1.3) mg/dL AST 82 H (17-59) U/L ALT 37 (4-49) U/L Alkaline Phosphatase 225 H (38-126) U/L Total Protein 7.3 (6.3-8.2) g/dL Albumin 3.9 (3.5-5.0) g/dL Disposition <Noelle Chen - Last Filed: 10/31/24 15:38> Is patient prescribed a controlled substance at d/c from ED?: No Time of Disposition: 20:43 <Wade Fitzgerald - Last Filed: 10/31/24 20:47> Clinical Impression: Dehydration Disposition: ADMITTED IP TO THIS HOSP Referrals: Ariel Goetz DO [Primary Care Provider] - 1-2 days
--- NOTE | 2024-10-31 17:10 | XR ---
EXAMINATION TYPE: XR KUB DATE OF EXAM: 10/31/2024 5:05 PM COMPARISON: None. CLINICAL INDICATION: Male, 79 years old with history of constipation; PHH, pain TECHNIQUE: One radiographic view of the abdomen was obtained. FINDINGS: Nonspecific bowel gas pattern without definite evidence of small bowel obstruction. However , there is moderate colonic stool burden and numerous gas-filled large bowel loops measuring up to 7. 4 cm in diameter. Previous cholecystectomy. Lumbosacral spine degenerative changes. Evaluation for fr ee air limited by supine technique. IMPRESSION: Moderate colonic stool burden suggesting constipation and gaseous distended large bowel loops which c ould reflect underlying colonic ileus and/or developing partial obstruction. [facility], , 10/31/2024 5:07 PM
[2024-10-31 17:31] LABS: Basophils # (A) 0.07 10*3/uL (0.00-0.10); Basophils % (A) 1.0 %; Eosinophils # (A) 0.16 10*3/uL (0.04-0.35); Eosinophils % (A) 2.4 %; HCT 33.7 % (39.6-50.0); HGB 11.7 g/dL (13.0-17.0); Lymphocytes # (A) 0.33 10*3/uL (0.90-5.00); Lymphocytes % (A) 4.9 %; MCH 35.1 pg (27.0-32.0); MCHC 34.7 g/dL (32.0-37.0); MCV 101.2 fL (80.0-97.0); Monocytes # (A) 0.93 10*3/uL (0.20-1.00); Monocytes % (A) 13.7 %; Neutrophils # (A) 5.21 10*3/uL (1.80-7.70); Neutrophils % (A) 76.7 %; Platelet Count 124 10*3/uL (140-440); RBC 3.33 10*6/uL (4.40-5.60); RDW 17.7 % (11.5-14.5); WBC 6.79 10*3/uL (4.50-10.00)
[2024-10-31 18:23] LABS: ALT 37 U/L (4-49); AST 82 U/L (17-59); African American GFR (CKD) 66 (>60 ml/min/1.73 sqM); Albumin 3.9 g/dL (3.5-5.0); Alkaline Phosphatase 225 U/L (38-126); Anion Gap 10 mmol/L; Blood Urea Nitrogen 44 mg/dL (9-20); Calcium 9.4 mg/dL (8.4-10.2); Carbon Dioxide 26 mmol/L (22-30); Chloride 99 mmol/L (98-107); Glucose 98 mg/dL (74-99); Non-African American GFR(CKD) 57 (>60 ml/min/1.73 sqM); Potassium 5.5 mmol/L (3.5-5.1); Sodium 135 mmol/L (137-145); Total Protein 7.3 g/dL (6.3-8.2)
--- NOTE | 2024-10-31 19:13 | CT ---
EXAMINATION TYPE: CT abdomen pelvis wo con DATE OF EXAM: 10/31/2024 7:00 PM COMPARISON: Multiple prior CT studies, most recently dated 08/29/2024. CLINICAL INDICATION: Male, 79 years old with history of abp; abd pain TECHNIQUE: Axial CT abdomen pelvis wo con;Sagittal and coronal reformats were created on a separate workstation. Oral contrast used: without Oral Contrast CT DLP: 720.5 mGycm, Automated exposure control for dose reduction was used. FINDINGS: LOWER CHEST: Partially visualized cardiomegaly. No acute pathology in the lower lungs. ABDOMEN LIVER: Subtle hypoattenuating mass in the right hepatic lobe is poorly evaluated given streak artifac t from overlying extremities and lack of IV contrast. Cirrhotic liver morphology. GALLBLADDER AND BILE DUCTS: The gallbladder is surgically absent. PANCREAS: Unremarkable. SPLEEN: Unremarkable. ADRENAL GLANDS: Unremarkable. KIDNEYS AND URETERS: Simple cyst in the right kidney. Bilateral renal parenchymal atrophy. No evidenc e of hydronephrosis. Nonobstructing small 4 mm calculus in the mid/inferior left kidney. PELVIS BLADDER: No evidence for wall thickening or mass given limitations of exam. REPRODUCTIVE: Prostate gland not well visualized, possibly surgically absent, recommend clinical rosaline elation. ABDOMEN & PELVIS STOMACH AND BOWEL: Stomach and duodenum are unremarkable. Large-volume diffuse colonic stool present. Additionally, there is impacted rectosigmoid stool with associated rectosigmoid clinical thickening and surrounding mesenteric inflammation. No evidence of free air/no peritoneum. No evidence of small bowel obstruction. PERITONEUM/RETROPERITONEUM: Small to moderate volume diffuse abdominal ascites. No evidence of free a ir. VASCULATURE: No evidence of aortic aneurysm. MUSCULOSKELETAL: No acute osseous abnormalities. Advanced multilevel thoracolumbar spinal degenerativ e changes. LYMPH NODES: No gross evidence for lymphadenopathy. SOFT TISSUE/ABDOMINAL WALL: Unremarkable IMPRESSION: 1. Impacted rectosigmoid stool with additional findings suggesting mild to moderate stercoral coliti s. 2. Cirrhotic liver morphology and small to moderate diffuse abdominal ascites. Right hepatic lobe ma lignancy not well evaluated given technical factors described above. 3. Additional nonacute findings as above. [facility], Workstation: [id number], 10/31/2024 7:11 PM
[2024-10-31] MEDS: SODIUM CHLORIDE 0.9% 1,000 ML IV STA (19:19)
[2024-10-31] MEDS: MORPHINE SULFATE 4 MG/ML SYRINGE IVP STA (19:20)
[2024-10-31] MEDS ORDERED: NA PHOS,M-B/NA PHOS,DI-BA 133 ML ENEMA RECTAL PRN (20:43)
[2024-10-31] MEDS ORDERED: DOCUSATE 100 MG CAP PO PRN (20:43)
[2024-10-31] MEDS ORDERED: MORPHINE SULFATE 4 MG/ML SYRINGE IV PRN (20:43)
[2024-10-31] MEDS ORDERED: LACTULOSE 20 GM/30 ML CUP PO PRN (20:43)
[2024-10-31] MEDS ORDERED: NALOXONE 0.4 MG/ML 1 ML VIAL IV PRN (20:43)
[2024-10-31] MEDS: FAMOTIDINE 20 MG TAB PO SCH (21:22)
[2024-10-31] MEDS: SODIUM CHLORIDE 0.9% 1,000 ML IV SCH (21:22)
--- NOTE | 2024-11-01 00:54 | P.HPIM ---
History of Present Illness H&P Date: 10/31/24 Chief Complaint: Abdominal pain and constipation Patient is a 79 year old male with alcoholic cirrhosis, history of tobacco use and liver cancer s/p beads at [facility] presented to the ED for abdominal pain and constipation. Patient is currently residing at [facility] for rehabilitation. He has been there for approximately 3 weeks. His family reported that for the past 4 to 5 days he has not had a bowel movement. Family believes he tried laxatives at group home but without any improvement. He has also had decreased appetite for the past couple of days. Patient was experiencing lower abdominal pressure. Currently denies any abdominal pain/pressure. He also reports shortness of breath intermittently.He also reports chronic back pain due to degenerative disc changes. Family reports the patient is weaker compared to past week, even after being in rehab. He uses a walker at home. Moreover the patient has between treatments currently for liver cancer, he has had 2 treatments of radioactive isotope's and is currently in transition of having care at the [place]. He is currently not drinking alcohol for 3 weeks. Denies fever, chills, cough, chest pain, palpitations, nausea, vomiting, hematuria, dysuria, hematochezia, melena, headache, slurred speech, numbness, tingling, dizziness, lightheadedness, blurred vision, double vision. ED documentation reviewed. In the ED patient was treated with famotidine, morphine and 0.9 normal saline. Vitals on admission T 97.6 F, PA 61 bpm, RR 22, BP 100/65, SpO2 100% on room air EKG independently interpreted as ventricular paced rhythm, rate 60 bpm, QTc 479 ms, QRS 158 ms KUB x-ray shows moderate colonic stool burden suggesting constipation and gaseous distended large bowel loops which could reflect underlying colonic ileus and/or developing partial obstruction Abdomen/pelvis CT shows impacted rectosigmoid stool with additional findings suggesting mild to moderate coral colitis, cirrhotic liver morphology and small to moderate diffuse abdominal ascites, right hepatic lobe malignancy, surgically absent gallbladder Labs on admission show WBC 6.79, hemoglobin 11.7, MCV 101.2, platelet 124, sodium 135, potassium 5.5, BUN 44, creatinine 1.20, total bilirubin 4.6, AST 86, ALP 225 Review of systems: Pertinent positives and negatives as discussed in HPI, a complete review of systems was performed and all other systems are negative. Physical examination: Vital signs reviewed General: thin and lethargic, no distress, appears at stated age Derm: jaundiced, warm, dry, intact Head: atraumatic, normocephalic, symmetric Eyes: EOMI, anicteric sclera Mouth: no lip lesion, mucus membranes moist Cardiovascular: S1 S2 reg, no murmur Lungs: CTA bilateral, no rhonchi, no rales, no accessory muscle use Abdominal: distended, soft, non-tender to palpation Extremities: No cyanosis, clubbing, or pedal edema. Neuro: Alert, Oriented, Gross neurological examination did not reveal any focal deficits. Psych: appropriate affect Assessment/Plan: Patient is a 79 year old male with alcoholic cirrhosis, history of tobacco use and liver cancer s/p beads at [facility] presented to the ED for abdominal pain and constipation. Patient admitted to internal medicine service. Active: #. Constipation #. Abdominal pain KUB x-ray shows moderate colonic stool burden suggesting constipation and gaseous distended large bowel loops which could reflect underlying colonic ileus and/or developing partial obstruction Abdomen/pelvis CT shows impacted rectosigmoid stool with additional findings suggesting mild to moderate coral colitis, cirrhotic liver morphology and small to moderate diffuse abdominal ascites, right hepatic lobe malignancy, surgically absent gallbladder Received morphine in the ED Tylenol for pain management lactulose 20 mg TID Continue Bisacodyl 10 mg rectal once as needed, Colace 100 mg p.o. twice daily as needed, lactulose 20 g p.o. daily as needed, milk of magnesia 25 mg p.o. daily as needed general surgery consult #. Dehydration #. Mild hyponatremia #. Hyperkalemia creatinine 1.20 on admission, at baseline Obtain urinalysis Continue IV fluids Monitor BMP #. Liver cirrhosis with ascites, possibly due to alcohol use v agent orange exposure #. Hepatic carcinoma, [facility], secondary to above #. Chronic hyperbilirubinemia and transaminitis,secondary to above Oncology consulted Chronic: #. Chronic macrocytic anemia #. Chronic thrombocytopenia #. History of prostate cancer #. History of permanent pacemaker implantation #. Neuropathy #. Anxiety/Depression Resume home meds once verified by pharmacy F: 0.9 normal saline at 110 ml/hr E: Replete as required N: Clear liquid diet DVT prophylaxis: Lovenox 40 mg SQ daily GI prophylaxis: Famotidine 20 mg PO BID The patient is admitted with an anticipated more than 2 midnight stay for evaluation of abdominal pain CODE STATUS: FULL CODE Discussed with: Patient Anticipated discharge place: Pending clinical course Dictation was produced using [employer] dictation software. please excuse any grammatical, word or spelling errors. Dinesh Diaz MD PGY-1 IM I have seen and evaluated the patient today. I Discussed the case with the resident and agree with the resident's findings I edited the assessment and plan as necessary as documented in the resident's note. imaging was concerning for significantly dilated loops of bowel , however, CT did not show that, but showed large stool burden in the retosegmoid, did not respond to enema general surgery consult supportive care Past Medical History Past Medical History: Cancer, Liver Disease, Prostate Disorder Additional Past Medical History / Comment(s): Chronic back pain. ascites. explosure to Agent orange. pacemaker. umbilical hernia; cancer prostate 2002. pt states "i had seeds placed in my liver at [facility] to treat liver lesions" Apr 2024. Last Myocardial Infarction Date:: unknown History of Any Multi-Drug Resistant Organisms: None Reported Past Surgical History: Cholecystectomy, Prostate Surgery Additional Past Surgical History / Comment(s): multi large volume paracentesis, seeds placed in liver Apr 2024 Past Anesthesia/Blood Transfusion Reactions: No Reported Reaction Type of Cardiac Device: Permanent Pacemaker Device Placement Date:: ? 2021 Past Psychological History: PTSD Smoking Status: Former smoker Past Alcohol Use History: Occasional Past Drug Use History: None Reported - Past Family History Father Family Medical History: Cancer Additional Family Medical History / Comment(s): colon cancer Medications and Allergies Home Medications Medication Instructions Recorded Confirmed Type PARoxetine HCL 30 mg PO DAILY 05/26/23 10/31/24 History carvediloL [Coreg] 6.25 mg PO DAILY 05/26/23 10/31/24 History Cholecalciferol [Vitamin D3 (25 50 mcg PO DAILY 08/30/24 10/31/24 History Mcg = 1000 Iu)] Mirtazapine [Remeron] 30 mg PO HS 08/30/24 10/31/24 History tiZANidine [Zanaflex] 4 mg PO Q8HR PRN 30 Days #90 tab 09/20/24 10/31/24 Rx Folic Acid 1 mg PO DAILY #30 tab 10/11/24 10/31/24 Rx Furosemide [Lasix] 20 mg PO DAILY #30 tab 10/11/24 10/31/24 Rx Midodrine [ProAmatine] 5 mg PO AC-TID PRN #60 tab 10/11/24 10/31/24 Rx Thiamine [Vitamin B-1] 100 mg PO DAILY #30 tab 10/11/24 10/31/24 Rx Magnesium Hydroxide [Milk of 30 ml PO DAILY 10/17/24 10/31/24 History Magnesia Concentrate] Thiamine HCl [Vitamin B-1] 100 mg PO DAILY 10/17/24 10/31/24 History Acetaminophen [Tylenol] 650 mg PO Q4H PRN 10/31/24 10/31/24 History Lidocaine 4% Patch 1 unit TRANSDERM DAILY PRN 10/31/24 10/31/24 History Magnesium Hydroxide [Milk of 30 ml PO DAILY PRN 10/31/24 10/31/24 History Magnesia] Menthol/Zinc Oxide [Calprotect 113 gm TP BID PRN 10/31/24 10/31/24 History 0.44%-20.6% Oint] Na Phos,M-B/Na Phos,Di-Ba [Fleet 1 dose RECTAL DAILY PRN 10/31/24 10/31/24 History Adult] bisacodyL [Dulcolax] 10 mg RECTAL DAILY PRN 10/31/24 10/31/24 History Allergies Allergy/AdvReac Type Severity Reaction Status Date / Time medium chain triglycerides Allergy Unknown Verified 10/31/24 15:56 [From Lipisorb] nutritional Allergy Unknown Verified 10/31/24 15:56 supplement,special formulas [From Lipisorb] simvastatin [From Zocor] Allergy Unknown Verified 10/31/24 15:56 apixaban [From Eliquis] AdvReac WEAKNESS Verified 10/31/24 15:56 ibuprofen [From Motrin] AdvReac Nausea Verified 10/31/24 15:56 lisinopril AdvReac Unknown Verified 10/31/24 15:56 Physical Exam Vitals: Vital Signs Temp Pulse Resp BP Pulse Ox 10/31/24 19:18 61 17 106/63 100 10/31/24 15:53 97.6 F 61 22 100/65 100 Intake and Output 10/31/24 10/31/24 10/31/24 06:59 14:59 22:59 Other: Weight 86.183 kg Results CBC & Chem 7: 10/31/24 17:26 10/31/24 18:07 Labs: Abnormal Lab Results - Last 24 Hours (Table) 10/31/24 10/31/24 Range/Units 17:26 18:07 RBC 3.33 L (4.40-5.60) 10*6/uL Hgb 11.7 L (13.0-17.0) g/dL Hct 33.7 L (39.6-50.0) % MCV 101.2 H (80.0-97.0) fL MCH 35.1 H (27.0-32.0) pg Plt Count 124 L (140-440) 10*3/uL Immature Gran # 0.09 H (0.00-0.04) 10*3/uL Lymphocytes # 0.33 L (0.90-5.00) 10*3/uL Sodium 135 L (137-145) mmol/L Potassium 5.5 H (3.5-5.1) mmol/L BUN 44 H (9-20) mg/dL Total Bilirubin 4.6 H (0.2-1.3) mg/dL AST 82 H (17-59) U/L Alkaline Phosphatase 225 H (38-126) U/L
[2024-11-01 07:04] LABS: HCT 36.0 % (39.6-50.0); HGB 12.1 g/dL (13.0-17.0); MCH 34.8 pg (27.0-32.0); MCHC 33.6 g/dL (32.0-37.0); MCV 103.4 fL (80.0-97.0); Platelet Count 126 10*3/uL (140-440); RBC 3.48 10*6/uL (4.40-5.60); RDW 18.3 % (11.5-14.5); WBC 9.11 10*3/uL (4.50-10.00)
[2024-11-01] MEDS: SODIUM CHLORIDE 0.9% 500 ML 500 ML IV ONE (08:51)
[2024-11-01] MEDS: LACTULOSE 20 GM/30 ML CUP PO SCH (08:52)
[2024-11-01] MEDS: ENOXAPARIN 40 MG/0.4 ML SYRINGE SQ SCH (08:54)
[2024-11-01] MEDS ORDERED: SENNOSIDES 8.6 MG TAB PO SCH (09:00)
[2024-11-01 11:09] LABS: Anion Gap 11.00 mmol/L (4.00-12.00); BUN/Creat Ratio 30.46 Ratio (12.00-20.00); Blood Urea Nitrogen 39.6 mg/dL (9.0-27.0); Calcium 8.6 mg/dL (8.7-10.3); Carbon Dioxide 22.0 mmol/L (21.6-31.8); Chloride 102 mmol/L (96-109); Glucose 97 mg/dL (70-110); Potassium 5.7 mmol/L (3.5-5.5); Sodium 135 mmol/L (135-145)
--- NOTE | 2024-11-01 14:15 | P.GSCN ---
History of Present Illness Consult date: 11/01/24 History of present illness: CHIEF COMPLAINT: Abdominal pain HISTORY OF PRESENT ILLNESS: This is a 79-year-old male with known history of liver cancer who is status post 2 treatments of radioactive isotope's and follows at [facility]. Patient also has history of constipation. He presents to the hospital with complaints of abdominal pain. He reports he has had no bowel movement for 4 to 5 days. He denies any nausea or vomiting. CT scan abdomen pelvis had reported impacted rectosigmoid stool with additional finding suggesting mild to moderate stercoral colitis. Patient reports having a moderate-sized bowel movement this morning. He has been receiving lactulose. Did receive a Fleet enema yesterday with no results. Patient reports that he does get weekly paracentesis for his ascites. He also notes limited mobility. Surgical service consulted for the large stool burden. PAST MEDICAL HISTORY: See below PAST SURGICAL HISTORY: See below MEDICATIONS: See below ALLERGIES: See below SOCIAL HISTORY: No illicit drug use. REVIEW OF SYSTEMS: CONSTITUTIONAL: Denies fever or chills. HEENT: Denies blurred vision, vision changes, or eye pain. Denies hemoptysis CARDIOVASCULAR: Denies chest pain or pressure. RESPIRATORY: No shortness of breath. GASTROINTESTINAL: See HPI for pertinent findings HEMATOLOGIC: Denies bleeding disorders. GENITOURINARY: Denies any blood in urine or increased urinary frequency. SKIN: Denies pruitis. Denies rash. PHYSICAL EXAM: VITAL SIGNS: Reviewed GENERAL: Well-developed in no acute distress. HEENT: No sclera icterus. Extraocular movements grossly intact. Moist buccal mucosa. Head is atraumatic, normocephalic. No nasal drainage. ABDOMEN: Soft. Distended. Mild discomfort palpation lower abdomen. Ascites fluid wave present. NEUROLOGIC: Alert and oriented. Cranial nerves II through XII grossly intact. LABORATORY DATA: WBC 9.11 Hgb 12.1 platelets 126 Sodium 135 potassium 5.7 creatinine 1.3 IMAGING: CT scan abdomen pelvis reports impacted rectosigmoid stool with additional findings suggesting mild to moderate stercoral colitis. Cirrhotic liver morphology and small to moderate diffuse abdominal ascites. Right hepatic lobe malignancy not well-evaluated. ASSESSMENT: 1. Rectosigmoid stool impaction PLAN: - Continue lactulose twice daily with stool softener - Soapsuds enemas x 2 ordered - Repeat abdominal x-ray in a.m. Physician Public Relations Supervisor note has been reviewed by physician. Signing provider agrees with the documented findings, assessment, and plan of care. Past Medical History Past Medical History: Cancer, Liver Disease, Prostate Disorder Additional Past Medical History / Comment(s): Chronic back pain. ascites. explosure to Agent orange. pacemaker. umbilical hernia; cancer prostate 2002. pt states "i had seeds placed in my liver at [facility] to treat liver lesions" Apr 2024. Last Myocardial Infarction Date:: unknown History of Any Multi-Drug Resistant Organisms: None Reported Past Surgical History: Cholecystectomy, Prostate Surgery Additional Past Surgical History / Comment(s): multi large volume paracentesis, seeds placed in liver Apr 2024 Past Anesthesia/Blood Transfusion Reactions: No Reported Reaction Type of Cardiac Device: Permanent Pacemaker Device Placement Date:: ? 2021 Past Psychological History: PTSD Smoking Status: Former smoker Past Alcohol Use History: Occasional Past Drug Use History: None Reported - Past Family History Father Family Medical History: Cancer Additional Family Medical History / Comment(s): colon cancer Medications and Allergies Home Medications Medication Instructions Recorded Confirmed Type PARoxetine HCL 30 mg PO DAILY 05/26/23 11/01/24 History carvediloL [Coreg] 6.25 mg PO BID 05/26/23 11/01/24 History Cholecalciferol [Vitamin D3 (25 50 mcg PO DAILY 08/30/24 11/01/24 History Mcg = 1000 Iu)] Mirtazapine [Remeron] 30 mg PO HS 08/30/24 11/01/24 History tiZANidine [Zanaflex] 4 mg PO Q8HR PRN 30 Days #90 tab 09/20/24 11/01/24 Rx Folic Acid 1 mg PO DAILY #30 tab 10/11/24 11/01/24 Rx Magnesium Hydroxide [Milk of 7,200 mg PO DAILY PRN 10/17/24 11/01/24 History Magnesia Concentrate] Thiamine HCl [Vitamin B-1] 100 mg PO DAILY 10/17/24 11/01/24 History Acetaminophen [Tylenol] 650 mg PO Q4H PRN 10/31/24 11/01/24 History Lidocaine 4% Patch 1 unit TRANSDERM DAILY 10/31/24 11/01/24 History Menthol/Zinc Oxide [Calprotect 1 applic TOPICAL BID 10/31/24 11/01/24 History 0.44%-20.6% Oint] Na Phos,M-B/Na Phos,Di-Ba [Fleet 133 ml RECTAL DAILY PRN 10/31/24 11/01/24 History Adult] bisacodyL [Dulcolax] 10 mg RECTAL DAILY PRN 10/31/24 11/01/24 History Caldesane Powder 81-15% 1 applic TOPICAL BID 11/01/24 11/01/24 History Furosemide [Lasix] 20 mg PO SUMOWETHFRSA 11/01/24 11/01/24 History Midodrine [ProAmatine] 5 mg PO AC-TID 11/01/24 11/01/24 History Midodrine [ProAmatine] 10 mg PO TU 11/01/24 11/01/24 History Allergies Allergy/AdvReac Type Severity Reaction Status Date / Time medium chain triglycerides Allergy Unknown Verified 11/01/24 11:13 [From Lipisorb] nutritional Allergy Unknown Verified 11/01/24 11:13 supplement,special formulas [From Lipisorb] simvastatin [From Zocor] Allergy Unknown Verified 11/01/24 11:13 apixaban [From Eliquis] AdvReac WEAKNESS Verified 11/01/24 11:13 ibuprofen [From Motrin] AdvReac Nausea Verified 11/01/24 11:13 lisinopril AdvReac Unknown Verified 11/01/24 11:13 Surgical - Exam Vital Signs Temp Pulse Resp BP Pulse Ox 97.6 F 61 22 100/65 100 10/31/24 15:53 10/31/24 15:53 10/31/24 15:53 10/31/24 15:53 10/31/24 15:53 Results - Labs 11/01/24 06:46 11/01/24 06:46 Abnormal Lab Results - Last 24 Hours (Table) 10/31/24 10/31/24 11/01/24 Range/Units 17:26 18:07 06:46 RBC 3.33 L (4.40-5.60) 10*6/uL Hgb 11.7 L (13.0-17.0) g/dL Hct 33.7 L (39.6-50.0) % MCV 101.2 H (80.0-97.0) fL MCH 35.1 H (27.0-32.0) pg RDW (11.5-14.5) % Plt Count 124 L (140-440) 10*3/uL Immature Gran # 0.09 H (0.00-0.04) 10*3/uL Lymphocytes # 0.33 L (0.90-5.00) 10*3/uL Sodium 135 L (137-145) mmol/L Potassium 5.5 H 5.7 H (3.5-5.1) mmol/L BUN 44 H 39.6 H (9-20) mg/dL Est GFR (CKD-EPI) 56 L (>=60) BUN/Creatinine Ratio 30.46 H (12.00-20.00) Ratio Calcium 8.6 L (8.7-10.3) mg/dL Total Bilirubin 4.6 H (0.2-1.3) mg/dL AST 82 H (17-59) U/L Alkaline Phosphatase 225 H (38-126) U/L 11/01/24 Range/Units 06:46 RBC 3.48 L (4.40-5.60) 10*6/uL Hgb 12.1 L (13.0-17.0) g/dL Hct 36.0 L (39.6-50.0) % MCV 103.4 H (80.0-97.0) fL MCH 34.8 H (27.0-32.0) pg RDW 18.3 H (11.5-14.5) % Plt Count 126 L (140-440) 10*3/uL Immature Gran # (0.00-0.04) 10*3/uL Lymphocytes # (0.90-5.00) 10*3/uL Sodium (137-145) mmol/L Potassium (3.5-5.1) mmol/L BUN (9-20) mg/dL Est GFR (CKD-EPI) (>=60) BUN/Creatinine Ratio (12.00-20.00) Ratio Calcium (8.7-10.3) mg/dL Total Bilirubin (0.2-1.3) mg/dL AST (17-59) U/L Alkaline Phosphatase (38-126) U/L Diabetes panel 10/31/24 11/01/24 Range/Units 18:07 06:46 Sodium 135 L 135 (137-145) mmol/L Potassium 5.5 H 5.7 H (3.5-5.1) mmol/L Chloride 99 102 (98-107) mmol/L Carbon Dioxide 26 22.0 (22-30) mmol/L BUN 44 H 39.6 H (9-20) mg/dL Creatinine 1.20 1.3 (0.66-1.25) mg/dL Glucose 98 97 (74-99) mg/dL Calcium 9.4 8.6 L (8.4-10.2) mg/dL AST 82 H (17-59) U/L ALT 37 (4-49) U/L Alkaline Phosphatase 225 H (38-126) U/L Total Protein 7.3 (6.3-8.2) g/dL Albumin 3.9 (3.5-5.0) g/dL Calcium panel 10/31/24 11/01/24 Range/Units 18:07 06:46 Calcium 9.4 8.6 L (8.4-10.2) mg/dL Albumin 3.9 (3.5-5.0) g/dL Pituitary panel 10/31/24 11/01/24 Range/Units 18:07 06:46 Sodium 135 L 135 (137-145) mmol/L Potassium 5.5 H 5.7 H (3.5-5.1) mmol/L Chloride 99 102 (98-107) mmol/L Carbon Dioxide 26 22.0 (22-30) mmol/L BUN 44 H 39.6 H (9-20) mg/dL Creatinine 1.20 1.3 (0.66-1.25) mg/dL Glucose 98 97 (74-99) mg/dL Calcium 9.4 8.6 L (8.4-10.2) mg/dL Adrenal panel 10/31/24 11/01/24 Range/Units 18:07 06:46 Sodium 135 L 135 (137-145) mmol/L Potassium 5.5 H 5.7 H (3.5-5.1) mmol/L Chloride 99 102 (98-107) mmol/L Carbon Dioxide 26 22.0 (22-30) mmol/L BUN 44 H 39.6 H (9-20) mg/dL Creatinine 1.20 1.3 (0.66-1.25) mg/dL Glucose 98 97 (74-99) mg/dL Calcium 9.4 8.6 L (8.4-10.2) mg/dL Total Bilirubin 4.6 H (0.2-1.3) mg/dL AST 82 H (17-59) U/L ALT 37 (4-49) U/L Alkaline Phosphatase 225 H (38-126) U/L Total Protein 7.3 (6.3-8.2) g/dL Albumin 3.9 (3.5-5.0) g/dL
[2024-11-01] MEDS: AMPICILLIN-SULBACTAM 3 GM in SODIUM CHLORIDE 0.9% 100 ML IVPB SCH (15:31)
--- NOTE | 2024-11-01 15:52 | P.PN ---
Subjective Progress Note Date: 11/01/24 Patient is a 79 year old male with alcoholic cirrhosis, history of tobacco use and liver cancer s/p beads at [facility] presented to the ED for abdominal pain and constipation. Patient is currently residing at [facility] for rehabilitation. He has been there for approximately 3 weeks. His family reported that for the past 4 to 5 days he has not had a bowel movement. Family believes he tried laxatives at [facility] but without any improvement. He has also had decreased appetite for the past couple of days. Patient was experiencing lower abdominal pressure. Currently denies any abdominal pain/pressure. He also reports shortness of breath intermittently.He also reports chronic back pain due to degenerative disc changes. Family reports the patient is weaker compared to past week, even after being in rehab. He uses a walker at home. Moreover the patient has between treatments currently for liver cancer, he has had 2 treatments of radioactive isotope's and is currently in transition of having care at the [place]. He is currently not drinking alcohol for 3 weeks. Denies fever, chills, cough, chest pain, palpitations, nausea, vomiting, hematuria, dysuria, hematochezia, melena, headache, slurred speech, numbness, tingling, dizziness, lightheadedness, blurred vision, double vision. ED documentation reviewed. In the ED patient was treated with famotidine, morphine and 0.9 normal saline. 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 Abdominal pain improving, had bowel movement this morning. Clear liquid diet at this time. He did complete paracentesis yesterday as an outpatient, 6 L were removed. Review of systems: Pertinent positives and negatives as discussed in HPI, a complete review of systems was performed and all other systems are negative. Physical examination: Vital signs reviewed General: thin and lethargic, no distress, appears at stated age Eyes: EOMI, anicteric sclera Cardiovascular: S1 S2 reg, no murmur Lungs: CTA bilateral, no rhonchi, no rales, no accessory muscle use Abdominal: distended, soft, non-tender to palpation Extremities: No cyanosis, clubbing, or pedal edema. Neuro: Alert, Oriented, Gross neurological examination did not reveal any focal deficits. Todays significant findings: LabsWBC 9.1, hemoglobin 12.1, MCV 103.4, sodium 135, potassium 5.7, BUN 39.6, creatinine 1.3 No new imaging Assessment/Plan: Patient is a 79 year old male with alcoholic cirrhosis, history of tobacco use and liver cancer s/p beads at [facility] presented to the ED for abdominal pain and constipation. Patient admitted to internal medicine service. #. Constipation, improving #. Abdominal pain, improving KUB x-ray shows moderate colonic stool burden suggesting constipation and gaseous distended large bowel loops which could reflect underlying colonic ileus and/or developing partial obstruction Abdomen/pelvis CT shows impacted rectosigmoid stool with additional findings suggesting mild to moderate coral colitis, cirrhotic liver morphology and small to moderate diffuse abdominal ascites, right hepatic lobe malignancy, surgically absent gallbladder Received morphine in the ED Tylenol for pain management lactulose 20 mg TID Continue Bisacodyl 10 mg rectal once as needed, Colace 100 mg p.o. twice daily as needed, lactulose 20 g p.o. daily as needed, milk of magnesia 25 mg p.o. daily as needed Repeat abdominal x-ray tomorrow Advance diet as tolerated General surgery following #. Mild hyponatremia #. Hyperkalemia #. Liver cirrhosis with ascites, possibly due to alcohol use v agent orange exposure #. Hepatic carcinoma[facility], secondary to above #. Chronic hyperbilirubinemia and transaminitis,secondary to above Status post scheduled paracentesis 10/31/2024, 6 L removed, received albumin creatinine 1.20 on admission, at baseline Discontinue IV fluids Resume home medications Resume home midodrine Monitor BMP Oncology consulted Chronic: #. Chronic macrocytic anemia #. Chronic thrombocytopenia #. History of prostate cancer #. History of permanent pacemaker implantation #. Neuropathy #. Anxiety/Depression # CKD stage IIIa Resume home meds F: P.o. E: Replete as required N: Clear liquid diet DVT prophylaxis: Lovenox 40 mg SQ daily GI prophylaxis: Famotidine 20 mg PO BID The patient is admitted with an anticipated more than 2 midnight stay for evaluation of abdominal pain CODE STATUS: FULL CODE Discussed with: Patient Anticipated discharge place: 1 to 2 days Dictation was produced using [employer] dictation software. please excuse any grammatical, word or spelling errors. I have seen and evaluated the patient today. Discussed with the resident and agree with the residents finding and plan as documented in the resident's note. Changes highlighted in blue font. Objective - Vital Signs Vital signs: Vital Signs Temp 97.6 F 10/31/24 15:53 Pulse 83 11/01/24 07:41 Resp 16 11/01/24 07:41 BP 96/59 11/01/24 07:41 Pulse Ox 98 11/01/24 07:41 FiO2 Intake & Output 10/31/24 11/01/24 11/01/24 18:59 06:59 18:59 Weight 86.183 kg - Labs CBC & Chem 7: 11/01/24 06:46 11/01/24 06:46 Labs: Abnormal Lab Results - Last 24 Hours (Table) 10/31/24 10/31/24 11/01/24 Range/Units 17:26 18:07 06:46 RBC 3.33 L 3.48 L (4.40-5.60) 10*6/uL Hgb 11.7 L 12.1 L (13.0-17.0) g/dL Hct 33.7 L 36.0 L (39.6-50.0) % MCV 101.2 H 103.4 H (80.0-97.0) fL MCH 35.1 H 34.8 H (27.0-32.0) pg RDW 18.3 H (11.5-14.5) % Plt Count 124 L 126 L (140-440) 10*3/uL Immature Gran # 0.09 H (0.00-0.04) 10*3/uL Lymphocytes # 0.33 L (0.90-5.00) 10*3/uL Sodium 135 L (137-145) mmol/L Potassium 5.5 H (3.5-5.1) mmol/L BUN 44 H (9-20) mg/dL Total Bilirubin 4.6 H (0.2-1.3) mg/dL AST 82 H (17-59) U/L Alkaline Phosphatase 225 H (38-126) U/L
[2024-11-01] MEDS: MIDODRINE 5 MG TAB PO SCH (17:33)
[2024-11-01] MEDS: FUROSEMIDE 20 MG TAB PO SCH (18:48)
[2024-11-01] MEDS: MIRTAZAPINE 15 MG TAB PO SCH (20:18)
--- NOTE | 2024-11-01 20:25 | P.CONS ---
History of Present Illness - Reason for Consult Consult date: 11/01/24 cancer care Requesting physician: Wade Fitzgerald - Chief Complaint abd pain, constipation - History of Present Illness Patient is an 79-year-old male who presented to emergency room with complaints of constipation, abdominal pain and and back pain. Consult was placed due to history of liver cancer. HPI is somewhat limited as patient is a poor historian. He reports he has been treated at [facility], but does not able to recall his oncologist or radiation oncologist. He states he underwent radiation approximately 3 months ago but has not received any systemic treatment. Reports he was supposed to have follow-up but has had not heard back regarding the same? He also reports a remote history of prostate cancer undergoing prostatectomy many years ago. On admit, CT abdomen pelvis showing impacted rectosigmoid stool with additional findings suggestive of mild to moderate stercoral colitis. Cirrhotic liver morphology and small to moderate diffuse amount of abdominal ascites. General surgery consulted. Patient does report he had a small BM this morning. He has been receiving frequent paracenteses, had 6.0L removed this morning. States abd pain /distention improved. Labs reviewed, WBC 9.1, hemoglobin 12.1, platelets 126,000. Bilirubin elevated at 4.6, AST 82, ALT 37, ALP 225 Review of Systems 10 point ROS is negative except as stated in the HPI Past Medical History Past Medical History: Cancer, Liver Disease, Prostate Disorder Additional Past Medical History / Comment(s): Chronic back pain. ascites. explosure to Agent orange. pacemaker. umbilical hernia; cancer prostate 2002. pt states "i had seeds placed in my liver at [facility] to treat liver lesions" Apr 2024. Last Myocardial Infarction Date:: unknown History of Any Multi-Drug Resistant Organisms: None Reported Past Surgical History: Cholecystectomy, Prostate Surgery Additional Past Surgical History / Comment(s): multi large volume paracentesis, seeds placed in liver Apr 2024 Past Anesthesia/Blood Transfusion Reactions: No Reported Reaction Type of Cardiac Device: Permanent Pacemaker Device Placement Date:: ? 2021 Past Psychological History: PTSD Smoking Status: Former smoker Past Alcohol Use History: Occasional Past Drug Use History: None Reported - Past Family History Father Family Medical History: Cancer Additional Family Medical History / Comment(s): colon cancer Medications and Allergies Home Medications Medication Instructions Recorded Confirmed Type PARoxetine HCL 30 mg PO DAILY 05/26/23 11/01/24 History carvediloL [Coreg] 6.25 mg PO BID 05/26/23 11/01/24 History Cholecalciferol [Vitamin D3 (25 50 mcg PO DAILY 08/30/24 11/01/24 History Mcg = 1000 Iu)] Mirtazapine [Remeron] 30 mg PO HS 08/30/24 11/01/24 History tiZANidine [Zanaflex] 4 mg PO Q8HR PRN 30 Days #90 tab 09/20/24 11/01/24 Rx Folic Acid 1 mg PO DAILY #30 tab 10/11/24 11/01/24 Rx Magnesium Hydroxide [Milk of 7,200 mg PO DAILY PRN 10/17/24 11/01/24 History Magnesia Concentrate] Thiamine HCl [Vitamin B-1] 100 mg PO DAILY 10/17/24 11/01/24 History Acetaminophen [Tylenol] 650 mg PO Q4H PRN 10/31/24 11/01/24 History Lidocaine 4% Patch 1 unit TRANSDERM DAILY 10/31/24 11/01/24 History Menthol/Zinc Oxide [Calprotect 1 applic TOPICAL BID 10/31/24 11/01/24 History 0.44%-20.6% Oint] Na Phos,M-B/Na Phos,Di-Ba [Fleet 133 ml RECTAL DAILY PRN 10/31/24 11/01/24 H istory Adult] bisacodyL [Dulcolax] 10 mg RECTAL DAILY PRN 10/31/24 11/01/24 History Caldesane Powder 81-15% 1 applic TOPICAL BID 11/01/24 11/01/24 History Furosemide [Lasix] 20 mg PO SUMOWETHFRSA 11/01/24 11/01/24 History Midodrine [ProAmatine] 5 mg PO AC-TID 11/01/24 11/01/24 History Midodrine [ProAmatine] 10 mg PO TU 11/01/24 11/01/24 History Allergies Allergy/AdvReac Type Severity Reaction Status Date / Time medium chain triglycerides Allergy Unknown Verified 11/01/24 11:13 [From Lipisorb] nutritional Allergy Unknown Verified 11/01/24 11:13 supplement,special formulas [From Lipisorb] simvastatin [From Zocor] Allergy Unknown Verified 11/01/24 11:13 apixaban [From Eliquis] AdvReac WEAKNESS Verified 11/01/24 11:13 ibuprofen [From Motrin] AdvReac Nausea Verified 11/01/24 11:13 lisinopril AdvReac Unknown Verified 11/01/24 11:13 Physical Exam Vitals: Vital Signs Temp Pulse Resp BP Pulse Ox 11/01/24 11:16 63 16 113/65 99 11/01/24 08:55 110/72 11/01/24 07:41 83 16 96/59 98 11/01/24 06:00 17 11/01/24 04:00 60 17 100/66 97 11/01/24 02:00 60 17 97/61 99 11/01/24 00:00 60 18 101/58 100 10/31/24 21:00 17 92/55 10/31/24 19:18 61 17 106/63 100 10/31/24 15:53 97.6 F 61 22 100/65 100 Intake and Output 10/31/24 11/01/24 11/01/24 22:59 06:59 14:59 Other: Weight 86.183 kg - Constitutional General appearance: average body habitus, no acute distress - EENT Eyes: anicteric sclerae, EOMI ENT: hearing grossly normal - Respiratory breathing is even and unlabored - Gastrointestinal General gastrointestinal: distended, no tenderness - Integumentary Integumentary: no cyanotic, jaundiced - Musculoskeletal Musculoskeletal: generalized weakness - Psychiatric Psychiatric: A&O x's 3 Results CBC & Chem 7: 11/01/24 06:46 11/01/24 06:46 Labs: Abnormal Lab Results - Last 24 Hours (Table) 10/31/24 10/31/24 11/01/24 Range/Units 17:26 18:07 06:46 RBC 3.33 L (4.40-5.60) 10*6/uL Hgb 11.7 L (13.0-17.0) g/dL Hct 33.7 L (39.6-50.0) % MCV 101.2 H (80.0-97.0) fL MCH 35.1 H (27.0-32.0) pg RDW (11.5-14.5) % Plt Count 124 L (140-440) 10*3/uL Immature Gran # 0.09 H (0.00-0.04) 10*3/uL Lymphocytes # 0.33 L (0.90-5.00) 10*3/uL Sodium 135 L (137-145) mmol/L Potassium 5.5 H 5.7 H (3.5-5.1) mmol/L BUN 44 H 39.6 H (9-20) mg/dL Est GFR (CKD-EPI) 56 L (>=60) BUN/Creatinine Ratio 30.46 H (12.00-20.00) Ratio Calcium 8.6 L (8.7-10.3) mg/dL Total Bilirubin 4.6 H (0.2-1.3) mg/dL AST 82 H (17-59) U/L Alkaline Phosphatase 225 H (38-126) U/L // Range/Units 06:46 RBC 3.48 L (4.40-5.60) 10*6/uL Hgb 12.1 L (13.0-17.0) g/dL Hct 36.0 L (39.6-50.0) % MCV 103.4 H (80.0-97.0) fL MCH 34.8 H (27.0-32.0) pg RDW 18.3 H (11.5-14.5) % Plt Count 126 L (140-440) 10*3/uL Immature Gran # (0.00-0.04) 10*3/uL Lymphocytes # (0.90-5.00) 10*3/uL Sodium (137-145) mmol/L Potassium (3.5-5.1) mmol/L BUN (9-20) mg/dL Est GFR (CKD-EPI) (>=60) BUN/Creatinine Ratio (12.00-20.00) Ratio Calcium (8.7-10.3) mg/dL Total Bilirubin (0.2-1.3) mg/dL AST (17-59) U/L Alkaline Phosphatase (38-126) U/L Assessment and Plan (1) Constipation Current Visit: Yes Status: Acute Code(s): K59.00 - CONSTIPATION, UNSPECIFIED SNOMED Code(s): 80223348 (2) Dehydration Current Visit: Yes Status: Acute Code(s): E86.0 - DEHYDRATION SNOMED Code(s): 69535043 (3) BREEZY (acute kidney injury) Current Visit: No Status: Acute Code(s): N17.9 - ACUTE KIDNEY FAILURE, UNSPECIFIED SNOMED Code(s): 83603694 Plan: Liver cancer, abd distention, constipation: Reported history of liver cancer. HPI quite limited. No records within EMR. States he received radiation approx 3 months ago but did not undergo systemic treatment and has had no additional f/u? States he has f/u at [facility] hospital but does not know oncologists name -Will request records from [facility] -CT AP showing impacted rectosigmoid stool with additional findings suggestive of mild to moderate stercoral colitis. Cirrhotic liver morphology and small to moderate diffuse amount of abdominal ascites -S/p paracentesis with 6.0L removed, with improvement in symptoms - General surgery consulted -Bowel regimen in place
[2024-11-02] MEDS: ZINC OXIDE PASTE (Z-GUARD) 1 APPLIC TOPICAL PRN (05:50)
[2024-11-02] MEDS: CHOLECALCIFEROL 25 MCG (1000 IU) TABLET PO SCH (07:54)
--- NOTE | 2024-11-02 07:54 | XR ---
EXAMINATION TYPE: XR abdomen 2V DATE OF EXAM: 11/02/2024 7:32 AM COMPARISON: None. CLINICAL INDICATION: Male, 79 years old with history of constipation, TECHNIQUE: XR abdomen 2V view(s) obtained. FINDINGS: There is a normal bowel gas pattern. Some fecal debris is within the descending colon. No suspicious differential air-fluid levels or free air is evident. Psoas margins are normal. No organomegaly is present. IMPRESSION: 1. Nonspecific abdomen. 2. Mild fecal debris within the descending colon region [facility], , 11/02/2024 7:52 AM
[2024-11-02] MEDS: PARoxetine 10 MG TAB PO SCH (07:55)
[2024-11-02] MEDS: THIAMINE 100 MG TAB PO SCH (07:55)
[2024-11-02] MEDS: FOLIC ACID 1 MG TAB PO SCH (07:56)
[2024-11-02 10:53] LABS: Anion Gap 12.50 mmol/L (4.00-12.00); BUN/Creat Ratio 28.83 Ratio (12.00-20.00); Blood Urea Nitrogen 34.6 mg/dL (9.0-27.0); Calcium 8.7 mg/dL (8.7-10.3); Carbon Dioxide 22.5 mmol/L (21.6-31.8); Chloride 103 mmol/L (96-109); Glucose 92 mg/dL (70-110); Potassium 4.9 mmol/L (3.5-5.5); Sodium 138 mmol/L (135-145)
[2024-11-02] MEDS: FUROSEMIDE 10 MG/ML 2 ML VIAL IV ONE (11:35)
--- NOTE | 2024-11-02 12:28 | P.PN ---
Subjective Progress Note Date: 11/02/24 Patient is a 79 year old male with alcoholic cirrhosis, history of tobacco use and liver cancer s/p beads at [facility] presented to the ED for abdominal pain and constipation. Patient is currently residing at [facility] for rehabilitation. He has been there for approximately 3 weeks. His family reported that for the past 4 to 5 days he has not had a bowel movement. Family believes [facility] tried laxatives at [facility] but without any improvement. He has also had decreased appetite for the past couple of days. Patient was experiencing lower abdominal pressure. Currently denies any abdominal pain/pressure. He also reports shortness of breath intermittently.He also reports chronic back pain due to degenerative disc changes. Family reports the patient is weaker compared to past week, even after being in rehab. He uses a walker at home. Moreover the patient has between treatments currently for liver cancer, he has had 2 treatments of radioactive isotope's and is currently in transition of having care at the [place]. He is currently not drinking alcohol for 3 weeks. Denies fever, chills, cough, chest pain, palpitations, nausea, vomiting, hematuria, dysuria, hematochezia, melena, headache, slurred speech, numbness, tingling, dizziness, lightheadedness, blurred vision, double vision. ED documentation reviewed. In the ED patient was treated with famotidine, morphine and 0.9 normal saline. Vitals on admission T 97.6 F, RI 61 bpm, RR 22, BP 100/65, SpO2 100% on room air EKG independently interpreted as ventricular paced rhythm, rate 60 bpm, QTc 479 ms, QRS 158 ms KUB x-ray shows moderate colonic stool burden suggesting constipation and gaseous distended large bowel loops which could reflect underlying colonic ileus and/or developing partial obstruction Abdomen/pelvis CT shows impacted rectosigmoid stool with additional findings suggesting mild to moderate coral colitis, cirrhotic liver morphology and small to moderate diffuse abdominal ascites, right hepatic lobe malignancy, surgically absent gallbladder Labs on admission show WBC 6.79, hemoglobin 11.7, MCV 101.2, platelet 124, sodium 135, potassium 5.5, BUN 44, creatinine 1.20, total bilirubin 4.6, AST 86, ALP 225 11/01/2024 patient seen and examined at bedside. Abdominal pain improving, had bowel movement this morning. Clear liquid diet at this time. He did complete paracentesis yesterday as an outpatient, 6 L were removed. 11/02/2024 patient seen and examined at bedside. Abdominal pain improved, last bowel movement yesterday still passing gas. Advance to full liquid diet. Review of systems: Pertinent positives and negatives as discussed in HPI, a complete review of systems was performed and all other systems are negative. Physical examination: Vital signs reviewed General: thin and lethargic, no distress, appears at stated age Eyes: EOMI, anicteric sclera Cardiovascular: S1 S2 reg, no murmur Lungs: CTA bilateral, no rhonchi, no rales, no accessory muscle use Abdominal: distended, soft, non-tender to palpation Extremities: No cyanosis, clubbing, or pedal edema. Neuro: Alert, Oriented, Gross neurological examination did not reveal any focal deficits. Todays significant findings: Labspotassium 4.9, anion gap 12.5, BUN 34.6 Abdominal x-ray with mild fecal debris within the descending colon, normal bowel gas pattern, no suspicious differential air-fluid levels or free air evident. Assessment/Plan: Patient is a 79 year old male with alcoholic cirrhosis, history of tobacco use and liver cancer s/p beads at [facility] presented to the ED for abdominal pain and constipation. Patient admitted to internal medicine service. #. Constipation, improving #. Abdominal pain, improving KUB x-ray shows moderate colonic stool burden suggesting constipation and gaseous distended large bowel loops which could reflect underlying colonic ileus and/or developing partial obstruction Abdomen/pelvis CT shows impacted rectosigmoid stool with additional findings suggesting mild to moderate coral colitis, cirrhotic liver morphology and small to moderate diffuse abdominal ascites, right hepatic lobe malignancy, surgically absent gallbladder Received morphine in the ED Tylenol for pain management lactulose 20 mg TID Continue Bisacodyl 10 mg rectal once as needed, Colace 100 mg p.o. twice daily as needed, lactulose 20 g p.o. daily as needed, milk of magnesia 25 mg p.o. daily as needed Repeat abdominal x-ray with normal bowel gas pattern, no air-fluid levels or free air. Advance diet as tolerated General surgery following #. Mild hyponatremia #. Hyperkalemia #. Liver cirrhosis with ascites, possibly due to alcohol use v agent orange ex posure #. Hepatic carcinoma[facility], secondary to above #. Chronic hyperbilirubinemia and transaminitis,secondary to above Status post scheduled paracentesis 10/31/2024, 6 L removed, received albumin creatinine 1.20 on admission, at baseline Discontinue IV fluids Resume home medications Resume home midodrine Given Lasix 20 mg IV push once Monitor BMP Oncology consulted Chronic: #. Chronic macrocytic anemia #. Chronic thrombocytopenia #. History of prostate cancer #. History of permanent pacemaker implantation #. Neuropathy #. Anxiety/Depression # CKD stage IIIa Resume home meds F: P.o. E: Replete as required N: Full liquid diet, advance as tolerated DVT prophylaxis: Lovenox 40 mg SQ daily GI prophylaxis: Famotidine 20 mg PO BID CODE STATUS: FULL CODE Discussed with: Patient Anticipated discharge place: 1 to 2 days Dictation was produced using [employer] dictation software. please excuse any grammatical, word or spelling errors. I have seen and evaluated the patient today. Discussed with the resident and agree with the residents finding and plan as documented in the resident's note. Changes highlighted in blue font. Objective - Vital Signs Vital signs: Vital Signs Temp 97.9 F 11/02/24 07:05 Pulse 64 11/02/24 07:05 Resp 16 11/02/24 07:05 BP 118/65 11/02/24 07:05 Pulse Ox 99 11/02/24 07:05 FiO2 Intake & Output 11/01/24 11/02/24 11/02/24 18:59 06:59 18:59 Output Total 150 Balance -150 Weight 86.183 kg Output: Urine 150 Other: Voiding Method Diaper External Catheter - Labs CBC & Chem 7: 11/02/24 05:55 11/02/24 14:20 Labs: Abnormal Lab Results - Last 24 Hours (Table) 11/01/24 Range/Units 06:46 Potassium 5.7 H (3.5-5.5) mmol/L BUN 39.6 H (9.0-27.0) mg/dL Est GFR (CKD-EPI) 56 L (>=60) BUN/Creatinine Ratio 30.46 H (12.00-20.00) Ratio Calcium 8.6 L (8.7-10.3) mg/dL
[2024-11-02 12:29] VITALS: BMI 24.3
[2024-11-02 12:36] LABS: Basophils # (A) 0.13 X 10*3/uL (0.00-0.10); Basophils % (A) 1.6 %; Eosinophils # (A) 0.24 X 10*3/uL (0.04-0.35); Eosinophils % (A) 3.0 %; HCT 39.0 % (39.6-50.0); HGB 12.7 g/dL (13.0-17.0); Immature Grans, Automated 1.00 %; Lymphocytes # (A) 0.37 X 10*3/uL (0.90-5.00); Lymphocytes % (A) 4.6 %; MCH 35.0 pg (27.0-32.0); MCHC 32.6 g/dL (32.0-37.0); MCV 107.4 FL (80.0-97.0); Macrocytosis (M) 2+ (None Seen); Monocytes # (A) 1.23 X 10*3/uL (0.20-1.00); Monocytes % (A) 15.3 %; NRBC Per 100 WBC 0 X 10*3/uL (0.00-0.01); Neutrophils # (A) 6.01 X 10*3/uL (1.80-7.70); Neutrophils % (A) 74.5 %; Platelet Count 117 X 10*3/uL (140-440); RBC 3.63 X 10*6/uL (4.40-5.60); RDW 17.8 % (11.5-14.5); WBC 8.06 X 10*3/uL (4.50-10.00)
--- NOTE | 2024-11-02 14:48 | P.PN ---
Subjective Progress Note Date: 11/02/24 SURGICAL PROGRESS NOTE CHIEF COMPLAINT: Abdominal pain HISTORY OF PRESENT ILLNESS: Patient lying in bed comfortably. No new complaints. He did have a large bowel movement yesterday. Abdominal x-ray rep orts nonspecific abdomen. Fecal debris within the descending colon region. WBC 8.06 PHYSICAL EXAM: VITAL SIGNS: Reviewed. GENERAL: Well-developed in no acute distress. ABDOMEN: Soft. Nondistended. NEUROLOGIC: awake and alert ASSESSMENT: 1. Rectosigmoid stool impaction 2. Stercoral colitis 3. History of liver cancer PLAN: - Continue lactulose BID - Continue Unasyn for stercoral colitis - Agree with full liquid diet Physician Drapery Worker note has been reviewed by physician. Signing provider agrees with the documented findings, assessment, and plan of care. Attestation Patient seen and examined at bedside on 11/02/2024. Presented with chief complaint of abdominal pain with concern for stercoral colitis. He is on IV antibiotics. Per nursing, he did have a large bowel movement yesterday. Continue bowel regimen. No plan for surgical intervention at this time. Otilio Jacobs DO Objective - Vital Signs Vital signs: Vital Signs Temp 97.9 F 11/02/24 13:14 Pulse 60 11/02/24 13:14 Resp 16 11/02/24 13:14 BP 84/52 11/02/24 13:14 Pulse Ox 97 11/02/24 13:14 FiO2 Intake & Output 11/01/24 11/02/24 11/02/24 18:59 06:59 18:59 Intake Total 560 Output Total 150 Balance -150 560 Weight 86.183 kg 86.183 kg Intake: Oral 560 Output: Urine 150 Other: Voiding Method Diaper Diaper External Catheter External Catheter - Labs CBC & Chem 7: 11/03/24 07:00 11/03/24 07:00 Labs: Abnormal Lab Results - Last 24 Hours (Table) 11/02/24 11/02/24 Range/Units 05:55 05:55 RBC 3.63 L (4.40-5.60) X 10*6/uL Hgb 12.7 L (13.0-17.0) g/dL Hct 39.0 L (39.6-50.0) % MCV 107.4 H (80.0-97.0) FL MCH 35.0 H (27.0-32.0) pg RDW 17.8 H (11.5-14.5) % Plt Count 117 L (140-440) X 10*3/uL Immature Gran # 0.08 H (0.00-0.04) X 10*3/uL Lymphocytes # 0.37 L (0.90-5.00) X 10*3/uL Monocytes # 1.23 H (0.20-1.00) X 10*3/uL Basophils # 0.13 H (0.00-0.10) X 10*3/uL Macrocytosis (manual) 2+ A (None Seen) Anion Gap 12.50 H (4.00-12.00) mmol/L BUN 34.6 H (9.0-27.0) mg/dL BUN/Creatinine Ratio 28.83 H (12.00-20.00) Ratio
[2024-11-02 14:51] LABS: African American GFR (CKD) 77 (>60 ml/min/1.73 sqM); Anion Gap 11 mmol/L; Blood Urea Nitrogen 35 mg/dL (9-20); Calcium 8.9 mg/dL (8.4-10.2); Carbon Dioxide 21 mmol/L (22-30); Chloride 101 mmol/L (98-107); Glucose 142 mg/dL (74-99); Non-African American GFR(CKD) 66 (>60 ml/min/1.73 sqM); Potassium 4.6 mmol/L (3.5-5.1); Sodium 133 mmol/L (137-145)
[2024-11-02] MEDS: AMPICILLIN-SULBACTAM 3 GM in SODIUM CHLORIDE 0.9% 100 ML IVPB SCH (15:49)
[2024-11-03] MEDS: MAGNESIUM HYDROXIDE 2,400 MG/30 ML CUP PO PRN (04:47)
[2024-11-03] MEDS: ACETAMINOPHEN TAB 325 MG TAB PO PRN (04:47)
[2024-11-03] MEDS: HYDROmorphone 0.5 MG/0.5 ML SYRINGE IVP STA (06:39)
[2024-11-03 10:16] LABS: HCT 31.9 % (39.6-50.0); HGB 11.9 g/dL (13.0-17.0); MCH 39.4 pg (27.0-32.0); MCHC 37.3 g/dL (32.0-37.0); MCV 105.6 FL (80.0-97.0); NRBC Per 100 WBC 0 X 10*3/uL (0.00-0.01); Platelet Count 125 X 10*3/uL (140-440); RBC 3.02 X 10*6/uL (4.40-5.60); RDW 17.8 % (11.5-14.5); WBC 6.86 X 10*3/uL (4.50-10.00)
[2024-11-03 10:48] LABS: ALT 39 U/L (10-49); AST 86 U/L (14-35); Albumin 2.9 g/dL (3.8-4.9); Albumin/Globulin Ratio 1.04 Ratio (1.60-3.17); Alkaline Phosphatase 207 U/L (41-126); Anion Gap 11.90 mmol/L (4.00-12.00); BUN/Creat Ratio 23.00 Ratio (12.00-20.00); Blood Urea Nitrogen 32.2 mg/dL (9.0-27.0); Calcium 8.4 mg/dL (8.7-10.3); Carbon Dioxide 22.1 mmol/L (21.6-31.8); Chloride 104 mmol/L (96-109); Globulin 2.8 g/dL (1.6-3.3); Glucose 111 mg/dL (70-110); Potassium 4.8 mmol/L (3.5-5.5); Sodium 138 mmol/L (135-145); Total Protein 5.7 g/dL (6.2-8.2)
--- NOTE | 2024-11-03 12:00 | P.DS ---
Providers Date of admission: 10/31/24 20:46 Expected date of discharge: 11/03/24 Attending physician: Harleen Yousif MD Consults: 10/31/24 20:43 Consult Physician Routine Consulting Provider: Oscar Matt Consult Reason/Comments: oncological care Do you want consulting provider notified?: Yes 11/01/24 00:58 Consult Physician Routine Consulting Provider: Randall Munoz Consult Reason/Comments: constipation large rectosegmoid stool burden Do you want consulting provider notified?: Yes Primary care physician: [facility] Course: Discharge diagnoses; # Rectosigmoid stool impaction #. Constipation #. Abdominal pain #. Mild hyponatremia #. Hyperkalemia #. Liver cirrhosis with ascites, possibly due to alcohol use v agent orange exposure #. Hepatic carcinoma, [facility], secondary to above #. Chronic hyperbilirubinemia and transaminitis,secondary to above #. Chronic macrocytic anemia #. Chronic thrombocytopenia #. History of prostate cancer #. History of permanent pacemaker implantation #. Neuropathy #. Anxiety/Depression # CKD stage IIIa Hospital course; Patient is a 79 year old male with alcoholic cirrhosis, history of tobacco use and liver cancer s/p beads at [facility] presented to the ED for abdominal pain and constipation. Patient is currently residing at [facility] for rehabilitation. He has been there for approximately 3 weeks. His family reported that for the past 4 to 5 days he has not had a bowel movement. Family believes he tried laxatives at shelter but without any improvement. He has also had decreased appetite for the past couple of days. Patient was experiencing lower abdominal pressure. Currently denies any abdominal pain/pressure. He also reports shortness of breath intermittently.He also reports chronic back pain due to degenerative disc changes. Family reports the patient is weaker compared to past week, even after being in rehab. He uses a walker at home. Moreover the patient has between treatments currently for liver cancer, he has had 2 treatments of radioactive isotope's and is currently in transition of having care at the NH. He is currently not drinking alcohol for 3 weeks. Vitals on admission T 97.6 F, NE 61 bpm, RR 22, BP 100/65, SpO2 100% on room air EKG independently interpreted as ventricular paced rhythm, rate 60 bpm, QTc 479 ms, QRS 158 ms KUB x-ray shows moderate colonic stool burden suggesting constipation and gaseous distended large bowel loops which could reflect underlying colonic ileus and/or developing partial obstruction Abdomen/pelvis CT shows impacted rectosigmoid stool with additional findings suggesting mild to moderate coral colitis, cirrhotic liver morphology and small to moderate diffuse abdominal ascites, right hepatic lobe malignancy, surgically absent gallbladder Labs on admission show WBC 6.79, hemoglobin 11.7, MCV 101.2, platelet 124, sodium 135, potassium 5.5, BUN 44, creatinine 1.20, total bilirubin 4.6, AST 86, ALP 225 During hospital course patient was treated for constipation and abdominal pain. Prior to admission patient had paracentesis. He was started on bowel regimen and given enema and did have bowel movement. His diet was advanced and he began to improve. He was also given antibiotics for suspected Stercoral colitis. Repeat x-ray showed normal bowel gas pattern with no air-fluid levels or free air. Patient discharged home in stable condition. He will need follow-up with his PCP. He can continue lactulose 1 capful daily and may titrate as needed for regular bowel movements. Resume other home medications. He will need to follow-up with his PCP and oncologist. Physical examination: Vital signs reviewed General: thin and lethargic, no distress, appears at stated age Eyes: EOMI, anicteric sclera Cardiovascular: S1 S2 reg, no murmur Lungs: CTA bilateral, no rhonchi, no rales, no accessory muscle use Abdominal: soft, moderately distended, non-tender to palpation Extremities: No cyanosis, clubbing, or pedal edema. Neuro: Alert, Oriented, Gross neurological examination did not reveal any focal deficits. Bi Latham MD Internal Medicine Resident, PGY1 Dictation was produced using [employer] dictation software. please excuse any grammatical, word or spelling errors. I saw and evaluated the patient during the odell and critical portions of this encounter, and discussed the case in detail with the resident author of this note, I agree with the Assessment and Plan, and my changes, if any, are highlighted in blue. Patient Condition at Discharge: Stable Plan - Discharge Summary Discharge Rx Participant: No New Discharge Prescriptions: New Lactulose [Cephulac] 20 gm PO DAILY #300 ml Continue PARoxetine HCL 30 mg PO DAILY carvediloL [Coreg] 6.25 mg PO BID Cholecalciferol [Vitamin D3 (25 Mcg = 1000 Iu)] 50 mcg PO DAILY Folic Acid 1 mg PO DAILY #30 tab Menthol/Zinc Oxide [Calprotect 0.44%-20.6% Oint] 1 applic TOPICAL BID Na Phos,M-B/Na Phos,Di-Ba [Fleet Adult] 133 ml RECTAL DAILY PRN PRN Reason: Constipation Caldesane Powder 81-15% 1 applic TOPICAL BID Furosemide [Lasix] 20 mg PO SUMOWETHFRSA Midodrine [ProAmatine] 10 mg PO TU Mirtazapine [Remeron] 30 mg PO HS tiZANidine [Zanaflex] 4 mg PO Q8HR PRN 30 Days #90 tab PRN Reason: Muscle Spasm Magnesium Hydroxide [Milk of Magnesia Concentrate] 7,200 mg PO DAILY PRN PRN Reason: Constipation Thiamine HCl [Vitamin B-1] 100 mg PO DAILY Lidocaine 4% Patch 1 unit TRANSDERM DAILY bisacodyL [Dulcolax] 10 mg RECTAL DAILY PRN PRN Reason: Constipation Acetaminophen [Tylenol] 650 mg PO Q4H PRN PRN Reason: Pain Or Fever > 100.5 Midodrine [ProAmatine] 5 mg PO AC-TID Discharge Medication List PARoxetine HCL 30 mg PO DAILY 05/26/23 [History] carvediloL [Coreg] 6.25 mg PO BID 05/26/23 [History] Cholecalciferol [Vitamin D3 (25 Mcg = 1000 Iu)] 50 mcg PO DAILY 08/30/24 [History] Mirtazapine [Remeron] 30 mg PO HS 08/30/24 [History] tiZANidine [Zanaflex] 4 mg PO Q8HR PRN 30 Days #90 tab 09/20/24 [Rx] Folic Acid 1 mg PO DAILY #30 tab 10/11/24 [Rx] Magnesium Hydroxide [Milk of Magnesia Concentrate] 7,200 mg PO DAILY PRN 10/17/24 [History] Thiamine HCl [Vitamin B-1] 100 mg PO DAILY 10/17/24 [History] Acetaminophen [Tylenol] 650 mg PO Q4H PRN 10/31/24 [History] Lidocaine 4% Patch 1 unit TRANSDERM DAILY 10/31/24 [History] Menthol/Zinc Oxide [Calprotect 0.44%-20.6% Oint] 1 applic TOPICAL BID 10/31/24 [History] Na Phos,M-B/Na Phos,Di-Ba [Fleet Adult] 133 ml RECTAL DAILY PRN 10/31/24 [History] bisacodyL [Dulcolax] 10 mg RECTAL DAILY PRN 10/31/24 [History] Caldesane Powder 81-15% 1 applic TOPICAL BID 11/01/24 [History] Furosemide [Lasix] 20 mg PO SUMOWETHFRSA 11/01/24 [History] Midodrine [ProAmatine] 5 mg PO AC-TID 11/01/24 [History] Midodrine [ProAmatine] 10 mg PO TU 11/01/24 [History] Lactulose [Cephulac] 20 gm PO DAILY #300 ml 11/03/24 [Rx] Follow up Appointment(s)/Referral(s): Ariel Goetz DO [Primary Care Provider] - 1-2 days Patient Instructions/Handouts: Constipation (DC), High Fiber Diet (DC) Discharge Disposition: HOME SELF-CARE
[2024-11-03] MEDS: ONDANSETRON 4 MG/2 ML VIAL IVP PRN (13:22)
--- NOTE | 2024-11-03 15:33 | P.PN ---
Subjective Progress Note Date: 11/03/24 SURGICAL PROGRESS NOTE CHIEF COMPLAINT: Abdominal pain HISTORY OF PRESENT ILLNESS: No new complaints. Had bowel movement yesterday. Afebrile. WBC 6.86. Medicine service is discharging. PHYSICAL EXAM: VITAL SIGNS: Reviewed. GENERAL: Well-developed in no acute distress. ABDOMEN: Soft. Nondistended. NEUROLOGIC: awake and alert ASSESSMENT: 1. Rectosigmoid stool impaction resolved 2. Stercoral colitis 3. History of liver cancer PLAN: - Continue lactulose BID - Okay to advance diet to regular - No further antibiotics needed at discharge Physician Filter Press Tender note has been reviewed by physician. Signing provider agrees with the documented findings, assessment, and plan of care. Objective - Vital Signs Vital signs: Vital Signs Temp 97.9 F 11/03/24 12:30 Pulse 60 11/03/24 12:30 Resp 16 11/03/24 12:30 BP 103/67 11/03/24 12:30 Pulse Ox 97 11/03/24 12:30 FiO2 Intake & Output 11/02/24 11/03/24 11/03/24 18:59 06:59 18:59 Intake Total 2320 800 Output Total 900 500 Balance 1420 -500 800 Weight 86.183 kg Intake: Oral 2320 800 Output: Urine 900 500 Other: Voiding Method Diaper Diaper External Catheter External Catheter - Labs CBC & Chem 7: 11/03/24 07:00 11/03/24 07:00 Labs: Abnormal Lab Results - Last 24 Hours (Table) 11/03/24 11/03/24 Range/Units 07:00 07:00 RBC 3.02 L (4.40-5.60) X 10*6/uL Hgb 11.9 L (13.0-17.0) g/dL Hct 31.9 L (39.6-50.0) % MCV 105.6 H (80.0-97.0) FL MCH 39.4 H (27.0-32.0) pg MCHC 37.3 H (32.0-37.0) g/dL RDW 17.8 H (11.5-14.5) % Plt Count 125 L (140-440) X 10*3/uL BUN 32.2 H (9.0-27.0) mg/dL Est GFR (CKD-EPI) 51 L (>=60) BUN/Creatinine Ratio 23.00 H (12.00-20.00) Ratio Glucose 111 H (70-110) mg/dL Calcium 8.4 L (8.7-10.3) mg/dL Total Bilirubin 4.3 H (0.3-1.2) mg/dL AST 86 H (14-35) U/L Alkaline Phosphatase 207 H (41-126) U/L Total Protein 5.7 L (6.2-8.2) g/dL Albumin 2.9 L (3.8-4.9) g/dL Albumin/Globulin Ratio 1.04 L (1.60-3.17) Ratio
[2024-11-03] MEDS: PROCHLORPERAZINE INJ 10 MG/2 ML VIAL IVP STA (17:08)
--- NOTE | 2024-11-03 18:08 | P.PN ---
Subjective Progress Note Date: 11/03/24 Pt resting comfortably in bedside chair. Does report having a BM this morning. Denies n/v. Objective - Vital Signs Vital signs: Vital Signs Temp 97.9 F 11/03/24 12:30 Pulse 60 11/03/24 12:30 Resp 16 11/03/24 12:30 BP 103/67 11/03/24 12:30 Pulse Ox 97 11/03/24 12:30 FiO2 Intake & Output 11/02/24 11/03/24 11/03/24 18:59 06:59 18:59 Intake Total 2320 1880 Output Total 900 500 800 Balance 1420 -500 1080 Weight 86.183 kg Intake: Oral 2320 1880 Output: Urine 900 500 800 Other: Voiding Method Diaper Diaper External Catheter External Catheter - Constitutional General appearance: Present: no acute distress - EENT Eyes: Present: EOMI, scleral icterus - Respiratory Details: breathing is even and unlabored - Cardiovascular Details: skin warm and dry - Gastrointestinal General gastrointestinal: Present: distended - Integumentary Integumentary: Absent: cyanotic - Musculoskeletal Musculoskeletal: Present: generalized weakness - Psychiatric Psychiatric: Present: A&O x's 3 - Labs CBC & Chem 7: 11/03/24 07:00 11/03/24 07:00 Labs: Abnormal Lab Results - Last 24 Hours (Table) 11/03/24 11/03/24 Range/Units 07:00 07:00 RBC 3.02 L (4.40-5.60) X 10*6/uL Hgb 11.9 L (13.0-17.0) g/dL Hct 31.9 L (39.6-50.0) % MCV 105.6 H (80.0-97.0) FL MCH 39.4 H (27.0-32.0) pg MCHC 37.3 H (32.0-37.0) g/dL RDW 17.8 H (11.5-14.5) % Plt Count 125 L (140-440) X 10*3/uL BUN 32.2 H (9.0-27.0) mg/dL Est GFR (CKD-EPI) 51 L (>=60) BUN/Creatinine Ratio 23.00 H (12.00-20.00) Ratio Glucose 111 H (70-110) mg/dL Calcium 8.4 L (8.7-10.3) mg/dL Total Bilirubin 4.3 H (0.3-1.2) mg/dL AST 86 H (14-35) U/L Alkaline Phosphatase 207 H (41-126) U/L Total Protein 5.7 L (6.2-8.2) g/dL Albumin 2.9 L (3.8-4.9) g/dL Albumin/Globulin Ratio 1.04 L (1.60-3.17) Ratio Assessment and Plan (1) Constipation Current Visit: Yes Status: Acute Code(s): K59.00 - CONSTIPATION, UNSPECIFIED SNOMED Code(s): 03607901 (2) Dehydration Current Visit: Yes Status: Acute Code(s): E86.0 - DEHYDRATION SNOMED Code(s): 33561626 (3) BREEZY (acute kidney injury) Current Visit: No Status: Acute Code(s): N17.9 - ACUTE KIDNEY FAILURE, UNSPECIFIED SNOMED Code(s): 21516842 Plan: Liver cancer, abd distention, constipation: Reported history of liver cancer. HPI quite limited. No records within EMR. States he received radiation approx 3 months ago but did not undergo systemic treatment and has had no additional f/u? States he has f/u at [facility] hospital but does not know oncologists name -Reviewed records from [facility]. Patient was diagnosed with HCC, stage A, AFP producing (603 on 01/20/2024), not biopsy-proven with no known metastases. Treated with TARE to larer lesion on 03/07/2024. Subsequently underwent TARE on to smaller lesions on 05/29/2024. Daughterr states since patient was instructed by the [facility] that he needed to follow-up with specialist at [facility], patient became frustrated and states since he has not had follow-up for his cancer -CT AP showing impacted rectosigmoid stool with additional findings suggestive of mild to moderate stercoral colitis. Cirrhotic liver morphology and small to moderate diffuse amount of abdominal ascites -S/p paracentesis with 6.0L removed, with improvement in symptoms. Pt has required frequent paracenteses -General surgery following - Bowel regimen in place. Had BM this morning Discussed with family that we would recommend continue f/u with tertiary center at [facility] as they have previous imaging studies for comparison, to continue to monitor malignancy, local recurrence vs progression of disease. As local recurrence will benefit from further TARE or embolization, that is not offered locally. As well as pt will need to follow with liver specialist. They will need [facility] to ensure insurance coverage within [facility] as this is a big concern for pt. Otherwise he may need to transfer care to [facility]. They verbalized understanding of the same We will remain available for further questions/concerns, and if in the future pt requires systemic treatment, this can be provided locally. Doctor attests: I performed a history and physical examination of this patient, developed impression and plan of care. Discussed with dictator. I agree with dictators note, documented as a scribe.
[2024-11-04] MEDS: MORPHINE SULFATE 2 MG/ML SYRINGE IVP PRN (00:05)
[2024-11-04] MEDS ORDERED: HYDROcodone/APAP 5-325MG 1 EACH TAB PO PRN (00:16)
--- NOTE | 2024-11-04 08:03 | CT ---
EXAMINATION TYPE: CT abdomen wo con DATE OF EXAM: 11/04/2024 7:50 AM COMPARISON: CT abdomen pelvis most recent from 10/31/2024 CLINICAL INDICATION: Male, 79 years old with history of Abd pain Ascites; abd pain, ascites TECHNIQUE: Axial CT abdomen wo con;Sagittal and coronal reformats were created on a separate worksta tion. Contrast used: mL of , (none if empty) Oral contrast used: without Oral Contrast (none if empty) CT DLP: 1038.9 mGycm, Automated exposure control for dose reduction was used. FINDINGS: LOWER CHEST: Cardiac conduction leads and coronary artery atherosclerosis noted. Aortic valve consult ations are present. ABDOMEN LIVER: Cirrhotic morphology to liver with right parotid gland cyst measuring 37 mm. GALLBLADDER AND BILE DUCTS: Gallbladder may be surgically absent. PANCREAS: Unremarkable. SPLEEN: Unremarkable. ADRENAL GLANDS: Unremarkable. KIDNEYS AND URETERS: No evidence of hydronephrosis or obstructing renal calculus. The ureters are unr emarkable. Simple appearing right renal cortical cysts. Bilateral nonobstructing renal calculi. No follow-up recommended for cyst. PELVIS BLADDER: No evidence for wall thickening or mass given limitations of exam. REPRODUCTIVE: Unremarkable. ABDOMEN & PELVIS STOMACH AND BOWEL: Haziness around the sigmoid colon which is extending out of the [id number] with large stool burden. No evidence of bowel obstruction. PERITONEUM/RETROPERITONEUM: No evidence of pneumoperitoneum. Moderate ascites VASCULATURE: Mild atherosclerotic calcifications are present throughout the abdominal aorta and its b ranches. No evidence of aortic aneurysm. MUSCULOSKELETAL: No acute osseous abnormalities. Mild disc degeneration changes are present throughou t the thoracolumbar spine. LYMPH NODES: No gross evidence for lymphadenopathy. SOFT TISSUE/ABDOMINAL WALL: Unremarkable IMPRESSION: 1. Incomplete evaluation of the pelvis. There is moderate stool burden heading towards the pelvis in the sigmoid colon with possible hazy mesentery. Correlate for colitis. 2. Hepatic cirrhosis with simple appearing right hepatic lobe cyst. Moderate ascites. 3. Nonobstructing bilateral renal calculi. [facility], , 11/04/2024 8:01 AM
[2024-11-04] MEDS: FAMOTIDINE 20 MG TAB PO SCH (08:13)
--- NOTE | 2024-11-04 14:38 | P.PN ---
Subjective Progress Note Date: 11/04/24 No new complaints today. Had abd pain overnight warranting morphine administration. Gen: In NAD, non-toxic HEENT: normocephalic, atraumatic, hearing acuity is intant, mucous membranes moist CVS: perfusing all extremities well, no pitting edema, Respiratory: symmetric chest expansion, no accessory muscle use, GI: soft, NTTP, ND, : no suprapubic tenderness, no CVA tenderness MSK/Derm: no rashes, cyanosis Neuro: CN II-XII intact, no motor weakness, Hospital course: Patient is a 79 year old male with alcoholic cirrhosis, history of tobacco use and liver cancer s/p beads at [facility] presented to the ED for abdominal pain and constipation. ED documentation reviewed. In the ED patient was treated with famotidine, morphine and 0.9 normal saline. Vitals on admission T 97.6 F, DE 61 bpm, RR 22, BP 100/65, SpO2 100% on room air EKG independently interpreted as ventricular paced rhythm, rate 60 bpm, QTc 479 ms, QRS 158 ms KUB x-ray shows moderate colonic stool burden suggesting constipation and gaseous distended large bowel loops which could reflect underlying colonic ileus and/or developing partial obstruction Abdomen/pelvis CT shows impacted rectosigmoid stool with additional findings suggesting mild to moderate coral colitis, cirrhotic liver morphology and small to moderate diffuse abdominal ascites, right hepatic lobe malignancy, surgically absent gallbladder Labs on admission show WBC 6.79, hemoglobin 11.7, MCV 101.2, platelet 124, sodium 135, potassium 5.5, BUN 44, creatinine 1.20, total bilirubin 4.6, AST 86, ALP 225 11/01/2024 patient seen and examined at bedside. Abdominal pain improving, had bowel movement this morning. Clear liquid diet at this time. He did complete paracentesis yesterday as an outpatient, 6 L were removed. 11/02/2024 patient seen and examined at bedside. Abdominal pain improved, last bowel movement yesterday still passing gas. Advance to full liquid diet. Assessment/Plan: Patient is a 79 year old male with alcoholic cirrhosis, history of tobacco use a nd liver cancer s/p beads at [facility] presented to the ED for abdominal pain and constipation. Patient admitted to internal medicine service. #. Constipation, improving #. Abdominal pain, improving KUB x-ray shows moderate colonic stool burden suggesting constipation and gaseous distended large bowel loops which could reflect underlying colonic ileus and/or developing partial obstruction Abdomen/pelvis CT shows impacted rectosigmoid stool with additional findings suggesting mild to moderate coral colitis, cirrhotic liver morphology and small to moderate diffuse abdominal ascites, right hepatic lobe malignancy, surgically absent gallbladder Received morphine in the ED Tylenol for pain management lactulose 20 mg TID Continue Bisacodyl 10 mg rectal once as needed, Colace 100 mg p.o. twice daily as needed, lactulose 20 g p.o. daily as needed, milk of magnesia 25 mg p.o. daily as needed Repeat abdominal x-ray with normal bowel gas pattern, no air-fluid levels or free air. Advance diet as tolerated General surgery following #. Mild hyponatremia #. Hyperkalemia #. Liver cirrhosis with ascites, possibly due to alcohol use v agent orange exposure #. Hepatic carcinoma, [facility], secondary to above #. Chronic hyperbilirubinemia and transaminitis,secondary to above Status post scheduled paracentesis 10/31/2024, 6 L removed, received albumin creatinine 1.20 on admission, at baseline Discontinue IV fluids Resume home medications Resume home midodrine Given Lasix 20 mg IV push once Monitor BMP Oncology consulted Chronic: #. Chronic macrocytic anemia #. Chronic thrombocytopenia #. History of prostate cancer #. History of permanent pacemaker implantation #. Neuropathy #. Anxiety/Depression # CKD stage IIIa Resume home meds F: P.o. E: Replete as required N: Full liquid diet, advance as tolerated DVT prophylaxis: Lovenox 40 mg SQ daily GI prophylaxis: Famotidine 20 mg PO BID CODE STATUS: FULL CODE Discussed with: Patient Anticipated discharge place: 1 to 2 days Objective - Vital Signs Vital signs: Vital Signs Temp 98.0 F 11/04/24 12:25 Pulse 62 11/04/24 12:25 Resp 16 11/04/24 12:25 BP 108/69 11/04/24 12:25 Pulse Ox 97 11/04/24 12:25 FiO2 Intake & Output 11/03/24 11/04/24 11/04/24 18:59 06:59 18:59 Intake Total 2120 Output Total 800 350 Balance 1320 -350 Intake: Oral 2120 Output: Urine 800 350 Other: Voiding Method Diaper Diaper External Catheter External Catheter - Labs CBC & Chem 7: 06/27/25 07:00 11/03/24 07:00
[2024-11-04] MEDS: MORPHINE SULFATE 4 MG/ML SYRINGE IVP STA (16:05)
[2024-11-04] MEDS: LACTULOSE 20 GM/30 ML CUP PO SCH (16:13)
[2024-11-04 17:43] VITALS: TEMP 98.2
[2024-11-04] MEDS: RIFAXIMIN 550 MG TABLET PO SCH (18:13)
[2024-11-04 20:26] VITALS: PULSE 60
[2024-11-05 07:57] VITALS: BP 112/74
--- NOTE | 2024-11-05 10:30 | XR ---
EXAMINATION TYPE: XR chest 1V portable DATE OF EXAM: 11/05/2024 9:57 AM COMPARISON: Chest radiographs from 10/07/2024. CLINICAL INDICATION: Male, 79 years old with history of poss aspiration; [facility] TECHNIQUE: XR chest 1V portable Frontal view of the chest. FINDINGS: Lungs/Pleura: There is no evidence of pleural effusion, focal consolidation, or pneumothorax. Pulmonary vascularity: Unremarkable. Heart/mediastinum: Cardiomediastinal silhouette is enlarged. Atherosclerotic calcifications are seen in the aorta. Two lead cardiac conduction device overlying the left hemithorax with lead tips projec ting over the right ventricle and right atrium. Musculoskeletal: No acute osseous pathology. Other findings: None IMPRESSION: 1. No definitive evidence for aspiration. 2. Cardiomegaly and mild pulmonary vascular congestion. Correlate with BNP for congestive heart fail ure. [facility], , 11/05/2024 10:28 AM
[2024-11-05] MEDS ORDERED: DRY MOUTH SPRAY 59 SPRAY/59 ML SPRAY MUCOUS MEM PRN (11:04)
[2024-11-05] MEDS ORDERED: GLYCOPYRROLATE 0.2 MG/ML 2 ML VIAL IVP PRN (11:04)
[2024-11-05] MEDS ORDERED: ARTIFICIAL TEARS-HYPROMELLOSE DROPS 15 ML BTL BOTH EYES PRN (11:04)
[2024-11-05] MEDS: MORPHINE SULFATE 100 MG in SODIUM CHLORIDE 0.9% 90 ML IV SCH (11:29)
[2024-11-05] MEDS: SCOPOLAMINE 1 MG/72 HR PATCH TRANSDERM SCH (11:36)
--- NOTE | 2024-11-05 12:46 | P.PN ---
Subjective Progress Note Date: 11/05/24 Patient was seen and examined. Called by RN to evaluate patient. He is completely unresponsive to painful stimuli. He does appear to have labored breathing. Case was discussed extensively with daughters at bedside. He is likely encephalopathic due to extremely high ammonia levels. Family was agreeable to change his CODE status to NO CODE. They are also agreeable for comfort measures after the rest of his family arrives. General: toxic, moderate distress with labored breathing, appears at stated age Derm: warm, dry Head: atraumatic, normocephalic, symmetric, NG tube in place Eyes: no lid lag, icteric sclera Mouth: no lip lesion, mucus membranes moist Cardiovascular: S1S2 reg, no murmur Lungs: Decreased BS bilateral, no rhonchi, no rales , labored respirations Ext: no gross muscle atrophy, no contractures Psych: Lethargic not responding to painful stimuli Based on my assessment of this patient, this patient meets a high complexity level of care. Acute metabolic encephalopathy secondary to hyperammonemia Hepatic carcinoma with hyperbilirubinemia and transaminitis Fecal retention and ileus Macrocytic anemia Thrombocytopenia CKD stage IIIa History of prostate cancer History of permanent pacemaker implantation Neuropathy Anxiety/Depression Initiate comfort measures. Morphine drip titrated to maintain comfort. Ativan 1 mg IV Q6H PRN anxiety. Artificial tears PRN dry eyes. Atropine eye drops + Robinul 0.1 mg IV Q6H PRN excess secretions. Start Scopolamine patch for secretions. CODE STATUS: NO CODE I have reviewed the following business risk consultant notes: I have reviewed the results of the following tests: I have ordered the following tests: I have discussed the care of this patient with the following independent historian: RN. Daughters at bedside. I have independently interpreted the following test below: I have discussed the management of this patient with the following physician: Objective - Vital Signs Vital signs: Vital Signs Temp 98.2 F 11/05/24 07:55 Pulse 60 11/05/24 07:55 Resp 19 11/05/24 07:55 BP 112/74 11/05/24 07:55 Pulse Ox 97 11/05/24 07:55 FiO2 Intake & Output 11/04/24 11/05/24 11/05/24 18:59 06:59 18:59 Output Total 100 Balance -100 Output: Emesis 100 Other: Voiding Method Diaper Diaper External Catheter # Voids 1 1 - Labs CBC & Chem 7: 11/03/24 07:00 11/03/24 07:00 Labs: Abnormal Lab Results - Last 24 Hours (Table) 11/04/24 Range/Units 14:59 Ammonia 235 H (<30) umol/L
[2024-11-05] MEDS: ATROPINE OPHTH SOLN 1% 5ML BTL SUBLINGUAL PRN (13:53)
[2024-11-05] MEDS: LORazepam 1 MG/0.5 ML VIAL IV PRN (13:53)
[2024-11-06 08:11] VITALS: RESP 10
--- NOTE | 2024-11-06 15:43 | P.PN ---
Subjective Progress Note Date: 11/06/24 Patient was seen and examined. Called by RN to evaluate patient. He is completely unresponsive to painful stimuli. He does appear to have labored breathing. Case was discussed extensively with daughters at bedside. He is likely encephalopathic due to extremely high ammonia levels. Family was agreeable to change his CODE status to NO CODE. They are also agreeable for comfort measures after the rest of his family arrives. 11/06/2024patient seen and examined with family at bedside. All questions answe red. He remains on morphine drip, seemingly comfortable. General: toxic, moderate distress with labored breathing, appears at stated age Derm: warm, dry Head: atraumatic, normocephalic, symmetric, NG tube in place Cardiovascular: S1S2 reg, no murmur Lungs: Decreased BS bilateral, no rhonchi, no rales , labored respirations Ext: no gross muscle atrophy, no contractures Psych: Lethargic not responding to painful stimuli No new labs or imaging. Based on my assessment of this patient, this patient meets a high complexity level of care. Acute metabolic encephalopathy secondary to hyperammonemia Hepatic carcinoma with hyperbilirubinemia and transaminitis Fecal retention and ileus Macrocytic anemia Thrombocytopenia CKD stage IIIa History of prostate cancer History of permanent pacemaker implantation Neuropathy Anxiety/Depression Continue comfort measures. Morphine drip titrated to maintain comfort. Ativan 1 mg IV Q6H PRN anxiety. Artificial tears PRN dry eyes. Atropine eye drops + Robinul 0.1 mg IV Q6H PRN excess secretions. Start Scopolamine patch for secretions. CODE STATUS: NO CODE Bi Latham MD Internal Medicine Resident, PGY1 I saw and evaluated the patient during the odell and critical portions of this encounter, and discussed the case in detail with the resident author of this note, I agree with the Assessment and Plan, and my changes, if any, are highlighted in blue. Objective - Vital Signs Vital signs: Vital Signs Temp 98.2 F 11/05/24 07:55 Pulse 60 11/05/24 07:55 Resp 19 11/05/24 07:55 BP 112/74 11/05/24 07:55 Pulse Ox 97 11/05/24 07:55 FiO2 Intake & Output 11/05/24 11/06/24 11/06/24 18:59 06:59 18:59 Intake Total 21.833 Output Total 100 Balance -78.167 Intake: Intake, IV Titration 21.833 Amount Morphine Sulfate 100 mg 21.833 In Sodium Chloride 0.9% 90 ml @ 2 MG/HR 2 mls/hr IV .Q24H ON LICENSE OF [facility] Rx#: [id number] Output: Emesis 100 Other: Voiding Method Diaper # Voids 4 - Labs CBC & Chem 7: 11/03/24 07:00 11/03/24 07:00
--- NOTE | 2024-11-07 08:41 | P.DS ---
Providers Date of admission: 10/31/24 20:46 Expected date of discharge: 11/07/24 Attending physician: Harleen Yousif MD Consults: 10/31/24 20:43 Consult Physician Routine Consulting Provider: Oscar Matt Consult Reason/Comments: oncological care Do you want consulting provider notified?: Yes 11/01/24 00:58 Consult Physician Routine Consulting Provider: Randall Munoz Consult Reason/Comments: constipation large rectosegmoid stool burden Do you want consulting provider notified?: Yes Primary care physician: Ariel [id number] [place] [facility] Course: Assessment: Acute metabolic encephalopathy secondary to hyperammonemia Hepatic carcinoma with hyperbilirubinemia and transaminitis Fecal retention and ileus Macrocytic anemia Thrombocytopenia CKD stage IIIa History of prostate cancer History of permanent pacemaker implantation Neuropathy Anxiety/Depression Hospital course: Patient is a 79 year old male with alcoholic cirrhosis, history of tobacco use and liver cancer s/p beads at [facility] presented to the ED for abdominal pain and constipation. ED documentation reviewed. In the ED patient was treated with famotidine, morphine and 0.9 normal saline. Vitals on admission T 97.6 F, OK 61 bpm, RR 22, BP 100/65, SpO2 100% on room air. Labs on admission show WBC 6.79, hemoglobin 11.7, MCV 101.2, platelet 124, sodium 135, potassium 5.5, BUN 44, creatinine 1.20, total bilirubin 4.6, AST 86, ALP 225. EKG independently interpreted as ventricular paced rhythm, rate 60 bpm, QTc 479 ms, QRS 158 ms. KUB x-ray shows moderate colonic stool burden suggesting constipation and gaseous distended large bowel loops which could reflect underlying colonic ileus and/or developing partial obstruction. Abdomen/pelvis CT shows impacted rectosigmoid stool with additional findings suggesting mild to moderate coral colitis, cirrhotic liver morphology and small to moderate diffuse abdominal ascites, right hepatic lobe malignancy, surgically absent gallbladder. Patient was admitted for stercoral colitis and ileus. He was treated with general surgery consultation laxatives and was able to have a bowel movement, however, became quite encephalopathic due to limitation of number of bowel movements and development of hepatic encephalopathy. Patient underwent NG tube placement with lactulose 4 times daily, but unfortunately was not able to recover from encephalopathy and became quite obtunded. Goals of care conversation was had with family who agreed that patient will be best served with comfort measures. Patient was transition to comfort care with morphine drip and Ativan as needed. Patient and comfort on 11/07. Physical exam: Patient was not evaluated on the day of discharge Plan - Discharge Summary Discharge Rx Participant: No New Discharge Prescriptions: New Lactulose [Cephulac] 20 gm PO DAILY #300 ml Continue PARoxetine HCL 30 mg PO DAILY carvediloL [Coreg] 6.25 mg PO BID Cholecalciferol [Vitamin D3 (25 Mcg = 1000 Iu)] 50 mcg PO DAILY Folic Acid 1 mg PO DAILY #30 tab Menthol/Zinc Oxide [Calprotect 0.44%-20.6% Oint] 1 applic TOPICAL BID Na Phos,M-B/Na Phos,Di-Ba [Fleet Adult] 133 ml RECTAL DAILY PRN PRN Reason: Constipation Caldesane Powder 81-15% 1 applic TOPICAL BID Furosemide [Lasix] 20 mg PO SUMOWETHFRSA Midodrine [ProAmatine] 10 mg PO TU Mirtazapine [Remeron] 30 mg PO HS tiZANidine [Zanaflex] 4 mg PO Q8HR PRN 30 Days #90 tab PRN Reason: Muscle Spasm Magnesium Hydroxide [Milk of Magnesia Concentrate] 7,200 mg PO DAILY PRN PRN Reason: Constipation Thiamine HCl [Vitamin B-1] 100 mg PO DAILY Lidocaine 4% Patch 1 unit TRANSDERM DAILY bisacodyL [Dulcolax] 10 mg RECTAL DAILY PRN PRN Reason: Constipation Acetaminophen [Tylenol] 650 mg PO Q4H PRN PRN Reason: Pain Or Fever > 100.5 Midodrine [ProAmatine] 5 mg PO AC-TID Discharge Medication List PARoxetine HCL 30 mg PO DAILY 05/26/23 [History] carvediloL [Coreg] 6.25 mg PO BID 05/26/23 [History] Cholecalciferol [Vitamin D3 (25 Mcg = 1000 Iu)] 50 mcg PO DAILY 08/30/24 [History] Mirtazapine [Remeron] 30 mg PO HS 08/30/24 [History] tiZANidine [Zanaflex] 4 mg PO Q8HR PRN 30 Days #90 tab 09/20/24 [Rx] Folic Acid 1 mg PO DAILY #30 tab 10/11/24 [Rx] Magnesium Hydroxide [Milk of Magnesia Concentrate] 7,200 mg PO DAILY PRN 10/17/24 [History] Thiamine HCl [Vitamin B-1] 100 mg PO DAILY 10/17/24 [History] Acetaminophen [Tylenol] 650 mg PO Q4H PRN 10/31/24 [History] Lidocaine 4% Patch 1 unit TRANSDERM DAILY 10/31/24 [History] Menthol/Zinc Oxide [Calprotect 0.44%-20.6% Oint] 1 applic TOPICAL BID 10/31/24 [History] Na Phos,M-B/Na Phos,Di-Ba [Fleet Adult] 133 ml RECTAL DAILY PRN 10/31/24 [History] bisacodyL [Dulcolax] 10 mg RECTAL DAILY PRN 10/31/24 [History] Caldesane Powder 81-15% 1 applic TOPICAL BID 11/01/24 [History] Furosemide [Lasix] 20 mg PO SUMOWETHFRSA 11/01/24 [History] Midodrine [ProAmatine] 5 mg PO AC-TID 11/01/24 [History] Midodrine [ProAmatine] 10 mg PO TU 11/01/24 [History] Lactulose [Cephulac] 20 gm PO DAILY #300 ml 11/03/24 [Rx] Follow up Appointment(s)/Referral(s): Ariel Goetz DO [Primary Care Provider] - 1-2 days Patient Instructions/Handouts: Constipation (DC), High Fiber Diet (DC) Discharge Disposition: - Preliminary Cause of Preliminary Cause of : Liver Cirrhosis
[2024-11-07] MEDS ORDERED: MIDODRINE 5 MG TAB PO PRN (15:31)
== END 2024-11-07 05:30 | disposition expired | DRG 388 ==
LOC: EC 15:18 → OBSVTOIN 20:46 → 6NMEDSUR 20:46 → 5NMEDONC 20:54
PROVIDERS: ADMIT Internal Medicine; ATTEND Internal Medicine
DX: K56.41 Fecal impaction (principal); G93.41 Metabolic encephalopathy; C22.9 Malignant neoplasm of liver, not specified as primary or secondary; E87.1 Hypo-osmolality and hyponatremia; K56.7 Ileus, unspecified; D69.6 Thrombocytopenia, unspecified; K70.31 Alcoholic cirrhosis of liver with ascites; N18.31 Chronic kidney disease, stage 3a; F32.A Depression, unspecified; D53.9 Nutritional anemia, unspecified; N17.9 Acute kidney failure, unspecified; K76.82 Hepatic encephalopathy; Z51.5 Encounter for palliative care; Z66 Do not resuscitate; E86.0 Dehydration; R74.01 Elevation of levels of liver transaminase levels; E87.5 Hyperkalemia; F41.9 Anxiety disorder, unspecified; F43.10 Post-traumatic stress disorder, unspecified; G62.9 Polyneuropathy, unspecified; G89.29 Other chronic pain; K52.89 Other specified noninfective gastroenteritis and colitis; Z85.46 Personal history of malignant neoplasm of prostate; Z87.891 Personal history of nicotine dependence; Z88.8 Allergy status to other drugs, medicaments and biological substances; Z77.098 Contact with and (suspected) exposure to other hazardous, chiefly nonmedicinal, chemicals; Z87.19 Personal history of other diseases of the digestive system
CPT/HCPCS: 36415; 71045; 74018; 74019; 74150; 74176; 80048; 80053; 82140; 85025; 85027; 93005; 96361; 96365; 96375; 99285